=== PATIENT | male | born 1960 | race Caucasian/White ===

== ENCOUNTER → 2020-04-04 09:53 | Outpatient (BNVA) | payer BC, MEDICARE, SELFPAY | PROVIDERS: PCP Nurse Practitioner Family; Visit Provider Urology | DX: N40.3 Nodular prostate with lower urinary tract symptoms (principal); R35.1 Nocturia | CPT/HCPCS: 51798; 81002; 99212 ==

== ENCOUNTER 2020-04-05 06:55 | Outpatient (REF) | payer BC, MEDICARE, SELFPAY ==
[2020-04-05 11:39] LABS: Alanine Aminotransferase 31 U/L (0-40); Albumin Level 4.8 g/dL (3.5-5.0); Alkaline Phosphatase 70 U/L (39-117); Anion Gap 13 (12-20); Aspartate Amino Transferase 20 U/L (5-37); Bilirubin Total 0.5 mg/dL (0.0-1.0); Blood Urea Nitrogen 17 mg/dL (9-16); Calcium 9.4 mg/dL (8.4-10.2); Carbon Dioxide 25 mmol/L (22-29); Chloride 102 mmol/L (96-108); Cholesterol 252 mg/dL; Estimated Glomerular Filt Rate > 60; Glucose Fasting 100 mg/dL (60-99); HDL Cholesterol 37 mg/dL; LDL Cholesterol Calculated 184 mg/dl; Potassium 4.4 mmol/l (3.3-5.1); Sodium 136 mmol/L (135-145); Total Protein 7.1 g/dL (6.5-8.0); Triglycerides 155 mg/dL
[2020-04-05 12:00] LABS: Prostate Specific Antigen Scr 1.12 ng/mL (<0.05-4.0); TSH reflex Free T4 2.28 mIU/mL (0.32-4.0); Vitamin D 25-OH Total 48.5 ng/mL (>30)
== END 2020-04-05 06:56 | disposition home or self-care (01) ==
LOC: HO.HMGCLDS 06:55
PROVIDERS: PCP Nurse Practitioner Family; Visit Provider Nurse Practitioner Family
DX: Z12.5 Encounter for screening for malignant neoplasm of prostate (principal); Z00.00 Encounter for general adult medical examination without abnormal findings
CPT/HCPCS: 80053; 80061; 82306; 84153; 84443

== ENCOUNTER 2020-08-08 11:02 | Outpatient (REF) | payer BC, MEDICARE, SELFPAY ==
[2020-08-08 13:56] LABS: Basophils Percent Auto 0.4 % (0-2); Eosinophils Percent Auto 0.4 % (0-4); Hematocrit 46.9 % (42-52); Hemoglobin 15.8 g/dl (14.0-18.0); Imm Gran Abs Auto 0.05 X10*3/uL (0.00-0.03); Imm Gran Pct Auto 0.5 % (0.0-0.4); Lymphocytes Absolute Auto 2.1 X10*3/uL (1.2-4.9); Lymphocytes Percent Auto 21.6 % (20-40); Mean Corpuscular HGB Conc 33.7 g/dl (31.0-36.0); Mean Corpuscular Hemoglobin 29.6 pg (27.0-33.0); Mean Corpuscular Volume 87.8 fL (80-98); Mean Platelet Volume 10.5 fL (9.4-12.4); Monocytes Absolute Auto 0.8 X10*3/uL (0.1-1.2); Monocytes Percent Auto 8.2 % (2-11); Neutrophils Absolute Auto 6.5 X10*3/uL (2.0-8.3); Neutrophils Percent Auto 68.9 % (45-73); Platelet Count 328 X10*3/uL (160-400); Red Blood Count 5.34 X10*6/uL (4.60-5.80); Red Cell Distribution Width 12.9 % (11.0-16.0); White Blood Count 9.5 X10*3/uL (4.8-10.8)
[2020-08-08 13:58] LABS: MANUAL DIFF FLAG NO
[2020-08-08 15:00] LABS: Alanine Aminotransferase 21 U/L (0-40); Albumin Level 5.1 g/dL (3.5-5.0); Alkaline Phosphatase 72 U/L (39-117); Anion Gap 17 (12-20); Aspartate Amino Transferase 16 U/L (5-37); Bilirubin Total 0.6 mg/dL (0.0-1.0); Blood Urea Nitrogen 18 mg/dL (9-16); Calcium 9.9 mg/dL (8.4-10.2); Carbon Dioxide 25 mmol/L (22-29); Chloride 103 mmol/L (96-108); Cholesterol 224 mg/dL; Estimated Glomerular Filt Rate > 60; Glucose Fasting 93 mg/dL (60-99); HDL Cholesterol 39 mg/dL; LDL Cholesterol Calculated 159 mg/dl; Potassium 4.1 mmol/L (3.3-5.1); Sodium 141 mmol/L (135-145); Total Protein 7.6 g/dL (6.5-8.0); Triglycerides 130 mg/dL
== END 2020-08-08 11:03 | disposition home or self-care (01) ==
LOC: HO.HMGCLDS 11:02
PROVIDERS: PCP Nurse Practitioner Family; Visit Provider Nurse Practitioner Family
DX: E78.5 Hyperlipidemia, unspecified (principal)
CPT/HCPCS: 36415; 80053; 80061; 85025

== ENCOUNTER → 2020-09-20 09:07 | Outpatient (BNVA) | payer BC, MEDICARE, SELFPAY | PROVIDERS: PCP Nurse Practitioner Family; Referring Provider Nurse Practitioner Family; Visit Provider Internal Medicine Cardiovascular Disease | DX: I45.10 Unspecified right bundle-branch block (principal); I10 Essential (primary) hypertension; R06.00 Dyspnea, unspecified | CPT/HCPCS: 93005; 99212 ==

== ENCOUNTER → 2021-04-05 08:24 | Outpatient (BNVA) | payer BC, MEDICARE, SELFPAY | PROVIDERS: PCP Nurse Practitioner Family; Visit Provider Urology | DX: N40.1 Benign prostatic hyperplasia with lower urinary tract symptoms (principal); R35.1 Nocturia; N40.2 Nodular prostate without lower urinary tract symptoms | CPT/HCPCS: 51798 ==

== ENCOUNTER 2021-05-04 06:45 | Outpatient (REF) | payer MEDICARE, SELFPAY ==
[2021-05-04 11:43] LABS: Appearance Urine CLEAR; Color Urine YELLOW; Glucose Urine UA NEG (NEG); Leukocyte Esterase Urine NEG (NEG); Nitrite Urine NEG (NEG); Specific Gravity - Urine 1.025 (1.005-1.025); Urine Blood NEG (NEG); Urine Ketones NEG (NEG); Urine Protein NEG (NEG-TRACE)
[2021-05-04 11:59] LABS: Alanine Aminotransferase 15 U/L (0-40); Albumin Level 4.7 g/dL (3.5-5.0); Alkaline Phosphatase 73 U/L (39-117); Anion Gap 13 (12-20); Aspartate Amino Transferase 16 U/L (5-37); Blood Urea Nitrogen 20 mg/dL (9-16); Calcium 10.2 mg/dL (8.4-10.2); Carbon Dioxide 28 mmol/L (22-29); Chloride 103 mmol/L (96-108); Cholesterol 271 mg/dL; Estimated Glomerular Filt Rate > 60; Glucose Fasting 93 mg/dL (60-99); HDL Cholesterol 37 mg/dL; LDL Cholesterol Calculated 213 mg/dl; Potassium 4.1 mmol/L (3.3-5.1); Sodium 140 mmol/L (135-145); Total Protein 7.1 g/dL (6.5-8.0); Triglycerides 109 mg/dL
[2021-05-04 12:05] LABS: Prostate Specific Antigen Scr 1.16 ng/mL (<0.05-4.0); TSH reflex Free T4 1.66 uIU/mL (0.32-4.0)
== END 2021-05-04 06:46 | disposition home or self-care (01) ==
LOC: HO.HMGCLDS 06:45
PROVIDERS: PCP Nurse Practitioner Family; Visit Provider Nurse Practitioner Family
DX: Z12.5 Encounter for screening for malignant neoplasm of prostate (principal); E78.5 Hyperlipidemia, unspecified; I10 Essential (primary) hypertension
CPT/HCPCS: 36415; 80053; 80061; 81003; 84153; 84443

== ENCOUNTER 2021-07-09 06:48 | Outpatient (REF) | payer MEDICARE, SELFPAY ==
[2021-07-09 11:55] LABS: Alanine Aminotransferase 17 U/L (0-40); Albumin Level 4.6 g/dL (3.5-5.0); Alkaline Phosphatase 65 U/L (39-117); Anion Gap 12 (12-20); Aspartate Amino Transferase 17 U/L (5-37); Bilirubin Total 0.8 mg/dL (0.0-1.0); Blood Urea Nitrogen 18 mg/dL (9-16); Calcium 9.3 mg/dL (8.4-10.2); Carbon Dioxide 24 mmol/L (22-29); Chloride 109 mmol/L (96-108); Cholesterol 159 mg/dL; Estimated Glomerular Filt Rate > 60; Glucose Fasting 100 mg/dL (60-99); HDL Cholesterol 35 mg/dL; LDL Cholesterol Calculated 109 mg/dl; Potassium 3.9 mmol/L (3.3-5.1); Sodium 141 mmol/L (135-145); Total Protein 6.8 g/dL (6.5-8.0); Triglycerides 76 mg/dL
== END 2021-07-09 06:49 | disposition home or self-care (01) ==
LOC: HO.HMGCLDS 06:48
PROVIDERS: Visit Provider Nurse Practitioner Family
DX: E78.5 Hyperlipidemia, unspecified (principal)
CPT/HCPCS: 36415; 80053; 80061

== ENCOUNTER → 2021-09-27 12:47 | Outpatient (BNVA) | payer MEDICARE, MEDICAID, SELFPAY | PROVIDERS: PCP Nurse Practitioner Family; Referring Provider Nurse Practitioner Family; Visit Provider Internal Medicine Cardiovascular Disease | DX: I45.10 Unspecified right bundle-branch block (principal); I10 Essential (primary) hypertension; R06.00 Dyspnea, unspecified | CPT/HCPCS: 93005; 99212 ==

== ENCOUNTER 2021-10-17 06:10 | Outpatient (REF) | payer MEDICARE, MEDICAID, SELFPAY ==
[2021-10-17 11:11] LABS: MANUAL DIFF FLAG NO
[2021-10-17 11:36] LABS: Basophils Percent Auto 0.6 % (0-2); Eosinophils Absolute Auto 0.2 X10*3/uL (0.0-0.4); Eosinophils Percent Auto 2.6 % (0-4); Hemoglobin 14.5 g/dl (14.0-18.0); Imm Gran Abs Auto 0.02 X10*3/uL (0.00-0.03); Imm Gran Pct Auto 0.3 % (0.0-0.4); Lymphocytes Percent Auto 29.4 % (20-40); Mean Corpuscular Hemoglobin 29.8 pg (27.0-33.0); Mean Corpuscular Volume 90.3 fL (80.0-98.0); Mean Platelet Volume 11.4 fL (9.4-12.4); Monocytes Absolute Auto 0.7 X10*3/uL (0.1-1.2); Monocytes Percent Auto 10.1 % (2-11); Neutrophils Absolute Auto 3.9 x10*3/uL (2.0-8.3); Platelet Count 269 X10*3/uL (160-400); Red Blood Count 4.87 X10*6/uL (4.60-5.80); Red Cell Distribution Width 13.2 % (11.0-16.0); White Blood Count 6.9 X10*3/uL (4.8-10.8)
[2021-10-17 12:06] LABS: Rheumatoid Factor < 15.0 IU/mL (<15.0)
[2021-10-17 12:33] LABS: Erythrocyte Sedimentation Rate 6 MM/HR (0-15)
[2021-10-19 08:47] LABS: Lyme Abs Screen <0.90 index
[2021-10-25 00:02] LABS: Cyclic Citrullinated Peptide <16 UNITS
== END 2021-10-17 06:11 | disposition home or self-care (01) ==
LOC: HO.HMGCLDS 06:10
PROVIDERS: Visit Provider Nurse Practitioner Family
DX: M25.50 Pain in unspecified joint (principal); R06.02 Shortness of breath
CPT/HCPCS: 36415; 85025; 85652; 86140; 86200; 86431; 86617; 86618

== ENCOUNTER 2021-11-13 11:18 | Outpatient (REF) | payer MEDICARE, MEDICAID, SELFPAY ==
--- NOTE | ~2021-11-13 | XR_ITS ---
EXAMINATION: XR CHEST CLINICAL INFORMATION: Dyspnea COMPARISON: Previous chest x-ray most recent February 2012 TECHNIQUE: 2 views of the chest were obtained. FINDINGS: The cardiac and mediastinal contours are stable. The lungs are clear. There is slight elevation of the right hemidiaphragm that is stable. Lung volumes are low. There is no pleural effusion or pneumothorax. There are mild degenerative changes of the spine. XR/XR chest 2V IMPRESSION: No evidence for acute disease in the chest. Slight elevation of the right hemidiaphragm and low lung volumes similar to previous exam.
== END 2021-11-13 11:19 | disposition home or self-care (01) ==
LOC: HO.XRAY 11:18
PROVIDERS: PCP Nurse Practitioner Family; Visit Provider Internal Medicine
DX: R06.00 Dyspnea, unspecified (principal); J44.9 Chronic obstructive pulmonary disease, unspecified
CPT/HCPCS: 71046; 99202

== ENCOUNTER 2021-12-07 07:52 | Outpatient (REF) | payer MEDICARE, MEDICAID, SELFPAY ==
--- NOTE | 2021-12-07 12:06 | PFT_ITS ---
INDICATION: Shortness of breath. SPIROMETRY: FEV1 to FVC of 90% with an FEV1 of 2.82 L, which is 88% predicted, an FVC of 3.13 L, which is 73% predicted. No significant response to bronchodilators noted. Maximum voluntary ventilation 78% predicted. LUNG VOLUMES: Total lung capacity 66% predicted with an expiratory reserve volume of 28% predicted. DIFFUSION CAPACITY: DLCO 70% predicted with a DLCO corrected of 106% predicted. COMPARISONS: None. INTERPRETATION: No obstructive ventilatory defects. No significant response to bronchodilators noted, and just a slight mild decrease in maximum voluntary ventilation secondary to likely deconditioning. Lung volumes do demonstrate a restrictive ventilatory defect consistent with mild restrictive lung disease. Partly due to the elevated BMI although interstitial lung conditions and/or neuromuscular conditions cannot be ruled out. The patient does have a mild diffusion impairment secondary to the above, but it does correct to normal when correcting for the alveolar volume suggesting that there is less likely intrinsic pulmonary parenchymal component. Clinical correlation warranted. Simba Rose MD MR/MODL / [id number]
== END 2021-12-07 07:53 | disposition home or self-care (01) ==
LOC: HO.RESP 07:52
PROVIDERS: PCP Nurse Practitioner Family; Visit Provider Nurse Practitioner Family
DX: R06.02 Shortness of breath (principal)
CPT/HCPCS: 94060; 94727; 94729

== ENCOUNTER → 2021-12-20 10:12 | Outpatient (BNVA) | payer MEDICARE, MEDICAID, SELFPAY | PROVIDERS: PCP Nurse Practitioner Family; Visit Provider Internal Medicine | DX: R06.00 Dyspnea, unspecified (principal); E66.9 Obesity, unspecified; J98.4 Other disorders of lung | CPT/HCPCS: 99212 ==

== ENCOUNTER 2022-01-10 09:31 | Outpatient (REF) | payer MEDICARE, MEDICAID, SELFPAY ==
--- NOTE | ~2022-01-10 | XR_ITS ---
EXAMINATION: XR HAND, RIGHT XR HAND, LEFT CLINICAL INFORMATION: Bilateral pain hands. COMPARISON: Radiographs bilateral hands 02/13/2012. TECHNIQUE: There is total of 6 views. FINDINGS: Right: No fracture, dislocation, destructive process. Bony mineralization is within normal. No periarticular demineralization. The ulnar variance is neutral. There is borderline narrowing triscaphe joint. No subchondral sclerosis or erosive change. Remainder of the carpus unremarkable. The MCP and interphalangeal joints show no narrowing or erosive change. Left: No fracture, dislocation, destructive process. Bony mineralization is within normal. No periarticular demineralization. The ulnar variance is neutral. There is a small subchondral cyst radial side distal radius under 5 mm with circumscribed margins. No matrix mineralization. No subchondral sclerosis or erosive change. Remainder of the carpus unremarkable. The MCP and interphalangeal joints show no narrowing or erosive change. XR/XR hand LT min 3V IMPRESSION: Right: -Borderline narrowing triscaphe joint. No erosive changes. Left: -No focal joint narrowing. No erosive changes. -Small benign circumscribed cyst distal radius.
--- NOTE | ~2022-01-10 | XR_ITS ---
EXAMINATION: XR HAND, RIGHT XR HAND, LEFT CLINICAL INFORMATION: Bilateral pain hands. COMPARISON: Radiographs bilateral hands 02/13/2012. TECHNIQUE: There is total of 6 views. FINDINGS: Right: No fracture, dislocation, destructive process. Bony mineralization is within normal. No periarticular demineralization. The ulnar variance is neutral. There is borderline narrowing triscaphe joint. No subchondral sclerosis or erosive change. Remainder of the carpus unremarkable. The MCP and interphalangeal joints show no narrowing or erosive change. Left: No fracture, dislocation, destructive process. Bony mineralization is within normal. No periarticular demineralization. The ulnar variance is neutral. There is a small subchondral cyst radial side distal radius under 5 mm with circumscribed margins. No matrix mineralization. No subchondral sclerosis or erosive change. Remainder of the carpus unremarkable. The MCP and interphalangeal joints show no narrowing or erosive change. XR/XR hand RT min 3V IMPRESSION: Right: -Borderline narrowing triscaphe joint. No erosive changes. Left: -No focal joint narrowing. No erosive changes. -Small benign circumscribed cyst distal radius.
== END 2022-01-10 09:32 | disposition home or self-care (01) ==
LOC: HO.HMGCX 09:31
PROVIDERS: PCP Nurse Practitioner Family; Visit Provider Nurse Practitioner Family
DX: M25.50 Pain in unspecified joint (principal); E53.8 Deficiency of other specified B group vitamins; I10 Essential (primary) hypertension
CPT/HCPCS: 73130

== ENCOUNTER → 2022-03-29 08:23 | Outpatient (BNVA) | payer MEDICARE, MEDICAID, SELFPAY | PROVIDERS: PCP Nurse Practitioner Family; Visit Provider Urology | DX: R35.1 Nocturia (principal); M25.50 Pain in unspecified joint | CPT/HCPCS: 51798; 99212 ==

== ENCOUNTER 2022-04-10 06:04 | Outpatient (REF) | payer MEDICARE, MEDICAID, SELFPAY ==
[2022-04-10 11:16] LABS: MANUAL DIFF FLAG NO
[2022-04-10 11:34] LABS: Basophils Percent Auto 0.5 % (0-2); Eosinophils Absolute Auto 0.1 X10*3/uL (0.0-0.4); Eosinophils Percent Auto 1.1 % (0-4); Hematocrit 45.1 % (42.0-52.0); Hemoglobin 14.8 g/dl (14.0-18.0); Imm Gran Abs Auto 0.02 X10*3/uL (0.00-0.03); Imm Gran Pct Auto 0.3 % (0.0-0.4); Lymphocytes Absolute Auto 2.1 X10*3/uL (1.2-4.9); Mean Corpuscular HGB Conc 32.8 g/dl (31.0-36.0); Mean Corpuscular Hemoglobin 29.1 pg (27.0-33.0); Mean Corpuscular Volume 88.8 fL (80.0-98.0); Mean Platelet Volume 11.2 fL (9.4-12.4); Monocytes Absolute Auto 0.8 X10*3/uL (0.1-1.2); Monocytes Percent Auto 9.5 % (2-11); Neutrophils Absolute Auto 4.9 x10*3/uL (2.0-8.3); Neutrophils Percent Auto 62.6 % (45-73); Platelet Count 298 X10*3/uL (160-400); Red Blood Count 5.08 X10*6/uL (4.60-5.80); Red Cell Distribution Width 12.9 % (11.0-16.0); White Blood Count 7.9 X10*3/uL (4.8-10.8)
[2022-04-10 12:05] LABS: Alanine Aminotransferase 21 U/L (0-40); Albumin Level 4.6 g/dL (3.5-5.0); Alkaline Phosphatase 75 U/L (39-117); Anion Gap 13 (12-20); Aspartate Amino Transferase 15 U/L (5-37); Bilirubin Total 0.4 mg/dL (0.0-1.0); Blood Urea Nitrogen 25 mg/dL (9-16); Calcium 9.1 mg/dL (8.4-10.2); Carbon Dioxide 25 mmol/L (22-29); Chloride 109 mmol/L (96-108); Cholesterol 268 mg/dL; Estimated Glomerular Filt Rate > 60; Glucose Fasting 108 mg/dL (60-99); HDL Cholesterol 34 mg/dL; LDL Cholesterol Calculated 199 mg/dl; Potassium 4.1 mmol/L (3.3-5.1); Prostate Specific Antigen Scr 0.89 ng/mL (<0.05-4.0); Sodium 143 mmol/L (135-145); TSH reflex Free T4 1.56 uIU/mL (0.32-4.0); Total Protein 6.8 g/dL (6.5-8.0); Triglycerides 177 mg/dL
[2022-04-10 13:56] LABS: Folate 11.1 ng/mL (> or = 4.0); Vitamin B12 426 pg/mL (200-900)
== END 2022-04-10 06:05 | disposition home or self-care (01) ==
LOC: HO.HMGCLDS 06:04
PROVIDERS: PCP Nurse Practitioner Family; Visit Provider Nurse Practitioner Family
DX: Z12.5 Encounter for screening for malignant neoplasm of prostate (principal); I10 Essential (primary) hypertension; E53.8 Deficiency of other specified B group vitamins
CPT/HCPCS: 36415; 80053; 80061; 82607; 82746; 84153; 84443; 85025

== ENCOUNTER 2022-06-25 07:40 | Day surgery (SDC) | payer MEDICARE, MEDICAID, SELFPAY ==
[2022-06-25 07:57] VITALS: BMI 31.6
[2022-06-25 08:05] VITALS: BP 131/88; PULSE 97; RESP 16; TEMP 36.2; O2SAT 96
[2022-06-25] MEDS: Lactated Ringers 1,000 ML 50 ML IVCONT (08:25)
--- NOTE | 2022-06-25 08:39 | P.CONAN_ITS ---
HPI - Anesthesia Eval Consult details Narrative: 61 M for EGD and colonoscopy [facility] Active Problems Active Problems: All Active Problems (Updated 04/10/22 @ 12:16 by DONY Root) Dyslipidemia (Acute) Disorder of vitamin B12 (Acute) Screening for colon cancer (Acute) Restrictive lung disease (Acute) Obesity (BMI 30-39.9) (Acute) COPD (chronic obstructive pulmonary disease) (Acute) SOB (shortness of breath) (Acute) Arthralgia (Acute) Nocturia associated with benign prostatic hyperplasia (Acute) Encounter for annual wellness visit (AWV) in Medicare patient (Acute) Screening PSA (prostate specific antigen) (Acute) Cellulitis (Acute) RBBB (Acute) FLYNN (dyspnea on exertion) (Acute) Dyslipidemia (Acute) Hypertension (Acute) Finger laceration (Acute) Prostate nodule (Acute) Nocturia more than twice per night (Acute) Screening PSA (prostate specific antigen) (Acute) Physical exam (Acute) Past Medical History Medical History Anemia Carpal tunnel syndrome of left wrist Cervical spondylosis Diverticulitis GERD (gastroesophageal reflux disease) Hypertension Insomnia LVH (left ventricular hypertrophy) Neuropathy Obesity (BMI 30-39.9) JOHANNY (obstructive sleep apnea) RAD (reactive airway disease) RBBB Restrictive lung disease Sacroiliitis Tinea cruris Functional capacity: independent ambulation Family History Family History Father Myocardial infarction Diabetes mellitus CVD (cardiovascular disease) Mother No problems noted. Brother Diabetes mellitus Sister Diabetes mellitus Cancer Family history of problems with anesthesia: No Surgical History Surgical History History of carpal tunnel surgery History of tonsillectomy History of Problems with Anesthesia: Yes (Ponv ) Social History Social History Housing: House Alcohol intake: never Patient Tobacco Use Status: Never used Tobacco e-Cigarette/Vaping Use: Never Used Use of substances other than those prescribed or required for medical reasons: No Are you DNR?: No Advance Directives: No Advance Directives Information Provided: Yes service: No Current occupational status: disabled Cognitive needs: No Hearing needs: No Vision needs: Yes Meds Allergies Allergy/AdvReac Type Severity Reaction Status Date / Time orphenadrine [From Norflex] Allergy Mild UNKNOWN Verified 05/09/22 08:42 piroxicam [From Feldene] Allergy Mild UNKNOWN Verified 05/09/22 08:42 amoxicillin Allergy Unknown unknown Verified 05/09/22 08:42 lisinopril Allergy Unknown cough Verified 05/09/22 08:42 pravastatin AdvReac Mild body aches Verified 05/09/22 08:42 Active Medications: Current Medications Lactated Ringer's (Lr) 1,000 mls @ 50 mls/hr IVCONT .Q20H GEOVANNY Last Admin: 06/25/22 08:25 Dose: 50 mls/hr Home Medications Medication Instructions Recorded Confirmed Last Taken Type cholecalciferol (vitamin D3) 125 125 mcg PO DAILY 11/13/21 06/25/22 Unknown History mcg (5,000 unit) capsule magnesium 200 mg tablet 200 mg PO DAILY 11/13/21 06/25/22 Unknown History zinc 50 mg tablet 50 mg PO DAILY 11/13/21 06/25/22 Unknown History acetaminophen 650 mg 650 mg PO Q8H 02/14/22 06/25/22 Unknown History tablet,extended release (Tylenol Arthritis Pain) antiarthritic combination no.2 900 900 mg PO DAILY 02/14/22 06/25/22 Unknown History mg tablet (glucosamine-chondroitin) krill oil 500 mg capsule 500 mg PO DAILY 02/14/22 06/25/22 Unknown History omeprazole 40 mg capsule,delayed 1 cap PO QAM 06/25/22 06/25/22 06/25/22 07:55 History release Exam Exam Date and Time: June 25, 2022 0839 Height,Weight and Vital Signs: Height 5 ft 7 in Weight 91.626 kg Last Vital Signs Temp 97.1 F 06/25/22 08:05 Pulse 97 06/25/22 08:05 Resp 16 06/25/22 08:05 BP 131/88 06/25/22 08:05 Pulse Ox 96 06/25/22 08:05 O2 Del Method 06/25/22 08:05 Airway Mallampati Class: IV TM Dist: >3cm Neck ROM: Full Loose/Missing/Broken Teeth: Yes (Chipped upper front ) Heart: S1,S2 Lungs: b/l breath sounds Assessment and Plan Assessment Anesthesia Assessment: Anesthesia Plan Discussed and Chart Reviewed Final Anesthetic Review Family History of Problems with Anesthesia: No History of Problems with Anesthesia: Yes (Ponv ) NPO: Yes ASA Class: III Final Preanesthetic Review: Meds/Allgs Chart Reviewed, Consent Obtained/Reviewed and Anes Risks/Benef Reviewed Patient Risk: High Procedure Risk: Intermediate Anesthetic Plan Anesthetic Plan: MAC: Disposition: Standard PACU
--- NOTE | 2022-06-25 08:58 | MHC.SHP ---
Pre-Procedural Eval Section A Date of Service: 06/25/22 The patient is an INPATIENT: No Changes since office visit: No Cold of Flu in the past 2 weeks, No New Medical Problems, No Changes in Medication and No Patient answered all questions The History & Physical has been completed within 30 days and I have reviewed it.: Yes Section B Chief Complaint: reflux,screening Allergies: Allergies Allergy/AdvReac Type Severity Reaction Status Date / Time orphenadrine [From Norflex] Allergy Mild UNKNOWN Verified 05/09/22 08:42 piroxicam [From Feldene] Allergy Mild UNKNOWN Verified 05/09/22 08:42 amoxicillin Allergy Unknown unknown Verified 05/09/22 08:42 lisinopril Allergy Unknown cough Verified 05/09/22 08:42 pravastatin AdvReac Mild body aches Verified 05/09/22 08:42 Plan I have reviewed the history and physical and performed a pertinent physical examination on my patient. No changes have occurred unless specified. Time Spent With Patient Time: Total time managing care of this patient today ____ minutes.
--- NOTE | 2022-06-25 09:06 | PC.NURSE ---
MD NEWMANAS AWARE OF ARRHYTHMIA
--- NOTE | 2022-06-25 09:42 | P.BOP_ITS ---
Brief Operative Note Date of Service: 06/25/22 Pre-op diagnosis: gerd screening Post-op diagnosis: same Procedure: egd colonscopy Surgeon: Basilio Naylor Anesthesia: MAC Was an Front Desk Manager used for this Procedure?: No Estimated blood loss (mL): 5 Pathology: other Condition: stable Disposition: PACU
[2022-06-25 09:44] VITALS: BP 110/65; PULSE 94; RESP 20; TEMP 36.9; O2SAT 98
[2022-06-25 09:59] VITALS: BP 114/63; PULSE 87; RESP 17; O2SAT 95
--- NOTE | 2022-06-25 09:59 | OP_ITS ---
SURGEON: Basilio Naylor MD INDICATIONS: 1. Gastroesophageal reflux disease. 2. Colon cancer screening and prior history of adenomatous colon polyps. PREOPERATIVE DIAGNOSIS: POSTOPERATIVE DIAGNOSIS: PROCEDURE PERFORMED: Upper endoscopy with biopsy, colonoscopy to the terminal ileum. ESTIMATED BLOOD LOSS: COMPLICATIONS: ANESTHESIA: Medications; monitored anesthesia care. ASSISTANTS: SPECIMENS: PROCEDURE DESCRIPTION: A history and physical performed. The risks and benefits of the procedure were explained to the patient. The procedure was performed on 06/25. The patient was placed in the left lateral decubitus position. Informed consent was obtained prior to the procedure. A digital rectal exam was performed prior to the colonoscopy. The Olympus videogastroscope was introduced into the esophagus, stomach, and duodenum. Examination was performed. The scope was removed. He was repositioned for colonoscopy. A digital rectal exam was performed and was found to be normal. The Olympus pediatric videocolonoscope was introduced into the rectum and advanced to the cecum without difficulty. The cecum was identified by transillumination, palpation, and identification of ileocecal valve. Examination was performed. The scope was removed. He tolerated both procedures well and was taken to recovery room in stable condition. FINDINGS: Upper endoscopy of esophagus: The esophagus was normal. There was no esophagitis. The EG junction was irregular and biopsies were obtained from this area. Stomach: The stomach showed no evidence of masses, ulcers, or polyps. Antral biopsies were obtained to rule out H pylori. Duodenum: The bulb and 2nd portion were normal. Colonoscopy: The terminal ileum was examined and appeared normal. The visualized colonic mucosa was normal. The quality of the prep was good. No polyps were identified. There was mild sigmoid diverticulosis. Retroflexed examination showed moderate-sized internal hemorrhoids. IMPRESSION: 1. Gastroesophageal reflux disease. 2. Normal colonoscopy. RECOMMENDATIONS: 1. Follow up the biopsy results. 2. Repeat colonoscopy can be considered in 10 years for average risk individuals. MD DEBBIE Stallworth/RAF / [id number]
[2022-06-25 10:10] VITALS: BP 124/75; PULSE 87; RESP 18; TEMP 36.9; O2SAT 97
== END 2022-06-25 10:24 | disposition home or self-care (01) ==
PROVIDERS: PCP Nurse Practitioner Family; Visit Provider Internal Medicine Gastroenterology
PROC: (CPT 43239; principal; 2022-06-25 08:50)
DX: Z12.11 Encounter for screening for malignant neoplasm of colon (principal); Z86.010 Personal history of colon polyps; K57.30 Diverticulosis of large intestine without perforation or abscess without bleeding; K64.8 Other hemorrhoids; Z86.018 Personal history of other benign neoplasm; K21.9 Gastro-esophageal reflux disease without esophagitis; Z87.19 Personal history of other diseases of the digestive system; I10 Essential (primary) hypertension; E78.00 Pure hypercholesterolemia, unspecified; G47.33 Obstructive sleep apnea (adult) (pediatric); Z79.899 Other long term (current) drug therapy; Z88.1 Allergy status to other antibiotic agents; Z88.0 Allergy status to penicillin
CPT/HCPCS: 43239; G0105; 88305; 88342

== ENCOUNTER → 2022-07-24 09:21 | Outpatient (BNVA) | payer MEDICARE, MEDICAID, SELFPAY | PROVIDERS: PCP Nurse Practitioner Family; Visit Provider Internal Medicine Cardiovascular Disease | DX: Z13.89 Encounter for screening for other disorder (principal) ==

== ENCOUNTER → 2022-08-01 07:54 | Outpatient (REF) | payer MEDICARE, MEDICAID, SELFPAY ==
--- NOTE | 2022-08-01 07:57 | HM_ITS ---
Conclusion: 1. Patient was monitored for total period of 23 hours 2. Baseline was normal sinus rhythm with average heart rate of 81 beats per minute 3. Total of 15,241 PVCs accounting for 13.6% total beats account for frequent PVCs 4. No significant pauses noted but first-degree AV block was noted 5. No patient reported symptoms MTDD
--- NOTE | 2022-08-01 07:57 | CA_ITS ---
Transthoracic Echocardiogram Patient (Last, First, Middle): Jonnie Alexander H Gender: Male Date of : 1960 Age: 61 Procedure Date: 08/01/2022 Procedure Type: Transthoracic Echocardiogram Location: OP Height: 170.18 cm Weight: 95.26 kg BSA: 2.06 m2 Heart Rate: bpm BP: 139 / 79 mmHg Photographer News: TO Referring MD: Reji Mercedes MD Clerk Of Court: Reji Mercedes MD Symptoms: I49.3 - Ventricular premature depolarization Study Quality: Fair/Contrast Conclusions: - Normal left ventricular size and systolic function. There is mildly increased left ventricular wall thickness. The visually estimated ejection fraction is between 55-60%. - The anterior wall is hypokinetic. - Normal right ventricular cavity size and systolic function. Findings Procedure Information Contrast agent, definity, is being given per protocol without apparent complications. Left Ventricle Normal left ventricular size and systolic function. There is mildly increased left ventricular wall thickness. The visually estimated ejection fraction is between 55-60%. There is evidence of regional wall motion abnormalities. Diastolic function is normal for age. There is moderate septal asymmetric hypertrophy. Wall Motion Rest Echo Findings The anterior wall is hypokinetic. Right Ventricle Normal right ventricular cavity size and systolic function. Atria The left atrium is normal in size. Aortic Valve Normal aortic valve structure and function. There is no aortic valve stenosis. There is no aortic valve regurgitation. Mitral Valve The mitral valve appears normal. There is trace mitral valve regurgitation. There is no mitral valve stenosis. Pulmonic Valve Normal pulmonic valve structure and function. There is trace pulmonic valve regurgitation. Tricuspid Valve Normal tricuspid valve structure and function. There is trace tricuspid valve regurgitation. Normal right atrial pressure. There is no evidence of pulmonary hypertension. Great Vessels All visible segments of the aorta are normal in size. The visualized portions of the pulmonary artery and branches are normal. Venous The inferior vena cava is normal in size and collapses greater than 50% with inspiration. Pericardium/Pleural There is no evidence of pericardial effusion. Prior Study Comparison Changes noted compared to prior study dated: 04/14/2018. Anterior wall is hypokinetic. Measurements 2D Linear Measurements IVSd: 1.42 0.6-0.9/0.6-1.0 cm LVIDd: 4.88 3.9-5.3/4.2-5.9 cm LVIDd Index: 2.37 2.4-3.2/2.2-3.1 cm/m2 LVIDs: 3.11 2.0-3.6 cm LVPWd: 1.10 0.7-1.1 cm LA Diam: 4.10 2.7-3.8/3.0-4.0 cm LAIDs Index: 1.99 1.5-2.3 cm/m2 LV Mass: 300.57 67-162/88-224 g LV Mass Index: 145.91 43-95/49-115 g/m2 LVOT Diam: 2.30 3.0+(-)1.3 cm 2D Systolic Function EF 4C: 61.10 >55% EF 2C: 57.40 >55% EF BiP: 60.00 >55% Mitral Valve E'Lateral: 9.03 E'Medial: 6.20 Aortic Valve AoV Pk Benja: 1.52 AoV Mn Benja: 1.05 AoV VTI: 0.31 AoV Pk Grad: 9.00 Aov Mn Grad: 5.00 GE Cont.VTI: 2.88 LVOT LVOT Pk Benja: 1.01 LVOT Mn Benja: 0.70 LVOT VTI: 0.22 LVOT Pk Grad: 4.00 LVOT Mn Grad: 2.00 LVOT Diam: 2.30 LVOT Area: 4.15 Diastolic Function E'Medial: 6.20 E' Laterial: 9.03 Right Ventricle TAPSE (mm): 18.00 TVS' Benja: 10.20 Tricuspid Valve TR Pk Benja: 1.41 TR Pk Grad: 8.00 RA Press: 3.00 RVSP: 11.00 Great Vessels Aorta Sinus of Valsalva: 3.06 2.0-3.5 cm Ao Asc: 2.80 2.1-3.4 cm Updated in Other Vendor System with Status of Final Reji Mercedes MD electronically signed on 08/04/2022 6:06:06 PM with status of Final
== END ==
LOC: HO.CARD 07:54
PROVIDERS: PCP Nurse Practitioner Family; Visit Provider Internal Medicine Cardiovascular Disease
DX: I10 Essential (primary) hypertension (principal); I49.3 Ventricular premature depolarization; R94.31 Abnormal electrocardiogram [ECG] [EKG]
CPT/HCPCS: 93225; 93306; Q9957

== ENCOUNTER → 2022-08-13 08:18 | Outpatient (REF) | payer MEDICARE, MEDICAID, SELFPAY ==
--- NOTE | ~2022-08-13 | NM_ITS ---
Exercise Myocardial perfusion study Indication: Shortness of breath with exertion to evaluate for myocardial ischemia Technique: The patient was brought in for an exercise perfusion study on 08/13/2022. Patient performed exercise as per Xavi protocol and was injected 35 mCi of sestamibi was given intravenously one target HR was achieved. Images were obtained using the SPECT gamma camera interlaced with the gating device. Images were obtained in supine position. Resting perfusion study was performed on 08/14/2022. Patient was administered 35 mCi of sestamibi intravenously at rest. Images were then obtained in supine position. Images obtained with and without CT attenuation. Total DLP 104 mGy-cm. Images were processed with the software and compared side to side in short axis, horizontal long axis and vertical long axis views. Findings: The stress perfusion study showed non attenuated images show mildly reduced uptake in the septum, apex as well as minimal thinning of the inferior wall of the LV myocardium. Remainder of the LV myocardium is normally perfused. Attenuated corrected images show moderately reduced uptake in the apex of the LV myocardium.. The gated study shows normal LV systolic function with calculated LVEF of 48%. LV cavity is mildly dilated in size. The gated study shows no wall thickening and contraction of all segments. There is possible transient ischemic dilation. Resting study shows non attenuated images show improved uptake in the septum, apex and inferoapical wall of the myocardium suggestive of ischemia. Attenuation corrected images show normal uptake of radiotracer in all segments except moderate uptake in the apex.. Gating at rest reveals normal systolic wall motion with ejection fraction at 56%. The findings are consistent with non attenuated images show no reversible defect of the septum, inferoapical and apical portion suggestive of ischemia. Attenuation corrected images show no reversible moderately reduced uptake in the apex, probably over correction.. NM/NM cardiolite stress test Impression: 1. Possible septal, inferoapical and apical ischemia in RCA territory 2. Gated LVEF is 48% with stress and 56% with rest 3. Transient ischemic dilatation possibly present Stress EKG is positive for ischemia
[2022-08-13 08:36] LABS: MANUAL DIFF FLAG NO
--- NOTE | 2022-08-13 08:45 | CA_ITS ---
Acquisition Time: 2022-08-13 08:58:49 Total Exercise Time: 00:06:31 Test Indications: ABN ECHO, SOB Medications: SEE H Protocol: JENNIFER Max HR: 130 BPM 81% of Pred: 159 BPM Max BP: 142/080 mmHG Max Work Load: 7.8 METS Exercise stress test with exercise 6 min 31 sec of Jennifer protocol, achieving 81% MPHR with request to stop due to back and hip discomfort however reporting moderate sob and 4/10 mid chest pressure, with frequent isolated PVCs throughout test, with normotensive response to exercise, without EKG changes of ischemia with exercise then in recovery there are downsloping ST segments noted inferiorly and V3-V6 suggestive of ischemia. In recovery his chest discomfort gradually resolved and EKG changes gradually returned to baseline. Nuclear images pending. Test reviewed with Dr Barber Referred By: Reji Mercedes Overread By: NORMAN ESTRELLA
[2022-08-13 09:20] LABS: Basophils Absolute Auto 0.1 X10*3/uL (0.0-0.2); Basophils Percent Auto 0.7 % (0-2); Eosinophils Absolute Auto 0.1 X10*3/uL (0.0-0.4); Hematocrit 45.9 % (42.0-52.0); Hemoglobin 15.4 g/dl (14.0-18.0); Imm Gran Abs Auto 0.04 X10*3/uL (0.00-0.03); Imm Gran Pct Auto 0.4 % (0.0-0.4); Lymphocytes Absolute Auto 2.5 X10*3/uL (1.2-4.9); Lymphocytes Percent Auto 27.4 % (20-40); Mean Corpuscular HGB Conc 33.6 g/dl (31.0-36.0); Mean Corpuscular Hemoglobin 28.9 pg (27.0-33.0); Mean Corpuscular Volume 86.3 fL (80.0-98.0); Mean Platelet Volume 10.6 fL (9.4-12.4); Monocytes Absolute Auto 0.8 X10*3/uL (0.1-1.2); Monocytes Percent Auto 9.3 % (2-11); Neutrophils Absolute Auto 5.5 x10*3/uL (2.0-8.3); Neutrophils Percent Auto 61.2 % (45-73); Platelet Count 313 X10*3/uL (160-400); Red Blood Count 5.32 X10*6/uL (4.60-5.80); Red Cell Distribution Width 12.6 % (11.0-16.0)
[2022-08-13 10:10] LABS: Alanine Aminotransferase 24 U/L (0-40); Albumin Level 4.8 g/dL (3.5-5.0); Alkaline Phosphatase 75 U/L (39-117); Anion Gap 14 (12-20); Aspartate Amino Transferase 18 U/L (5-37); Bilirubin Total 0.6 mg/dL (0.0-1.0); Blood Urea Nitrogen 22 mg/dL (9-16); Calcium 9.9 mg/dL (8.4-10.2); Carbon Dioxide 28 mmol/L (22-29); Chloride 104 mmol/L (96-108); Cholesterol 204 mg/dL; Estimated Glomerular Filt Rate > 60; Glucose Fasting 100 mg/dL (60-99); HDL Cholesterol 32 mg/dL; LDL Cholesterol Calculated 147 mg/dl; Potassium 4.5 mmol/L (3.3-5.1); Sodium 141 mmol/L (135-145); Total Protein 6.8 g/dL (6.5-8.0); Triglycerides 126 mg/dL
[2022-08-13 10:44] LABS: TSH reflex Free T4 1.48 uIU/mL (0.32-4.0); Vitamin B12 501 pg/mL (200-900)
== END ==
LOC: HO.CARD 08:18
PROVIDERS: Absent Provider Nurse Practitioner Family; PCP Nurse Practitioner Family; Visit Provider Internal Medicine Cardiovascular Disease
DX: R06.02 Shortness of breath (principal)
CPT/HCPCS: 36415; 78452; 80053; 80061; 82607; 82746; 84443; 85025; 93017; A9500

== ENCOUNTER 2022-08-20 06:15 | Outpatient (REF) | payer MEDICARE, MEDICAID, SELFPAY ==
[2022-08-20 11:41] LABS: Appearance Urine Clear; Color Urine Yellow; Glucose Urine UA Negative (Negative); Leukocyte Esterase Urine Negative (Negative); Nitrite Urine Negative (Negative); Specific Gravity - Urine 1.025 (1.005-1.025); Urine Blood Negative (Negative); Urine Ketones Negative (Negative); Urine Protein Negative (Neg-Trace)
[2022-08-20 11:54] LABS: Prothrombin Time 11.2 SEC (10.0-13.1)
[2022-08-20 12:00] LABS: Hematocrit 46.3 % (42.0-52.0); Hemoglobin 15.3 g/dl (14.0-18.0); Mean Corpuscular Hemoglobin 29.4 pg (27.0-33.0); Mean Platelet Volume 11.7 fL (9.4-12.4); Platelet Count 277 X10*3/uL (160-400); Red Cell Distribution Width 12.9 % (11.0-16.0); White Blood Count 9.7 X10*3/uL (4.8-10.8)
[2022-08-20 12:32] LABS: Erythrocyte Sedimentation Rate 7 MM/HR (0-15)
[2022-08-20 12:42] LABS: Anion Gap 13 (12-20); Blood Urea Nitrogen 23 mg/dL (9-16); C Reactive Protein 0.29 mg/dL (< or = 0.50); Calcium 9.7 mg/dL (8.4-10.2); Carbon Dioxide 26 mmol/L (22-29); Chloride 106 mmol/L (96-108); Estimated Glomerular Filt Rate > 60; Glucose Random 102 mg/dL (60-115); Potassium 4.4 mmol/L (3.3-5.1); Rheumatoid Factor < 13.0 IU/mL (<15.0); Sodium 141 mmol/L (135-145)
[2022-08-23 03:15] LABS: A. Phagocytphilium DNA,RT-PCR NOT DETECTED (NOT DETECTED); Babesia Microti DNA, RT-PCR NOT DETECTED (NOT DETECTED); Borrelia Miyamotoi,DNA RT-PCR NOT DETECTED (NOT DETECTED); E.Chaffeensis DNA RT-PCR NOT DETECTED (NOT DETECTED); Lyme(Borrelia ssp)DNA RT-PCR NOT DETECTED (NOT DETECTED)
[2022-08-23 11:29] LABS: Cyclic Citrullinated Peptide <16 UNITS
[2022-08-23 15:14] LABS: Anti Nuclear Antibody Screen NEGATIVE (NEGATIVE)
== END 2022-08-20 06:16 | disposition home or self-care (01) ==
LOC: HO.HMGCLDS 06:15
PROVIDERS: Internal Medicine Cardiovascular Disease; PCP Nurse Practitioner Family; Visit Provider Nurse Practitioner Family
DX: M25.50 Pain in unspecified joint (principal); R94.39 Abnormal result of other cardiovascular function study; E53.8 Deficiency of other specified B group vitamins; K94.39 Other complications of esophagostomy; T14.8XXA Other injury of unspecified body region, initial encounter; W57.XXXA Bitten or stung by nonvenomous insect and other nonvenomous arthropods, initial encounter; Y93.9 Activity, unspecified; Y92.9 Unspecified place or not applicable; Y99.9 Unspecified external cause status
CPT/HCPCS: 36415; 80048; 81003; 85027; 85610; 85652; 86038; 86039; 86140; 86200; 86431; 87798; 87801

== ENCOUNTER 2022-09-09 11:13 | Outpatient (REF) | payer MEDICARE, MEDICAID, SELFPAY ==
[2022-09-09 11:31] LABS: Binax Internal Control QC Valid; Binax Now Covid-19 Ag Positive (Negative); Binax Performed by: PAULP
== END 2022-09-09 11:14 | disposition home or self-care (01) ==
LOC: HO.HMGCLDS 11:13
PROVIDERS: PCP Nurse Practitioner Family; Visit Provider Physician Assistant
DX: J40 Bronchitis, not specified as acute or chronic (principal); R19.7 Diarrhea, unspecified; R94.39 Abnormal result of other cardiovascular function study; E78.5 Hyperlipidemia, unspecified; R06.00 Dyspnea, unspecified; I10 Essential (primary) hypertension; Z20.822 Contact with and (suspected) exposure to COVID-19
CPT/HCPCS: 87811; C9803

== ENCOUNTER → 2022-10-18 09:43 | Outpatient (BNVA) | payer MEDICARE, MEDICAID, SELFPAY | PROVIDERS: PCP Nurse Practitioner Family; Referring Provider Nurse Practitioner Family; Visit Provider Internal Medicine Cardiovascular Disease | DX: I25.118 Atherosclerotic heart disease of native coronary artery with other forms of angina pectoris (principal); I10 Essential (primary) hypertension; I45.10 Unspecified right bundle-branch block | CPT/HCPCS: 93005; 99212 ==

== ENCOUNTER 2022-12-02 22:43 | Emergency (ER) | payer MEDICARE, MEDICAID, SELFPAY ==
--- NOTE | 2022-12-02 | ECG_ITS ---
Test Reason : dizziness Blood Pressure : / mmHG Vent. Rate : 089 BPM Atrial Rate : 089 BPM P-R Int : 188 ms QRS Dur : 116 ms QT Int : 408 ms P-R-T Axes : 060 063 052 degrees QTc Int : 496 ms Normal sinus rhythm Possible Left atrial enlargement Right bundle branch block Right ventricular hypertrophy with repolarization abnormality Cannot rule out inferior infarct. Abnormal ECG When compared with ECG of 20-NOV-2004 09:43, Right bundle branch block Present Referred By: Generic ED Physician Electronically Signed By:Reji Mercedes
[2022-12-02 22:46] VITALS: BP 105/73; PULSE 106; RESP 18; TEMP 36.6; O2SAT 94; BMI 30.5
--- NOTE | 2022-12-02 23:04 | ED.ALLEREA ---
HPI - Allergic Reaction General Chief complaint: Allergic Reaction Stated complaint: Allergic Reaction? Time Seen by Provider: 12/02/22 23:04 Source: patient and family Mode of arrival: ambulatory Limitations: no limitations History of Present Illness MD complaint: allergic reaction and hives Related Data Home Medications Medication Instructions Recorded Confirmed omeprazole 40 mg capsule,delayed 1 cap PO QAM 06/25/22 10/18/22 release aspirin 81 mg tablet,delayed 81 mg PO DAILY 10/18/22 10/18/22 release (Adult Low Dose Aspirin) isosorbide mononitrate 30 mg 30 mg PO DAILY 10/18/22 10/18/22 tablet,extended release 24 hr metoprolol succinate 50 mg 50 mg PO DAILY 10/18/22 10/18/22 tablet,extended release 24 hr nitroglycerin 0.4 mg sublingual 0.4 mg sublingual Q5M PRN 10/18/22 10/18/22 tablet Previous Rx's Medication Instructions Recorded ezetimibe 10 mg tablet 10 mg PO DAILY #90 tabs 08/13/22 loperamide 2 mg capsule 2 mg PO QID PRN loose stool #20 09/09/22 (Anti-Diarrheal (loperamide)) caps valsartan 320 mg tablet 320 mg PO DAILY 90 days #90 tabs 09/18/22 diphenhydramine HCl 25 mg capsule 25 mg PO TID PRN allergic reaction 12/03/22 (Benadryl) #20 caps prednisone 20 mg tablet 60 mg PO DAILY #12 tabs 12/03/22 Allergies Allergy/AdvReac Type Severity Reaction Status Date / Time orphenadrine [From Norflex] Allergy Mild UNKNOWN Verified 12/02/22 22:46 piroxicam [From Feldene] Allergy Mild UNKNOWN Verified 12/02/22 22:46 amoxicillin Allergy Unknown unknown Verified 12/02/22 22:46 lisinopril Allergy Unknown cough Verified 12/02/22 22:46 pravastatin AdvReac Mild body aches Verified 12/02/22 22:46 [facility] Past Medical History Medical History (Updated 12/03/22 @ 00:48 by Floyd Martin MD) Anemia Arthralgia Carpal tunnel syndrome of left wrist Cervical spondylosis Diverticulitis GERD (gastroesophageal reflux disease) Hypertension Insomnia LVH (left ventricular hypertrophy) Neuropathy Obesity (BMI 30-39.9) JOHANNY (obstructive sleep apnea) RAD (reactive airway disease) RBBB Restrictive lung disease Sacroiliitis Tinea cruris Surgical History History of cardiac cath History of carpal tunnel surgery History of tonsillectomy Family History Family History Father Myocardial infarction Diabetes mellitus CVD (cardiovascular disease) Mother No problems noted. Brother Diabetes mellitus Sister Diabetes mellitus Cancer Social History Social History Housing: House Alcohol intake: never Patient Tobacco Use Status: Never used Tobacco e-Cigarette/Vaping Use: Never Used Advance Directives: No Advance Directives Information Provided: Yes service: No Current occupational status: disabled Cognitive needs: No Hearing needs: No Vision needs: Yes Physical Exam ED Vital Signs: Vital Signs - 24 hr 12/02/22 22:46 12/02/22 23:40 12/02/22 23:48 Temperature 97.8 F 97.0 F Pulse Rate 106 H 87 88 Respiratory Rate 18 20 16 Blood Pressure 105/73 135/86 126/90 H Pulse Oximetry 94 98 98 Oxygen Delivery Method Room Air Room Air Room Air BMI result Body Mass Index 30.5 Const General: healthy appearing Nutritional Appearance: average body habitus Orientation/consciousness: oriented to person and patient oriented x3 Limitations: no limitations HENMT Other: no tongue or lip swelling Ears: external ears normal General nose exam: Normal external nose present Mouth: Normal oral and palatal mucosa present and oropharynx normal Throat: Yes posterior oropharynx normal Eyes General: appearance normal, both eyes and all related structures Neck Neck: Yes normal visual inspection Chest Chest palpation & inspection: normal inspection of the chest Resp Auscultation: clear to auscultation bilaterally Cardio Jugular venous distension: no JVD Rate: regular rate Rhythm: regular rhythm Heart sounds: S1 normal heart sound present and S2 normal heart sound present GI Inspection: Yes normal to inspection Palpation (GI): Soft to palpation, nontender and No hepatosplenomegaly present Auscultation: normal bowel sounds General: Yes no CVA tenderness Back/Spine/Pelvis Back: no CVA tenderness Skin Other: diffuse hives Neuro General: oriented to person and patient oriented x3 Cranial nerves: Yes CN's II-XII intact bilaterally Motor exam (neuro): 5/5 motor strength present throughout Extrem General: Yes normal to inspection Psych Appearance: grossly normal Course Reevaluation(s) Reevaluation #1: sleeping rash improve Time: 00:42 Medications Administered Discontinued Medications Generic Name Dose Route Start Last Admin Trade Name Freq PRN Reason Stop Dose Admin Diphenhydramine HCl 50 mg 12/02/22 23:05 12/02/22 23:24 Diphenhydramine Hcl 50 Mg/Ml Vial IVPUSH 12/02/22 23:06 50 mg ONCE ONE Administration Methylprednisolone Sodium Succinate 125 mg 12/02/22 23:05 12/02/22 23:25 Methylprednisolone Sod Succ 125 Mg/2 Ml Vial IVPUSH 12/02/22 23:06 125 mg ONCE ONE Administration Medical Decision Making Differential Diagnosis Differential Diagnoses: The differential diagnosis associated with the presentation includes (allergic reaction, hives, anaphalaxis) Admission/Observation Consideration of admission/observation: Escalation of care including admission/observation considered (62 yo male presents with throat tightness and hives was considered for admission) Independent Historian Clinical information obtained from an independent historian. History obtained from or confirmed by: Spouse Tests considered The following testing was considered but not selected: I considered getting basic blood work but the patient stabilized and did not need to be admitted Chronic Conditions Patient?s care impacted by: Diabetes, Hypertension and Other (heart disease) Discharge Plan Discharge Clinical Impression: Allergic reaction Patient Disposition: Home, Self-Care Instructions: General Allergic Reaction (ED) Additional Instructions: stop taking protonix Prescriptions: New diphenhydramine HCl [Benadryl] 25 mg capsule 25 mg PO TID PRN (Reason: allergic reaction) Qty: 20 0RF prednisone 20 mg tablet 60 mg PO DAILY Qty: 12 0RF No Action ezetimibe 10 mg tablet 10 mg PO DAILY Qty: 90 1RF valsartan 320 mg tablet 320 mg PO DAILY 90 Days Qty: 90 1RF omeprazole 40 mg capsule,delayed release(DR/EC) 1 cap PO QAM loperamide [Anti-Diarrheal (loperamide)] 2 mg capsule 2 mg PO QID PRN (Reason: loose stool) Qty: 20 0RF aspirin [Adult Low Dose Aspirin] 81 mg tablet,delayed release (DR/EC) 81 mg PO DAILY isosorbide mononitrate 30 mg tablet extended release 24 hr 30 mg PO DAILY nitroglycerin 0.4 mg tablet, sublingual 0.4 mg sublingual Q5M PRN Rx Instructions: do not exceed 3 doses per episode metoprolol succinate 50 mg tablet extended release 24 hr 50 mg PO DAILY Referrals: Physician,Unknown J [Primary Care Provider] - 5 days
[2022-12-02] MEDS: diphenhydrAMINE HCL 50 MG/ML VIAL IVPUSH (23:24)
[2022-12-02] MEDS: methylPREDNISolone Sod Succ 125 MG/2 ML VIAL IVPUSH (23:25)
--- NOTE | 2022-12-02 23:25 | PC.NURSE ---
pt changed into hospital attire, placed on scuba dive training instructor. medrol and diphenhydramine given with MARIO Anton
[2022-12-02 23:40] VITALS: BP 135/86; PULSE 87; RESP 20; O2SAT 98
[2022-12-02 23:48] VITALS: BP 126/90; PULSE 88; RESP 16; TEMP 36.1; O2SAT 98
[2022-12-03 00:58] VITALS: BP 132/83; PULSE 84; RESP 18; O2SAT 99
== END 2022-12-03 01:05 | disposition home or self-care (01) ==
PROVIDERS: Emergency Provider Emergency Medicine
DX: L50.9 Urticaria, unspecified (principal); T78.40XA Allergy, unspecified, initial encounter; X58.XXXA Exposure to other specified factors, initial encounter; I10 Essential (primary) hypertension; Z79.82 Long term (current) use of aspirin; Z79.899 Other long term (current) drug therapy
CPT/HCPCS: 93005; 96374; 96375; 99284; J1200; J2930

== ENCOUNTER → 2022-12-02 22:58 | Outpatient (BNV) | payer MEDICARE, MEDICAID, SELFPAY | PROVIDERS: Emergency Provider Emergency Medicine; Visit Provider Internal Medicine Cardiovascular Disease | DX: R94.31 Abnormal electrocardiogram [ECG] [EKG] (principal) | CPT/HCPCS: 93010 ==

== ENCOUNTER 2022-12-12 12:19 | Outpatient (AMB) | payer MEDICARE, MEDICAID, SELFPAY ==
--- NOTE | 2022-12-12 12:26 | MHC.OFFWIV ---
Intake Vital Signs 12/12/22 12:32 BP 110/78 Blood Pressure Location Lt brachial Position Sitting Pulse 75 Pulse Source Pulse Oximeter Temp 98 F Temp Source Temporal Artery Scan Pulse Oximetry (%) 98 Oxygen Delivery Method Room Air Intake Visit Reasons: EST/nose bleed Intake Note: Patient here for nose bleed that started today at about 10am, he had quadruple bipass on november 22 and back home on november 26 Patient Tobacco Use Status: Never used Tobacco Allergies orphenadrine [From Norflex] Allergy (Mild, Verified 12/12/22 12:32) UNKNOWN piroxicam [From Feldene] Allergy (Mild, Verified 12/12/22 12:32) UNKNOWN amoxicillin Allergy (Unknown, Verified 12/12/22 12:32) unknown lisinopril Allergy (Unknown, Verified 12/12/22 12:32) cough pantoprazole [From Protonix] Adverse Reaction (Severe, Verified 12/12/22 12:32) Anaphylaxis pravastatin Adverse Reaction (Mild, Verified 12/12/22 12:32) body aches Do you need a note to return to daycare/school/sports/work: No HPI HPI Comments History of Present Illness Details 62-year-old male presents for nosebleed. Patient states that recently had bypass surgery some aspirin and Plavix today scratch her nose bleed bleeding since 10:00 o'clock. Denies any other symptoms PENDING SALE TO [facility] Medical History (Updated 12/04/22 @ 00:02 by Background Daemon) Anemia Arthralgia Carpal tunnel syndrome of left wrist Cervical spondylosis Diverticulitis GERD (gastroesophageal reflux disease) Hypertension Insomnia LVH (left ventricular hypertrophy) Neuropathy Obesity (BMI 30-39.9) JOHANNY (obstructive sleep apnea) RAD (reactive airway disease) RBBB Restrictive lung disease Sacroiliitis Tinea cruris Surgical History History of cardiac cath History of carpal tunnel surgery History of tonsillectomy Family History Father Myocardial infarction Diabetes mellitus CVD (cardiovascular disease) Mother No problems noted. Brother Diabetes mellitus Sister Diabetes mellitus Cancer Social History Housing: House Alcohol intake: never Patient Tobacco Use Status: Never used Tobacco e-Cigarette/Vaping Use: Never Used service: No Current occupational status: disabled Cognitive needs: No Hearing needs: No Vision needs: Yes Review of Systems Const All systems reviewed & are unremarkable except as noted in HPI and below Reports as per HPI ENT Details: Nosebleed Physical Exam Vital Signs: Last Vital Signs Temp 98 F 12/12/22 12:32 Pulse 75 12/12/22 12:32 BP 110/78 12/12/22 12:32 Pulse Ox 98 12/12/22 12:32 Oxygen Delivery Method Room Air 12/12/22 12:32 Const General: cooperative, healthy appearing, comfortable, no acute distress, alert and awake HEENT Other: Bleeding clot the left nostril Assessment & Plan Assessment & Plan (1) Epistaxis: Code(s): R04.0 - Epistaxis Plan 62-year-old male presents for nosebleed. VSS. Exam patient was insulin oriented no acute distress exam is notable for arch clot in the left nostril. Exam is otherwise unremarkable note above. Given patient's use of Plavix in aspirin as well as bleeding since 10:00 without success with home maneuvers will attempt to remove clot localized source and cauterized Re-evaluation placement stable at 10 minutes of observation no bleeding was present recommended nasal precautions in the bleeding returns patient may present. Discharge instructions, follow up and treatment are discussed with patient in my usual fashion. Alternatives in treatment are also discussed. The patient will return for worsening symptoms or as needed. Advised that any labs/imaging ordered will be followed up on and contact made if further treatment needed. Counseled that patient's condition may require further evaluation and/or treatment. Symptoms of concern for worsening disorder discussed in detail in my customary manner. Patient does verbalize understanding of the plan, there are no apparent barriers to communication. The patient is given the opportunity to ask questions and have them answered to his/her satisfaction . Patient Instructions: You were seen and evaluated in the walk-in your nose bleed. Do seem examination. At this time examination is reassuring. Recommend practice good nasal cautions. Please avoid placing anything in your nose from blowing or significant for the next 24 hours. If he experience additional bleeding he may use direct pressure with your hand or by purchasing a clamp after local pharmacy for 10 minutes. May also utilize Afrin nasal spray or Vaseline or ice pack. If these do not work he may present to urgent care or emergency department if experiencing new worsening symptoms such as difficulty breathing fever uncontrolled bleeding please present to the clinic or Emergency Department. Coding Level of Care Code Est Pt Level 3 (01035) Diagnoses Epistaxis R04.0
[2022-12-12 12:32] VITALS: BP 110/78; PULSE 75; TEMP 36.6; O2SAT 98
== END 2022-12-12 13:24 | disposition home or self-care (01) ==
PROVIDERS: PCP Nurse Practitioner Family; Visit Provider Physician Assistant
DX: R04.0 Epistaxis (principal)
CPT/HCPCS: 99213

== ENCOUNTER 2022-12-23 09:50 | Outpatient (AMB) | payer MEDICARE, MEDICAID, SELFPAY ==
--- NOTE | 2022-12-23 10:16 | AM.OFFWIN_ITS ---
Intake Vital Signs 12/23/22 10:23 Height 5 ft 4 in BP 132/74 Blood Pressure Location Rt brachial Position Sitting Pulse 74 Pulse Source Pulse Oximeter Temp 98 F Temp Source Oral Pulse Oximetry (%) 97 Oxygen Delivery Method Room Air Intake Visit Reasons: EST/allergic reaction/[phone] Intake Note: Pt is here today for possible allergic reaction started this morning will swollen eyes. Pt has bumps on both arms. Patient Tobacco Use Status: Never used Tobacco Allergies orphenadrine [From Norflex] Allergy (Mild, Verified 12/23/22 10:47) UNKNOWN piroxicam [From Feldene] Allergy (Mild, Verified 12/23/22 10:47) UNKNOWN amoxicillin Allergy (Unknown, Verified 12/23/22 10:47) unknown lisinopril Allergy (Unknown, Verified 12/23/22 10:47) cough pantoprazole [From Protonix] Adverse Reaction (Severe, Verified 12/23/22 10:47) Anaphylaxis pravastatin Adverse Reaction (Mild, Verified 12/23/22 10:47) body aches Medication List - Last Reconciled 12/23/22 by Joni Lam MD amiodarone 200 mg PO BID aspirin (Adult Low Dose Aspirin) 81 mg PO DAILY atorvastatin 80 mg PO BEDTIME clopidogrel 75 mg PO DAILY ezetimibe 10 mg PO DAILY metoprolol succinate ER 37 mg PO DAILY omeprazole 1 cap PO QAM Do you need a note to return to daycare/school/sports/work: No HPI EST/allergic reaction/[phone] HPI Details 62-year-old male presents to the office for a sick visit. Patient presents to the office with swelling around the right eye and a few rashes on the right and left arm. He underwent successful bypass surgery 1 month ago. [facility] Medical History (Updated 12/23/22 @ 11:06 by Joni Lam MD) Anemia Arthralgia Carpal tunnel syndrome of left wrist Cervical spondylosis Diverticulitis GERD (gastroesophageal reflux disease) Hypertension Insomnia LVH (left ventricular hypertrophy) Neuropathy Obesity (BMI 30-39.9) JOHANNY (obstructive sleep apnea) RAD (reactive airway disease) RBBB Restrictive lung disease Sacroiliitis Tinea cruris Surgical History (Updated 12/15/22 @ 17:02 by Trino Neal [facility]) History of cardiac cath History of carpal tunnel surgery History of tonsillectomy S/P CABG x 4 Family History Father Myocardial infarction Diabetes mellitus CVD (cardiovascular disease) Mother No problems noted. Brother Diabetes mellitus Sister Diabetes mellitus Cancer Social History Housing: House Alcohol intake: never Patient Tobacco Use Status: Never used Tobacco e-Cigarette/Vaping Use: Never Used service: No Current occupational status: disabled Cognitive needs: No Hearing needs: No Vision needs: Yes Physical Exam Vital Signs: Last Vital Signs Temp 98 F 12/23/22 10:23 Pulse 74 12/23/22 10:23 BP 132/74 12/23/22 10:23 Pulse Ox 97 12/23/22 10:23 Oxygen Delivery Method Room Air 12/23/22 10:23 Const General: cooperative and healthy appearing Nutritional Appearance: well nourished Orientation/consciousness: patient oriented x3 Limitations: no limitations HEENT Head: Yes normal to inspection Eyes General: appearance normal, both eyes and all related structures Neck Neck: Yes normal visual inspection Chest Chest palpation & inspection: normal palpation of entire chest wall Resp Effort & Inspection: normal respiratory effort Skin Other: Right eye: Periorbital puffiness. Right and left arms: Erythematous macular rash no pustules. Neuro General: patient oriented x3 Assessment & Plan Assessment & Plan (1) Rash: Code(s): R21 - Rash and other nonspecific skin eruption Plan: Mostly allergic nature. Prednisone called in. If symptoms do not improve to follow-up here. Coding Level of Care Code Est Pt Level 3 (67621) Diagnoses Rash R21
[2022-12-23 10:23] VITALS: BP 132/74; PULSE 74; TEMP 36.6; O2SAT 97
== END 2022-12-23 11:04 | disposition home or self-care (01) ==
PROVIDERS: PCP Nurse Practitioner Family; Visit Provider Internal Medicine
DX: R21 Rash and other nonspecific skin eruption (principal)
CPT/HCPCS: 99213

== ENCOUNTER 2022-12-30 08:29 | Outpatient (AMB) | payer MEDICARE, MEDICAID, SELFPAY ==
[2022-12-30 08:53] VITALS: BP 136/88; PULSE 74; O2SAT 99; BMI 34.0
--- NOTE | 2022-12-30 08:53 | MHC.PC.OV ---
Vital Signs 12/30/22 08:53 Height 5 ft 4 in Weight 198 lb 2 oz BMI 34.0 BP 136/88 Blood Pressure Location Rt brachial Position Sitting Pulse 74 Pulse Source Pulse Oximeter Pulse Oximetry (%) 99 Oxygen Delivery Method Room Air Intake Visit Reasons: htn follow up Allergies orphenadrine [From Norflex] Allergy (Mild, Verified 12/30/22 08:55) UNKNOWN piroxicam [From Feldene] Allergy (Mild, Verified 12/30/22 08:55) UNKNOWN amoxicillin Allergy (Unknown, Verified 12/30/22 08:55) unknown lisinopril Allergy (Unknown, Verified 12/30/22 08:55) cough pantoprazole [From Protonix] Adverse Reaction (Severe, Verified 12/30/22 08:55) Anaphylaxis pravastatin Adverse Reaction (Mild, Verified 12/30/22 08:55) body aches protonix Allergy (Severe, Uncoded 12/30/22 09:26) Angioedema Tobacco use date assessed: 12/30/22 Dental Screening Dental Screen Date: 12/30/22 Did you have a dental visit in the last 12 months?: No Did you have a dental problem in the last 6 months where you did not have access to dental care?: No Was dental information given to patient?: No HPI htn follow up HPI Details HTN: Blood pressure is stable, managed with metoprolol 37.5mg bid. Pt reports that his blood pressure at home averages in the 120s-130s systolically. Pt underwent urgent quadruple CABG on 11/22/22 for coronary occlusive disease after presenting with crescendo angina. Pt is following up with cardiology. Denies chest pain, increased shortness of breath, headache, dizziness, and blurred vision. [facility] Medical History Anemia Arthralgia Carpal tunnel syndrome of left wrist Cervical spondylosis Diverticulitis GERD (gastroesophageal reflux disease) Hypertension Insomnia LVH (left ventricular hypertrophy) Neuropathy Obesity (BMI 30-39.9) JOHANNY (obstructive sleep apnea) RAD (reactive airway disease) RBBB Restrictive lung disease Sacroiliitis Tinea cruris Surgical History (Updated 12/30/22 @ 09:29 by DONY Root) History of cardiac cath History of carpal tunnel surgery History of tonsillectomy S/P CABG x 4 Family History Father Myocardial infarction Diabetes mellitus CVD (cardiovascular disease) Mother No problems noted. Brother Diabetes mellitus Sister Diabetes mellitus Cancer Social History Housing: House Alcohol intake: never Patient Tobacco Use Status: Never used Tobacco e-Cigarette/Vaping Use: Never Used service: No Current occupational status: disabled Cognitive needs: No Hearing needs: No Vision needs: Yes Review of Systems Const Reports as per HPI Physical exam (Primary Care) Vital Signs: Last Vital Signs Pulse 74 12/30/22 08:53 BP 136/88 12/30/22 08:53 Pulse Ox 99 12/30/22 08:53 Oxygen Delivery Method Room Air 12/30/22 08:53 BMI result Body Mass Index 34.0 Tobacco/Smoking Status: Tobacco use Status Tobacco use date assessed 12/30/22 12/30/22 09:00 Patient Tobacco Use Status Never used Tobacco 12/30/22 09:00 e-Cigarette/Vaping Use Never Used 12/30/22 09:00 Const General: cooperative Nutritional Appearance: obese Orientation/consciousness: patient oriented x3 Resp Effort & Inspection: normal respiratory effort Auscultation: clear to auscultation bilaterally Cardio Rate: regular rate Rhythm: regular rhythm Heart sounds: S1 normal heart sound present and S2 normal heart sound present Skin Other: healed sternal incision, scabbed lesion healing to LLE, medial superior calf. Neuro General: patient oriented x3 Extrem Right lower extremity: no edema Left lower extremity: no edema Psych Appearance: grossly normal Mental Status: mental status grossly normal Speech and movement: Normal speech and movement present Affect: normal affect Attitude: cooperative Thought process: Normal thought process present Thought content: Normal thought content present Insight: Good insight present (Psych) Judgement: Good judgement present (Psych) Assessment and Plan Assessment & Plan (1) CAD (coronary artery disease): Code(s): I25.10 - Atherosclerotic heart disease of [place] coronary artery without angina pectoris Plan: Labs ordered (2) Hypertension: Code(s): I10 - Essential (primary) hypertension Plan: Labs ordered (3) S/P CABG x 4: Comment: 2022 Code(s): Z95.1 - Presence of aortocoronary bypass graft Plan: Labs ordered Plan The patient agreed to the use of a biomedical electronics technician for this encounter. Scribed for DONY Grier by Katja Valverde biomedical electronics technician, on 12/30/2022 at 09:15 EST. Orders: Orders Comprehensive [place]. Panel Fast Today I10 - Essential (primary) hypertension, I25.10 - Atherosclerotic heart disease of [place] coronary artery without angina pectoris, Z95.1 - Presence of aortocoronary bypass graft Lipid Panel Today I10 - Essential (primary) hypertension, I25.10 - Atherosclerotic heart disease of [place] coronary artery without angina pectoris, Z95.1 - Presence of aortocoronary bypass graft TSH reflex Free T4 Today I10 - Essential (primary) hypertension, I25.10 - Atherosclerotic heart disease of [place] coronary artery without angina pectoris, Z95.1 - Presence of aortocoronary bypass graft Complete Blood Count Auto Diff Today I10 - Essential (primary) hypertension, I25.10 - Atherosclerotic heart disease of [place] coronary artery without angina pectoris, Z95.1 - Presence of aortocoronary bypass graft UA CC w/rflx Micro + Cult Today I10 - Essential (primary) hypertension, I25.10 - Atherosclerotic heart disease of [place] coronary artery without angina pectoris, Z95.1 - Presence of aortocoronary bypass graft Medications: New metoprolol tartrate 37.5 mg (1.5 x 25 mg) PO BID 270 tabs 1RF 90 days aspirin (Adult Low Dose Aspirin) 81 mg PO DAILY 90 tabs 3RF atorvastatin 80 mg PO BEDTIME 90 tabs 1RF Changed From clopidogrel 75 mg PO DAILY To clopidogrel 75 mg PO DAILY 90 tabs 0RF 90 days Refilled ezetimibe 10 mg PO DAILY 90 tabs 1RF Coding Level of Care Code Est Pt Level 3 (96605) Diagnoses CAD (coronary artery disease) I25.10 Hypertension I10 S/P CABG x 4 Z95.1
== END 2022-12-30 09:39 | disposition home or self-care (01) ==
PROVIDERS: Visit Provider Nurse Practitioner Family
DX: I25.10 Atherosclerotic heart disease of native coronary artery without angina pectoris (principal); I10 Essential (primary) hypertension; Z95.1 Presence of aortocoronary bypass graft
CPT/HCPCS: 99213

== ENCOUNTER 2023-01-01 14:57 | Outpatient (AMB) | payer MEDICARE, MEDICAID, SELFPAY ==
[2023-01-01 15:00] VITALS: BP 150/82; PULSE 80; BMI 34.4
--- NOTE | 2023-01-01 15:00 | MHC.OFFVIS ---
Intake Vital Signs 01/01/23 15:00 Height 5 ft 4 in Weight 200 lb 9.93 oz BMI 34.4 BP 150/82 H Blood Pressure Location Lt brachial Position Sitting Pulse 80 Pulse Source Pulse Oximeter Intake Visit Reasons: 3 month f/u post op Intake Note: 3 month f/up Learning Officer Required: No Allergies orphenadrine [From Norflex] Allergy (Mild, Verified 01/01/23 15:06) UNKNOWN piroxicam [From Feldene] Allergy (Mild, Verified 01/01/23 15:06) UNKNOWN amoxicillin Allergy (Unknown, Verified 01/01/23 15:06) unknown lisinopril Allergy (Unknown, Verified 01/01/23 15:06) cough pantoprazole [From Protonix] Adverse Reaction (Severe, Verified 01/01/23 15:06) Anaphylaxis pravastatin Adverse Reaction (Mild, Verified 01/01/23 15:06) body aches protonix Allergy (Severe, Uncoded 12/30/22 09:26) Angioedema Medication List - Last Reconciled 01/01/23 by Reji Mercedes MD aspirin (Adult Low Dose Aspirin) 81 mg PO DAILY atorvastatin 80 mg PO BEDTIME clopidogrel 75 mg PO DAILY 90 days ezetimibe 10 mg PO DAILY metoprolol tartrate 37.5 mg (1.5 x 25 mg) PO BID 90 days omeprazole 1 cap PO QAM HPI HPI Comments History of Present Illness Details Here for follow. He recently underwent stress testing which showed perfusion defects in apex and inferior wall. He was due to undergo angiography but developed COVID-19 infection. Subsequently he called us in the last 2 weeks with ongoing chest discomfort and was advised to go to [facility]. At [facility] he underwent diagnostic angiogram by Dr. Pearce which showed severe LAD stenosis and RCA disease. He was referred for coronary artery bypass surgery and is due to undergo surgery at this stage. He underwent chest CT to rule out significant aortic calcification and he has minimal vascular calcification of the thoracic aorta. He is here for follow-up after cardiac catheterization. He is waiting to undergo carotid US and LE Duplex. He said his heart rate by his monitor at home was in 50s and 40s and he has not been taking Toprol-XL. He has no dizziness or lightheadedness. He has not had any further chest discomfort since he left the hospital. 01/01/23: He returns for f/u. He has been doing well. His BP was high initially but after resting recheck was 120/60. He has no significant complaints. [facility] Medical History Anemia Arthralgia Carpal tunnel syndrome of left wrist Cervical spondylosis Diverticulitis GERD (gastroesophageal reflux disease) Hypertension Insomnia LVH (left ventricular hypertrophy) Neuropathy Obesity (BMI 30-39.9) JOHANNY (obstructive sleep apnea) RAD (reactive airway disease) RBBB Restrictive lung disease Sacroiliitis Tinea cruris Surgical History History of cardiac cath History of carpal tunnel surgery History of tonsillectomy S/P CABG x 4 Family History Father Myocardial infarction Diabetes mellitus CVD (cardiovascular disease) Mother No problems noted. Brother Diabetes mellitus Sister Diabetes mellitus Cancer Social History Housing: House Alcohol intake: never Patient Tobacco Use Status: Never used Tobacco e-Cigarette/Vaping Use: Never Used service: No Current occupational status: disabled Cognitive needs: No Hearing needs: No Vision needs: Yes Review of Systems ENT Reports dizziness Card Denies chest pain, Denies chest pain at rest, Denies chest pain with activity, Denies rapid heart rate, Denies pedal edema, Denies edema, Denies leg edema, Denies lightheadedness, Denies palpitations, Denies dyspnea, Denies dyspnea on exertion and Denies orthopnea Resp Denies cough, Denies dyspnea and Denies dyspnea on exertion GI Denies hematochezia and Denies change in stool character Musc Denies abnormal gait, Reports limited range of motion, Reports muscle cramps, Denies muscle weakness, Denies numbness, Denies radiating pain into limb, Denies stiffness and Denies tingling Neuro Denies abnormal gait, Reports dizziness, Denies numbness and Denies tingling Endo Denies palpitations Physical Exam Vital Signs: Last Vital Signs Pulse 80 01/01/23 15:00 BP 150/82 H 01/01/23 15:00 BMI result Body Mass Index 34.4 GENERAL APPEARANCE: in no acute distress, pleasant. NECK: no carotid bruit, no jugular venous distention. SKIN: no suspicious lesions, warm and dry. Healed sternotomy scar. HEART: no murmurs, regular rate and rhythm. LUNGS: clear to auscultation bilaterally. ABDOMEN: soft, nontender. EXTREMITIES: no edema. PERIPHERAL PULSES: equal. NEUROLOGIC: No gross deficits, AAO X 3 Assessment & Plan Assessment & Plan (1) S/P CABG x 4: Comment: 2022 Code(s): Z95.1 - Presence of aortocoronary bypass graft (2) Stable angina: Code(s): I20.8 - Other forms of angina pectoris (3) Hypertension: Code(s): I10 - Essential (primary) hypertension Plan 62-year-old male with CAD s/p CABG x 4. He has stable angina. BP readings at home are normal. Repeat BP in office is also normal. He will keep a log of his BP. ASA and Plavix x 1 year. Coding Level of Care Code Est Pt Level 4 (32282) Diagnoses S/P CABG x 4 Z95.1 Stable angina I20.8 Hypertension I10
== END 2023-01-01 15:31 | disposition home or self-care (01) ==
PROVIDERS: PCP Nurse Practitioner Family; Referring Provider Nurse Practitioner Family; Visit Provider Internal Medicine Cardiovascular Disease
DX: Z95.1 Presence of aortocoronary bypass graft (principal); I20.8 Other forms of angina pectoris; I10 Essential (primary) hypertension
CPT/HCPCS: 99214

== ENCOUNTER → 2023-01-01 14:57 | Outpatient (BNVA) | payer MEDICARE, MEDICAID, SELFPAY | PROVIDERS: PCP Nurse Practitioner Family; Referring Provider Nurse Practitioner Family; Visit Provider Internal Medicine Cardiovascular Disease | DX: I11.0 Hypertensive heart disease with heart failure (principal); I50.1 Left ventricular failure, unspecified; I20.8 Other forms of angina pectoris; Z95.1 Presence of aortocoronary bypass graft | CPT/HCPCS: 99212 ==

== ENCOUNTER 2023-01-09 11:18 | Outpatient (AMB) | payer MEDICARE, MEDICAID, SELFPAY ==
--- NOTE | 2023-01-09 11:23 | MHC.OFFVIS ---
Intake Vital Signs 01/09/23 11:25 Height 5 ft 4 in Weight 196 lb BMI 33.6 BP 122/68 Blood Pressure Location Lt brachial Position Sitting Pulse 76 Pulse Source Pulse Oximeter Pulse Oximetry (%) 96 Oxygen Delivery Method Room Air Intake Visit Reasons: Shortness of breath Intake Note: pt here for follow up and states he had a quad bypass and his states his breathing is better. Configuration Management Consultant Required: No Allergies orphenadrine [From Norflex] Allergy (Mild, Verified 01/09/23 11:52) UNKNOWN piroxicam [From Feldene] Allergy (Mild, Verified 01/09/23 11:52) UNKNOWN amoxicillin Allergy (Unknown, Verified 01/09/23 11:52) unknown lisinopril Allergy (Unknown, Verified 01/09/23 11:52) cough pantoprazole [From Protonix] Adverse Reaction (Severe, Verified 01/09/23 11:52) Anaphylaxis pravastatin Adverse Reaction (Mild, Verified 01/09/23 11:52) body aches protonix Allergy (Severe, Uncoded 01/09/23 11:52) Angioedema Medication List - Last Reconciled 01/09/23 by Briana Gomez MD aspirin (Adult Low Dose Aspirin) 81 mg PO DAILY atorvastatin 80 mg PO BEDTIME clopidogrel 75 mg PO DAILY 90 days ezetimibe 10 mg PO DAILY metoprolol tartrate 37.5 mg (1.5 x 25 mg) PO BID 90 days omeprazole 1 cap PO QAM Do you need a note to return to daycare/school/sports/work: No HPI Shortness of breath HPI Details This 62 years old gentleman is usually followed care once a year for his restrictive pulmonary disorder. This year in November , he has undergone coronary artery bypass, surgery at [facility], and recovered from the surgery on event fully. Since the surgery, he is progressively getting better, and even shortness of breath on exertion is less than before. He has no cough or expectoration and no wheezing. Gets short of breath only when he walks up hill or climbs stairs. His CT scan of the chest performed at [facility] on 11/07/2022 showed, multiple bilateral ground-glass opacities, most likely inflammatory. But he was recommended to have a repeat CT scan in 6 months, which will be in April of this year. [facility] Medical History (Updated 01/09/23 @ 12:11 by Briana Gomez MD) Anemia Arthralgia Carpal tunnel syndrome of left wrist Cervical spondylosis Diverticulitis GERD (gastroesophageal reflux disease) Ground glass opacity present on imaging of lung Hypertension Insomnia LVH (left ventricular hypertrophy) Neuropathy Obesity (BMI 30-39.9) JOHANNY (obstructive sleep apnea) RAD (reactive airway disease) RBBB Restrictive lung disease Sacroiliitis Tinea cruris Surgical History (Updated 01/09/23 @ 12:08 by Briana Gomez MD) History of cardiac cath History of carpal tunnel surgery History of tonsillectomy S/P CABG x 4 Family History Father Myocardial infarction Diabetes mellitus CVD (cardiovascular disease) Mother No problems noted. Brother Diabetes mellitus Sister Diabetes mellitus Cancer Social History Housing: House Alcohol intake: never Patient Tobacco Use Status: Never used Tobacco e-Cigarette/Vaping Use: Never Used service: No Current occupational status: disabled Cognitive needs: No Hearing needs: No Vision needs: Yes Review of Systems Const All systems reviewed & are unremarkable except as noted in HPI and below Denies snoring Eyes Reports no additional complaints ENT Reports nasal congestion (Mild intermittent) Card Denies irregular heart rhythm, Denies leg edema and Reports dyspnea on exertion Resp Reports cough (Mild intermittent), Reports dyspnea on exertion, Denies snoring, Denies stridor and Denies wheezing GI Reports heartburn (Treated with omeprazole) Reports no additional complaints Musc Reports back pain (Mild chronic) Skin/Breast Reports system reviewed and no additional complaints, except as documented Neuro Reports no additional complaints Psych Reports no additional complaints Nehemiah/Lymph Reports other (Has been treated for iron deficiency and B12 deficiency anemia) Aller/Immun Denies wheezing Physical Exam Vital Signs: Last Vital Signs Pulse 76 01/09/23 11:25 BP 122/68 01/09/23 11:25 Pulse Ox 96 01/09/23 11:25 Oxygen Delivery Method Room Air 01/09/23 11:25 BMI result Body Mass Index 33.6 Const General: healthy appearing (Except for being overweight), comfortable, no acute distress, alert and awake Orientation/consciousness: patient oriented x3 HEENT Head: Yes normal to inspection General nose exam: No nasal polyps present, No nasal discharge present and Other nasal findings present (Mild hypertrophy of the nasal turbinates) Face and sinus: Yes sinuses nontender Mouth: oropharynx normal Throat: Yes posterior oropharynx normal Eyes General: appearance normal, both eyes and all related structures Neck Neck: Yes normal visual inspection, Yes no lymphadenopathy, Yes trachea midline, Yes no JVD and Yes other (Neck circumference 16-1/2 inch) Thyroid: Thyroid normal Chest Chest palpation & inspection: normal inspection of the chest (Mid sternal scar from recent CABG surgery, well healed), normal palpation of entire chest wall and no tenderness Resp Other: Percussion note is resonant, breath sounds are slightly distant with prolonged expiratory phase. No wheezes rhonchi or crepitations are heard. Effort & Inspection: normal respiratory effort Auscultation: clear to auscultation bilaterally, no crackles and no wheezes Cardio Jugular venous distension: JVD Palpation: normal PMI Rate: regular rate Rhythm: regular rhythm Heart sounds: S1 normal heart sound present, S2 normal heart sound present, no gallops and no murmurs Peripheral pulses: Peripheral pulses 2+ throughout GI Palpation (GI): Soft to palpation, nontender, No hepatosplenomegaly present, no masses and Other GI palpation findings present (Abdomen slightly protuberant) Auscultation: normal bowel sounds Back/Spine/Pelvis Thoracic/Lumbar Spine: thoracic and lumbar spine normal to inspection and thoraco-lumbar ROM limited Skin General skin exam: no rashes or lesions noted Neuro General: patient oriented x3 and no focal motor deficits Cranial nerves: Yes CN's II-XII intact bilaterally Extrem General: Yes normal to inspection, Yes no clubbing, cyanosis or edema and Yes no calf tenderness Psych Appearance: grossly normal and well kempt Speech and movement: Normal speech and movement present Results Reviewed Results Reviewed: SPIROMETRY . In office today FVC= 76 % FEV1= 88 % FEF 25-75 = 158 % C/W VERY MILD RESTRICTIVE DISORDER, NO OBSTRUCTIVE DISORDER. Assessment & Plan Assessment & Plan (1) S/P CABG x 4: Comment: NOVEMBER 2022 , RECOVERED VERY WELL AND SUBJECTIVELY MUCH IMPROVED Code(s): Z95.1 - Presence of aortocoronary bypass graft (2) Restrictive lung disease: Comment: Pulmonary function test ON 12/07/21 showed moderate degree of restrictive disorder. SPIROMETRY TODAY , shows only mild restrictive pattern, no obstructive disorder. [place] : Advised to continue doing deep breathing exercises with the incentive spirometry device 3 to 4 times a day. Code(s): J98.4 - Other disorders of lung (3) Ground glass opacity present on imaging of lung: Comment: CT scan of the chest at [facility] on 11/08 showed bilateral small GG. Opacity, probably inflammatory in nature. Patient needs a repeat CT scan at 6 months intervals, which has been ordered. Code(s): R91.8 - Other nonspecific abnormal finding of lung field Orders: Orders CT chest wo IV con 3 Months R91.8 - Other nonspecific abnormal finding of lung field Coding Level of Care Code Est Pt Level 3 (74979) Diagnoses S/P CABG x 4 Z95.1 Restrictive lung disease J98.4 Ground glass opacity present on imaging of lung R91.8
[2023-01-09 11:25] VITALS: BP 122/68; PULSE 76; O2SAT 96; BMI 33.6
== END 2023-01-09 12:02 | disposition home or self-care (01) ==
PROVIDERS: PCP Nurse Practitioner Family; Visit Provider Internal Medicine
DX: Z95.1 Presence of aortocoronary bypass graft (principal); J98.4 Other disorders of lung; R91.8 Other nonspecific abnormal finding of lung field
CPT/HCPCS: 99213

== ENCOUNTER → 2023-01-09 11:18 | Outpatient (BNVA) | payer MEDICARE, MEDICAID, SELFPAY | PROVIDERS: PCP Nurse Practitioner Family; Visit Provider Internal Medicine | DX: J98.4 Other disorders of lung (principal); R91.8 Other nonspecific abnormal finding of lung field; Z95.1 Presence of aortocoronary bypass graft | CPT/HCPCS: 99212 ==

== ENCOUNTER 2023-01-22 20:58 | Emergency (ER) | payer MEDICARE, MEDICAID, SELFPAY ==
[2023-01-22 21:02] VITALS: BP 86/62; PULSE 79; RESP 30; TEMP 36.1; O2SAT 100; BMI 30.4
--- NOTE | 2023-01-22 21:10 | ECG_ITS ---
Test Reason : allergic reaction Blood Pressure : / mmHG Vent. Rate : 081 BPM Atrial Rate : 081 BPM P-R Int : 202 ms QRS Dur : 124 ms QT Int : 404 ms P-R-T Axes : 070 080 063 degrees QTc Int : 469 ms Sinus rhythm with 1st degree A-V block with Premature atrial complexes with Aberrant conduction Possible Left atrial enlargement Right bundle branch block Abnormal ECG When compared with ECG of 02-DEC-2022 22:58, SD interval has increased Premature atrial complexes are now Present Referred By: Denton Huff Electronically Signed By:CAROL BECKER
--- NOTE | 2023-01-22 21:16 | ED.ALLEREA ---
HPI - Allergic Reaction General Chief complaint: Allergic Reaction Stated complaint: allergic reaction hives swelling Time Seen by Provider: 01/22/23 21:10 Source: patient and family (Spouse) Mode of arrival: ambulatory Limitations: no limitations History of Present Illness HPI narrative: 62-year-old male with extensive cardiac history s/p quadruple bypass 2 months ago, patient was eating walnut (not known history of nut allergy), shortly after patient started become itchy and diffuse hives on the torso and extremity, patient is feeling numbness and tingling in his throat, became short of breath. On arrival to the hospital patient in mild respiratory distress with no stridor appear very anxious with diffuse hives. Patient just fell his metoprolol different generic form but same medication that he has been taking for blood pressure for many years, otherwise no new change in his daily routine. Patient had similar episode in the past for unknown allergen. Related Data Home Medications Medication Instructions Recorded Confirmed omeprazole 40 mg capsule,delayed 1 cap PO QAM 06/25/22 01/01/23 release Previous Rx's Medication Instructions Recorded aspirin 81 mg tablet,delayed 81 mg PO DAILY #90 tabs 12/30/22 release (Adult Low Dose Aspirin) atorvastatin 80 mg tablet 80 mg PO BEDTIME #90 tabs 12/30/22 clopidogrel 75 mg tablet 75 mg PO DAILY 90 days #90 tabs 12/30/22 ezetimibe 10 mg tablet 10 mg PO DAILY #90 tabs 12/30/22 metoprolol tartrate 25 mg tablet 37.5 mg PO BID 90 days #270 tabs 12/30/22 Allergies Allergy/AdvReac Type Severity Reaction Status Date / Time orphenadrine [From Norflex] Allergy Mild UNKNOWN Verified 01/09/23 11:52 piroxicam [From Feldene] Allergy Mild UNKNOWN Verified 01/09/23 11:52 amoxicillin Allergy Unknown unknown Verified 01/09/23 11:52 lisinopril Allergy Unknown cough Verified 01/09/23 11:52 pantoprazole [From Protonix] AdvReac Severe Anaphylaxis Verified 01/09/23 11:52 pravastatin AdvReac Mild body aches Verified 01/09/23 11:52 protonix Allergy Severe Angioedema Uncoded 01/09/23 11:52 Review of Systems Review of Systems: All other systems are reviewed and are negative Constitutional: Reports as per HPI and Reports no additional constitutional complaints Eyes: Reports as per HPI and Reports no additional eye complaints Reports system reviewed and no additional complaints, except as documented Cardiovascular: Reports as per HPI and Reports no additional cardiovascular complaints Respiratory: Reports as per HPI and Reports no additional respiratory complaints Gastrointestinal: Reports as per HPI and Reports no additional gastrointestinal complaints Genitourinary: Reports no additional female genitourinary complaints Musculoskeletal: Reports no additional musculoskeletal complaints Skin/Breast: Reports system reviewed and no additional complaints, except as docu Psychiatric: Reports no additional psychiatric complaints Endocrine: Reports no additional endocrine complaints Hematologic/Lymphatic: Reports no additional hematologic/lymphatic complaints Allergic/Immunologic: Reports no additional allergic/immunologic complaints Reports system reviewed and no additional complaints, except as documented and Reports Abnormal speech present [facility] Past Medical History Medical History Anemia Arthralgia Carpal tunnel syndrome of left wrist Cervical spondylosis Diverticulitis GERD (gastroesophageal reflux disease) Ground glass opacity present on imaging of lung Hypertension Insomnia LVH (left ventricular hypertrophy) Neuropathy Obesity (BMI 30-39.9) JOHANNY (obstructive sleep apnea) RAD (reactive airway disease) RBBB Restrictive lung disease Sacroiliitis Tinea cruris Surgical History History of cardiac cath History of carpal tunnel surgery History of tonsillectomy S/P CABG x 4 Family History Family History Father Myocardial infarction Diabetes mellitus CVD (cardiovascular disease) Mother No problems noted. Brother Diabetes mellitus Sister Diabetes mellitus Cancer Social History Social History Housing: House Alcohol intake: former Patient Tobacco Use Status: Never used Tobacco e-Cigarette/Vaping Use: Never Used Use of substances other than those prescribed or required for medical reasons: No Advance Directives: No Advance Directives Information Provided: No service: No Current occupational status: disabled Cognitive needs: No Hearing needs: No Vision needs: Yes Physical Exam ED Vital Signs: Vital Signs - 24 hr 01/22/23 21:02 01/22/23 21:29 01/22/23 21:30 Temperature 96.9 F 98.7 F Pulse Rate 79 80 78 Respiratory Rate 30 H 22 H 14 Blood Pressure 86/62 L 100/61 106/67 Pulse Oximetry 100 99 99 Oxygen Delivery Method Room Air Room Air Room Air 01/22/23 22:00 Temperature 97.7 F Pulse Rate 84 Respiratory Rate 25 H Blood Pressure 113/73 Pulse Oximetry 100 Oxygen Delivery Method Room Air BMI result Body Mass Index 30.4 Vital signs have been reviewed as appeared to be correct. Blood pressure normal. Heart rate normal. Respiration rate normal. Temperature normal. Oxygen saturation normal. Appearance: Alert. Oriented X3. No acute distress. Head: Normal external exam. Normocephalic. Atraumatic. No Recio signs noted. No raccoon eyes noted Eyes: PERRLA. EOMI. Conjunctiva and sclera normal. Eyelids normal. ENT: TM's Normal. Pharynx normal. Uvula midline. Moist mucous membranes. No trismus noted. No drooling noted. No muffled voice noted. No stridor, no tongue swelling, patient feels subjective lip swelling which is not significant on exam. Neck: Normal inspection. Neck supple. FROM. No adenopathy. Thyroid Normal. No meningeal signs. No neck mass noted. CVS: Normal heart rate and rhythm. Heart sound normal. No murmurs noted. Pulses normal throughout. Respiratory: No respiratory distress. Painless inspiration. Breath sounds normal. No wheezes/rales/rhonchi noted. Chest nontender. No accessory muscle usage noted or decreased air movement noted. Abdomen: Soft and nontender. Bowel sounds normal in all 4 quadrants. No distention noted. No organomegaly noted. No visible injury noted. Back: No CVA tenderness. Full range of motion noted. Skin: Diffuse hives on the torso, itching. Extremities: No lower extremity edema. Extremities exhibit normal range of motion. Extremities nontender. Neuro: Oriented X 3. Cranial nerve exam: II-XII are grossly intact No motor deficit. No sensory deficit. Reflexes normal. Course Course Course Narrative: 62-year-old male presented with severe allergic reaction and transient hypotension after eating walnut (patient with no known history of nut allergy) patient also declined any change in his daily routine, patient initially had some lip swelling with shortness of breath that improved after patient was given fluid, Solu-Medrol, Pepcid, and Benadryl. Patient had history of similar presentation that require few days course of prednisone. Reevaluation(s) Reevaluation #1: LFTs found to be elevated above his baseline patient was instructed to follow-up with his PCP avoid taking Tylenol or drinking alcohol. Leukocytosis secondary to stress and anxiety reaction. Time: 23:50 Medications Administered Discontinued Medications Generic Name Dose Route Start Last Admin Trade Name Timoteo PRN Reason Stop Dose Admin Diphenhydramine HCl 50 mg 01/22/23 21:10 01/22/23 21:23 Diphenhydramine Hcl 50 Mg/Ml Vial IVPUSH 01/22/23 21:11 50 mg ONCE ONE Administration Famotidine 20 mg 01/22/23 21:10 01/22/23 21:23 Famotidine/Pf 20 Mg/2 Ml Vial IVPUSH 01/22/23 21:11 20 mg ONCE ONE Administration Sodium Chloride 1,000 mls @ 999 mls/hr 01/22/23 21:10 01/22/23 21:23 Ns IV 01/22/23 22:10 999 mls/hr .Q1H1M ONE Administration Methylprednisolone Sodium Succinate 125 mg 01/22/23 21:10 01/22/23 21:23 Methylprednisolone Sod Succ 125 Mg/2 Ml Vial IVPUSH 01/22/23 21:11 125 mg ONCE ONE Administration Medical Decision Making Differential Diagnosis Differential Diagnoses: The differential diagnosis associated with the presentation includes (Allergic reaction, anaphylactic reaction, hypotension electrolyte abnormality, severe anemia.) Lab Data MDM Lab Attestation statement: I reviewed the patient's lab results. 01/22/23 21:17 01/22/23 21:17 Labs: Lab Results 01/22/23 01/22/23 01/22/23 Range/Units 21:17 21:17 21:17 WBC 16.4 H (4.8-10.8) X10*3/uL RBC 6.11 H (4.60-5.80) X10*6/uL Hgb 17.1 (14.0-18.0) g/dl Hct 51.5 (42.0-52.0) % MCV 84.3 (80.0-98.0) fL MCH 28.0 (27.0-33.0) pg MCHC 33.2 (31.0-36.0) g/dl RDW 13.4 (11.0-16.0) % Plt Count 402 H D (160-400) X10*3/uL MPV 9.9 (9.4-12.4) fL Immature Gran % (Auto) 0.4 (0.0-0.4) % Neut % (Auto) 72.0 (45-73) % Lymph % (Auto) 18.5 L (20-40) % [place] % (Auto) 7.6 (2-11) % Eos % (Auto) 1.2 (0-4) % Baso % (Auto) 0.3 (0-2) % Lymph # (Auto) 3.0 (1.2-4.9) X10*3/uL [place] # (Auto) 1.3 H (0.1-1.2) X10*3/uL Eos # (Auto) 0.2 (0.0-0.4) X10*3/uL Baso # (Auto) 0.1 (0.0-0.2) X10*3/uL Abs Immat Gran (auto) 0.07 H (0.00-0.03) X10*3/uL Absolute Neuts (auto) 11.8 H (2.0-8.3) x10*3/uL Absolute Nucleated RBC 0.000 (0.0-0.012) X10*3/uL Nucleated RBC % (auto) 0.0 (0.0-0.2) /100WBC Sodium 138 (135-145) mmol/L Potassium 4.3 (3.3-5.1) mmol/L Chloride 104 (96-108) mmol/L Carbon Dioxide 23 (22-29) mmol/L Anion Gap 15 (12-20) BUN 28 H (9-16) mg/dL Creatinine 1.07 (0.5-1.4) mg/dL Estim Creat Clear Calc 75.7 Estimated GFR > 60 Random Glucose 146 H (60-115) mg/dL Calcium 9.4 (8.4-10.2) mg/dL Total Bilirubin 0.4 (0.0-1.0) mg/dL Direct Bilirubin 0.2 (0.0-0.5) mg/dL AST 203 H (5-37) U/L ALT 127 H (0-40) U/L Alkaline Phosphatase 104 (39-117) U/L Troponin I High Sens 5.0 (<3.5-35.0) ng/L B-Natriuretic Peptide (<100) pg/mL Total Protein 6.5 (6.5-8.0) g/dL Albumin 4.1 (3.5-5.0) g/dL Lipase 37 (8-78) U/L 01/22/23 Range/Units 21:17 WBC (4.8-10.8) X10*3/uL RBC (4.60-5.80) X10*6/uL Hgb (14.0-18.0) g/dl Hct (42.0-52.0) % MCV (80.0-98.0) fL MCH (27.0-33.0) pg MCHC (31.0-36.0) g/dl RDW (11.0-16.0) % Plt Count (160-400) X10*3/uL MPV (9.4-12.4) fL Immature Gran % (Auto) (0.0-0.4) % Neut % (Auto) (45-73) % Lymph % (Auto) (20-40) % [place] % (Auto) (2-11) % Eos % (Auto) (0-4) % Baso % (Auto) (0-2) % Lymph # (Auto) (1.2-4.9) X10*3/uL [place] # (Auto) (0.1-1.2) X10*3/uL Eos # (Auto) (0.0-0.4) X10*3/uL Baso # (Auto) (0.0-0.2) X10*3/uL Abs Immat Gran (auto) (0.00-0.03) X10*3/uL Absolute Neuts (auto) (2.0-8.3) x10*3/uL Absolute Nucleated RBC (0.0-0.012) X10*3/uL Nucleated RBC % (auto) (0.0-0.2) /100WBC Sodium (135-145) mmol/L Potassium (3.3-5.1) mmol/L Chloride (96-108) mmol/L Carbon Dioxide (22-29) mmol/L Anion Gap (12-20) BUN (9-16) mg/dL Creatinine (0.5-1.4) mg/dL Estim Creat Clear Calc Estimated GFR Random Glucose (60-115) mg/dL Calcium (8.4-10.2) mg/dL Total Bilirubin (0.0-1.0) mg/dL Direct Bilirubin (0.0-0.5) mg/dL AST (5-37) U/L ALT (0-40) U/L Alkaline Phosphatase (39-117) U/L Troponin I High Sens (<3.5-35.0) ng/L B-Natriuretic Peptide 33 (<100) pg/mL Total Protein (6.5-8.0) g/dL Albumin (3.5-5.0) g/dL Lipase (8-78) U/L Independent Interpretation I performed an independent interpretation of an: EKG (Normal sinus rhythm at 81 beats per minute with PACs, RBBB, no obvious ischemic ST-T changes.) Critical Care Time Critical Care Time Critical Care Time: Yes Total Critical Care Time: 60 Attestation: I spent 60 minutes providing critical care service to the patient, this including time spent at the bedside to evaluate the patient, reassess the patient, monitoring vital signs, review labs, and radiographic studies, counseling the patient/family, discussing the case with consultants, disposition the patient. Discharge Plan Discharge Clinical Impression: Severe allergic reaction, Elevated LFTs Patient Disposition: Home, Self-Care Instructions: General Allergic Reaction (ED) Prescriptions: No Action omeprazole 40 mg capsule,delayed release(DR/EC) 1 cap PO QAM ezetimibe 10 mg tablet 10 mg PO DAILY Qty: 90 1RF metoprolol tartrate 25 mg tablet 37.5 mg PO BID 90 Days Qty: 270 1RF aspirin [Adult Low Dose Aspirin] 81 mg tablet,delayed release (DR/EC) 81 mg PO DAILY Qty: 90 3RF atorvastatin 80 mg tablet 80 mg PO BEDTIME Qty: 90 1RF clopidogrel 75 mg tablet 75 mg PO DAILY 90 Days Qty: 90 0RF Referrals: Trino Neal, [facility] [Primary Care Provider] -
[2023-01-22 21:21] LABS: MANUAL DIFF FLAG NO
[2023-01-22 21:23] LABS: Basophils Absolute Auto 0.1 X10*3/uL (0.0-0.2); Basophils Percent Auto 0.3 % (0-2); Eosinophils Absolute Auto 0.2 X10*3/uL (0.0-0.4); Eosinophils Percent Auto 1.2 % (0-4); Hematocrit 51.5 % (42.0-52.0); Hemoglobin 17.1 g/dl (14.0-18.0); Imm Gran Abs Auto 0.07 X10*3/uL (0.00-0.03); Imm Gran Pct Auto 0.4 % (0.0-0.4); Lymphocytes Percent Auto 18.5 % (20-40); Mean Corpuscular HGB Conc 33.2 g/dl (31.0-36.0); Mean Corpuscular Volume 84.3 fL (80.0-98.0); Mean Platelet Volume 9.9 fL (9.4-12.4); Monocytes Absolute Auto 1.3 X10*3/uL (0.1-1.2); Monocytes Percent Auto 7.6 % (2-11); Neutrophils Absolute Auto 11.8 x10*3/uL (2.0-8.3); Platelet Count 402 X10*3/uL (160-400); Red Blood Count 6.11 X10*6/uL (4.60-5.80); Red Cell Distribution Width 13.4 % (11.0-16.0); White Blood Count 16.4 X10*3/uL (4.8-10.8)
[2023-01-22] MEDS: methylPREDNISolone Sod Succ 125 MG/2 ML VIAL IVPUSH (21:23)
[2023-01-22] MEDS: 0.9 % Sodium Chloride 1,000 ML 999 ML IV (21:23)
[2023-01-22] MEDS: diphenhydrAMINE HCL 50 MG/ML VIAL IVPUSH (21:23)
[2023-01-22] MEDS: Famotidine/PF 20 MG/2 ML VIAL IVPUSH (21:23)
[2023-01-22 21:29] VITALS: BP 100/61; PULSE 80; RESP 22; O2SAT 99
[2023-01-22 21:30] VITALS: BP 106/67; PULSE 78; RESP 14; TEMP 37.1; O2SAT 99
[2023-01-22 21:43] LABS: Alanine Aminotransferase 127 U/L (0-40); Albumin Level 4.1 g/dL (3.5-5.0); Alkaline Phosphatase 104 U/L (39-117); Anion Gap 15 (12-20); Aspartate Amino Transferase 203 U/L (5-37); Bilirubin Direct 0.2 mg/dL (0.0-0.5); Bilirubin Total 0.4 mg/dL (0.0-1.0); Blood Urea Nitrogen 28 mg/dL (9-16); Calcium 9.4 mg/dL (8.4-10.2); Carbon Dioxide 23 mmol/L (22-29); Chloride 104 mmol/L (96-108); Creatinine Clr Calc Pharmacy 75.7; Estimated Glomerular Filt Rate > 60; Glucose Random 146 mg/dL (60-115); Lipase 37 U/L (8-78); Potassium 4.3 mmol/L (3.3-5.1); Sodium 138 mmol/L (135-145); Total Protein 6.5 g/dL (6.5-8.0)
[2023-01-22 21:45] LABS: B Type Natriuretic Peptide 33 pg/mL (<100)
[2023-01-22 22:00] VITALS: BP 113/73; PULSE 84; RESP 25; TEMP 36.5; O2SAT 100
[2023-01-22 23:58] VITALS: BP 128/80; PULSE 80; RESP 16; O2SAT 98
[2023-01-23] MEDS: diphenhydrAMINE HCL 50 MG/ML VIAL 25 MG IVPUSH (00:07)
--- NOTE | 2023-01-23 00:08 | PC.NURSE ---
Pt reports feeling lip numbness/tingling, provider notified, new order given as documented.
== END 2023-01-23 00:15 | disposition home or self-care (01) ==
PROVIDERS: Emergency Provider Emergency Medicine; PCP Nurse Practitioner Family
DX: I95.89 Other hypotension (principal); T78.1XXA Other adverse food reactions, not elsewhere classified, initial encounter; X58.XXXA Exposure to other specified factors, initial encounter; R79.89 Other specified abnormal findings of blood chemistry
CPT/HCPCS: 36415; 80048; 80076; 83690; 83880; 84484; 85025; 93005; 96361; 96374; 96375; 96376; 99284; 99285; J1200; J2930

== ENCOUNTER 2023-01-28 06:03 | Outpatient (REF) | payer MEDICARE, MEDICAID, SELFPAY ==
[2023-01-28 11:22] LABS: MANUAL DIFF FLAG NO
[2023-01-28 11:41] LABS: Appearance Urine Clear; Color Urine Yellow; Glucose Urine UA Negative (Negative); Leukocyte Esterase Urine Negative (Negative); Nitrite Urine Negative (Negative); Urine Blood Negative (Negative); Urine Ketones Negative (Negative); Urine Protein Negative (Neg-Trace)
[2023-01-28 11:44] LABS: Basophils Percent Auto 0.2 % (0-2); Eosinophils Percent Auto 0.1 % (0-4); Hematocrit 43.5 % (42.0-52.0); Hemoglobin 13.9 g/dl (14.0-18.0); Imm Gran Abs Auto 0.09 X10*3/uL (0.00-0.03); Lymphocytes Absolute Auto 1.4 X10*3/uL (1.2-4.9); Lymphocytes Percent Auto 15.2 % (20-40); Mean Corpuscular Hemoglobin 28.2 pg (27.0-33.0); Mean Corpuscular Volume 88.2 fL (80.0-98.0); Mean Platelet Volume 10.6 fL (9.4-12.4); Monocytes Absolute Auto 0.6 X10*3/uL (0.1-1.2); Monocytes Percent Auto 6.9 % (2-11); Neutrophils Absolute Auto 6.9 x10*3/uL (2.0-8.3); Neutrophils Percent Auto 76.6 % (45-73); Platelet Count 296 X10*3/uL (160-400); Red Blood Count 4.93 X10*6/uL (4.60-5.80)
[2023-01-28 12:09] LABS: Alanine Aminotransferase 227 U/L (0-40); Albumin Level 4.3 g/dL (3.5-5.0); Alkaline Phosphatase 96 U/L (39-117); Anion Gap 11 (12-20); Aspartate Amino Transferase 30 U/L (5-37); Bilirubin Total 0.4 mg/dL (0.0-1.0); Blood Urea Nitrogen 22 mg/dL (9-16); Calcium 9.7 mg/dL (8.4-10.2); Carbon Dioxide 26 mmol/L (22-29); Chloride 106 mmol/L (96-108); Cholesterol 127 mg/dL (<200); Estimated Glomerular Filt Rate > 60; Glucose Fasting 137 mg/dL (60-99); HDL Cholesterol 41 mg/dL (>40); LDL Cholesterol Calculated 73 mg/dL (<100); Potassium 4.2 mmol/L (3.3-5.1); Sodium 139 mmol/L (135-145); Total Protein 6.5 g/dL (6.5-8.0); Triglycerides 67 mg/dL (<150)
[2023-01-28 12:11] LABS: TSH reflex Free T4 0.85 uIU/mL (0.32-4.0)
== END 2023-01-28 06:04 | disposition home or self-care (01) ==
LOC: HO.HMGCLDS 06:03
PROVIDERS: PCP Nurse Practitioner Family; Visit Provider Nurse Practitioner Family
DX: I10 Essential (primary) hypertension (principal); I25.10 Atherosclerotic heart disease of native coronary artery without angina pectoris; Z95.1 Presence of aortocoronary bypass graft
CPT/HCPCS: 36415; 80053; 80061; 81003; 84443; 85025

== ENCOUNTER 2023-01-29 06:44 | Outpatient (REF) | payer MEDICARE, MEDICAID, SELFPAY ==
[2023-01-29 11:55] LABS: MANUAL DIFF FLAG NO
[2023-01-29 12:14] LABS: Basophils Percent Auto 0.5 % (0-2); Eosinophils Absolute Auto 0.1 X10*3/uL (0.0-0.4); Eosinophils Percent Auto 1.8 % (0-4); Hematocrit 43.9 % (42.0-52.0); Imm Gran Abs Auto 0.11 X10*3/uL (0.00-0.03); Imm Gran Pct Auto 1.4 % (0.0-0.4); Lymphocytes Percent Auto 38.2 % (20-40); Mean Corpuscular HGB Conc 31.9 g/dl (31.0-36.0); Mean Corpuscular Hemoglobin 28.1 pg (27.0-33.0); Mean Corpuscular Volume 88.2 fL (80.0-98.0); Mean Platelet Volume 10.8 fL (9.4-12.4); Monocytes Percent Auto 12.7 % (2-11); Neutrophils Absolute Auto 3.6 x10*3/uL (2.0-8.3); Neutrophils Percent Auto 45.4 % (45-73); Platelet Count 289 X10*3/uL (160-400); Red Blood Count 4.98 X10*6/uL (4.60-5.80); Red Cell Distribution Width 14.2 % (11.0-16.0); White Blood Count 7.9 X10*3/uL (4.8-10.8)
[2023-01-29 12:36] LABS: Alanine Aminotransferase 692 U/L (0-40); Alkaline Phosphatase 106 U/L (39-117); Anion Gap 10 (12-20); Aspartate Amino Transferase 360 U/L (5-37); Bilirubin Total 0.7 mg/dL (0.0-1.0); Blood Urea Nitrogen 23 mg/dL (9-16); Carbon Dioxide 25 mmol/L (22-29); Chloride 108 mmol/L (96-108); Estimated Glomerular Filt Rate > 60; Gamma Glutamyl Transpeptidase 507 U/L (11-51); Glucose Random 90 mg/dL (60-115); Iron 89 mcg/dL (45-160); Percent Iron Saturation 33 % (15-50); Sodium 139 mmol/L (135-145); Total Iron Binding Capacity 267 mcg/dL (228-428); Unsaturated Iron Binding 178 ug/dL
[2023-01-29 12:52] LABS: Ferritin 306 ng/mL (20-250)
[2023-01-29 13:00] LABS: Folate 13.8 ng/mL (> or = 4.0); Vitamin B12 838 pg/mL (200-900)
[2023-01-30 05:37] LABS: HBS Num1 0.37 mIU/mL (0-7.99); HBc Num1 0.08 S/CO (0.00-0.79); HBsAGNum1 0.33 S/CO (0.00-0.99); Hepatitis A Antibody IgM 0.15 Index (0-0.79); Hepatitis B Core Antibody Nonreactive (Nonreactive); Hepatitis B Surface Antigen Negative (Negative); ~HepC Num1 0.05 S/CO (0.00-0.79); ~Hepatitis A Antibody IgM Nonreactive (Nonreactive); ~Hepatitis B Surface Antibody NONREACTIVE (Nonreactive); ~Hepatitis C Antibody Nonreactive (Nonreactive)
[2023-02-03 00:34] LABS: Smooth Muscle Antibody <20 U (<20)
== END 2023-01-29 06:45 | disposition home or self-care (01) ==
LOC: HO.HMGCLDS 06:44
PROVIDERS: PCP Nurse Practitioner Family; Visit Provider Nurse Practitioner Family
DX: Z13.89 Encounter for screening for other disorder (principal)
CPT/HCPCS: 36415; 80053; 82607; 82728; 82746; 82977; 83540; 85025; 86015; 86704; 86706; 86709; 86803; 87340

== ENCOUNTER 2023-01-29 19:56 | Emergency (ER) | payer MEDICARE, MEDICAID, SELFPAY ==
--- NOTE | ~2023-01-29 | US_ITS ---
EXAMINATION: US ABDOMEN LIMITED CLINICAL INFORMATION: Transaminitis.. COMPARISON: Previous CT of the abdomen and pelvis from 2016 and abdominal ultrasound from 2013 TECHNIQUE: Real-time imaging of the right upper quadrant abdominal viscera. FINDINGS: PANCREAS: Not seen due to bowel gas. LIVER: Small cyst in the right lobe of the liver measuring 6 x 7 mm. The liver is normal in size. The liver contour is normal. Parenchymal echogenicity is normal. No other focal hepatic lesion. There is no intrahepatic biliary duct dilatation seen. GALLBLADDER: Gallstones. The gallbladder is normal in size. The gallbladder wall is normal. COMMON BILE DUCT: Normal in caliber measuring 0.4 cm in diameter. RIGHT KIDNEY: Small cyst in the lower pole measuring 1.5 cm. No imaging follow-up recommended. Question calyceal dilatation in the lower pole the right kidney versus small peripelvic cyst. . No renal calculi or other focal parenchymal lesions. The kidney measures 12 cm in maximum dimension. FREE FLUID: None. US/US abdomen limited IMPRESSION: Small liver cyst. Gallstones. Pancreas not seen.
[2023-01-29 20:22] VITALS: BP 156/89; PULSE 76; RESP 16; TEMP 36.8; O2SAT 97; BMI 31.6
--- NOTE | 2023-01-29 20:27 | ED.GENADULT ---
HPI - General Adult General Chief complaint: Recheck/Abnormal Lab/Rx Stated complaint: Liver enzymes are high, abnormal labs Time Seen by Provider: 01/29/23 20:57 Source: patient, family and old records reviewed Mode of arrival: ambulatory Limitations: no limitations History of Present Illness HPI narrative: 62 yo male with PMH of anemia, CABG recently at [facility] November 2022 still on aspirin and plavix, CAD, PVCs, COPD, cellulitis had routine labs by PCP told to come to ED for elevated liver enzymes. Denies tylenol/ETOH use. No tick bites. He is on statin but has been on it for a while. Still has his GB but no GI symptoms. He denies any new medications other 2.5mg amlodipine. He states he currently feels fine. He has never had hepatitis or prior infection and no recent transfusions MD complaint: elevated liver enzymes Onset (ago): day(s) (1) Severity: mild Relieving factors: none Exacerbating factors: none Associated symptoms: denies other symptoms Treatments prior to arrival: none Related Data Home Medications Medication Instructions Recorded Confirmed omeprazole 40 mg capsule,delayed 1 cap PO QAM 06/25/22 01/01/23 release Previous Rx's Medication Instructions Recorded aspirin 81 mg tablet,delayed 81 mg PO DAILY #90 tabs 12/30/22 release (Adult Low Dose Aspirin) atorvastatin 80 mg tablet 80 mg PO BEDTIME #90 tabs 12/30/22 clopidogrel 75 mg tablet 75 mg PO DAILY 90 days #90 tabs 12/30/22 ezetimibe 10 mg tablet 10 mg PO DAILY #90 tabs 12/30/22 metoprolol tartrate 25 mg tablet 37.5 mg (1.5 x 25 mg) PO BID 90 12/30/22 days #270 tabs prednisone 20 mg tablet 20 mg PO BID #10 tabs 01/23/23 amlodipine 2.5 mg tablet 2.5 mg PO DAILY #60 tabs 01/27/23 Allergies Allergy/AdvReac Type Severity Reaction Status Date / Time orphenadrine [From Norflex] Allergy Mild UNKNOWN Verified 01/29/23 20:24 piroxicam [From Feldene] Allergy Mild UNKNOWN Verified 01/29/23 20:24 amoxicillin Allergy Unknown unknown Verified 01/29/23 20:24 lisinopril Allergy Unknown cough Verified 01/29/23 20:24 pantoprazole [From Protonix] AdvReac Severe Anaphylaxis Verified 01/29/23 20:24 pravastatin AdvReac Mild body aches Verified 01/29/23 20:24 protonix Allergy Severe Angioedema Uncoded 01/29/23 20:24 Review of Systems Review of Systems: Constitutional : No Weight loss, No Fever, No Chills ENT/Mouth : No sore throat, No Rhinorrhea Eyes: No Swelling, No Redness Cardiovascular : No Chest Pain, No SOB, NoEdema Respiratory : No Cough, No Sputum, No Wheezing Gastrointestinal : no Nausea, no Vomiting, no Diarrhea, no abdominal Pain, No Hematochezia, No Melena Genitourinary : No Dysuria, No Urinary Frequency, No Hematuria, No Urgency Musculoskeletal : No joint pain, No Myalgias, No Joint Swelling Skin : No Skin Lesions, No rash Neuro : No Weakness, No Numbness, No Dizziness, No Headache Psych : No Anxiety/Panic, No Depression Heme/Lymph: pos Bruising, No Lymphadenopathy Endocrine : No Polyuria, No Polydipsia All other systems reviewed and are negative. [facility] Past Medical History Attestation statement: The following information was validated with the patient. Source: old records reviewed Medical History Ground glass opacity present on imaging of lung Restrictive lung disease Obesity (BMI 30-39.9) Arthralgia Tinea cruris RBBB RAD (reactive airway disease) LVH (left ventricular hypertrophy) Sacroiliitis Diverticulitis Cervical spondylosis JOHANNY (obstructive sleep apnea) Anemia Carpal tunnel syndrome of left wrist Insomnia GERD (gastroesophageal reflux disease) Hypertension Neuropathy Surgical History S/P CABG x 4 History of cardiac cath History of carpal tunnel surgery History of tonsillectomy Family History Family History Father Myocardial infarction Diabetes mellitus CVD (cardiovascular disease) Mother No problems noted. Brother Diabetes mellitus Sister Diabetes mellitus Cancer Social History Social History Housing: House Alcohol intake: former Patient Tobacco Use Status: Never used Tobacco e-Cigarette/Vaping Use: Never Used Advance Directives: No Advance Directives Information Provided: Yes service: No Current occupational status: disabled Cognitive needs: No Hearing needs: No Vision needs: Yes Physical Exam ED Vital Signs: Vital Signs - 24 hr 01/29/23 20:22 Temperature 98.2 F Pulse Rate 76 Respiratory Rate 16 Blood Pressure 156/89 H Pulse Oximetry 97 Oxygen Delivery Method Room Air BMI result Body Mass Index 31.6 Appearance: Alert. Oriented X3. No acute distress. Eyes: Pupils equal, round and reactive to light. ENT: Pharynx normal. Neck: Normal inspection. Neck supple. CVS: Normal heart rate and rhythm. Pulses normal. Respiratory: No respiratory distress. Breath sounds normal. Abdomen: Soft and nontender. Skin: Skin warm and dry. Normal skin color. Normal skin turgor. Extremities: No lower extremity edema. No calf ttp Neuro: Oriented X 3. No motor deficit. No sensory deficit. Course Course Course Narrative: RME- patient had routine lab test that was found to have mild transaminitis. Labs repeated today was significantly increasing transaminitis. Plan for repeat labs, hepatitis profile, seated with level, right upper quadrant ultrasound. Patient is well-appearing and has no pain Reevaluation(s) Reevaluation #1: liver enzymes are decreasing at this time, plts and INR normal US shows no cholecystitis and he has no abdominal pain bili is normal at this time I do not think he needs admission would wait on hep panel and send home with repeat LFTs tomorrow Medical Decision Making Medical Decision Making MDM Narrative: 62 yo male with PMH of anemia, CABG recently at [facility] November 2022 still on aspirin and plavix, CAD, PVCs, COPD, cellulitis here from PCP for elevated liver enzymes without known cause - no abdominal pain, change in medications, recent GI illness, tick bite, febrile illness, tranfusion hx, hepatitis history. At this time he has no abdominal pain but gallstones on US. I am ordering basic labs, hep panel, tox screen, tick panel and possible admission for lab trend Differential Diagnosis Differential Diagnoses: The differential diagnosis associated with the presentation includes viral syndrome, hepatitis, gallstones, med related Admission/Observation Consideration of admission/observation: Escalation of care including admission/observation considered given downtrend in labs he can be managed at home without overt signs of liver dysfuntion or cholecystitis will repeat LFTs with PCP tomrorow Consult Healthcare Provider Management of the patient was discussed with: Hospitalist Lab Data [facility] Lab Attestation statement: I reviewed the patient's lab results. 01/29/23 21:51 01/29/23 21:51 Labs: Lab Results 01/29/23 Range/Units 21:51 WBC 9.9 (4.8-10.8) X10*3/uL RBC 4.73 (4.60-5.80) X10*6/uL Hgb 13.4 L (14.0-18.0) g/dl Hct 40.6 L (42.0-52.0) % MCV 85.8 (80.0-98.0) fL MCH 28.3 (27.0-33.0) pg MCHC 33.0 (31.0-36.0) g/dl RDW 14.0 (11.0-16.0) % Plt Count 260 (160-400) X10*3/uL MPV 10.0 (9.4-12.4) fL Immature Gran % (Auto) 0.7 H (0.0-0.4) % Neut % (Auto) 55.0 (45-73) % Lymph % (Auto) 29.4 (20-40) % [place] % (Auto) 12.3 H (2-11) % Eos % (Auto) 2.4 (0-4) % Baso % (Auto) 0.2 (0-2) % Lymph # (Auto) 2.9 (1.2-4.9) X10*3/uL [place] # (Auto) 1.2 (0.1-1.2) X10*3/uL Eos # (Auto) 0.2 (0.0-0.4) X10*3/uL Baso # (Auto) 0.0 (0.0-0.2) X10*3/uL Abs Immat Gran (auto) 0.07 H (0.00-0.03) X10*3/uL Absolute Neuts (auto) 5.4 (2.0-8.3) x10*3/uL Absolute Nucleated RBC 0.000 (0.0-0.012) X10*3/uL Nucleated RBC % (auto) 0.0 (0.0-0.2) /100WBC PT 12.4 (11.1-13.3) SEC INR 1.0 (0.9-1.1) APTT 25.3 L (26.0-36.4) SEC Sodium 139 (135-145) mmol/L Potassium 4.3 (3.3-5.1) mmol/L Chloride 106 (96-108) mmol/L Carbon Dioxide 26 (22-29) mmol/L Anion Gap 11 L (12-20) BUN 24 H (9-16) mg/dL Creatinine 0.88 (0.5-1.4) mg/dL Estim Creat Clear Calc 93.8 Estimated GFR > 60 Random Glucose 110 (60-115) mg/dL Calcium 9.5 (8.4-10.2) mg/dL Total Bilirubin 0.4 (0.0-1.0) mg/dL AST 195 H (5-37) U/L ALT 552 H (0-40) U/L Alkaline Phosphatase 122 H (39-117) U/L Total Protein 6.1 L (6.5-8.0) g/dL Albumin 4.0 (3.5-5.0) g/dL Lipase 74 (8-78) U/L Acetaminophen < 17 (<30) mcg/mL Ethyl Alcohol < 10 mg/dL Independent Interpretation I performed an independent interpretation of an: Ultrasound (gallstones) Radiology Impression Discussion of test interpretation with radiology: I have reviewed the radiologist's reading. Independent Historian Clinical information obtained from an independent historian. History obtained from or confirmed by: Spouse External Record Review External record reviewed: Inpatient record and Prior outpatient labs Discharge Plan Discharge Clinical Impression: Elevated liver enzymes Patient Disposition: Home, Self-Care Instructions: Gallstones (ED) Additional Instructions: no alcohol or tylenol containing products. your liver enzymes are going down. you need to repeat your liver tests tomorrow with your doctor return for fevers, pain, confusion, yellow eyes, severe fatigue or any other concerns. Prescriptions: No Action amlodipine 2.5 mg tablet 2.5 mg PO DAILY Qty: 60 3RF omeprazole 40 mg capsule,delayed release(DR/EC) 1 cap PO QAM prednisone 20 mg tablet 20 mg PO BID Qty: 10 0RF ezetimibe 10 mg tablet 10 mg PO DAILY Qty: 90 1RF metoprolol tartrate 25 mg tablet 37.5 mg PO BID 90 Days Qty: 270 1RF aspirin [Adult Low Dose Aspirin] 81 mg tablet,delayed release (DR/EC) 81 mg PO DAILY Qty: 90 3RF atorvastatin 80 mg tablet 80 mg PO BEDTIME Qty: 90 1RF clopidogrel 75 mg tablet 75 mg PO DAILY 90 Days Qty: 90 0RF
[2023-01-29 21:56] LABS: MANUAL DIFF FLAG NO
[2023-01-29 22:02] LABS: Basophils Percent Auto 0.2 % (0-2); Eosinophils Absolute Auto 0.2 X10*3/uL (0.0-0.4); Eosinophils Percent Auto 2.4 % (0-4); Hematocrit 40.6 % (42.0-52.0); Hemoglobin 13.4 g/dl (14.0-18.0); Imm Gran Abs Auto 0.07 X10*3/uL (0.00-0.03); Imm Gran Pct Auto 0.7 % (0.0-0.4); Lymphocytes Absolute Auto 2.9 X10*3/uL (1.2-4.9); Lymphocytes Percent Auto 29.4 % (20-40); Mean Corpuscular Hemoglobin 28.3 pg (27.0-33.0); Mean Corpuscular Volume 85.8 fL (80.0-98.0); Monocytes Absolute Auto 1.2 X10*3/uL (0.1-1.2); Monocytes Percent Auto 12.3 % (2-11); Neutrophils Absolute Auto 5.4 x10*3/uL (2.0-8.3); Platelet Count 260 X10*3/uL (160-400); Red Blood Count 4.73 X10*6/uL (4.60-5.80); White Blood Count 9.9 X10*3/uL (4.8-10.8)
[2023-01-29 22:13] LABS: Alanine Aminotransferase 552 U/L (0-40); Alkaline Phosphatase 122 U/L (39-117); Anion Gap 11 (12-20); Aspartate Amino Transferase 195 U/L (5-37); Bilirubin Total 0.4 mg/dL (0.0-1.0); Blood Urea Nitrogen 24 mg/dL (9-16); Calcium 9.5 mg/dL (8.4-10.2); Carbon Dioxide 26 mmol/L (22-29); Chloride 106 mmol/L (96-108); Creatinine Clr Calc Pharmacy 93.8; Estimated Glomerular Filt Rate > 60; Glucose Random 110 mg/dL (60-115); Lipase 74 U/L (8-78); Potassium 4.3 mmol/L (3.3-5.1); Sodium 139 mmol/L (135-145); Total Protein 6.1 g/dL (6.5-8.0)
[2023-01-29 22:14] LABS: Acetaminophen LAB < 17 mcg/mL (<30); Ethanol < 10 mg/dL
[2023-01-29 22:18] LABS: Prothrombin Time 12.4 SEC (11.1-13.3)
[2023-01-29 22:21] LABS: Partial Thromboplastin Time 25.3 SEC (26.0-36.4)
[2023-01-30 05:14] LABS: HBS Num1 0.24 mIU/mL (0-7.99); HBc Num1 0.21 S/CO (0.00-0.79); HBsAGNum1 0.27 S/CO (0.00-0.99); Hepatitis A Antibody IgM 0.15 Index (0-0.79); Hepatitis B Core Antibody Nonreactive (Nonreactive); Hepatitis B Surface Antigen Negative (Negative); ~HepC Num1 0.08 S/CO (0.00-0.79); ~Hepatitis A Antibody IgM Nonreactive (Nonreactive); ~Hepatitis B Surface Antibody NONREACTIVE (Nonreactive); ~Hepatitis C Antibody Nonreactive (Nonreactive)
[2023-02-01 15:34] LABS: A. Phagocytphilium DNA,RT-PCR NOT DETECTED (NOT DETECTED); Babesia Microti DNA, RT-PCR NOT DETECTED (NOT DETECTED); Borrelia Miyamotoi,DNA RT-PCR NOT DETECTED (NOT DETECTED); E.Chaffeensis DNA RT-PCR NOT DETECTED (NOT DETECTED); Lyme(Borrelia ssp)DNA RT-PCR NOT DETECTED (NOT DETECTED)
== END 2023-01-29 23:05 | disposition home or self-care (01) ==
PROVIDERS: Physician Assistant; Emergency Provider Emergency Medicine; PCP Nurse Practitioner Family
DX: R79.89 Other specified abnormal findings of blood chemistry (principal); I25.10 Atherosclerotic heart disease of native coronary artery without angina pectoris; K76.89 Other specified diseases of liver; R10.9 Unspecified abdominal pain; Z20.822 Contact with and (suspected) exposure to COVID-19; Z20.828 Contact with and (suspected) exposure to other viral communicable diseases; Z79.899 Other long term (current) drug therapy
CPT/HCPCS: 36415; 76705; 80053; 80143; 80307; 82607; 82728; 82746; 82977; 83540; 83690; 85025; 85610; 85730; 86015; 86704; 86706; 86709; 86803; 87340; 87468; 87469; 87478; 87484; 87798; 99283; 99284

== ENCOUNTER 2023-02-01 20:31 | Emergency (ER) | payer MEDICARE, MEDICAID, SELFPAY ==
--- NOTE | 2023-02-01 20:43 | ED.ALLEREA ---
HPI - Allergic Reaction General Stated complaint: allergic reaction,hives Related Data Home Medications Medication Instructions Recorded Confirmed omeprazole 40 mg capsule,delayed 1 cap PO QAM 06/25/22 01/01/23 release Previous Rx's Medication Instructions Recorded aspirin 81 mg tablet,delayed 81 mg PO DAILY #90 tabs 12/30/22 release (Adult Low Dose Aspirin) atorvastatin 80 mg tablet 80 mg PO BEDTIME #90 tabs 12/30/22 clopidogrel 75 mg tablet 75 mg PO DAILY 90 days #90 tabs 12/30/22 ezetimibe 10 mg tablet 10 mg PO DAILY #90 tabs 12/30/22 metoprolol tartrate 25 mg tablet 37.5 mg (1.5 x 25 mg) PO BID 90 12/30/22 days #270 tabs prednisone 20 mg tablet 20 mg PO BID #10 tabs 01/23/23 amlodipine 2.5 mg tablet 2.5 mg PO DAILY #60 tabs 01/27/23 Allergies Allergy/AdvReac Type Severity Reaction Status Date / Time orphenadrine [From Norflex] Allergy Mild UNKNOWN Verified 01/29/23 20:24 piroxicam [From Feldene] Allergy Mild UNKNOWN Verified 01/29/23 20:24 amoxicillin Allergy Unknown unknown Verified 01/29/23 20:24 lisinopril Allergy Unknown cough Verified 01/29/23 20:24 pantoprazole [From Protonix] AdvReac Severe Anaphylaxis Verified 01/29/23 20:24 pravastatin AdvReac Mild body aches Verified 01/29/23 20:24 protonix Allergy Severe Angioedema Uncoded 01/29/23 20:24 [facility] Past Medical History Medical History Ground glass opacity present on imaging of lung Restrictive lung disease Obesity (BMI 30-39.9) Arthralgia Tinea cruris RBBB RAD (reactive airway disease) LVH (left ventricular hypertrophy) Sacroiliitis Diverticulitis Cervical spondylosis JOHANNY (obstructive sleep apnea) Anemia Carpal tunnel syndrome of left wrist Insomnia GERD (gastroesophageal reflux disease) Hypertension Neuropathy Surgical History S/P CABG x 4 History of cardiac cath History of carpal tunnel surgery History of tonsillectomy Family History Family History Father Myocardial infarction Diabetes mellitus CVD (cardiovascular disease) Mother No problems noted. Brother Diabetes mellitus Sister Diabetes mellitus Cancer Social History Social History Housing: House Alcohol intake: former Patient Tobacco Use Status: Never used Tobacco e-Cigarette/Vaping Use: Never Used service: No Current occupational status: disabled Cognitive needs: No Hearing needs: No Vision needs: Yes Course Course Course Narrative: This is an RME: Additional HPI, ROS, PE not included below will be deferred to primary provider. This is a 56-xidz-egz-male, with a hx of PMH of anemia, CABG recently at [facility] November 2022 still on aspirin and plavix, CAD, PVCs, COPD, presenting to the ER with complaints of allergic reaction which started 2 days ago. Hx of similar symptoms, was placed on course of prednisone. No chest pain or shortness of breath. Lungs clear to ausculation bilaterally. Diffuse wheals noted throughout body. VSS. Plan: IV solu-medrol, prednisone, benadryl. Further ER evaluation needed. Discharge Plan Discharge Prescriptions: No Action amlodipine 2.5 mg tablet 2.5 mg PO DAILY Qty: 60 3RF omeprazole 40 mg capsule,delayed release(DR/EC) 1 cap PO QAM prednisone 20 mg tablet 20 mg PO BID Qty: 10 0RF ezetimibe 10 mg tablet 10 mg PO DAILY Qty: 90 1RF metoprolol tartrate 25 mg tablet 37.5 mg PO BID 90 Days Qty: 270 1RF aspirin [Adult Low Dose Aspirin] 81 mg tablet,delayed release (DR/EC) 81 mg PO DAILY Qty: 90 3RF atorvastatin 80 mg tablet 80 mg PO BEDTIME Qty: 90 1RF clopidogrel 75 mg tablet 75 mg PO DAILY 90 Days Qty: 90 0RF
[2023-02-01 20:45] VITALS: BP 112/77; PULSE 93; RESP 18; TEMP 36.4; O2SAT 94; BMI 29.8
[2023-02-01] MEDS: methylPREDNISolone Sod Succ 125 MG/2 ML VIAL IVPUSH (21:03)
[2023-02-01] MEDS: diphenhydrAMINE HCL 50 MG/ML VIAL IVPUSH (21:03)
[2023-02-01] MEDS: Famotidine/PF 20 MG/2 ML VIAL IVPUSH (21:03)
[2023-02-01 21:12] VITALS: BP 128/90; PULSE 77; RESP 16; O2SAT 98
--- NOTE | 2023-02-01 21:48 | PC.NURSE ---
hives improving, to increase in tongue swelling, pt talking in full sentences, at bedside
--- NOTE | 2023-02-01 21:51 | PC.NURSE ---
SIGNIFICANT IMPROVEMENT WITH RXS. AIRWAY REMAINS PATENT. HIVES RESOLVED, TONGUE NO LONGER ENLARGED, FEET SWELLING HAS IMPROVED.
--- NOTE | 2023-02-01 22:00 | ED_ITS ---
HPI - Allergic Reaction General Chief complaint: Allergic Reaction Stated complaint: allergic reaction,hives Time Seen by Provider: 02/01/23 21:10 History of Present Illness HPI narrative: Patient is a 62-year-old male with a history of allergic reactions in the past. To an unknown substance. Patient today had sudden onset of redness diffuse over the body. There is no shortness of breath. There is no diaphoresis. Came to the emergency department right away. There has been no change in patient's environment. no new medication. Patient is from home. No new pets. No new lotions. Related Data Home Medications Medication Instructions Recorded Confirmed omeprazole 40 mg capsule,delayed 1 cap PO QAM 06/25/22 01/01/23 release Previous Rx's Medication Instructions Recorded aspirin 81 mg tablet,delayed 81 mg PO DAILY #90 tabs 12/30/22 release (Adult Low Dose Aspirin) atorvastatin 80 mg tablet 80 mg PO BEDTIME #90 tabs 12/30/22 clopidogrel 75 mg tablet 75 mg PO DAILY 90 days #90 tabs 12/30/22 ezetimibe 10 mg tablet 10 mg PO DAILY #90 tabs 12/30/22 metoprolol tartrate 25 mg tablet 37.5 mg (1.5 x 25 mg) PO BID 90 12/30/22 days #270 tabs prednisone 20 mg tablet 20 mg PO BID #10 tabs 01/23/23 amlodipine 2.5 mg tablet 2.5 mg PO DAILY #60 tabs 01/27/23 diphenhydramine HCl 25 mg capsule 25 mg PO Q8H 5 days #15 caps 02/01/23 (Benadryl) famotidine 20 mg tablet (Pepcid) 20 mg PO BID 5 days #10 tabs 02/01/23 prednisone 20 mg tablet 40 mg (2 x 20 mg) PO DAILY #10 tabs 02/01/23 Allergies Allergy/AdvReac Type Severity Reaction Status Date / Time orphenadrine [From Norflex] Allergy Mild UNKNOWN Verified 01/29/23 20:24 piroxicam [From Feldene] Allergy Mild UNKNOWN Verified 01/29/23 20:24 amoxicillin Allergy Unknown unknown Verified 01/29/23 20:24 lisinopril Allergy Unknown cough Verified 01/29/23 20:24 pantoprazole [From Protonix] AdvReac Severe Anaphylaxis Verified 01/29/23 20:24 pravastatin AdvReac Mild body aches Verified 01/29/23 20:24 protonix Allergy Severe Angioedema Uncoded 01/29/23 20:24 Review of Systems Review of Systems: Positive diffuse rash Yes all other systems are reviewed and are negative [facility] Past Medical History Medical History Ground glass opacity present on imaging of lung Restrictive lung disease Obesity (BMI 30-39.9) Arthralgia Tinea cruris RBBB RAD (reactive airway disease) LVH (left ventricular hypertrophy) Sacroiliitis Diverticulitis Cervical spondylosis JOHANNY (obstructive sleep apnea) Anemia Carpal tunnel syndrome of left wrist Insomnia GERD (gastroesophageal reflux disease) Hypertension Neuropathy Surgical History S/P CABG x 4 History of cardiac cath History of carpal tunnel surgery History of tonsillectomy Family History Family History Father Myocardial infarction Diabetes mellitus CVD (cardiovascular disease) Mother No problems noted. Brother Diabetes mellitus Sister Diabetes mellitus Cancer Social History Social History Housing: House Alcohol intake: former Patient Tobacco Use Status: Never used Tobacco e-Cigarette/Vaping Use: Never Used Advance Directives: No Advance Directives Information Provided: No service: No Current occupational status: disabled Cognitive needs: No Hearing needs: No Vision needs: Yes Physical Exam ED Vital Signs: Vital Signs - 24 hr 02/01/23 20:45 02/01/23 21:12 Temperature 97.5 F Pulse Rate 93 77 Respiratory Rate 18 16 Blood Pressure 112/77 128/90 H Pulse Oximetry 94 98 Oxygen Delivery Method Room Air Room Air BMI result Body Mass Index 29.8 Appearance: Alert. Oriented X3. No acute distress. Eyes: Pupils equal, round and reactive to light. ENT: Pharynx normal. Neck: Normal inspection. Neck supple. No lymph nodes noted. No crepitus CVS: Normal heart rate and rhythm. Pulses normal. Normal S1 and S2 Respiratory: No respiratory distress. Breath sounds normal. No Wheezing. No rales Abdomen: Soft and nontender. No rigidity. No distention. good BS x4 Skin: Skin warm and dry. Normal skin color. Normal skin turgor. Extremities: No lower extremity edema. Neurovascular intact to all extremities. No Lacerations. No Rash Neuro: Oriented X 3. No motor deficit. No sensory deficit. Moving all extermities. No slurred speech Medications Administered Discontinued Medications Generic Name Dose Route Start Last Admin Trade Name Timoteo PRN Reason Stop Dose Admin Diphenhydramine HCl 50 mg 02/01/23 20:43 02/01/23 21:03 Diphenhydramine Hcl 50 Mg/Ml Vial IVPUSH 02/01/23 20:44 50 mg ONCE ONE Administration Famotidine 20 mg 02/01/23 20:43 02/01/23 21:03 Famotidine/Pf 20 Mg/2 Ml Vial IVPUSH 02/01/23 20:44 20 mg ONCE ONE Administration Methylprednisolone Sodium Succinate 125 mg 02/01/23 20:43 02/01/23 21:03 Methylprednisolone Sod Succ 125 Mg/2 Ml Vial IVPUSH 02/01/23 20:44 125 mg ONCE ONE Administration Medical Decision Making Medical Decision Making [facility] Narrative: patient was seen in the Advanced 3 arge given steroid Benadryl Pepcid with good relief of symptoms. It has been now an hour and a half since the medication was given. Patient's lungs are clear the rash is completely gone we will continue patient on steroids. Unknown substance that is causing patient to have an allergic reaction. However patient is in stable condition. There was no mucosal membrane involvement. Will discharge home. Differential Diagnosis Differential Diagnoses: The differential diagnosis associated with the presentation includes Allergic reaction Admission/Observation Consideration of admission/observation: Escalation of care including admission/observation considered the symptom resolved does not need admission Independent Historian Clinical information obtained from an independent historian. History obtained from or confirmed by: Spouse External Record Review External record reviewed: Office record previous cardiology records reviewed. History of CAD Chronic Conditions Patient?s care impacted by: Hypertension coronary artery disease status post bypass Discharge Plan Discharge Clinical Impression: Allergic reaction Patient Disposition: Home, Self-Care Instructions: General Allergic Reaction (ED) Prescriptions: New diphenhydramine HCl [Benadryl] 25 mg capsule 25 mg PO Q8H 5 Days Qty: 15 0RF prednisone 20 mg tablet 40 mg PO DAILY Qty: 10 0RF famotidine [Pepcid] 20 mg tablet 20 mg PO BID 5 Days Qty: 10 0RF No Action amlodipine 2.5 mg tablet 2.5 mg PO DAILY Qty: 60 3RF omeprazole 40 mg capsule,delayed release(DR/EC) 1 cap PO QAM prednisone 20 mg tablet 20 mg PO BID Qty: 10 0RF ezetimibe 10 mg tablet 10 mg PO DAILY Qty: 90 1RF metoprolol tartrate 25 mg tablet 37.5 mg PO BID 90 Days Qty: 270 1RF aspirin [Adult Low Dose Aspirin] 81 mg tablet,delayed release (DR/EC) 81 mg PO DAILY Qty: 90 3RF atorvastatin 80 mg tablet 80 mg PO BEDTIME Qty: 90 1RF clopidogrel 75 mg tablet 75 mg PO DAILY 90 Days Qty: 90 0RF Referrals: Physician,Unknown J [Primary Care Provider] - 02/04/23
== END 2023-02-01 22:22 | disposition home or self-care (01) ==
PROVIDERS: Emergency Provider Emergency Medicine Emergency Medical Services
DX: L23.9 Allergic contact dermatitis, unspecified cause (principal)
CPT/HCPCS: 96374; 96375; 99283; 99284; J1200; J2930

== ENCOUNTER 2023-02-03 08:49 | Outpatient (REF) | payer MEDICARE, MEDICAID, SELFPAY ==
[2023-02-03 11:22] LABS: MANUAL DIFF FLAG NO
[2023-02-03 11:32] LABS: Basophils Percent Auto 0.2 % (0-2); Eosinophils Percent Auto 0.2 % (0-4); Hematocrit 42.5 % (42.0-52.0); Hemoglobin 13.4 g/dl (14.0-18.0); Imm Gran Abs Auto 0.08 X10*3/uL (0.00-0.03); Imm Gran Pct Auto 0.5 % (0.0-0.4); Lymphocytes Absolute Auto 1.8 X10*3/uL (1.2-4.9); Lymphocytes Percent Auto 10.4 % (20-40); Mean Corpuscular HGB Conc 31.5 g/dl (31.0-36.0); Mean Corpuscular Volume 88.9 fL (80.0-98.0); Mean Platelet Volume 11.1 fL (9.4-12.4); Monocytes Absolute Auto 1.2 X10*3/uL (0.1-1.2); Monocytes Percent Auto 7.1 % (2-11); Neutrophils Absolute Auto 13.9 x10*3/uL (2.0-8.3); Neutrophils Percent Auto 81.6 % (45-73); Platelet Count 292 X10*3/uL (160-400); Red Blood Count 4.78 X10*6/uL (4.60-5.80); Red Cell Distribution Width 14.3 % (11.0-16.0)
[2023-02-03 11:52] LABS: Alanine Aminotransferase 181 U/L (0-40); Albumin Level 4.3 g/dL (3.5-5.0); Alkaline Phosphatase 94 U/L (39-117); Aspartate Amino Transferase 34 U/L (5-37); Bilirubin Direct 0.2 mg/dL (0.0-0.5); Bilirubin Total 0.4 mg/dL (0.0-1.0); Total Protein 6.4 g/dL (6.5-8.0)
== END 2023-02-03 08:50 | disposition home or self-care (01) ==
LOC: HO.HMGCLDS 08:49
PROVIDERS: PCP Nurse Practitioner Family; Visit Provider Nurse Practitioner Family
DX: R74.8 Abnormal levels of other serum enzymes (principal)
CPT/HCPCS: 36415; 80076; 85025

== ENCOUNTER 2023-02-06 10:07 | Outpatient (AMB) | payer MEDICARE, MEDICAID, SELFPAY ==
[2023-02-06 10:25] VITALS: BP 140/88; PULSE 69; O2SAT 100; BMI 30.6
--- NOTE | 2023-02-06 10:25 | MHC.PC.OV ---
Vital Signs 02/06/23 10:25 Height 5 ft 7 in Weight 195 lb 8 oz BMI 30.6 BP 140/88 H Blood Pressure Location Lt brachial Position Sitting Pulse 69 Pulse Source Pulse Oximeter Pulse Oximetry (%) 100 Oxygen Delivery Method Room Air Intake Visit Reasons: Elevated Liver enzymes Allergies orphenadrine [From Norflex] Allergy (Mild, Verified 02/06/23 10:28) UNKNOWN piroxicam [From Feldene] Allergy (Mild, Verified 02/06/23 10:28) UNKNOWN amoxicillin Allergy (Unknown, Verified 02/06/23 10:28) unknown lisinopril Allergy (Unknown, Verified 02/06/23 10:28) cough pantoprazole [From Protonix] Adverse Reaction (Severe, Verified 02/06/23 10:28) Anaphylaxis pravastatin Adverse Reaction (Mild, Verified 02/06/23 10:28) body aches protonix Allergy (Severe, Uncoded 02/06/23 10:28) Angioedema Medication List - Last Reconciled 02/06/23 by TOAN RootP- amlodipine 2.5 mg PO DAILY aspirin (Adult Low Dose Aspirin) 81 mg PO DAILY atorvastatin 80 mg PO BEDTIME clopidogrel 75 mg PO DAILY 90 days diphenhydramine HCl (Benadryl) 25 mg PO Q8H 5 days ezetimibe 10 mg PO DAILY famotidine (Pepcid) 20 mg PO BID 5 days metoprolol tartrate 37.5 mg (1.5 x 25 mg) PO BID 90 days omeprazole 1 cap PO QAM prednisone 20 mg PO BID prednisone 40 mg (2 x 20 mg) PO DAILY Tobacco use date assessed: 02/06/23 Dental Screening Dental Screen Date: 02/06/23 Did you have a dental visit in the last 12 months?: No Did you have a dental problem in the last 6 months where you did not have access to dental care?: No Was dental information given to patient?: Patient has dentist HPI Elevated Liver enzymes HPI Details Pt was seen in the ER on 01/29 after being sent by me due to significantly elevated liver enzymes (AST 360, ALT 692, GGT 506). Labs showed that liver enzymes were decreasing. US showed small liver cyst and gallstones, bilirubin was normal. Hepatitis screen was negative. He denies any symptoms. Pt was recently noted to have leukocytosis. Will order labs, UA, and chest XR. Denies any signs of infection including fever, chills, dizziness, and shortness of breath. Pt had a severe allergic reaction recently. 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 Will start RAST testing. [facility] Medical History Ground glass opacity present on imaging of lung Restrictive lung disease Obesity (BMI 30-39.9) Arthralgia Tinea cruris RBBB RAD (reactive airway disease) LVH (left ventricular hypertrophy) Sacroiliitis Diverticulitis Cervical spondylosis JOHANNY (obstructive sleep apnea) Anemia Carpal tunnel syndrome of left wrist Insomnia GERD (gastroesophageal reflux disease) Hypertension Neuropathy Surgical History S/P CABG x 4 History of cardiac cath History of carpal tunnel surgery History of tonsillectomy Family History Father Myocardial infarction Diabetes mellitus CVD (cardiovascular disease) Mother No problems noted. Brother Diabetes mellitus Sister Diabetes mellitus Cancer Social History Housing: House Alcohol intake: former Patient Tobacco Use Status: Never used Tobacco e-Cigarette/Vaping Use: Never Used service: No Current occupational status: disabled Cognitive needs: No Hearing needs: No Vision needs: Yes Review of Systems Const Reports as per HPI Physical exam (Primary Care) Vital Signs: Last Vital Signs Pulse 69 02/06/23 10:25 BP 140/88 H 02/06/23 10:25 Pulse Ox 100 02/06/23 10:25 Oxygen Delivery Method Room Air 02/06/23 10:25 BMI result Body Mass Index 30.6 Tobacco/Smoking Status: Tobacco use Status Tobacco use date assessed 02/06/23 02/06/23 10:31 Patient Tobacco Use Status Never used Tobacco 02/06/23 10:31 e-Cigarette/Vaping Use Never Used 02/06/23 10:31 Const General: cooperative Orientation/consciousness: patient oriented x3 Resp Effort & Inspection: normal respiratory effort Auscultation: clear to auscultation bilaterally Cardio Rate: regular rate Rhythm: regular rhythm Heart sounds: S1 normal heart sound present and S2 normal heart sound present GI Palpation (GI): nontender Neuro General: patient oriented x3 Psych Appearance: grossly normal Mental Status: mental status grossly normal Speech and movement: Normal speech and movement present Affect: normal affect Attitude: cooperative Thought process: Normal thought process present Thought content: Normal thought content present Insight: Good insight present (Psych) Judgement: Good judgement present (Psych) Assessment and Plan Assessment & Plan (1) Elevated liver enzymes: Code(s): R74.8 - Abnormal levels of other serum enzymes Plan: Labs ordered (2) Leukocytosis: Code(s): D72.829 - Elevated white blood cell count, unspecified Plan: Labs, UA, and chest XR ordered (3) Allergies: Code(s): T78.40XA - Allergy, unspecified, initial encounter Plan: referred, RAST testing started Plan The patient agreed to the use of a medical transcriber for this encounter. Scribed for TABITHA Grier-BC by Katja Valverde medical transcriber, on 02/06/2023 at 10:40 EST. Orders: Orders Complete Blood Count Auto Diff Today D72.829 - Elevated white blood cell count, unspecified, R74.8 - Abnormal levels of other serum enzymes Comprehensive Met. Panel Today D72.829 - Elevated white blood cell count, unspecified, R74.8 - Abnormal levels of other serum enzymes XR chest 2V Today D72.829 - Elevated white blood cell count, unspecified UA CC w/rflx Micro + Cult Today D72.829 - Elevated white blood cell count, unspecified, R74.8 - Abnormal levels of other serum enzymes Coding Level of Care Code Est Pt Level 3 (95917) Diagnoses Elevated liver enzymes R74.8 Leukocytosis D72.829 Allergies T78.40XA
== END 2023-02-06 12:52 | disposition home or self-care (01) ==
PROVIDERS: PCP Nurse Practitioner Family; Visit Provider Nurse Practitioner Family
DX: R74.8 Abnormal levels of other serum enzymes (principal); D72.829 Elevated white blood cell count, unspecified; T78.40XA Allergy, unspecified, initial encounter
CPT/HCPCS: 99213

== ENCOUNTER 2023-02-06 11:10 | Outpatient (REF) | payer MEDICARE, MEDICAID, SELFPAY ==
--- NOTE | ~2023-02-06 | XR_ITS ---
EXAMINATION: XR CHEST CLINICAL INFORMATION: Elevated white count COMPARISON: 11/13/2021 TECHNIQUE: 2 views of the chest were obtained. FINDINGS: Patient status post median sternotomy with clips denoting a CABG, new since prior. No other significant abnormality is noted involving the heart, lungs, mediastinum, bony thorax or soft tissues. XR/XR chest 2V IMPRESSION: No acute intrathoracic disease.
[2023-02-06 13:09] LABS: MANUAL DIFF FLAG NO
[2023-02-06 13:22] LABS: Basophils Percent Auto 0.2 % (0-2); Eosinophils Percent Auto 0.1 % (0-4); Hematocrit 46.1 % (42.0-52.0); Imm Gran Abs Auto 0.06 X10*3/uL (0.00-0.03); Imm Gran Pct Auto 0.5 % (0.0-0.4); Lymphocytes Absolute Auto 1.2 X10*3/uL (1.2-4.9); Mean Corpuscular HGB Conc 32.5 g/dl (31.0-36.0); Mean Corpuscular Hemoglobin 28.1 pg (27.0-33.0); Mean Corpuscular Volume 86.5 fL (80.0-98.0); Monocytes Absolute Auto 0.3 X10*3/uL (0.1-1.2); Monocytes Percent Auto 2.6 % (2-11); Neutrophils Absolute Auto 11.7 x10*3/uL (2.0-8.3); Neutrophils Percent Auto 87.6 % (45-73); Platelet Count 291 X10*3/uL (160-400); Red Blood Count 5.33 X10*6/uL (4.60-5.80); Red Cell Distribution Width 14.3 % (11.0-16.0); White Blood Count 13.3 X10*3/uL (4.8-10.8)
[2023-02-06 13:36] LABS: Alanine Aminotransferase 79 U/L (0-40); Albumin Level 4.3 g/dL (3.5-5.0); Alkaline Phosphatase 83 U/L (39-117); Anion Gap 13 (12-20); Aspartate Amino Transferase 17 U/L (5-37); Bilirubin Total 0.4 mg/dL (0.0-1.0); Blood Urea Nitrogen 29 mg/dL (9-16); Calcium 9.7 mg/dL (8.4-10.2); Carbon Dioxide 23 mmol/L (22-29); Chloride 107 mmol/L (96-108); Estimated Glomerular Filt Rate > 60; Glucose Random 138 mg/dL (60-115); Sodium 139 mmol/L (135-145); Total Protein 6.7 g/dL (6.5-8.0)
[2023-02-06 13:53] LABS: Appearance Urine Clear; Color Urine Yellow; Glucose Urine UA Negative (Negative); Leukocyte Esterase Urine Negative (Negative); Nitrite Urine Negative (Negative); PH 5.5 (5.0-9.0); Urine Blood Negative (Negative); Urine Ketones Negative (Negative); Urine Protein Negative (Neg-Trace)
== END 2023-02-06 11:11 | disposition home or self-care (01) ==
LOC: HO.HMGCX 11:10
PROVIDERS: PCP Nurse Practitioner Family; Visit Provider Nurse Practitioner Family
DX: D72.829 Elevated white blood cell count, unspecified (principal); R74.8 Abnormal levels of other serum enzymes; T78.40XA Allergy, unspecified, initial encounter
CPT/HCPCS: 36415; 71046; 80053; 81003; 85025; 86003

== ENCOUNTER 2023-02-11 07:01 | Outpatient (REF) | payer MEDICARE, MEDICAID, SELFPAY ==
[2023-02-11 11:25] LABS: MANUAL DIFF FLAG NO
[2023-02-11 11:42] LABS: Basophils Percent Auto 0.4 % (0-2); Eosinophils Absolute Auto 0.2 X10*3/uL (0.0-0.4); Eosinophils Percent Auto 2.3 % (0-4); Hematocrit 49.3 % (42.0-52.0); Hemoglobin 15.6 g/dl (14.0-18.0); Imm Gran Abs Auto 0.04 X10*3/uL (0.00-0.03); Imm Gran Pct Auto 0.4 % (0.0-0.4); Lymphocytes Absolute Auto 2.1 X10*3/uL (1.2-4.9); Lymphocytes Percent Auto 22.1 % (20-40); Mean Corpuscular HGB Conc 31.6 g/dl (31.0-36.0); Mean Corpuscular Hemoglobin 28.1 pg (27.0-33.0); Mean Corpuscular Volume 88.8 fL (80.0-98.0); Mean Platelet Volume 11.1 fL (9.4-12.4); Monocytes Absolute Auto 0.9 X10*3/uL (0.1-1.2); Monocytes Percent Auto 9.8 % (2-11); Neutrophils Absolute Auto 6.1 x10*3/uL (2.0-8.3); Platelet Count 256 X10*3/uL (160-400); Red Blood Count 5.55 X10*6/uL (4.60-5.80); Red Cell Distribution Width 14.3 % (11.0-16.0); White Blood Count 9.4 X10*3/uL (4.8-10.8)
[2023-02-11 11:57] LABS: Alanine Aminotransferase 34 U/L (0-40); Albumin Level 4.4 g/dL (3.5-5.0); Alkaline Phosphatase 72 U/L (39-117); Anion Gap 16 (12-20); Aspartate Amino Transferase 18 U/L (5-37); Bilirubin Total 0.4 mg/dL (0.0-1.0); Blood Urea Nitrogen 29 mg/dL (9-16); Carbon Dioxide 23 mmol/L (22-29); Chloride 105 mmol/L (96-108); Estimated Glomerular Filt Rate > 60; Glucose Random 104 mg/dL (60-115); Sodium 140 mmol/L (135-145); Total Protein 6.9 g/dL (6.5-8.0)
== END 2023-02-11 07:02 | disposition home or self-care (01) ==
LOC: HO.HMGCLDS 07:01
PROVIDERS: PCP Nurse Practitioner Family; Visit Provider Nurse Practitioner Family
DX: D72.829 Elevated white blood cell count, unspecified (principal); R74.8 Abnormal levels of other serum enzymes
CPT/HCPCS: 36415; 80053; 85025

== ENCOUNTER 2023-03-28 08:26 | Outpatient (AMB) | payer MEDICARE, MEDICAID, SELFPAY ==
--- NOTE | 2023-03-28 08:29 | MHC.OFFVIS ---
Intake Intake Visit Reasons: Nocturia- 1yr follow up Intake Note: Patient is Present for Follow Up Urology Medication: None Antibiotic Allergies: Amoxicillin, Blood Thinners: Clopidogrel,aspirin Pharmacy: [facility] PVR: 30 Allergies orphenadrine [From Norflex] Allergy (Mild, Verified 03/28/23 08:31) UNKNOWN piroxicam [From Feldene] Allergy (Mild, Verified 03/28/23 08:31) UNKNOWN amoxicillin Allergy (Unknown, Verified 03/28/23 08:31) unknown lisinopril Allergy (Unknown, Verified 03/28/23 08:31) cough pantoprazole [From Protonix] Adverse Reaction (Severe, Verified 03/28/23 08:31) Anaphylaxis pravastatin Adverse Reaction (Mild, Verified 03/28/23 08:31) body aches protonix Allergy (Severe, Uncoded 03/28/23 08:31) Angioedema HPI HPI Comments History of Present Illness Details Ruthann is a pleasant male. Seen for the following urologic conditions - lower urinary tract symptoms Quadruple bypass Waking 3-4 times at 9 Will alter fluid intake Check in 6 months May need prostate medication Elevated PSA/Abnormal ANETTE: He presents for further evaluation of prostate nodule. Current management is observation. Laboratory investigations include a total PSA evaluation 10/02 0.8 10/05 0.9, 04/07 1.1 04/04 - bladder US 20gm. Individualized Prostate Cancer Risk Calculator < 5% high risk, Would like to continue with observation and understands and accepts the risks of a possible delay in diagnosis. Overall symptoms are mild - minimal response to Flomax. Associated conditions diabetes No dyslipidemia No dysuria No erectile dysfunction No hematuria No hypertension Yes Therapeutic plan will be continued surveillance. [facility] Medical History Ground glass opacity present on imaging of lung Restrictive lung disease Obesity (BMI 30-39.9) Arthralgia Tinea cruris RBBB RAD (reactive airway disease) LVH (left ventricular hypertrophy) Sacroiliitis Diverticulitis Cervical spondylosis JOHANNY (obstructive sleep apnea) Anemia Carpal tunnel syndrome of left wrist Insomnia GERD (gastroesophageal reflux disease) Hypertension Neuropathy Surgical History S/P CABG x 4 History of cardiac cath History of carpal tunnel surgery History of tonsillectomy Family History Father Myocardial infarction Diabetes mellitus CVD (cardiovascular disease) Mother No problems noted. Brother Diabetes mellitus Sister Diabetes mellitus Cancer Social History Housing: House Alcohol intake: former Patient Tobacco Use Status: Never used Tobacco e-Cigarette/Vaping Use: Never Used service: No Current occupational status: disabled Cognitive needs: No Hearing needs: No Vision needs: Yes Review of Systems Const Denies chills and Denies fever(s) Card Reports no additional complaints and Denies syncope Resp Denies cough GI Denies abdominal pain and Denies heartburn Reports as per HPI and Denies change in libido Neuro Denies syncope Psych Denies change in libido Endo Denies change in libido Physical Exam Const General: cooperative, healthy appearing, comfortable and no acute distress Orientation/consciousness: patient oriented x3 HEENT Face and sinus: Yes normal facial exam Mouth: moist mucous membranes Neck Neck: Yes normal visual inspection, Yes full ROM and Yes trachea midline Chest Chest palpation & inspection: normal inspection of the chest Resp Effort & Inspection: normal respiratory effort, able to speak in complete sentences and no respiratory distress GI Inspection: Yes normal to inspection Back/Spine/Pelvis Cervical Spine: normal cervical lordosis Thoracic/Lumbar Spine: thoracic and lumbar spine normal to inspection Skin General skin exam: no rashes or lesions noted Neuro General: patient oriented x3, gait normal, tone normal and moves all extremities Extrem General: Yes normal to inspection and Yes capillary refill normal Office Procedures Post Void Residual Post Residual Void Post Void Residual (PVR): 30 [id number] Void Residual by ultrasound Results AMB Urinalysis, Automated UA Leukoctes 0 Sahil/uL Last Edit by SERGIO Giordano on 03/28/23 08:41 UA Nitrite Negative Last Edit by SERGIO Giordano on 03/28/23 08:41 UA Urobilinogen 0.2 mg/dL Last Edit by SERGIO Giordano on 03/28/23 08:41 UA Protein 0 mg/dL Last Edit by SERGIO Giordano on 03/28/23 08:41 UA pH 6.0 Last Edit by MANJU GiordanoA on 03/28/23 08:41 UA Blood 0 Phil/uL Last Edit by Eli Madera, RMA on 03/28/23 08:41 UA Specific Benkelman 1.030 Last Edit by Elijanette Madera, RMA on 03/28/23 08:41 UA Ketone Negative Last Edit by Elijanette Madera, RMA on 03/28/23 08:41 UA Bilirubin 0 mg/dL Last Edit by Eli Madera, RMA on 03/28/23 08:41 UA Glucose 0 mg/dL Last Edit by Eli Madera, RMA on 03/28/23 08:41 Results Reviewed Results Reviewed: Laboratory Last Values Urine pH (Auto) 6.0 03/28/23 08:32 Specific Benkelman (Auto) 1.030 03/28/23 08:32 Urine Protein (Auto) 0 mg/dL 03/28/23 08:32 Glucose (UA)(Auto) 0 mg/dL 03/28/23 08:32 Urine Ketones (Auto) Negative 03/28/23 08:32 Urine Blood (Auto) 0 Phil/uL 03/28/23 08:32 Urine Nitrite (Auto) Negative 03/28/23 08:32 Urine Bilirubin (Auto) 0 mg/dL 03/28/23 08:32 Urine Urobilinogen (Auto) 0.2 mg/dL 03/28/23 08:32 Leukocyte Esterase (Auto) 0 Sahil/uL 03/28/23 08:32 Assessment & Plan Assessment & Plan (1) Prostate nodule: Code(s): N40.2 - Nodular prostate without lower urinary tract symptoms Plan 6 month follow-up tele Orders: Orders AMB Urinalysis Automated Today Z13.9 - Encounter for screening, unspecified AMB Post Void Residual by ultrasound Today N40.1 - Benign prostatic hyperplasia with lower urinary tract symptoms, R35.1 - Nocturia Patient Instructions: Imaging studies, laboratory and physical exam results were discussed and reviewed in detail. No major barriers to patient understanding were identified. An opportunity to ask questions regarding the treatment plan was provided. All questions were answered. The patient expressed understanding and agreement with the above treatment plan. The patient is aware they should contact our office by phone for worsening of their current condition or the appearance of new urologic symptoms. Compliance is encouraged with any medications and followup testing that is ordered. It is a privilege to participate in the urologic care of your patient. If you have any questions or concerns regarding treatment for the above conditions, or other urologic issues, please do not hesitate to contact me. The office telephone contact is [phone]. This note is constructed using voice recognition software. While every effort has been made to ensure accuracy textiles and clothing teacher errors may have been included. Yours sincerely, Dr Matthew Cesar MD, [facility] - Urology Providers of Expert, Compassionate Care for the Genitourinary System Coding Level of Care Code Est Pt Level 4 (21044) Diagnoses Prostate nodule N40.2 CPT Codes Post Residual Void - PVR CPT Code: 73133-Uyss Void Residual by ultrasound ([id number])
== END 2023-03-28 09:01 | disposition home or self-care (01) ==
PROVIDERS: Visit Provider Urology
DX: N40.2 Nodular prostate without lower urinary tract symptoms (principal); Z13.9 Encounter for screening, unspecified
CPT/HCPCS: 99213

== ENCOUNTER → 2023-03-28 08:26 | Outpatient (BNVA) | payer MEDICARE, MEDICAID, SELFPAY | PROVIDERS: Visit Provider Urology | DX: N40.2 Nodular prostate without lower urinary tract symptoms (principal) | CPT/HCPCS: 51798; 81003; 99212 ==

== ENCOUNTER 2023-03-31 08:06 | Outpatient (AMB) | payer MEDICARE, MEDICAID, SELFPAY ==
[2023-03-31 08:12] VITALS: BP 124/82; PULSE 72; BMI 31.6
--- NOTE | 2023-03-31 08:12 | MHC.OFFVIS ---
Intake Vital Signs 03/31/23 08:12 Height 5 ft 7 in Weight 201 lb 15.095 oz BMI 31.6 BP 124/82 Blood Pressure Location Lt brachial Pulse 72 Pulse Source Pulse Oximeter Intake Visit Reasons: 3 mth f/up per km Garbage Collector Supervisor Required: No Line Assigner: Line Assigner Present Accompanied by: Significant Other Allergies orphenadrine [From Norflex] Allergy (Mild, Verified 03/31/23 08:15) UNKNOWN piroxicam [From Feldene] Allergy (Mild, Verified 03/31/23 08:15) UNKNOWN amoxicillin Allergy (Unknown, Verified 03/31/23 08:15) unknown lisinopril Allergy (Unknown, Verified 03/31/23 08:15) cough pantoprazole [From Protonix] Adverse Reaction (Severe, Verified 03/31/23 08:15) Anaphylaxis pravastatin Adverse Reaction (Mild, Verified 03/31/23 08:15) body aches protonix Allergy (Severe, Uncoded 03/28/23 08:31) Angioedema Medication List - Last Reconciled 03/31/23 by DAVON CharlesC amlodipine 2.5 mg PO DAILY aspirin (Adult Low Dose Aspirin) 81 mg PO DAILY atorvastatin 80 mg PO BEDTIME clopidogrel 75 mg PO DAILY 90 days ezetimibe 10 mg PO DAILY metoprolol tartrate 37.5 mg (1.5 x 25 mg) PO BID 90 days omeprazole 1 cap PO QAM HPI 3 mth f/up per km HPI Details [id number] male past medical history of hypertension, hyperlipidemia, obesity who was reporting chest discomfort, had abnormal echocardiogram and stress test. He then underwent cardiac catheterization showing multivessel CAD. He underwent 4 vessel Coronary artery bypass grafting on 11/22/2022 and now presents for follow-up. Today he reports he has been doing well overall. He has no chest discomfort at rest or with activity. No chest wall discomfort. Some shortness of breath with exertion which is not new. No shortness of breath at rest, palpitations, presyncope, syncope, PND, orthopnea or edema. He describes some shooting pains from his left hip. Bilateral leg discomfort with stair climbing. Some numbness along the medial aspect of his left ankle, site of vein graft access. Good activity tolerance. Declined cardiac rehab. Taking meds as directed. is present. [facility] Medical History Ground glass opacity present on imaging of lung Restrictive lung disease Obesity (BMI 30-39.9) Arthralgia Tinea cruris RBBB RAD (reactive airway disease) LVH (left ventricular hypertrophy) Sacroiliitis Diverticulitis Cervical spondylosis JOHANNY (obstructive sleep apnea) Anemia Carpal tunnel syndrome of left wrist Insomnia GERD (gastroesophageal reflux disease) Hypertension Neuropathy Surgical History S/P CABG x 4 History of cardiac cath History of carpal tunnel surgery History of tonsillectomy Family History Father Myocardial infarction Diabetes mellitus CVD (cardiovascular disease) Mother No problems noted. Brother Diabetes mellitus Sister Diabetes mellitus Cancer Social History Housing: House Alcohol intake: former Patient Tobacco Use Status: Never used Tobacco e-Cigarette/Vaping Use: Never Used service: No Current occupational status: disabled Cognitive needs: No Hearing needs: No Vision needs: Yes Review of Systems Const All systems reviewed & are unremarkable except as noted in HPI and below ENT Denies dizziness Card Denies chest pain, Denies chest pain at rest, Denies chest pain with activity, Denies rapid heart rate, Denies pedal edema, Denies edema, Denies leg edema, Denies lightheadedness, Denies palpitations, Denies dyspnea, Denies dyspnea on exertion and Denies orthopnea Resp Denies cough, Denies dyspnea and Denies dyspnea on exertion GI Denies hematochezia and Denies change in stool character Musc Details: left medial ankle numbness. Left hip pain. Bilateral leg discomfort Denies abnormal gait, Denies limited range of motion, Denies muscle cramps, Denies muscle weakness, Reports numbness, Denies radiating pain into limb, Denies stiffness and Denies tingling Neuro Denies abnormal gait, Denies dizziness, Reports numbness and Denies tingling Endo Denies palpitations Physical Exam Vital Signs: Last Vital Signs Pulse 72 03/31/23 08:12 BP 124/82 03/31/23 08:12 BMI result Body Mass Index 31.6 Assessment & Plan Assessment & Plan (1) CAD (coronary artery disease): Code(s): I25.10 - Atherosclerotic heart disease of [place] coronary artery without angina pectoris Plan: Recent reports of chest discomfort. Cardiac testing suggested of coronary artery disease. He underwent cardiac catheterization showing multivessel CAD. He then had 4 vessel coronary artery bypass grafting on 11/22/2022. He has done well in his recovery. . He declined cardiac rehab. No anginal sounding symptoms. He has not had an echo postprocedure as of yet. Will order limited echo to assess EF and wall motion. Continue med management including aspirin, Plavix, high-dose atorvastatin with ideal LDL goal less than 70. Labs done 01/28/2023 showed LDL 73. He did have elevated LFTs in January however they have since normalized. Continue amlodipine, metoprolol. Blood pressure well controlled. Continue activity as tolerated. Cardiology follow-up in 3 months, sooner if needed (2) S/P CABG x 4: Comment: 11/22/2022, [place] to LAD, left radial graft to diagonal, SVG to PDA and OM Code(s): Z95.1 - Presence of aortocoronary bypass graft (3) Hypertension: Code(s): I10 - Essential (primary) hypertension Qualifiers: Hypertension type: primary hypertension Qualified Code(s): I10 - Essential (primary) hypertension Plan: Well controlled at this time. Continue current med management. (4) Dyslipidemia: Code(s): E78.5 - Hyperlipidemia, unspecified Plan: [place] LDL goal less than 70. Continue high-dose atorvastatin Orders: Orders CA echo limited Today Z95.1 - Presence of aortocoronary bypass graft Coding Level of Care Code Est Pt Level 4 (14362) Diagnoses CAD (coronary artery disease) I25.10 S/P CABG x 4 Z95.1 Primary hypertension I10 Hypertension type: primary hypertension Dyslipidemia E78.5 Time Spent (min) 28
== END 2023-03-31 08:43 | disposition home or self-care (01) ==
PROVIDERS: PCP Nurse Practitioner Family; Visit Provider Nurse Practitioner Family
DX: I25.10 Atherosclerotic heart disease of native coronary artery without angina pectoris (principal); Z95.1 Presence of aortocoronary bypass graft; I10 Essential (primary) hypertension; E78.5 Hyperlipidemia, unspecified
CPT/HCPCS: 99214

== ENCOUNTER → 2023-03-31 08:06 | Outpatient (BNVA) | payer MEDICARE, MEDICAID, SELFPAY | PROVIDERS: PCP Nurse Practitioner Family; Visit Provider Nurse Practitioner Family | DX: I25.10 Atherosclerotic heart disease of native coronary artery without angina pectoris (principal); I10 Essential (primary) hypertension; E78.5 Hyperlipidemia, unspecified; Z95.1 Presence of aortocoronary bypass graft | CPT/HCPCS: 99212 ==

== ENCOUNTER 2023-04-02 07:48 | Outpatient (REF) | payer MEDICARE, MEDICAID, SELFPAY ==
--- NOTE | ~2023-04-02 | CT_ITS ---
EXAMINATION: CT CHEST WITHOUT CONTRAST CLINICAL INFORMATION: Other nonspecific abnormal finding of lung field. Groundglass opacity. COMPARISON: Previous chest x-ray January 2023 TECHNIQUE: Multidetector volumetric CT imaging of the chest was done. Axial MIP volume rendering provided. Sagittal and coronal reformatted images were obtained. This CT examination was performed using dose optimization techniques as appropriate, variously including the following: *Automated exposure control *Adjustment of mA and/or kV according to patient size (this includes techniques or standardized protocols for targeted exams where dose is matched to indication/reason for exam; i.e. extremities or head) *Use of iterative reconstruction technique DLP: 211 mGy-cm FINDINGS: LUNGS: 3 mm peripheral or subpleural right upper lobe nodule axial image 220 series 5. Subsegmental atelectasis in the lingula. No groundglass attenuation nodule. MEDIASTINUM: Post-CABG changes. The mediastinum is otherwise normal. CORONARY ARTERY CALCIFICATION: Severe PLEURA: There is no pleural effusion. No pleural mass or thickening. AXILLA: Small bilateral axillary lymph nodes. No enlarged lymph nodes. No chest wall mass. UPPER ABDOMEN: Unremarkable. OSSEOUS STRUCTURES: Degenerative changes of the spine. Ununited median sternotomy. CT/CT chest wo IV con IMPRESSION: 3 mm peripheral or subpleural right upper lobe nodule. According to the UPDATED 2017 Fleischner Society recommendations, the advised follow-up imaging for less than 6 mm solid nodule: Low risk, no chest CT follow-up and high risk, optional chest CT follow-up in one year. No groundglass attenuation nodule seen. Post-CABG changes. Fleischner guidelines were followed.
== END 2023-04-02 07:49 | disposition home or self-care (01) ==
LOC: HO.CT 07:48
PROVIDERS: PCP Nurse Practitioner Family; Visit Provider Internal Medicine
DX: R91.8 Other nonspecific abnormal finding of lung field (principal)
CPT/HCPCS: 71250

== ENCOUNTER 2023-04-03 10:11 | Outpatient (AMB) | payer MEDICARE, MEDICAID, SELFPAY ==
[2023-04-03 10:18] VITALS: BP 112/64; PULSE 77; O2SAT 98; BMI 31.2
--- NOTE | 2023-04-03 10:18 | A.OFFVIS_ITS ---
Intake Vital Signs 04/03/23 10:18 Height 5 ft 7 in Weight 199 lb 8.293 oz BMI 31.2 BP 112/64 Blood Pressure Location Lt brachial Position Sitting Pulse 77 Pulse Source Pulse Oximeter Pulse Oximetry (%) 98 Oxygen Delivery Method Room Air Intake Visit Reasons: f/u ct scan Intake Note: pt is here for follow up of ct scan, some cough dry cough, cold air seem to bother it. Optometrist Owner Required: No Allergies orphenadrine [From Norflex] Allergy (Mild, Verified 04/03/23 10:25) UNKNOWN piroxicam [From Feldene] Allergy (Mild, Verified 04/03/23 10:25) UNKNOWN amoxicillin Allergy (Unknown, Verified 04/03/23 10:25) unknown lisinopril Allergy (Unknown, Verified 04/03/23 10:25) cough pantoprazole [From Protonix] Adverse Reaction (Severe, Verified 04/03/23 10:25) Anaphylaxis pravastatin Adverse Reaction (Mild, Verified 04/03/23 10:25) body aches protonix Allergy (Severe, Uncoded 04/03/23 10:25) Angioedema Medication List - Last Reconciled 04/03/23 by Briana Gomez MD amlodipine 2.5 mg PO DAILY aspirin (Adult Low Dose Aspirin) 81 mg PO DAILY atorvastatin 80 mg PO BEDTIME cholecalciferol (vitamin D3) 125 mcg PO DAILY clopidogrel 75 mg PO DAILY 90 days ezetimibe 10 mg PO DAILY magnesium 400 mg PO DAILY mecobalamin (vitamin B12) 1,000 mcg PO DAILY metoprolol tartrate 37.5 mg (1.5 x 25 mg) PO BID 90 days omeprazole 1 cap PO QAM zinc acetate 50 mg PO DAILY Do you need a note to return to daycare/school/sports/work: No HPI f/u ct scan HPI Details THIS 62 YEARS OLD GENTLEMAN IS HERE FOR FOLLOW-UP. IS ONLY PULMONARY COMPLAINT IS FREQUENT BOUTS OF COUGH WHICH IS DUE TO SENSITIVITY TO COLD AIR AND ALSO TO SOME UNKNOWN ENVIRONMENTAL AGENTS. HIS GERD SYMPTOMS ARE PREVENTED BY TAKING OMEPRAZOLE 40 MG DAILY. HE HAS HAD A FEW EPISODES OF URTICARIAL RASH, USUALLY RESOLVES AFTER TAKING BENADRYL. HE HAS THE NO DYSPNEA OR WHEEZING. HE IS A NONSMOKER RIGHT FROM THE BEGINNING. AFTER HIS BYPASS SURGERY HIS CT SCAN HAD SHOWN IS SCATTERED GROUND-GLASS TYPE OF OPACITIES IN THE LUNGS AND HE NEEDED TO HAVE A REPEAT CT SCAN. [facility] Medical History (Updated 04/03/23 @ 10:52 by Briana Gomez MD) Pulmonary nodule Cough Ground glass opacity present on imaging of lung Restrictive lung disease Obesity (BMI 30-39.9) Arthralgia Tinea cruris RBBB RAD (reactive airway disease) LVH (left ventricular hypertrophy) Sacroiliitis Diverticulitis Cervical spondylosis JOHANNY (obstructive sleep apnea) Anemia Carpal tunnel syndrome of left wrist Insomnia GERD (gastroesophageal reflux disease) Hypertension Neuropathy Surgical History S/P CABG x 4 History of cardiac cath History of carpal tunnel surgery History of tonsillectomy Family History Father Myocardial infarction Diabetes mellitus CVD (cardiovascular disease) Mother No problems noted. Brother Diabetes mellitus Sister Diabetes mellitus Cancer Social History Housing: House Alcohol intake: former Patient Tobacco Use Status: Never used Tobacco e-Cigarette/Vaping Use: Never Used service: No Current occupational status: disabled Cognitive needs: No Hearing needs: No Vision needs: Yes Review of Systems Const All systems reviewed & are unremarkable except as noted in HPI and below Denies snoring Eyes Reports no additional complaints ENT Reports nasal congestion (Mild intermittent) Card Denies irregular heart rhythm, Denies leg edema and Reports dyspnea on exertion Resp Reports cough (Mild intermittent), Reports dyspnea on exertion, Denies snoring, Denies stridor and Denies wheezing GI Reports heartburn (Treated with omeprazole) Reports no additional complaints Musc Reports back pain (Mild chronic) Skin/Breast Reports system reviewed and no additional complaints, except as documented Neuro Reports no additional complaints Psych Reports no additional complaints Nehemiah/Lymph Reports other (Has been treated for iron deficiency and B12 deficiency anemia) Aller/Immun Denies wheezing Physical Exam Vital Signs: Last Vital Signs Pulse 77 04/03/23 10:18 BP 112/64 04/03/23 10:18 Pulse Ox 98 04/03/23 10:18 Oxygen Delivery Method Room Air 04/03/23 10:18 BMI result Body Mass Index 31.2 Const General: healthy appearing (Except for being overweight), comfortable, no acute distress, alert and awake Orientation/consciousness: patient oriented x3 HEENT Head: Yes normal to inspection General nose exam: No nasal polyps present, No nasal discharge present and Other nasal findings present (Mild hypertrophy of the nasal turbinates) Face and sinus: Yes sinuses nontender Mouth: oropharynx normal Throat: Yes posterior oropharynx normal Eyes General: appearance normal, both eyes and all related structures Neck Neck: Yes normal visual inspection, Yes no lymphadenopathy, Yes trachea midline, Yes no JVD and Yes other (Neck circumference 16-1/2 inch) Thyroid: Thyroid normal Chest Chest palpation & inspection: normal inspection of the chest (Mid sternal scar from recent CABG surgery, well healed), normal palpation of entire chest wall and no tenderness Resp Other: Percussion note is resonant, breath sounds are slightly distant but clear . No wheezes rhonchi or crepitations are heard. Effort & Inspection: normal respiratory effort Auscultation: clear to auscultation bilaterally, no crackles and no wheezes Cardio Jugular venous distension: JVD Palpation: normal PMI Rate: regular rate Rhythm: regular rhythm Heart sounds: S1 normal heart sound present, S2 normal heart sound present, no gallops and no murmurs Peripheral pulses: Peripheral pulses 2+ throughout GI Palpation (GI): Soft to palpation, nontender, No hepatosplenomegaly present, no masses and Other GI palpation findings present (Abdomen slightly protuberant) Auscultation: normal bowel sounds Back/Spine/Pelvis Thoracic/Lumbar Spine: thoracic and lumbar spine normal to inspection and thoraco-lumbar ROM limited Skin General skin exam: no rashes or lesions noted Neuro General: patient oriented x3 and no focal motor deficits Cranial nerves: Yes CN's II-XII intact bilaterally Extrem General: Yes normal to inspection, Yes no clubbing, cyanosis or edema and Yes no calf tenderness Psych Appearance: grossly normal and well kempt Speech and movement: Normal speech and movement present Results Reviewed Results Reviewed: CT scan of the chest: No ground-glass opacities or densities are noted. There was one pulmonary nodule, 3 mm in size in the lateral part of right upper lobe, sub pleural. No other nodules noted. Assessment & Plan Assessment & Plan (1) Restrictive lung disease: Comment: Pulmonary function test ON 12/07/21 showed moderate degree of restrictive disorder. SPIROMETRY TODAY ,on last visit showed only mild restrictive pattern, no obstructive disorder. [place] : Advised to continue doing deep breathing exercises with the incentive spirometry device 3 to 4 times a day. Code(s): J98.4 - Other disorders of lung (2) Cough: Comment: Chronic intermittent cough which is mostly, secondary to allergy to environmental agents especially the cold air. Advised to avoid exposure to any offensive environmental agents. Make sure to control the GERD symptoms, I suggested that he could take famotidine 20 mg daily instead of taking omeprazole for too long. He also has appointment to see an wildland fire fighter specialist in early part of 2023. Code(s): R05.9 - Cough, unspecified (3) Pulmonary nodule: Comment: On the CT scan there are no residual ground-glass opacities. He has only one 3 mm not dual in the lateral aspect of right upper lobe, sub pleural. No other nodules Patient is AVERAGE RISK , NONSMOKER. And would not need yearly CT scans. Code(s): R91.1 - Solitary pulmonary nodule Coding Level of Care Code Est Pt Level 3 (81789) Diagnoses Restrictive lung disease J98.4 Cough R05.9 Pulmonary nodule R91.1
== END 2023-04-03 10:56 | disposition home or self-care (01) ==
PROVIDERS: PCP Nurse Practitioner Family; Visit Provider Internal Medicine
DX: J98.4 Other disorders of lung (principal); R05.9 Cough, unspecified; R91.1 Solitary pulmonary nodule
CPT/HCPCS: 99213

== ENCOUNTER → 2023-04-03 10:11 | Outpatient (BNVA) | payer MEDICARE, MEDICAID, SELFPAY | PROVIDERS: PCP Nurse Practitioner Family; Visit Provider Internal Medicine | DX: J98.4 Other disorders of lung (principal); R05.9 Cough, unspecified; R91.1 Solitary pulmonary nodule | CPT/HCPCS: 99212 ==

== ENCOUNTER 2023-04-14 15:23 | Outpatient (AMB) | payer MEDICARE, MEDICAID, SELFPAY ==
--- NOTE | 2023-04-14 15:41 | MHC.PC.OV ---
Vital Signs 04/14/23 15:42 Height 5 ft 7 in Weight 202 lb BMI 31.6 BP 130/90 H Blood Pressure Location Lt brachial Position Sitting Pulse 81 Pulse Source Pulse Oximeter Pulse Oximetry (%) 99 Oxygen Delivery Method Room Air Intake Visit Reasons: 3 m Allergies orphenadrine [From Norflex] Allergy (Mild, Verified 04/14/23 15:43) UNKNOWN piroxicam [From Feldene] Allergy (Mild, Verified 04/14/23 15:43) UNKNOWN amoxicillin Allergy (Unknown, Verified 04/14/23 15:43) unknown lisinopril Allergy (Unknown, Verified 04/14/23 15:43) cough pantoprazole [From Protonix] Adverse Reaction (Severe, Verified 04/14/23 15:43) Anaphylaxis pravastatin Adverse Reaction (Mild, Verified 04/14/23 15:43) body aches protonix Allergy (Severe, Uncoded 04/14/23 15:43) Angioedema Medication List - Last Reconciled 04/14/23 by DONY Root amlodipine 2.5 mg PO DAILY aspirin (Adult Low Dose Aspirin) 81 mg PO DAILY atorvastatin 80 mg PO BEDTIME cholecalciferol (vitamin D3) 125 mcg PO DAILY clopidogrel 75 mg PO DAILY 90 days coenzyme Q10 100 mg PO DAILY ezetimibe 10 mg PO DAILY magnesium 400 mg PO DAILY mecobalamin (vitamin B12) 1,000 mcg PO DAILY metoprolol tartrate 37.5 mg (1.5 x 25 mg) PO BID 90 days omeprazole 1 cap PO QAM zinc acetate 50 mg PO DAILY Tobacco use date assessed: 02/06/23 HPI 3 m HPI Details HTN: Blood pressure is managed with amlodipine 2.5mg and metoprolol 37.5mg bid. Pt reports that his blood pressure at home is well-controlled, 118/79 this afternoon at home (please see scanned copies). Denies chest pain, shortness of breath, headache, dizziness, and blurred vision. Dyslipidemia: On atorvastatin 80mg. Will order labs. Pt reports joint pains as a result of his statin, with slight myopathys. Will send co-q10. Pt is following up with cardiology and urology. [facility] Medical History (Updated 04/14/23 @ 17:53 by DONY Root) Pulmonary nodule Cough Ground glass opacity present on imaging of lung Restrictive lung disease Obesity (BMI 30-39.9) Arthralgia Tinea cruris RBBB RAD (reactive airway disease) LVH (left ventricular hypertrophy) Sacroiliitis Diverticulitis Cervical spondylosis JOHANNY (obstructive sleep apnea) Anemia Carpal tunnel syndrome of left wrist Insomnia GERD (gastroesophageal reflux disease) Hypertension Neuropathy Surgical History S/P CABG x 4 History of cardiac cath History of carpal tunnel surgery History of tonsillectomy Family History Father Myocardial infarction Diabetes mellitus CVD (cardiovascular disease) Mother No problems noted. Brother Diabetes mellitus Sister Diabetes mellitus Cancer Housing: House Alcohol intake: former Patient Tobacco Use Status: Never used Tobacco e-Cigarette/Vaping Use: Never Used service: No Current occupational status: disabled Cognitive needs: No Hearing needs: No Vision needs: Yes Review of Systems Const Reports as per HPI Physical exam (Primary Care) Vital Signs: Last Vital Signs Pulse 81 04/14/23 15:42 BP 130/90 H 04/14/23 15:42 Pulse Ox 99 04/14/23 15:42 Oxygen Delivery Method Room Air 04/14/23 15:42 BMI result Body Mass Index 31.6 Tobacco/Smoking Status: Tobacco use Status Tobacco use date assessed 02/06/23 04/14/23 15:42 Patient Tobacco Use Status Never used Tobacco 04/14/23 15:42 e-Cigarette/Vaping Use Never Used 04/14/23 15:42 Const General: cooperative Orientation/consciousness: patient oriented x3 Resp Effort & Inspection: normal respiratory effort Auscultation: clear to auscultation bilaterally Cardio Rate: regular rate Rhythm: regular rhythm Heart sounds: S1 normal heart sound present and S2 normal heart sound present Neuro General: patient oriented x3 Psych Appearance: grossly normal Mental Status: mental status grossly normal Speech and movement: Normal speech and movement present Affect: normal affect Attitude: cooperative Thought process: Normal thought process present Thought content: Normal thought content present Insight: Good insight present (Psych) Judgement: Good judgement present (Psych) Assessment and Plan Assessment & Plan (1) CAD (coronary artery disease): Code(s): I25.10 - Atherosclerotic heart disease of [place] coronary artery without angina pectoris Plan: Labs ordered (2) Dyslipidemia: Code(s): E78.5 - Hyperlipidemia, unspecified Plan: Labs ordered (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 Scribed for TABITHA Grier- by Katja Valverde medical lab director, on 04/14/2023 at 16:00 EST. Orders: Orders Complete Blood Count Auto Diff Today E78.5 - Hyperlipidemia, unspecified, I25.10 - Atherosclerotic heart disease of [place] coronary artery without angina pectoris TSH reflex Free T4 Today E78.5 - Hyperlipidemia, unspecified, I25.10 - Atherosclerotic heart disease of [place] coronary artery without angina pectoris UA CC w/rflx Micro + Cult Today E78.5 - Hyperlipidemia, unspecified, I25.10 - Atherosclerotic heart disease of [place] coronary artery without angina pectoris Comprehensive [place]. Panel Fast Today E78.5 - Hyperlipidemia, unspecified, I25.10 - Atherosclerotic heart disease of [place] coronary artery without angina pectoris Lipid Panel Today E78.5 - Hyperlipidemia, unspecified, I25.10 - Atherosclerotic heart disease of [place] coronary artery without angina pectoris Creatine Kinase Total Today G72.0 - Drug-induced myopathy, T46.6X5A - Adverse effect of antihyperlipidemic and antiarteriosclerotic drugs, initial encounter Medications: New coenzyme Q10 100 mg PO DAILY 90 caps 0RF Refilled clopidogrel 75 mg PO DAILY 90 tabs 0RF 90 days Coding Level of Care Code Est Pt Level 3 (81651) Diagnoses CAD (coronary artery disease) I25.10 Dyslipidemia E78.5 Statin myopathy G72.0; T46.6X5A
[2023-04-14 15:42] VITALS: BP 130/90; PULSE 81; O2SAT 99; BMI 31.6
== END 2023-04-14 16:23 | disposition home or self-care (01) ==
PROVIDERS: PCP Nurse Practitioner Family; Visit Provider Nurse Practitioner Family
DX: I25.10 Atherosclerotic heart disease of native coronary artery without angina pectoris (principal); E78.5 Hyperlipidemia, unspecified; G72.0 Drug-induced myopathy; T46.6X5A Adverse effect of antihyperlipidemic and antiarteriosclerotic drugs, initial encounter
CPT/HCPCS: 99213

== ENCOUNTER → 2023-04-25 07:47 | Outpatient (REF) | payer MEDICARE, MEDICAID, SELFPAY ==
--- NOTE | 2023-04-25 07:49 | CA_ITS ---
Transthoracic Echocardiogram Patient (Last, First, Middle): Jonnie Alexander H Gender: Male Date of : 1960 Age: 62 Procedure Date: 04/25/2023 Procedure Type: Transthoracic Echocardiogram Location: OP Height: 170.18 cm Weight: 88.45 kg BSA: 2.00 m2 Heart Rate: 72 bpm BP: 119 / 82 mmHg Licensed Physical Therapy Assistant: TO Referring MD: Judy Chavez TERMITE CONTROL REPRESENTATIVEValdez Symptoms: Z95.1 - Presence of aortocoronary bypass graft Study Quality: Adequate ECG Rhythm: Sinus Conclusions: - The left ventricular systolic function is low normal. The visually estimated ejection fraction is between 50-55%. Findings Procedure Information Contrast agent, definity, is being given per protocol without apparent complications. Left Ventricle Normal left ventricular cavity size. The left ventricular systolic function is low normal. The visually estimated ejection fraction is between 50-55%. There is paradoxical septal motion consistent with post-operative status. There is moderate septal asymmetric hypertrophy. Venous The inferior vena cava is normal in size and collapses greater than 50% with inspiration. Prior Study Comparison No significant change compared to prior study dated: 08/01/2022. Measurements 2D Linear Measurements IVSd: 1.46 0.6-0.9/0.6-1.0 cm LVIDd: 4.98 3.9-5.3/4.2-5.9 cm LVIDd Index: 2.49 2.4-3.2/2.2-3.1 cm/m2 LVIDs: 3.56 2.0-3.6 cm LVPWd: 0.98 0.7-1.1 cm LV Mass: 296.58 67-162/88-224 g LV Mass Index: 148.29 43-95/49-115 g/m2 LVOT Diam: 2.10 3.0+(-)1.3 cm 2D Systolic Function EF 4C: 49.50 >55% EF 2C: 48.90 >55% EF BiP: 49.20 >55% LVOT LVOT Pk Benja: 0.81 LVOT Mn Benja: 0.53 LVOT VTI: 0.17 LVOT Pk Grad: 3.00 LVOT Mn Grad: 1.00 LVOT Diam: 2.10 LVOT Area: 3.46 Tricuspid Valve RA Press: 3.00 Updated in Other Vendor System with Status of Final Jd Barber MD electronically signed on 04/26/2023 3:30:43 PM with status of Final
== END ==
LOC: HO.CARD 07:47
PROVIDERS: PCP Nurse Practitioner Family; Visit Provider Nurse Practitioner Family
DX: Z95.1 Presence of aortocoronary bypass graft (principal)
CPT/HCPCS: 93308; Q9957

== ENCOUNTER → 2023-04-25 07:49 | Outpatient (BNV) | payer MEDICARE, MEDICAID, SELFPAY | PROVIDERS: PCP Nurse Practitioner Family; Visit Provider Internal Medicine | DX: R94.31 Abnormal electrocardiogram [ECG] [EKG] (principal); I44.0 Atrioventricular block, first degree | CPT/HCPCS: 93308 ==

== ENCOUNTER 2023-06-30 15:22 | Outpatient (AMB) | payer MEDICARE, MEDICAID, SELFPAY ==
[2023-06-30 15:23] VITALS: BP 132/62; PULSE 86; BMI 32.0
--- NOTE | 2023-06-30 15:23 | A.OFFVIS_ITS ---
Intake Vital Signs 06/30/23 15:23 Height 5 ft 7 in Weight 204 lb 2.369 oz BMI 32.0 BP 132/62 Blood Pressure Location Rt brachial Position Sitting Pulse 86 Pulse Source Pulse Oximeter Intake Visit Reasons: 3 mth fu Scout Leaser Required: No Preschool Director: Preschool Director Present Allergies orphenadrine [From Norflex] Allergy (Mild, Verified 06/30/23 15:26) UNKNOWN piroxicam [From Feldene] Allergy (Mild, Verified 06/30/23 15:26) UNKNOWN amoxicillin Allergy (Unknown, Verified 06/30/23 15:26) unknown lisinopril Allergy (Unknown, Verified 06/30/23 15:26) cough pantoprazole [From Protonix] Adverse Reaction (Severe, Verified 06/30/23 15:26) Anaphylaxis pravastatin Adverse Reaction (Mild, Verified 06/30/23 15:26) body aches protonix Allergy (Severe, Uncoded 04/14/23 15:43) Angioedema Medication List - Last Reconciled 06/30/23 by Judy Chavez NP-C amlodipine 2.5 mg PO DAILY aspirin (Adult Low Dose Aspirin) 81 mg PO DAILY cholecalciferol (vitamin D3) 125 mcg PO DAILY clopidogrel 75 mg PO DAILY 90 days coenzyme Q10 100 mg PO DAILY ezetimibe 10 mg PO DAILY famotidine 20 mg PO DAILY fluvastatin ER 80 mg PO BEDTIME magnesium 400 mg PO DAILY mecobalamin (vitamin B12) 1,000 mcg PO DAILY metoprolol tartrate 37.5 mg (1.5 x 25 mg) PO BID 90 days omeprazole 1 cap PO QAM zinc acetate 50 mg PO DAILY HPI 3 mth fu HPI Details Jonnie is a 62-year-old male past medical history of hypertension, hyperlipidemia, obesity who was reporting chest discomfort, had abnormal e chocardiogram and stress test. He then underwent cardiac catheterization showing multivessel CAD. He underwent 4 vessel Coronary artery bypass grafting on 11/22/2022. Today he reports he has been having significant issues with his hips and knees. After he has been sitting for awhile he goes to get up and has to walk very slowly at 1st due to pain in his joints. This problem is not new but he feels it may be worsened by the statin medications. Once he is up and walking for a while the pain does relieve some. He has an area in the left chest that is hypersensitive to touch and if the water hit sit in the shower. Has no other chest discomfort. No concerning shortness of breath, palpitations, lightheadedness, presyncope, syncope, PND, orthopnea or edema. Taking all meds as directed. No bleeding issues reported. He says his atorvastatin was to and he changed to fluvastatin recently. [facility] Medical History Pulmonary nodule Cough Ground glass opacity present on imaging of lung Restrictive lung disease Obesity (BMI 30-39.9) Arthralgia Tinea cruris RBBB RAD (reactive airway disease) LVH (left ventricular hypertrophy) Sacroiliitis Diverticulitis Cervical spondylosis JOHANNY (obstructive sleep apnea) Anemia Carpal tunnel syndrome of left wrist Insomnia GERD (gastroesophageal reflux disease) Hypertension Neuropathy Surgical History S/P CABG x 4 History of cardiac cath History of carpal tunnel surgery History of tonsillectomy Family History Father Myocardial infarction Diabetes mellitus CVD (cardiovascular disease) Mother No problems noted. Brother Diabetes mellitus Sister Diabetes mellitus Cancer Social History Housing: House Alcohol intake: former Patient Tobacco Use Status: Never used Tobacco e-Cigarette/Vaping Use: Never Used service: No Current occupational status: disabled Cognitive needs: No Hearing needs: No Vision needs: Yes Review of Systems Const All systems reviewed & are unremarkable except as noted in HPI and below ENT Denies dizziness Card Reports chest pain (superficial, left chest), Denies chest pain at rest, Denies chest pain with activity, Denies rapid heart rate, Denies pedal edema, Denies edema, Denies leg edema, Denies lightheadedness, Denies palpitations, Denies dyspnea, Denies dyspnea on exertion and Denies orthopnea Resp Denies cough, Denies dyspnea and Denies dyspnea on exertion GI Denies hematochezia and Denies change in stool character Musc Details: bilateral knee and hip pains Reports abnormal gait, Denies limited range of motion, Denies muscle cramps, Denies muscle weakness, Denies numbness, Denies radiating pain into limb, Denies stiffness and Denies tingling Neuro Reports abnormal gait, Denies dizziness, Denies numbness and Denies tingling Endo Denies palpitations Physical Exam Vital Signs: Last Vital Signs BP 132/62 06/30/23 15:23 BMI result Body Mass Index 32.0 Const General: cooperative, healthy appearing, comfortable and no acute distress Orientation/consciousness: patient oriented x3 Neck Neck: Yes normal visual inspection and Yes no JVD Resp Effort & Inspection: normal respiratory effort Auscultation: clear to auscultation bilaterally, no crackles, no rales, no rhonchi and no wheezes Cardio Jugular venous distension: no JVD Rate: regular rate Rhythm: regular rhythm Heart sounds: S1 normal heart sound present, S2 normal heart sound present, no murmurs and no rubs Peripheral pulses: Peripheral pulses 2+ throughout Neuro General: patient oriented x3 Extrem General: Yes normal to inspection, No no pedal edema and No calf tenderness Psych Appearance: grossly normal Mental Status: mental status grossly normal Speech and movement: Normal speech and movement present Assessment & Plan Assessment & Plan (1) CAD (coronary artery disease): Code(s): I25.10 - Atherosclerotic heart disease of [place] coronary artery without angina pectoris Plan: Prior repots of chest discomfort. Cardiac testing led to eventual cardiac dileep terization showing multivessel CAD. He then had 4 vessel coronary artery bypass grafting on 11/22/2022. He has had no anginal sounding symptoms since that time. He does have some left sided localized chest wall discomfort and hypersensitivity which sounds like nerve pain. Echocardiogram done 04/25/2024 showing EF 50-55%, moderate septal asymmetric hypertrophy, overall no change since 08/01/2022. He had previously declined cardiac rehab. His activity is limited by hip and knee pain. Encouraged activity as tolerated. Continue spirin indefinitely, Plavix for at least 1 year, fluvastatin with ideal LDL goal less than 70. Labs done 01/28/2023 showed LDL 73. Continue amlodipine, metoprolol. Blood pressure well controlled. Cardiology follow-up in 5 months, sooner if needed (2) S/P CABG x 4: Comment: 11/22/2022, [place] to LAD, left radial graft to diagonal, SVG to PDA and OM Code(s): Z95.1 - Presence of aortocoronary bypass graft Plan: As above (3) Hypertension: Code(s): I10 - Essential (primary) hypertension Qualifiers: Hypertension type: primary hypertension Qualified Code(s): I10 - Essential (primary) hypertension Plan: Well controlled at this time. Continue current med management. (4) Dyslipidemia: Code(s): E78.5 - Hyperlipidemia, unspecified Plan: [place] LDL goal less than 70. He was on high-dose atorvastatin then his insurance would no longer pay for it. The COVID pay was approximately 700 dollars. He was changed to fluvastatin. He is reporting significant hip and knee discomfort. He said he had this symptom prior to fluvastatin use however he now feels it is increased. Will have him hold fluvastatin for 3-4 days then restart at half dose with coenzyme Q10. He is having blood work in a few weeks for his PCP follow-up. He remains on Zetia 10 mg daily. If he continues to have hip and knee discomfort then PCSK9 inhibitor can be considered. Informed that his symptoms may not be entirely related to statin use. He does describe having hip and knee arthritis. Will forward this to his PCP. Plan Time spent on chart review, documentation, interview and assessment Coding Level of Care Code Est Pt Level 4 (63840) Diagnoses CAD (coronary artery disease) I25.10 S/P CABG x 4 Z95.1 Primary hypertension I10 Hypertension type: primary hypertension Dyslipidemia E78.5 Time Spent (min) 30
== END 2023-06-30 16:10 | disposition home or self-care (01) ==
PROVIDERS: PCP Nurse Practitioner Family; Visit Provider Nurse Practitioner Family
DX: I25.10 Atherosclerotic heart disease of native coronary artery without angina pectoris (principal); Z95.1 Presence of aortocoronary bypass graft; I10 Essential (primary) hypertension; E78.5 Hyperlipidemia, unspecified
CPT/HCPCS: 99214

== ENCOUNTER → 2023-06-30 15:22 | Outpatient (BNVA) | payer MEDICARE, MEDICAID, SELFPAY | PROVIDERS: PCP Nurse Practitioner Family; Visit Provider Nurse Practitioner Family | DX: I25.10 Atherosclerotic heart disease of native coronary artery without angina pectoris (principal); I10 Essential (primary) hypertension; Z95.1 Presence of aortocoronary bypass graft; E78.5 Hyperlipidemia, unspecified | CPT/HCPCS: 99212 ==

== ENCOUNTER 2023-07-15 06:10 | Outpatient (REF) | payer MEDICARE, MEDICAID, SELFPAY ==
[2023-07-15 10:22] LABS: Appearance Urine Clear; Color Urine Yellow; Glucose Urine UA Negative (Negative); Leukocyte Esterase Urine Negative (Negative); Nitrite Urine Negative (Negative); Specific Gravity - Urine 1.025 (1.005-1.025); Urine Blood Negative (Negative); Urine Ketones Negative (Negative); Urine Protein Negative (Neg-Trace)
[2023-07-15 10:23] LABS: MANUAL DIFF FLAG NO
[2023-07-15 10:36] LABS: Basophils Percent Auto 0.5 % (0-2); Eosinophils Absolute Auto 0.1 X10*3/uL (0.0-0.4); Eosinophils Percent Auto 1.2 % (0-4); Hematocrit 46.8 % (42.0-52.0); Hemoglobin 15.5 g/dl (14.0-18.0); Imm Gran Abs Auto 0.03 X10*3/uL (0.00-0.03); Imm Gran Pct Auto 0.4 % (0.0-0.4); Lymphocytes Absolute Auto 2.2 X10*3/uL (1.2-4.9); Lymphocytes Percent Auto 28.3 % (20-40); Mean Corpuscular HGB Conc 33.1 g/dl (31.0-36.0); Mean Corpuscular Hemoglobin 28.7 pg (27.0-33.0); Mean Corpuscular Volume 86.7 fL (80.0-98.0); Mean Platelet Volume 10.8 fL (9.4-12.4); Monocytes Absolute Auto 0.8 X10*3/uL (0.1-1.2); Monocytes Percent Auto 9.8 % (2-11); Neutrophils Absolute Auto 4.6 x10*3/uL (2.0-8.3); Neutrophils Percent Auto 59.8 % (45-73); Platelet Count 251 X10*3/uL (160-400); Red Cell Distribution Width 13.4 % (11.0-16.0); White Blood Count 7.6 X10*3/uL (4.8-10.8)
[2023-07-15 10:41] LABS: INTERNATIONAL NORM RATIO 0.9 (0.9-1.1); Prothrombin Time 11.2 SEC (11.1-13.3)
[2023-07-15 11:23] LABS: Alanine Aminotransferase 20 U/L (0-40); Albumin Level 4.6 g/dL (3.5-5.0); Alkaline Phosphatase 69 U/L (39-117); Anion Gap 11 (12-20); Aspartate Amino Transferase 19 U/L (5-37); Bilirubin Total 0.3 mg/dL (0.0-1.0); Blood Urea Nitrogen 26 mg/dL (9-16); Calcium 9.5 mg/dL (8.4-10.2); Carbon Dioxide 27 mmol/L (22-29); Chloride 108 mmol/L (96-108); Cholesterol 157 mg/dL (<200); Estimated Glomerular Filt Rate > 60; Glucose Fasting 105 mg/dL (60-99); Glucose Random 105 mg/dL (60-115); HDL Cholesterol 39 mg/dL (>40); LDL Cholesterol Calculated 94 mg/dL (<100); Sodium 142 mmol/L (135-145); Triglycerides 121 mg/dL (<150)
== END 2023-07-15 06:11 | disposition home or self-care (01) ==
LOC: HO.HMGCLDS 06:10
PROVIDERS: Internal Medicine Cardiovascular Disease; PCP Nurse Practitioner Family; Visit Provider Nurse Practitioner Family
DX: R94.39 Abnormal result of other cardiovascular function study (principal); E78.5 Hyperlipidemia, unspecified; R06.00 Dyspnea, unspecified; I10 Essential (primary) hypertension; I25.10 Atherosclerotic heart disease of native coronary artery without angina pectoris; G72.0 Drug-induced myopathy; T46.6X5A Adverse effect of antihyperlipidemic and antiarteriosclerotic drugs, initial encounter
CPT/HCPCS: 36415; 80048; 80053; 80061; 81003; 82550; 84443; 85025; 85610

== ENCOUNTER 2023-07-23 08:26 | Outpatient (AMB) | payer MEDICARE, MEDICAID, SELFPAY ==
[2023-07-23 08:30] VITALS: BP 136/80; PULSE 71; O2SAT 98; BMI 32.4
--- NOTE | 2023-07-23 08:30 | A.OFFPC_ITS ---
Vital Signs 07/23/23 08:30 Height 5 ft 7 in Weight 207 lb BMI 32.4 BP 136/80 Blood Pressure Location Lt brachial Position Sitting Pulse 71 Pulse Source Pulse Oximeter Pulse Oximetry (%) 98 Oxygen Delivery Method Room Air Intake Visit Reasons: EP 4 Month F/U Intake Note: pt is here for 4 mon f.u Conference Reservationist Required: No Accompanied by: Self / Same As Patient Allergies orphenadrine [From Norflex] Allergy (Mild, Verified 07/23/23 09:12) UNKNOWN piroxicam [From Feldene] Allergy (Mild, Verified 07/23/23 09:12) UNKNOWN amoxicillin Allergy (Unknown, Verified 07/23/23 09:12) unknown lisinopril Allergy (Unknown, Verified 07/23/23 09:12) cough pantoprazole [From Protonix] Adverse Reaction (Severe, Verified 07/23/23 09:12) Anaphylaxis pravastatin Adverse Reaction (Mild, Verified 07/23/23 09:12) body aches protonix Allergy (Severe, Uncoded 07/23/23 09:12) Angioedema Medication List - Last Reconciled 07/23/23 by Trino Neal [employer]IND ENERGY ENGINEER- amlodipine 2.5 mg PO DAILY aspirin (Adult Low Dose Aspirin) 81 mg PO DAILY cetirizine (All Day Allergy (cetirizine)) 10 mg PO DAILY PRN cholecalciferol (vitamin D3) 125 mcg PO DAILY clopidogrel 75 mg PO DAILY 90 days coenzyme Q10 100 mg PO DAILY ezetimibe 10 mg PO DAILY famotidine 20 mg PO DAILY fluvastatin ER 40 mg PO BEDTIME magnesium 400 mg PO DAILY mecobalamin (vitamin B12) 1,000 mcg PO DAILY metoprolol tartrate 37.5 mg (1.5 x 25 mg) PO BID 90 days omeprazole 1 cap PO QAM zinc acetate 50 mg PO DAILY Tobacco use date assessed: 07/23/23 Dental Screening Dental Screen Date: 07/23/23 Did you have a dental visit in the last 12 months?: Yes Did you have a dental problem in the last 6 months where you did not have access to dental care?: No Was dental information given to patient?: Patient has dentist HPI EP 4 Month F/U HPI Details bilat hip pain L>R. Patient denies any popping or clicking. He reports that the pain is usually worse when sitting. I do question and osteoarthritis component. I will get x-rays today. Hypertension: Patient denies any chest pain, shortness for breath, dizziness, blurred vision. He brought in many blood pressures from home which look stable. We will continue the same medication route and encouraged patient to lose weight. [facility] Medical History Pulmonary nodule Cough Ground glass opacity present on imaging of lung Restrictive lung disease Obesity (BMI 30-39.9) Arthralgia Tinea cruris RBBB RAD (reactive airway disease) LVH (left ventricular hypertrophy) Sacroiliitis Diverticulitis Cervical spondylosis JOHANNY (obstructive sleep apnea) Anemia Carpal tunnel syndrome of left wrist Insomnia GERD (gastroesophageal reflux disease) Hypertension Neuropathy Surgical History S/P CABG x 4 History of cardiac cath History of carpal tunnel surgery History of tonsillectomy Family History Father Myocardial infarction Diabetes mellitus CVD (cardiovascular disease) Mother No problems noted. Brother Diabetes mellitus Sister Diabetes mellitus Cancer Social History Housing: House Alcohol intake: former Patient Tobacco Use Status: Never used Tobacco e-Cigarette/Vaping Use: Never Used service: No Current occupational status: disabled Cognitive needs: No Hearing needs: No Vision needs: Yes Physical exam (Primary Care) Vital Signs: Last Vital Signs Pulse 71 07/23/23 08:30 BP 136/80 07/23/23 08:30 Pulse Ox 98 07/23/23 08:30 Oxygen Delivery Method Room Air 07/23/23 08:30 BMI result Body Mass Index 32.4 Tobacco/Smoking Status: Tobacco use Status Tobacco use date assessed 07/23/23 07/23/23 08:38 Patient Tobacco Use Status Never used Tobacco 07/23/23 08:32 e-Cigarette/Vaping Use Never Used 07/23/23 08:32 Const General: cooperative and comfortable Resp Auscultation: clear to auscultation bilaterally Cardio Rate: regular rate Rhythm: regular rhythm Heart sounds: S1 normal heart sound present, S2 normal heart sound present and no murmurs Extrem Other: trace to BLE (edema). With patient in supine position bilat knee to chest raises exacerbates pain to hips. No popping or clicking noted during range of motion exercises. Positive Sampson's on the left. Psych Appearance: grossly normal Mental Status: mental status grossly normal Speech and movement: Normal speech and movement present Affect: normal affect Attitude: cooperative Thought process: Normal thought process present Thought content: Normal thought content present Insight: Good insight present (Psych) Assessment and Plan Assessment & Plan (1) Bilateral hip pain: Code(s): M25.551 - Pain in right hip; M25.552 - Pain in left hip Plan: Xrs ordered (2) Hypertension: Code(s): I10 - Essential (primary) hypertension Qualifiers: Hypertension type: primary hypertension Qualified Code(s): I10 - Essential (primary) hypertension Plan: on medication, stable Orders: Orders Lipid Panel Today M25.551 - Pain in right hip, M25.552 - Pain in left hip XR hips DEB min 3V Today M25.551 - Pain in right hip, M25.552 - Pain in left hip Complete Blood Count Auto Diff Today M25.551 - Pain in right hip, M25.552 - Pain in left hip Comprehensive [place]. Panel Fast Today M25.551 - Pain in right hip, M25.552 - Pain in left hip TSH reflex Free T4 Today M25.551 - Pain in right hip, M25.552 - Pain in left hip UA CC w/rflx Micro + Cult Today M25.551 - Pain in right hip, M25.552 - Pain in left hip Medications: Changed From fluvastatin ER 80 mg PO BEDTIME 90 tabs 0RF To fluvastatin ER 40 mg PO BEDTIME Refilled metoprolol tartrate 37.5 mg (1.5 x 25 mg) PO BID 90 days 270 tabs 1RF Coding Level of Care Code Est Pt Level 3 (45073) Diagnoses Bilateral hip pain M25.551; M25.552 Primary hypertension I10 Hypertension type: primary hypertension
== END 2023-07-23 09:12 | disposition home or self-care (01) ==
PROVIDERS: PCP Nurse Practitioner Family; Visit Provider Nurse Practitioner Family
DX: M25.551 Pain in right hip (principal); M25.552 Pain in left hip; I10 Essential (primary) hypertension
CPT/HCPCS: 99213

== ENCOUNTER 2023-07-23 09:13 | Outpatient (REF) | payer MEDICARE, MEDICAID, SELFPAY ==
--- NOTE | ~2023-07-23 | XR_ITS ---
EXAMINATION: XR BILATERAL HIPS WITH AP PELVIS CLINICAL INFORMATION: Right hip pain COMPARISON: CT abdomen pelvis September 06, 2015 and bilateral hip x-rays June 26, 2013 TECHNIQUE: AP view of the pelvis and 2 views of each hip were obtained. FINDINGS: The pelvic ring is intact. There is neither fracture nor dislocation of either hip. There is mild narrowing of both left and right femoral or acetabular joint spaces. Sacroiliac joints are symmetric. Small calcifications within the pelvis are suspected to be vascular in nature. XR/XR hips DEB min 3V IMPRESSION: Mild degenerative changes of both hips without fracture or dislocation.
== END 2023-07-23 09:14 | disposition home or self-care (01) ==
LOC: HO.HMGCX 09:13
PROVIDERS: PCP Nurse Practitioner Family; Visit Provider Nurse Practitioner Family
DX: M25.551 Pain in right hip (principal); M25.552 Pain in left hip
CPT/HCPCS: 73522

== ENCOUNTER 2023-09-30 09:01 | Outpatient (AMB) | payer MEDICARE, MEDICAID, SELFPAY ==
--- NOTE | 2023-09-30 09:03 | MHC.OFFVIS ---
Intake Visit Reasons: 6m follow up Intake Note: Patient is Present for Telephone Follow Up For Urology Med:None Antibiotic Allergy: Amoxicillin, Blood Thinner: Clopidogrel,Aspirin Allergies orphenadrine [From Norflex] Allergy (Mild, Verified 07/23/23 09:12) UNKNOWN piroxicam [From Feldene] Allergy (Mild, Verified 07/23/23 09:12) UNKNOWN amoxicillin Allergy (Unknown, Verified 07/23/23 09:12) unknown lisinopril Allergy (Unknown, Verified 07/23/23 09:12) cough pantoprazole [From Protonix] Adverse Reaction (Severe, Verified 07/23/23 09:12) Anaphylaxis [id number] Reductase Inhibitor Adverse Reaction (Intermediate, Verified 09/03/23 17:09) myalgias, joint and hip pain pravastatin Adverse Reaction (Mild, Verified 07/23/23 09:12) body aches protonix Allergy (Severe, Uncoded 07/23/23 09:12) Angioedema HPI Comments Details: Ruthann is a pleasant male. Seen for the following urologic conditions - lower urinary tract symptoms Telemedicine Evaluation 15 min Consultation [employer] [facility] Video Six-month follow-up Prior Quadruple bypass - with nocturia x2 Nocturia x2 Follow-up 12 months with nurse practitioner Elevated PSA/Abnormal ANETTE: He presents for further evaluation of prostate nodule. Current management is observation. Laboratory investigations include a total PSA evaluation 10/02 0.8 10/05 0.9, 04/07 1.1 04/04 - bladder US 20gm. Individualized Prostate Cancer Risk Calculator < 5% high risk, Would like to continue with observation and understands and accepts the risks of a possible delay in diagnosis. Overall symptoms are mild - minimal response to Flomax. Associated conditions hypertension Yes Therapeutic plan will be continued surveillance. [facility] Medical History (Updated 08/02/23 @ 10:26 by Trino Neal, [facility]) Hypertensive retinopathy Pulmonary nodule Cough Ground glass opacity present on imaging of lung Restrictive lung disease Obesity (BMI 30-39.9) Arthralgia Tinea cruris RBBB RAD (reactive airway disease) LVH (left ventricular hypertrophy) Sacroiliitis Diverticulitis Cervical spondylosis JOHANNY (obstructive sleep apnea) Anemia Carpal tunnel syndrome of left wrist Insomnia GERD (gastroesophageal reflux disease) Hypertension Neuropathy Surgical History S/P CABG x 4 History of cardiac cath History of carpal tunnel surgery History of tonsillectomy Family History Father Myocardial infarction Diabetes mellitus CVD (cardiovascular disease) Mother No problems noted. Brother Diabetes mellitus Sister Diabetes mellitus Cancer Social History Housing: House Alcohol intake: former Patient Tobacco Use Status: Never used Tobacco e-Cigarette/Vaping Use: Never Used service: No Current occupational status: disabled Cognitive needs: No Hearing needs: No Vision needs: Yes Review of Systems Const All systems reviewed & are unremarkable except as noted in HPI and below Reports no additional complaints Resp Reports no additional complaints GI Reports no additional complaints Reports as per HPI Musc Reports no additional complaints Physical Exam Telemedicine evaluation Appropriate responses Regular breathing rate and rhythm HEENT Head: Yes normal to inspection Ears: hearing grossly normal bilaterally Eyes General: appearance normal, both eyes and all related structures Neck Neck: Yes normal visual inspection Chest Chest palpation & inspection: normal inspection of the chest Resp Effort & Inspection: normal respiratory effort and able to speak in complete sentences Telehealth Telehealth Telehealth Platform: [employer] Location of provider rendering services: practice address Location of patient: address on file Patient Identification confirmed using: Name, : Yes Telehealth method: video Patient verbally consented to treatment: Yes Patient verbally consented to billing insurance company: Yes Patient informed of any privacy concerns related to visit: Yes Assessment & Plan Assessment & Plan (1) Nocturia more than twice per night: Code(s): R35.1 - Nocturia Category: Medical Plan Twelve month follow-up nurse-practitioner Orders: Orders Prostate Specific Antigen 364 Days N40.1 - Benign prostatic hyperplasia with lower urinary tract symptoms, R35.1 - Nocturia Patient Instructions: Imaging studies, laboratory and physical exam results were discussed and reviewed in detail. No major barriers to patient understanding were identified. An opportunity to ask questions regarding the treatment plan was provided. All questions were answered. The patient expressed understanding and agreement with the above treatment plan. The patient is aware they should contact our office by phone for worsening of their current condition or the appearance of new urologic symptoms. Compliance is encouraged with any medications and followup testing that is ordered. It is a privilege to participate in the urologic care of your patient. If you have any questions or concerns regarding treatment for the above conditions, or other urologic issues, please do not hesitate to contact me. The office telephone contact is [phone]. This note is constructed using voice recognition software. While every effort has been made to ensure accuracy lifestyle coordinator errors may have been included. Yours sincerely, Dr Matthew Cesar MD, [facility] - Urology Providers of Expert, Compassionate Care for the Genitourinary System Coding Level of Care Code Tele Est Pt Level 4 (52194) Diagnoses Nocturia more than twice per night R35.1
== END 2023-09-30 09:42 | disposition home or self-care (01) ==
LOC: HO.HUSH 09:01
PROVIDERS: PCP Nurse Practitioner Family; Visit Provider Urology
DX: R35.1 Nocturia (principal)
CPT/HCPCS: 99213

== ENCOUNTER → 2023-09-30 09:01 | Outpatient (BNVA) | payer MEDICARE, MEDICAID, SELFPAY | PROVIDERS: PCP Nurse Practitioner Family; Visit Provider Urology ==

== ENCOUNTER 2023-12-10 09:24 | Outpatient (AMB) | payer MEDICARE, MEDICAID, SELFPAY ==
[2023-12-10 09:30] VITALS: BP 130/74; PULSE 76; BMI 32.7
--- NOTE | 2023-12-10 09:30 | MHC.OFFVIS ---
Vital Signs 12/10/23 09:30 Height 5 ft 7 in Weight 208 lb 8.917 oz BMI 32.7 BP 130/74 Blood Pressure Location Lt brachial Position Sitting Pulse 76 Pulse Source Monitor Intake Visit Reasons: f/up DC Sales Representative Uniforms Required: No Accompanied by: Self / Same As Patient Allergies orphenadrine [From Norflex] Allergy (Mild, Verified 07/23/23 09:12) UNKNOWN piroxicam [From Feldene] Allergy (Mild, Verified 07/23/23 09:12) UNKNOWN amoxicillin Allergy (Unknown, Verified 07/23/23 09:12) unknown lisinopril Allergy (Unknown, Verified 07/23/23 09:12) cough pantoprazole [From Protonix] Adverse Reaction (Severe, Verified 07/23/23 09:12) Anaphylaxis Mniczma-GXF-FvC Reductase Inhibitor Adverse Reaction (Intermediate, Verified 09/03/23 17:09) myalgias, joint and hip pain pravastatin Adverse Reaction (Mild, Verified 07/23/23 09:12) body aches protonix Allergy (Severe, Uncoded 07/23/23 09:12) Angioedema Medication List - Last Reconciled 12/10/23 by Reji Mercedes MD amlodipine 2.5 mg PO DAILY aspirin (Adult Low Dose Aspirin) 81 mg PO DAILY cetirizine (All Day Allergy (cetirizine)) 10 mg PO DAILY PRN cholecalciferol (vitamin D3) 125 mcg PO DAILY clopidogrel 75 mg PO DAILY 90 days coenzyme Q10 100 mg PO DAILY ezetimibe 10 mg PO DAILY famotidine 20 mg PO DAILY fluvastatin 40 mg PO DAILY magnesium 400 mg PO DAILY mecobalamin (vitamin B12) 1,000 mcg PO DAILY metoprolol tartrate 37.5 mg (1.5 x 25 mg) PO BID 90 days omeprazole 1 cap PO QAM zinc acetate 50 mg PO DAILY HPI Comments Details: 63-year-old gentleman with known history of coronary artery disease. He underwent stress testing which showed perfusion defects in apex and inferior wall. He was due to undergo angiography but developed COVID-19 infection. Subsequently he called us in the last 2 weeks with ongoing chest discomfort and was advised to go to [facility]. At [facility] he underwent diagnostic angiogram by Dr. Pearce which showed severe LAD stenosis and RCA disease. He underwent CABG x4 and has been doing well since then. 12/10/2023: He is here for follow-up. He is taking ezetimibe 10 mg and fluvastatin 40 mg. He was experiencing some joint pains while taking atorvastatin 80 mg and was changed to fluvastatin and ezetimibe. He continues to get joint pains and I have explained to him that there unlikely to be related to statins. He does have arthritis as well as back issues. Last LDL cholesterol was 94 in 07/08/2023. He is due to get repeat testing soon. [facility] Medical History (Updated 08/02/23 @ 10:26 by Trino Neal, [facility]) Hypertensive retinopathy Pulmonary nodule Cough Ground glass opacity present on imaging of lung Restrictive lung disease Obesity (BMI 30-39.9) Arthralgia Tinea cruris RBBB RAD (reactive airway disease) LVH (left ventricular hypertrophy) Sacroiliitis Diverticulitis Cervical spondylosis JOHANNY (obstructive sleep apnea) Anemia Carpal tunnel syndrome of left wrist Insomnia GERD (gastroesophageal reflux disease) Hypertension Neuropathy Surgical History S/P CABG x 4 History of cardiac cath History of carpal tunnel surgery History of tonsillectomy Family History Father Myocardial infarction Diabetes mellitus CVD (cardiovascular disease) Mother No problems noted. Brother Diabetes mellitus Sister Diabetes mellitus Cancer Social History Housing: House Alcohol intake: former Patient Tobacco Use Status: Never used Tobacco e-Cigarette/Vaping Use: Never Used service: No Current occupational status: disabled Cognitive needs: No Hearing needs: No Vision needs: Yes Review of Systems Const Denies chills, Denies fatigue, Denies fever(s), Denies frequent falls, Denies weakness, Denies weight gain and Denies weight loss ENT Denies dizziness Card Denies chest pain, Denies leg edema, Denies lightheadedness, Denies palpitations, Denies dyspnea and Denies dyspnea on exertion Resp Denies cough, Denies dyspnea and Denies dyspnea on exertion GI Denies hematochezia Musc Denies abnormal gait, Denies muscle weakness, Denies numbness, Denies radiating pain into limb and Denies tingling Neuro Denies abnormal gait, Denies dizziness, Denies frequent falls, Denies numbness, Denies tingling and Denies weakness Endo Denies fatigue and Denies palpitations Physical Exam Vital Signs: Last Vital Signs Pulse 76 12/10/23 09:30 BP 130/74 12/10/23 09:30 BMI result Body Mass Index 32.7 GENERAL APPEARANCE: in no acute distress, pleasant. NECK: no carotid bruit, no jugular venous distention. SKIN: no suspicious lesions, warm and dry. Healed sternotomy scar. HEART: no murmurs, regular rate and rhythm. LUNGS: clear to auscultation bilaterally. ABDOMEN: soft, nontender. EXTREMITIES: no edema. PERIPHERAL PULSES: equal. NEUROLOGIC: No gross deficits, AAO X 3 Office Procedures EKG Details: Sinus rhythm 76 beats per minute, first-degree AV block with MD interval 240 milliseconds, normal axis, right bundle-branch block, QRS duration 423 milliseconds. [id number], Complete Assessment & Plan Assessment & Plan (1) S/P CABG x 4: Comment: 11/22/2022, [place] to LAD, left radial graft to diagonal, SVG to PDA and OM Code(s): Z95.1 - Presence of aortocoronary bypass graft Category: Surgical (2) Stable angina: Code(s): I20.8 - Other forms of angina pectoris Category: Medical (3) Hypertension: Code(s): I10 - Essential (primary) hypertension Category: Medical Qualifiers: Hypertension type: primary hypertension Qualified Code(s): I10 - Essential (primary) hypertension (4) Dyslipidemia: Code(s): E78.5 - Hyperlipidemia, unspecified Category: Medical Plan 63-year-old gentleman who is here for follow-up. He has known history of coronary disease status post bypass surgery. He has been taking aspirin and Plavix. He is asking whether he can stop 1 of them. I have advised him to stop the aspirin and continue Plavix monotherapy. Previously had some issues with statins and could not tolerate high-intensity statins although his symptoms are quite vague and mostly joint based with background of arthritis. He is currently taking ezetimibe and fluvastatin 40 mg daily. He is also taking coenzyme Q10. I have advised him to check fasting lipid panel. We will arrange this for him. Blood pressure is well controlled currently. He will see us back in 4 months. Thank you for allowing me to participate in the care of your patient. Please feel free to contact me if you have any questions. Orders: Orders Lipid Panel Today Z95.1 - Presence of aortocoronary bypass graft Medications: Discontinued aspirin (Adult Low Dose Aspirin) Discontinued Reason: Doctor's Order 81 mg PO DAILY 90 tabs 3RF Coding Level of Care Code Est Pt Level 4 (27371) Diagnoses S/P CABG x 4 Z95.1 Stable angina I20.8 Primary hypertension I10 Hypertension type: primary hypertension Dyslipidemia E78.5 CPT Codes EKG - CPT: 96909-[id number], Complete ([id number])
== END 2023-12-10 10:15 | disposition home or self-care (01) ==
PROVIDERS: PCP Nurse Practitioner Family; Visit Provider Internal Medicine Cardiovascular Disease
DX: Z95.1 Presence of aortocoronary bypass graft (principal); I20.89 Other forms of angina pectoris; I10 Essential (primary) hypertension; E78.5 Hyperlipidemia, unspecified
CPT/HCPCS: 93010; 99214

== ENCOUNTER → 2023-12-10 09:24 | Outpatient (BNVA) | payer MEDICARE, MEDICAID, SELFPAY | PROVIDERS: PCP Nurse Practitioner Family; Visit Provider Internal Medicine Cardiovascular Disease | DX: I20.89 Other forms of angina pectoris (principal); I10 Essential (primary) hypertension; E78.5 Hyperlipidemia, unspecified; Z95.1 Presence of aortocoronary bypass graft | CPT/HCPCS: 93005; 99212 ==

== ENCOUNTER 2023-12-15 06:09 | Outpatient (REF) | payer MEDICARE, MEDICAID, SELFPAY ==
[2023-12-15 10:49] LABS: Cholesterol 151 mg/dL (<200); HDL Cholesterol 41 mg/dL (>40); LDL Cholesterol Calculated 89 mg/dL (<100); Triglycerides 105 mg/dL (<150)
== END 2023-12-15 06:10 | disposition home or self-care (01) ==
LOC: HO.HMGCLDS 06:09
PROVIDERS: PCP Nurse Practitioner Family; Visit Provider Internal Medicine Cardiovascular Disease
DX: Z95.1 Presence of aortocoronary bypass graft (principal)
CPT/HCPCS: 36415; 80061

== ENCOUNTER 2024-01-17 09:01 | Outpatient (REF) | payer MEDICARE, MEDICAID, SELFPAY ==
[2024-01-17 11:10] LABS: MANUAL DIFF FLAG NO
[2024-01-17 11:18] LABS: Basophils Percent Auto 0.4 % (0-2); Eosinophils Absolute Auto 0.1 X10*3/uL (0.0-0.4); Hematocrit 46.2 % (42.0-52.0); Hemoglobin 15.5 g/dl (14.0-18.0); Imm Gran Abs Auto 0.02 X10*3/uL (0.00-0.03); Imm Gran Pct Auto 0.3 % (0.0-0.4); Lymphocytes Absolute Auto 1.5 X10*3/uL (1.2-4.9); Lymphocytes Percent Auto 22.2 % (20-40); Mean Corpuscular HGB Conc 33.5 g/dl (31.0-36.0); Mean Corpuscular Hemoglobin 29.7 pg (27.0-33.0); Mean Corpuscular Volume 88.5 fL (80.0-98.0); Mean Platelet Volume 11.1 fL (9.4-12.4); Monocytes Absolute Auto 0.7 X10*3/uL (0.1-1.2); Monocytes Percent Auto 9.8 % (2-11); Neutrophils Absolute Auto 4.6 x10*3/uL (2.0-8.3); Neutrophils Percent Auto 66.3 % (45-73); Platelet Count 246 X10*3/uL (160-400); Red Blood Count 5.22 X10*6/uL (4.60-5.80); Red Cell Distribution Width 13.1 % (11.0-16.0); White Blood Count 6.9 X10*3/uL (4.8-10.8)
[2024-01-17 11:36] LABS: Alanine Aminotransferase 22 U/L (0-40); Albumin Level 4.5 g/dL (3.5-5.0); Alkaline Phosphatase 67 U/L (39-117); Anion Gap 13 (12-20); Aspartate Amino Transferase 21 U/L (5-37); Bilirubin Total 0.4 mg/dL (0.0-1.0); Blood Urea Nitrogen 22 mg/dL (9-16); Calcium 9.9 mg/dL (8.4-10.2); Carbon Dioxide 26 mmol/L (22-29); Chloride 106 mmol/L (96-108); Cholesterol 141 mg/dL (<200); Estimated Glomerular Filt Rate > 60; Glucose Fasting 109 mg/dL (60-99); HDL Cholesterol 41 mg/dL (>40); LDL Cholesterol Calculated 88 mg/dL (<100); Potassium 4.4 mmol/L (3.3-5.1); Sodium 141 mmol/L (135-145); Total Protein 6.9 g/dL (6.5-8.0); Triglycerides 63 mg/dL (<150)
[2024-01-17 11:55] LABS: TSH reflex Free T4 1.37 uIU/mL (0.32-4.0)
== END 2024-01-17 09:02 | disposition home or self-care (01) ==
LOC: HO.HMGCLDS 09:01
PROVIDERS: PCP Nurse Practitioner Family; Visit Provider Nurse Practitioner Family
DX: M25.551 Pain in right hip (principal); M25.552 Pain in left hip
CPT/HCPCS: 36415; 80053; 80061; 84443; 85025

== ENCOUNTER 2024-01-20 08:28 | Outpatient (AMB) | payer MEDICARE, MEDICAID, SELFPAY ==
[2024-01-20 08:31] VITALS: BP 122/86; PULSE 76; O2SAT 97; BMI 32.4
--- NOTE | 2024-01-20 08:31 | MHC.PC.OV ---
Vital Signs 01/20/24 08:31 Height 5 ft 7 in Weight 207 lb BMI 32.4 BP 122/86 Blood Pressure Location Lt brachial Position Sitting Pulse 76 Pulse Source Pulse Oximeter Pulse Oximetry (%) 97 Intake Visit Reasons: 4M F/U Intake Note: pt is here for 4 month follow up Senior Billing Consultant Required: No Accompanied by: Self / Same As Patient Allergies orphenadrine [From Norflex] Allergy (Mild, Verified 01/20/24 08:32) UNKNOWN piroxicam [From Feldene] Allergy (Mild, Verified 01/20/24 08:32) UNKNOWN amoxicillin Allergy (Unknown, Verified 01/20/24 08:32) unknown lisinopril Allergy (Unknown, Verified 01/20/24 08:32) cough pantoprazole [From Protonix] Adverse Reaction (Severe, Verified 01/20/24 08:32) Anaphylaxis Gecxdax-MVW-XpM Reductase Inhibitor Adverse Reaction (Intermediate, Verified 01/20/24 08:32) myalgias, joint and hip pain pravastatin Adverse Reaction (Mild, Verified 01/20/24 08:32) body aches protonix Allergy (Severe, Uncoded 07/23/23 09:12) Angioedema Medication List - Last Reconciled 01/20/24 by TABITHA Root- amlodipine 2.5 mg PO DAILY cetirizine (All Day Allergy (cetirizine)) 10 mg PO DAILY PRN cholecalciferol (vitamin D3) 125 mcg PO DAILY clopidogrel 75 mg PO DAILY 90 days coenzyme Q10 100 mg PO DAILY ezetimibe 10 mg PO DAILY famotidine 20 mg PO DAILY fluvastatin ER mg PO magnesium 400 mg PO DAILY metoprolol tartrate 37.5 mg (1.5 x 25 mg) PO BID 90 days omeprazole 1 cap PO QAM zinc acetate 50 mg PO DAILY Tobacco use date assessed: 07/23/23 Dental Screening Dental Screen Date: 07/23/23 HPI 4M F/U HPI Details HTN: Blood pressure is stable, managed with amlodipine 2.5mg and metoprolol 37.5mg. Dyslipidemia: On fluvastatin 80mg. Denies chest pain, shortness of breath, headache, dizziness, and blurred vision. WIll cont to monitor lipids. Pt reports ongoing bilat hip pain. Refuses PT. [facility] Medical History (Updated 08/02/23 @ 10:26 by Trino Neal, [facility]) Hypertensive retinopathy Pulmonary nodule Cough Ground glass opacity present on imaging of lung Restrictive lung disease Obesity (BMI 30-39.9) Arthralgia Tinea cruris RBBB RAD (reactive airway disease) LVH (left ventricular hypertrophy) Sacroiliitis Diverticulitis Cervical spondylosis JOHANNY (obstructive sleep apnea) Anemia Carpal tunnel syndrome of left wrist Insomnia GERD (gastroesophageal reflux disease) Hypertension Neuropathy Surgical History (Reviewed 01/20/24 @ 08:32 by Rogelio Astorga [facility]) S/P CABG x 4 History of cardiac cath History of carpal tunnel surgery History of tonsillectomy Family History (Reviewed 01/20/24 @ 08:32 by Rogelio Astorga [facility]) Father Myocardial infarction Diabetes mellitus CVD (cardiovascular disease) Mother No problems noted. Brother Diabetes mellitus Sister Diabetes mellitus Cancer Social History (Reviewed 01/20/24 @ 08:32 by Rogelio Astorga [facility]) Housing: House Alcohol intake: former Patient Tobacco Use Status: Never used Tobacco e-Cigarette/Vaping Use: Never Used service: No Current occupational status: disabled Cognitive needs: No Hearing needs: No Vision needs: Yes Questionnaire PHQ-9 Over the last 2 weeks, how often have you been bothered by any of the following problems? 86878 - PHQ-9 Billing: Patient declined-do not bill Source: Developed by Drs. Sunil Mccloud, Martina Neal, Robert Dey and colleagues, with an educational guille from [employer]. Thrive Questionnaire Date Thrive assessed: 01/20/24 I am a: Patient What is your living situation today?: I choose not to answer this question Within the past 12 months, did the food you bought not last and you didn't have the money to get more?: I choose not to answer this question Within the past 12 months, did you worry whether your food would run out before you got money to buy more?: I choose not to answer this question Do you have trouble paying for medicines?: I choose not to answer this question Do you have trouble getting transportation to medical appointments?: I choose not to answer this question Do you have trouble paying your heating and electricity bill?: I choose not to answer this question Do you have trouble taking care of your child, family member or friend?: I choose not to answer this question Do you have trouble with day-to-day activities such as bathing, preparing meals, shopping, managing finances, etc.?: I choose not to answer this question Are you currently unemployed and looking for a job?: I choose not to answer this question Are you interested in more education?: I choose not to answer this question Please select the resources that you would like help with: None Currently or been in a relationship where the following occur: I choose not to answer THRIVE Score: 0 AUDIT C Alcohol Use Questionnaire (AUDIT-C) 1. How often do you have a drink containing alcohol?: Never 3. How often do you have six or more drinks on one occasion?: Never Total Score: 0 Score Reviewed/Action Taken: Yes JAYANT-7 AMB Questionnaire JAYANT-7 Date JAYANT - 7 assessed: 01/20/24 Feeling nervous, anxious, or on edge: 0 = Not at all Not being able to stop or control worryin = Not at all Worrying too much about different things: 0 = Not at all Trouble relaxin = Several days Being so restless that it is hard to sit still: 0 = Not at all Becoming easily annoyed or irritable: 0 = Not at all Feeling afraid as if something awful might happen: 0 = Not at all Total JAYANT-7 score (0-4 normal; 5-9 mild; 10-14 moderate; 15-21 severe): 1 Source: Developed by Drs. Sunil Mccloud, Martina Neal, Robert Dey and colleagues, with an educational guille from [employer]. JAYANT-7 Assessment Billing JAYANT-7 Assessment Tool: JAYANT-7 Assessment 50548 Review of Systems Const Reports as per HPI Physical exam (Primary Care) Vital Signs: Last Vital Signs Pulse 76 01/20/24 08:31 BP 122/86 01/20/24 08:31 Pulse Ox 97 01/20/24 08:31 BMI result Body Mass Index 32.4 Tobacco/Smoking Status: Tobacco use Status Tobacco use date assessed 07/23/23 01/20/24 08:33 Patient Tobacco Use Status Never used Tobacco 01/20/24 08:33 e-Cigarette/Vaping Use Never Used 01/20/24 08:33 Thrive Assessment: Date of Thrive Assessment Date Thrive assessed 01/20/24 01/20/24 08:33 Currently or been in a relationship where the following occur: I choose not to answer Const General: cooperative Nutritional Appearance: obese Orientation/consciousness: patient oriented x3 Resp Effort & Inspection: normal respiratory effort Auscultation: clear to auscultation bilaterally Cardio Rate: regular rate Rhythm: regular rhythm Heart sounds: S1 normal heart sound present and S2 normal heart sound present Neuro General: patient oriented x3 Extrem Right lower extremity: no edema Left lower extremity: no edema Psych Appearance: grossly normal Mental Status: mental status grossly normal Speech and movement: Normal speech and movement present Affect: normal affect Attitude: cooperative Thought process: Normal thought process present Thought content: Normal thought content present Insight: Good insight present (Psych) Judgement: Good judgement present (Psych) Assessment and Plan Assessment & Plan (1) Hypertension: Code(s): I10 - Essential (primary) hypertension Qualifiers: Hypertension type: primary hypertension Qualified Code(s): I10 - Essential (primary) hypertension Plan: Stable (2) Dyslipidemia: Code(s): E78.5 - Hyperlipidemia, unspecified Plan: Continue fluvastatin 80, will recheck lipids Plan The patient agreed to the use of a certified medical aide for this encounter. Scribed for LYNETTE Grier by Katja Valverde certified medical aide, on 01/20/2024 at 08:45 EST. Orders: Orders Complete Blood Count Auto Diff Today E78.5 - Hyperlipidemia, unspecified, I10 - Essential (primary) hypertension Comprehensive [place]. Panel Fast Today E78.5 - Hyperlipidemia, unspecified, I10 - Essential (primary) hypertension Lipid Panel Today E78.5 - Hyperlipidemia, unspecified, I10 - Essential (primary) hypertension TSH reflex Free T4 Today E78.5 - Hyperlipidemia, unspecified, I10 - Essential (primary) hypertension UA CC w/rflx Micro + Cult Today E78.5 - Hyperlipidemia, unspecified, I10 - Essential (primary) hypertension Coding Level of Care Code Est Pt Level 3 (42726) Diagnoses Primary hypertension I10 Hypertension type: primary hypertension Dyslipidemia E78.5 Additional Codes JAYANT-7 Assessment Billing - JAYANT-7 Assessment Tool: JAYANT-7 Assessment 76935 ([id number])
== END 2024-01-20 09:01 | disposition home or self-care (01) ==
PROVIDERS: PCP Nurse Practitioner Family; Visit Provider Nurse Practitioner Family
DX: I10 Essential (primary) hypertension (principal); E78.5 Hyperlipidemia, unspecified
CPT/HCPCS: 99213

== ENCOUNTER 2024-05-03 06:04 | Outpatient (REF) | payer MEDICARE, MEDICAID, SELFPAY ==
--- OUTSIDE RECORDS SUMMARY | 2024-05-03 06:06 | XMS_ITS ---
Author Organization [facility] Address [address] [place] [address] Care Team Providers Care Cleaner [employer]pet [employer]pholstery Name Role Phone CYNDI JUNIOR Primary Care Provider Basilio Lindsey Jr Unavailable ALLERGIES Allergen (clinical drug ingredient) Drug/Non Drug Allergy documented on EMR Reaction Allergy Type Onset Date Status Norflex Unknown Drug Allergy Active piroxicam Feldene Unknown Drug Allergy Active REASON FOR VISIT Patient presents today for an ffice visit f/u for hx of gerd,diverticulitis MEDICATIONS Medication SIG (Take, Route, Frequency, Duration) Notes Start Date End Date Status amLODIPine Besylate 2.5 MG TAKE 1 TABLET BY MOUTH ONCE DAILY Oral for 90 I10,Unavailable Active Metoprolol Tartrate 25 MG TAKE 1 & 1/2 (ONE & ONE-HALF) TABLETS BY MOUTH TWICE DAILY Oral for 90 Active Fluvastatin Sodium ER 80 MG Oral for 90 Active Sildenafil Citrate 25 MG 1 tablet as needed Orally Once a day for 30 day(s) Active Metoprolol Succinate 25 MG 1 capsule Orally Once a day Active Rosuvastatin Calcium 5 MG 1 tablet Orally Once a day for 30 day(s) Active Ezetimibe 10 MG 1 tablet Orally Once a day for 30 day(s) Active Omeprazole 40 MG TAKE 1 CAPSULE BY MOUTH ONCE DAILY 30 MINUTES BEFORE MORNING MEAL for 90 Active CoQ-10 100 MG as directed Orally Active Potassium 99 MG 1 tablet Orally Once a day for 30 day(s) Active Zinc 50 MG 1 tablet Orally Once a day for 30 day(s) Active Cetirizine HCl 10 MG 1 tablet Orally Onc e a day for 30 day(s) Active Acetaminophen 8 Hour 650 MG 2 tablets as needed Orally every 8 hrs Active Valsartan 320 MG 1 tablet Orally Once a day for 30 day(s) Active Vitamin B 12 500 MCG 1 tablet Orally Onc e a day for 30 day(s) Active Krill Oil 350 MG as directed Orally Active Magnesium 200 MG 2 tablets with a meal Orally Once a day for 30 day(s) Active Vitamin D-3 125 MCG (5000 UT) as directed Orally Active MiraLax (colon prep) 17 GM/SCOOP mixed with Gatorade or Crystal Light Orally begin at 5:00 p.m. the day before the procedure for 1 day 05/29/2022 Active Fluvastatin Sodium 40 MG 1 capsule Orally Twice a day for 30 day(s) Active Aspirin 81 81 MG 1 tablet Orally Once a day for 30 day(s) Active Clopidogrel Bisulfate 75 MG 1 tablet Orally Once a day for 30 day(s) Active IMMUNIZATIONS Vaccine Route Administration Date Status Comme nts Influenza Unknown 09/17/2023 Refused VITAL SIGNS BMI 33.94 kg/m2 09/17/2023 Blood pressure systolic 000 mm Hg 09/17/19 24 Blood pressure diastolic 00 mm Hg 024 Height 65 in 09/17/2023 Temperature 97.7 degrees Fahrenheit 09/17/19 24 Weight 204 lbs 09/17/2023 Encounters Encounter Location Date Provider Diagnosis [facility] [address] [place] [address] 09/17/2023 Basilio Naylor Jr Gastroesophageal reflux disease without esophagitis K21.9 and Colon cancer screening Z12.11 ASSESSMENTS Encounter Date Diagnosis Assessment Notes Treatment Notes Treatment Clinical Notes 09/17/2023 Gastroesophageal reflux disease without esophagitis (ICD-10 - K21.9) Gastroesophageal reflux disease material was printed 09/17/2023 Colon cancer screening (ICD-10 - Z12.11) PLAN OF TREATMENT Treatment Notes Assessment Notes Gastroesophageal reflux dise ase without esophagitis Gastroesophageal reflux disease material was printed Next Appt Details Follow Up: 1 Year, Reason: Provider Name:Basilio vang Jr, 09/20/2024 09:00:00 AM, [address], [address], [place], [address],
--- OUTSIDE RECORDS SUMMARY | 2024-05-03 06:07 | XMS_ITS | Patient Health Record ---
Author Organization [facility] Address [address] [place] [address] Care Team Providers Care Field Technical Support Consultant Name Role Phone CYNDI JUNIOR Primary Care Provider Basilio Lindsey Jr Unavailable [phone] ALLERGIES Allergen (clinical drug ingredient) Drug/Non Drug Allergy documented on EMR Reaction Allergy Type Onset Date Status Norflex Unknown Drug Allergy Active piroxicam Feldene Unknown Drug Allergy Active REASON FOR REFERRAL No Information MEDICATIONS Medication SIG (Take, Route, Frequency, Duration) Notes Start Date End Date Status MiraLax (colon prep) 17 GM/SCOOP mixed with Gatorade or Crystal Light Orally begin at 5:00 p.m. the day before the procedure for 1 day 05/29/2022 Active Sildenafil Citrate 25 MG 1 tablet as needed Orally Once a day for 30 day(s) Active Fluvastatin Sodium 40 MG 1 capsule Orally Twice a day for 30 day(s) Active CoQ-10 100 MG as directed Orally Active Valsartan 320 MG 1 tablet Orally Once a day for 30 day(s) Active Vitamin B 12 500 MCG 1 tablet Orally Onc e a day for 30 day(s) Active Rosuvastatin Calcium 5 MG 1 tablet Orally Once a day for 30 day(s) Active Krill Oil 350 MG as directed Orally Active Ezetimibe 10 MG 1 tablet Orally Once a day for 30 day(s) Active Magnesium 200 MG 2 tablets with a meal Orally Once a day for 30 day(s) Active amLODIPine Besylate 2.5 MG TAKE 1 TABLET BY MOUTH ONCE DAILY Oral for 90 I10,Unavailable Active Vitamin D-3 125 MCG (5000 UT) as directed Orally Active Omeprazole 40 MG TAKE 1 CAPSULE BY MOUTH ONCE DAILY 30 MINUTES BEFORE MORNING MEAL for 90 Active Potassium 99 MG 1 tablet Orally Once a day for 30 day(s) Active Metoprolol Tartrate 25 MG TAKE 1 & 1/2 (ONE & ONE-HALF) TABLETS BY MOUTH TWICE DAILY Oral for 90 Active Zinc 50 MG 1 tablet Orally Once a day for 30 day(s) Active Fluvastatin Sodium ER 80 MG Oral for 90 Active Aspirin 81 81 MG 1 tablet Orally Once a day for 30 day(s) Active Cetirizine HCl 10 MG 1 tablet Orally Onc e a day for 30 day(s) Active Clopidogrel Bisulfate 75 MG 1 tablet Orally Once a day for 30 day(s) Active Acetaminophen 8 Hour 650 MG 2 tablets as needed Orally every 8 hrs Active Metoprolol Succinate 25 MG 1 capsule Orally Once a day Active IMMUNIZATIONS Vaccine Route Administration Date Status Comme nts Influenza Unknown 04/30/2022 Administered Influenza Unknown 09/17/2023 Refused SOCIAL HISTORY Sex Assigned At : Social History Observation Description Sex Assigned At Unknown PROBLEMS Problem Type ICD Code Onset Dates Problem Status W/U Status Risk SNOMED Code Notes Problem Gastroesophageal reflux disease without esophagitis (K21.9) Active confirmed 969161138 Problem Diverticulitis of large intestine without perforation or abscess without bleeding (K57.32) Active confirmed 5606685 Problem Colon cancer screening (Z12.11) Active confirmed 540091530 Problem Gastroesophageal reflux disease (K21.9) Active confirmed Gastroesophagea l reflux disease (378038594) VITAL SIGNS Temperature 97.7 degrees Fahrenheit 09/17/2023 Blood pressure diastolic 00 mm Hg 09/17/2023 Height 65 in 09/17/2023 Blood pressure systolic 000 mm Hg 09/17/2023 Weight 204 lbs 09/17/2023 BMI 33.94 kg/m2 09/17/2023 Encounters Encounter Location Date Provider Diagnosis [facility] [address] [place] [address] 09/17/2023 Basilio Naylor Jr Gastroesophageal reflux disease without esophagitis K21.9 and Colon cancer screening Z12.11 ASSESSMENTS Encounter Date Diagnosis Assessment Notes Treatment Notes Treatment Clinical Notes 09/17/2023 Colon cancer screening (ICD-10 - Z12.11) 09/17/2023 Gastroesophageal reflux disease without esophagitis (ICD-10 - K21.9) Gastroesophageal reflux disease material was printed PLAN OF TREATMENT Future Test Test Name Order Date UPPER GI ENDOSCOPY 10/04/2015 COLONOSCOPY 10/04/2015 UPPER GI ENDOSCOPY 05/29/2022 COLONOSCOPY 05/29/2022 Next Appt Details Provider Name:Basilio Ilda vang Jr, 09/20/2024 09:00:00 AM, [address], [address], [place], [address], Insurance Providers Payer Name Payer Address Payer Phone Subscriber Number Group Number Insured Name Patient Relationship to Insured Coverage Start Date Coverage End Date MEDICARE OF [place] [address] [place] [id number] AYANA STOUT Self - patient is the insured MEDICAID OF [employer] [address] [place] [address] [phone] [id number] AYANA STOUT Self - patient is the insured MEDICAL (GENERAL) HISTORY Medical History History ICD Code Gastroesophageal reflux dise ase, EGD 07/11, and no H. pylori or Andersen's esophagus Colonoscopy, 07/11, no polyps, ten-year f ollowup hypertension elevated cholesterol disc disease hip pain joint pain Ganglioneuroma on colonoscopy 07/24, no r ecurrence Diverticulitis JOHANNY, mild, not using CPAP Coronary artery disease, CABG x4 Surgical History Surgery Date(Month/Year) carpal tunnel surgery bilaterally CABG x4 12/12/22 Hospitalization History Reason Date(Month/Year) CABG x4 12/12/22
[2024-05-03 10:12] LABS: Appearance Urine Clear; Color Urine Yellow; Glucose Urine UA Negative (Negative); Leukocyte Esterase Urine Negative (Negative); Nitrite Urine Negative (Negative); PH 5.5 (5.0-9.0); Urine Blood Negative (Negative); Urine Ketones Negative (Negative); Urine Protein Negative (Neg-Trace)
[2024-05-03 10:16] LABS: MANUAL DIFF FLAG NO
[2024-05-03 10:19] LABS: Basophils Percent Auto 0.6 % (0-2); Eosinophils Absolute Auto 0.1 X10*3/uL (0.0-0.4); Eosinophils Percent Auto 1.4 % (0-4); Hematocrit 48.5 % (42.0-52.0); Hemoglobin 16.2 g/dl (14.0-18.0); Imm Gran Abs Auto 0.02 X10*3/uL (0.00-0.03); Imm Gran Pct Auto 0.3 % (0.0-0.4); Lymphocytes Absolute Auto 2.1 X10*3/uL (1.2-4.9); Lymphocytes Percent Auto 30.4 % (20-40); Mean Corpuscular HGB Conc 33.4 g/dl (31.0-36.0); Mean Corpuscular Hemoglobin 29.7 pg (27.0-33.0); Mean Platelet Volume 10.8 fL (9.4-12.4); Monocytes Absolute Auto 0.7 X10*3/uL (0.1-1.2); Monocytes Percent Auto 10.1 % (2-11); Neutrophils Percent Auto 57.2 % (45-73); Platelet Count 255 X10*3/uL (160-400); Red Blood Count 5.45 X10*6/uL (4.60-5.80); Red Cell Distribution Width 13.2 % (11.0-16.0); White Blood Count 6.9 X10*3/uL (4.8-10.8)
[2024-05-03 10:53] LABS: Alanine Aminotransferase 23 U/L (0-40); Albumin Level 4.5 g/dL (3.5-5.0); Alkaline Phosphatase 60 U/L (39-117); Anion Gap 12 (12-20); Aspartate Amino Transferase 27 U/L (5-37); Bilirubin Total 0.4 mg/dL (0.0-1.0); Blood Urea Nitrogen 19 mg/dL (9-16); Calcium 9.2 mg/dL (8.4-10.2); Carbon Dioxide 26 mmol/L (22-29); Chloride 107 mmol/L (96-108); Cholesterol 144 mg/dL (<200); Estimated Glomerular Filt Rate > 60; Glucose Fasting 99 mg/dL (60-99); HDL Cholesterol 38 mg/dL (>40); LDL Cholesterol Calculated 85 mg/dL (<100); Potassium 3.9 mmol/L (3.3-5.1); Sodium 141 mmol/L (135-145); Triglycerides 109 mg/dL (<150)
[2024-05-03 11:07] LABS: TSH reflex Free T4 2.22 uIU/mL (0.32-4.0)
== END 2024-05-03 06:05 | disposition home or self-care (01) ==
LOC: HO.HMGCLDS 06:04
PROVIDERS: PCP Nurse Practitioner Family; Referring Provider Internal Medicine Cardiovascular Disease; Visit Provider Nurse Practitioner Family
DX: E78.5 Hyperlipidemia, unspecified (principal); I10 Essential (primary) hypertension
CPT/HCPCS: 36415; 80053; 80061; 81003; 84443; 85025

== ENCOUNTER 2024-05-10 13:11 | Outpatient (AMB) | payer MEDICARE, MEDICAID, SELFPAY ==
[2024-05-10 13:13] VITALS: BP 124/70; PULSE 76; BMI 33.3
--- NOTE | 2024-05-10 13:13 | MHC.OFFVIS ---
Vital Signs 05/10/24 13:13 Height 5 ft 7 in Weight 212 lb 8.41 oz BMI 33.3 BP 124/70 Blood Pressure Location Lt brachial Position Sitting Pulse 76 Pulse Source Pulse Oximeter Intake Visit Reasons: 4 mth f/up / lipids Unattended Ground Sensor Specialist Required: No Allergies orphenadrine [From Norflex] Allergy (Mild, Verified 05/10/24 13:17) UNKNOWN piroxicam [From Feldene] Allergy (Mild, Verified 05/10/24 13:17) UNKNOWN amoxicillin Allergy (Unknown, Verified 05/10/24 13:17) unknown lisinopril Allergy (Unknown, Verified 05/10/24 13:17) cough pantoprazole [From Protonix] Adverse Reaction (Severe, Verified 05/10/24 13:17) Anaphylaxis Kjzpwyo-YPJ-XgF Reductase Inhibitor Adverse Reaction (Intermediate, Verified 05/10/24 13:17) myalgias, joint and hip pain pravastatin Adverse Reaction (Mild, Verified 05/10/24 13:17) body aches protonix Allergy (Severe, Uncoded 05/10/24 13:17) Angioedema Medication List - Last Reconciled 05/10/24 by Judy Chavez NP-C amlodipine 2.5 mg PO DAILY cetirizine (All Day Allergy (cetirizine)) 10 mg PO DAILY PRN cholecalciferol (vitamin D3) 125 mcg PO DAILY clopidogrel 75 mg PO DAILY 90 days coenzyme Q10 100 mg PO DAILY ezetimibe 10 mg PO DAILY famotidine 20 mg PO DAILY fluorouracil 4% 1 appl topical BEDTIME fluorouracil 5% 1 appl topical BID fluvastatin ER 80 mg PO QPM 90 days magnesium 400 mg PO DAILY metoprolol tartrate 37.5 mg (1.5 x 25 mg) PO BID 90 days omeprazole 1 cap PO QAM zinc acetate 50 mg PO DAILY HPI HPI 4 mth f/up / lipids: Details: Jonnie is a 63-year-old male past medical history of hypertension, hyperlipidemia, obesity, who was reporting chest discomfort, had abnormal echocardiogram and stress test. He then underwent cardiac catheterization showing multivessel CAD. He underwent 4 vessel Coronary artery bypass grafting on 11/22/2022. Today he reports he has been doing generally well since his last visit in November. He continues to have issues with his hips and knees. He feels this affects his mobility and admits to being mostly sedentary. He is not able to take a higher dose of fluvastatin as he says it significantly affects his joints. He is currently only taking half a tablet, along with coenzyme Q10. He does have some minor soreness in his anterior chest to palpation. On occasion he will get a quick stabbing pain. No chest discomfort brought on by physical activity. No concerning shortness of breath, PND, orthopnea or edema. No palpitations, lightheadedness, presyncope, syncope. Taking all meds as directed. No bleeding issues reported. is present. [facility] Medical History Hypertensive retinopathy Pulmonary nodule Cough Ground glass opacity present on imaging of lung Restrictive lung disease Obesity (BMI 30-39.9) Arthralgia Tinea cruris RBBB RAD (reactive airway disease) LVH (left ventricular hypertrophy) Sacroiliitis Diverticulitis Cervical spondylosis JOHANNY (obstructive sleep apnea) Anemia Carpal tunnel syndrome of left wrist Insomnia GERD (gastroesophageal reflux disease) Hypertension Neuropathy Surgical History S/P CABG x 4 History of cardiac cath History of carpal tunnel surgery History of tonsillectomy Family History Father Myocardial infarction Diabetes mellitus CVD (cardiovascular disease) Mother No problems noted. Brother Diabetes mellitus Sister Diabetes mellitus Cancer Social History Housing: House Alcohol intake: former Patient Tobacco Use Status: Never used Tobacco e-Cigarette/Vaping Use: Never Used service: No Current occupational status: disabled Cognitive needs: No Hearing needs: No Vision needs: Yes Review of Systems Const All systems reviewed & are unremarkable except as noted in HPI and below ENT Details: chronic sinus issues - breaths through mouth Denies dizziness Card Details: anterior chest wall soreness Denies chest pain, Denies chest pain at rest, Denies chest pain with activity, Denies rapid heart rate, Denies pedal edema, Denies edema, Denies leg edema, Denies lightheadedness, Denies palpitations, Denies dyspnea, Denies dyspnea on exertion and Denies orthopnea Resp Denies cough, Denies dyspnea and Denies dyspnea on exertion GI Denies hematochezia and Denies change in stool character Musc Details: back and hip discomfort Denies abnormal gait, Denies limited range of motion, Denies muscle cramps, Denies muscle weakness, Denies numbness, Denies radiating pain into limb, Denies stiffness and Denies tingling Neuro Denies abnormal gait, Denies dizziness, Denies numbness and Denies tingling Endo Denies palpitations Physical Exam Vital Signs: Last Vital Signs Pulse 76 05/10/24 13:13 BP 124/70 05/10/24 13:13 BMI result Body Mass Index 33.3 Const General: cooperative, healthy appearing, comfortable and no acute distress Orientation/consciousness: patient oriented x3 Neck Neck: Yes normal visual inspection and Yes no JVD Resp Effort & Inspection: normal respiratory effort Auscultation: clear to auscultation bilaterally, no crackles, no rales, no rhonchi and no wheezes Cardio Jugular venous distension: no JVD Rate: regular rate Rhythm: regular rhythm Heart sounds: S1 normal heart sound present, S2 normal heart sound present, no murmurs and no rubs Peripheral pulses: Peripheral pulses 2+ throughout Neuro General: patient oriented x3 Extrem General: Yes normal to inspection, No no pedal edema and No calf tenderness Psych Appearance: grossly normal Mental Status: mental status grossly normal Speech and movement: Normal speech and movement present Assessment & Plan Assessment & Plan (1) CAD (coronary artery disease): Code(s): I25.10 - Atherosclerotic heart disease of [place] coronary artery without angina pectoris Category: Medical Plan: Prior repots of chest discomfort. Cardiac testing led to eventual cardiac catheterization showing multivessel CAD. He then had 4 vessel coronary artery bypass grafting on 11/22/2022. He has had no anginal sounding symptoms since that time. Echocardiogram done 04/25/2024 showing EF 50-55%, moderate septal asymmetric hypertrophy, overall no change since 08/01/2022. His activity is limited by hip and knee pain. Doing well with no reports of anginal symptoms. He was taken off aspirin last visit and continued on Plavix. He has intolerance to high-dose statin and is currently on fluvastatin 40 mg daily and Zetia 10 mg daily. Labs done 05/03/2024 showed LDL 85. He declines PCSK9 inhibitor. He is on amlodipine and metoprolol with good heart rate and blood pressure control. List of vital signs brought in from home show pulse and blood pressure within normal range. Recommend increase physical activity as tolerated. Cardiology follow-up 6 months, sooner if needed. Will update echo prior to that visit. (2) S/P CABG x 4: Comment: 11/22/2022, [place] to LAD, left radial graft to diagonal, SVG to PDA and OM Code(s): Z95.1 - Presence of aortocoronary bypass graft Category: Surgical Plan: As above (3) Hypertension: Code(s): I10 - Essential (primary) hypertension Category: Medical Qualifiers: Hypertension type: primary hypertension Qualified Code(s): I10 - Essential (primary) hypertension Plan: Well controlled at this time. Continue current med management. (4) Dyslipidemia: Code(s): E78.5 - Hyperlipidemia, unspecified Category: Medical Plan: [place] LDL goal less than 70. He has issues with statin intolerance. Was ordered to take fluvastatin 80 mg daily but was intolerant. He is currently taking 40 mg daily along with Zetia. He is also on coenzyme Q10. He does report issues with joint and muscle aches. Discussed option for PCSK9 inhibitor and he declines. He wants to continue his meds as they are. Informed him that his cholesterol is not optimally controlled. He states understanding of this. Plan Time spent on chart review, documentation, interview and assessment Orders: Orders CA echo transthoracic complete 5 Months I25.10 - Atherosclerotic heart disease of [place] coronary artery without angina pectoris, Z95.1 - Presence of aortocoronary bypass graft Coding Level of Care Code Est Pt Level 4 (54152) Complex EM visit Add On G2211 Diagnoses CAD (coronary artery disease) I25.10 S/P CABG x 4 Z95.1 Primary hypertension I10 Hypertension type: primary hypertension Dyslipidemia E78.5 Time Spent (min) 30
--- OUTSIDE RECORDS SUMMARY | 2024-05-10 13:13 | XMS_ITS | Patient Health Record ---
Author Organization [facility] Address [address] [place] [address] Care Team Providers Care Plasma Processor Name Role Phone CYNDI JUNIOR Primary Care Provider Basilio Lindsey Jr Unavailable [phone] ALLERGIES Allergen (clinical drug ingredient) Drug/Non Drug [...] reflux disease without esophagitis (K21.9) Active confirmed [id number] Problem Diverticulitis of large intestine without perforation or abscess without bleeding (K57.32) Active confirmed 3551173 Problem Colon cancer screening (Z12.11) Active confirmed 717157853 Problem Gastroesophageal reflux disease (K21.9) Active confirmed Gastroesophagea l reflux disease (653077621) VITAL SIGNS Temperature 97.7 degrees Fahrenheit 09/17/2023 Blood pressure diastolic 00 mm Hg 09/17/2023 Height 65 in 09/17/2023 Blood pressure systolic 000 mm Hg 09/17/2023 Weight 204 lbs 09/17/2023 BMI 33.94 kg/m2 09/17/2023 Encounters Encounter Location Date Provider Diagnosis [facility] [address] [place] [address] 09/17/2023 Basilio Naylor Jr Gastroesophageal reflux disease [...] Ilda vang Jr, 09/20/2024 09:00:00 AM, [address] [facility], [address], [place], [address], Insurance Providers Payer Name Payer Address Payer Phone Subscriber Number Group Number Insured Name Patient Relationship to Insured Coverage Start Date Coverage End Date [place] OF [place] [address] [place] [phone] [id number] AYANA STOUT Self - patient is the insured MEDICAID OF [place] [address] [place] [phone] [id number] AYANA STOUT Self - patient is the [...]
--- OUTSIDE RECORDS SUMMARY | 2024-05-10 13:13 | XMS_ITS ---
Author Organization [facility] Address [address] [place] [address] Care Team Providers Care [employer] French Teacher Name Role Phone CYNDI JUNIOR Primary Care Provider Basilio Lindsey Jr Unavailable [phone] ALLERGIES Allergen (clinical drug ingredient) Drug/Non Drug [...] 09/17/2023 Encounters Encounter Location Date Provider Diagnosis [facility] [address] [place] [address] 09/17/2023 Basilio Naylor Jr Gastroesophageal reflux disease [...] Name:Basilio vang Jr, 09/20/2024 09:00:00 AM, [address], [address], [place], [address],
== END 2024-05-10 13:46 | disposition home or self-care (01) ==
PROVIDERS: PCP Nurse Practitioner Family; Visit Provider Nurse Practitioner Family
DX: I25.10 Atherosclerotic heart disease of native coronary artery without angina pectoris (principal); Z95.1 Presence of aortocoronary bypass graft; I10 Essential (primary) hypertension; E78.5 Hyperlipidemia, unspecified
CPT/HCPCS: 99214; G2211

== ENCOUNTER → 2024-05-10 13:11 | Outpatient (BNVA) | payer MEDICARE, MEDICAID, SELFPAY | PROVIDERS: PCP Nurse Practitioner Family; Visit Provider Nurse Practitioner Family | DX: I25.10 Atherosclerotic heart disease of native coronary artery without angina pectoris (principal); I10 Essential (primary) hypertension; E78.5 Hyperlipidemia, unspecified; Z95.1 Presence of aortocoronary bypass graft | CPT/HCPCS: 99212 ==

== ENCOUNTER 2024-05-31 08:17 | Outpatient (AMB) | payer OTHER, MEDICAID, SELFPAY ==
--- NOTE | 2024-05-31 08:18 | A.OFFPC_ITS ---
Vital Signs 05/31/24 08:19 Height 5 ft 7 in Weight 211 lb BMI 33.0 BP 120/78 Blood Pressure Location Rt brachial Position Sitting Pulse 76 Pulse Source Pulse Oximeter Pulse Oximetry (%) 98 Intake Visit Reasons: 4 month follow up Intake Note: pt is here for 4 month f.up Guest Services Agent Required: No Accompanied by: Self / Same As Patient Allergies orphenadrine [From Norflex] Allergy (Mild, Verified 05/31/24 08:33) UNKNOWN piroxicam [From Feldene] Allergy (Mild, Verified 05/31/24 08:33) UNKNOWN amoxicillin Allergy (Unknown, Verified 05/31/24 08:33) unknown lisinopril Allergy (Unknown, Verified 05/31/24 08:33) cough pantoprazole [From Protonix] Adverse Reaction (Severe, Verified 05/31/24 08:33) Anaphylaxis Dnoyxbs-XSN-MjG Reductase Inhibitor Adverse Reaction (Intermediate, Verified 05/31/24 08:33) myalgias, joint and hip pain pravastatin Adverse Reaction (Mild, Verified 05/31/24 08:33) body aches protonix Allergy (Severe, Uncoded 05/31/24 08:33) Angioedema Tobacco use date assessed: 05/31/24 Dental Screening Dental Screen Date: 05/31/24 Did you have a dental visit in the last 12 months?: Yes Did you have a dental problem in the last 6 months where you did not have access to dental care?: No Was dental information given to patient?: Patient has dentist HPI 4 month follow up HPI Details Chief Complaint Increased left hip pain. History of Present Illness The patient is a 63-year-old male presenting with increased left hip pain. He reports that this pain has been progressively worsening and was noted during this 4-month follow-up. The patient has a history of hip osteoarthritis, previously confirmed by an X-ray a year ago, which indicated mild degenerative changes. The past X-ray findings correlate with the chronic nature of his hip condition. The current aggravation in pain may suggest a progression in the degenerative changes. He has not noted any specific inciting events. Additionally, the patient presents with postoperative edema in the left foot, which has persisted since his heart surgery. He denies any associated chest pain or shortness of breath. Regarding his cholesterol levels, it was noted that his LDL cholesterol was recently in the 80s; however, the target is below 70. He expresses reluctance to alter his current medication regimen. His home-monitored blood pressures are reported to be stable and benign. Social History Health Maintenance - Encouragement to obtain a PSA test for prostate health screening. Review of Systems - Cardiovascular: Denies chest pain or s hortness of breath. - Musculoskeletal: Reports increased dara n in the left hip. Physical Exam General: Cooperative, healthy appearing, comfortable, no acute distress and well developed, obese Orientation: Patient oriented x3 Limitations: No limitations Head: Normal to inspection Ears: Hearing grossly normal bilaterally Nose: Normal external nose present Face and sinus: Normal facial exam Eyes: Appearance normal, both eyes and all related structures Neck: Normal visual inspection and Yes full ROM Respiratory: Normal respiratory effort and able to speak in complete sentences. Clear to auscultation bilaterally Cardiovascular: Regular rate and rhythm. Normal S1 and S2 GI: Normal to inspection. Soft to palpation and nontender Skin: No rashes or lesions noted Neuro: Patient oriented x3 Extremities: Weak dorsalis pedis pulse to the left foot, with some edema present since heart surgery. Results - Recent X-ray (last year) showed mild d egenerative changes in the left hip. - LDL cholesterol: 80 mg/dL (recently no edgardo). Plan - Continue current antihypertensive darnell men, as home blood pressure readings are stable. - Obtain an X-ray of the left hip to ass ess for any progression in the degenerative changes. - Encourage the patient to follow throug h with a PSA test for screening purposes given his age. - Discuss cholesterol management further during cardiology visits and consider adjusting regimen to lower LDL if possible. Patient was informed and verbally consented to the use of an ambient scribe for clinic note documentation during this visit. Discussion Notes During the visit, I discussed the patient's ongoing left hip pain, likely associated with osteoarthritis, and the need for a repeat X-ray to evaluate any worsening in the joint degeneration. The current regimen for managing his postoperative edema and cardiovascular risks post-heart surgery was reviewed, confirming blood pressure stability. Despite some reluctance from the patient to alter his medication for cholesterol management, I emphasized the importance of achieving LDL levels below 70 to minimize cardiovascular risks. We also touched upon the necessity of undergoing a PSA test, highlighting its importance for prostate health monitoring. Follow-up will be coordinated with cardiology regarding his hyperlipidemia management. Patient Instructions - Continue the current medication regime n for blood pressure management. - Proceed with the X-ray of the left hip as scheduled. - Ensure completion of the PSA test as r ecommended. - Monitor any changes or worsening in sy mptoms and report them promptly. - Discuss cholesterol management options with your home staging specialist during the next visit. [facility] Medical History Hypertensive retinopathy Pulmonary nodule Cough Ground glass opacity present on imaging of lung Restrictive lung disease Obesity (BMI 30-39.9) Arthralgia Tinea cruris RBBB RAD (reactive airway disease) LVH (left ventricular hypertrophy) Sacroiliitis Diverticulitis Cervical spondylosis JOHANNY (obstructive sleep apnea) Anemia Carpal tunnel syndrome of left wrist Insomnia GERD (gastroesophageal reflux disease) Hypertension Neuropathy Surgical History S/P CABG x 4 History of cardiac cath History of carpal tunnel surgery History of tonsillectomy Family History Father Myocardial infarction Diabetes mellitus CVD (cardiovascular disease) Mother No problems noted. Brother Diabetes mellitus Sister Diabetes mellitus Cancer Social History Housing: House Alcohol intake: former Patient Tobacco Use Status: Never used Tobacco e-Cigarette/Vaping Use: Never Used service: No Current occupational status: disabled Cognitive needs: No Hearing needs: No Vision needs: Yes Questionnaire Thrive Questionnaire Date Thrive assessed: 05/31/24 I am a: Patient What is your living situation today?: I choose not to answer this question Within the past 12 months, did the food you bought not last and you didn't have the money to get more?: I choose not to answer this question Within the past 12 months, did you worry whether your food would run out before you got money to buy more?: I choose not to answer this question Do you have trouble paying for medicines?: I choose not to answer this question Do you have trouble getting transportation to medical appointments?: I choose not to answer this question Do you have trouble paying your heating and electricity bill?: I choose not to answer this question Do you have trouble taking care of your child, family member or friend?: I choose not to answer this question Do you have trouble with day-to-day activities such as bathing, preparing meals, shopping, managing finances, etc.?: I choose not to answer this question Are you currently unemployed and looking for a job?: I choose not to answer this question Are you interested in more education?: I choose not to answer this question Please select the resources that you would like help with: None Currently or been in a relationship where the following occur: No concerns reported THRIVE Score: 0 AUDIT C Alcohol Use Questionnaire (AUDIT-C) 1. How often do you have a drink containing alcohol?: Never 3. How often do you have six or more drinks on one occasion?: Never Total Score: 0 Score Reviewed/Action Taken: Yes JAYANT-7 AMB Questionnaire JAYANT-7 Date JAYANT - 7 assessed: 05/31/24 Feeling nervous, anxious, or on edge: 0 = Not at all Not being able to stop or control worryin = Not at all Worrying too much about different things: 0 = Not at all Trouble relaxin = Not at all Being so restless that it is hard to sit still: 0 = Not at all Becoming easily annoyed or irritable: 0 = Not at all Feeling afraid as if something awful might happen: 0 = Not at all Total JAYANT-7 score (0-4 normal; 5-9 mild; 10-14 moderate; 15-21 severe): 0 Source: Developed by Drs. Sunil Mccloud, Martina Neal, Robert Dey and colleagues, with an educational guille from [employer]. JAYANT-7 Assessment Billing JAYANT-7 Assessment Tool: JAYANT-7 Assessment 81953 Physical exam (Primary Care) Vital Signs: Last Vital Signs Pulse 76 05/31/24 08:19 BP 120/78 05/31/24 08:19 Pulse Ox 98 05/31/24 08:19 BMI result Body Mass Index 33.0 Tobacco/Smoking Status: Tobacco use Status Tobacco use date assessed 05/31/24 05/31/24 08:20 Patient Tobacco Use Status Never used Tobacco 05/31/24 08:20 e-Cigarette/Vaping Use Never Used 05/31/24 08:20 Thrive Assessment: Date of Thrive Assessment Date Thrive assessed 05/31/24 05/31/24 08:20 Currently or been in a relationship where the following occur: No concerns reported Coding Level of Care Code Est Pt Level 3 (87489) Diagnoses Left hip pain M25.552 CAD (coronary artery disease) I25.10 Primary hypertension I10 Hypertension type: primary hypertension Dyslipidemia E78.5 Additional Codes JAYANT-7 Assessment Billing - JAYANT-7 Assessment Tool: JAYANT-7 Assessment 65291 ([id number]) Assessment & Plan Assessment & Plan (1) Left hip pain: Code(s): M25.552 - Pain in left hip Category: Medical (2) CAD (coronary artery disease): Code(s): I25.10 - Atherosclerotic heart disease of [place] coronary artery without angina pectoris Category: Medical (3) Hypertension: Code(s): I10 - Essential (primary) hypertension Category: Medical Qualifiers: Hypertension type: primary hypertension Qualified Code(s): I10 - Essential (primary) hypertension Plan: . (4) Dyslipidemia: Code(s): E78.5 - Hyperlipidemia, unspecified Category: Medical Plan . Orders: Orders XR hip LT min 2V w/wo pel Today M25.552 - Pain in left hip
[2024-05-31 08:19] VITALS: BP 120/78; PULSE 76; O2SAT 98; BMI 33.0
--- OUTSIDE RECORDS SUMMARY | 2024-05-31 08:26 | XMS_ITS ---
Author Organization [facility] Address [address] [place] [address] Care Team Providers Care Settlement Agent Name Role Phone CYNDI JUNIOR Primary Care [...] 09/17/2023 Encounters Encounter Location Date Provider Diagnosis [facility] [address] [place] [address] 09/17/2023 Basilio Naylor Jr Gastroesophageal reflux disease [...] Name:Basilio vang Jr, 09/20/2024 09:00:00 AM, [address], [address], [place], [address],
--- OUTSIDE RECORDS SUMMARY | 2024-05-31 08:27 | XMS_ITS | Patient Health Record ---
Author Organization [facility] Address [address] [place] [address] Care Team Providers Care Neuropsychology Medical Consultant Name Role Phone CYNDI JUNIOR Primary Care Provider Basilio Lindsey Jr Unavailable [phone] ALLERGIES Allergen (clinical drug ingredient) Drug/Non Drug [...] reflux disease without esophagitis (K21.9) Active confirmed 518174089 Problem Diverticulitis of large intestine without perforation or abscess without bleeding (K57.32) Active confirmed 5625734 Problem Colon cancer screening (Z12.11) Active confirmed 794650145 Problem Gastroesophageal reflux disease (K21.9) Active confirmed Gastroesophagea l reflux disease (516895490) VITAL SIGNS Temperature 97.7 degrees Fahrenheit 09/17/2023 Blood pressure diastolic 00 mm Hg 09/17/2023 Height 65 in 09/17/2023 Blood pressure systolic 000 mm Hg 09/17/2023 Weight 204 lbs 09/17/2023 BMI 33.94 kg/m2 09/17/2023 Encounters Encounter Location Date Provider Diagnosis [facility] [address] [place] [address] 09/17/2023 Basilio Naylor Jr Gastroesophageal reflux disease [...] Ilda vang Jr, 09/20/2024 09:00:00 AM, [address] [facility], [address], [place], [address], Insurance Providers Payer Name Payer Address Payer Phone Subscriber Number Group Number Insured Name Patient Relationship to Insured Coverage Start Date Coverage End Date MEDICARE OF [place] [address] [place] [id number] AYANA STOUT Self - patient is the insured MEDICAID OF [place] [address] [place] [address] [id number] AYANA STOUT Self - patient is the [...]
== END 2024-05-31 08:53 | disposition home or self-care (01) ==
PROVIDERS: PCP Nurse Practitioner Family; Visit Provider Nurse Practitioner Family
DX: M25.552 Pain in left hip (principal); I25.10 Atherosclerotic heart disease of native coronary artery without angina pectoris; I10 Essential (primary) hypertension; E78.5 Hyperlipidemia, unspecified

== ENCOUNTER 2024-05-31 08:17 | Outpatient (REF) | payer OTHER, SELFPAY ==
--- NOTE | ~2024-05-31 | XR_ITS ---
CLINICAL HISTORY: M25.552 - Pain in left hip 2 view, pelvis and left hip Comparison: None Findings: The bones are intact. No significant arthritic change. The soft tissues are unremarkable. IMPRESSION: No acute findings. This document has been electronically signed by: Rosalino Freeman MD on 05/31/2024 10:11:43
== END 2024-05-31 08:18 | disposition home or self-care (01) ==
LOC: HO.HMGCX 08:17
PROVIDERS: PCP Nurse Practitioner Family; Visit Provider Nurse Practitioner Family
DX: M25.552 Pain in left hip (principal); I25.10 Atherosclerotic heart disease of native coronary artery without angina pectoris; I10 Essential (primary) hypertension; E78.5 Hyperlipidemia, unspecified
CPT/HCPCS: 73501; 96127; 99212

== ENCOUNTER → 2024-05-31 09:00 | Outpatient (BNV) | payer OTHER, SELFPAY | PROVIDERS: PCP Nurse Practitioner Family; Visit Provider Radiology Diagnostic Radiology | DX: M25.552 Pain in left hip (principal) | CPT/HCPCS: 73501 ==

== ENCOUNTER 2024-09-14 06:07 | Outpatient (REF) | payer MEDICARE, MEDICAID, SELFPAY ==
[2024-09-14 11:05] LABS: Prostate Specific Antigen 1.01 ng/mL (<0.05-4.0)
== END 2024-09-14 06:08 | disposition home or self-care (01) ==
LOC: HO.HMGCLDS 06:07
PROVIDERS: PCP Nurse Practitioner Family; Visit Provider Urology
DX: N40.1 Benign prostatic hyperplasia with lower urinary tract symptoms (principal); R35.1 Nocturia; Z12.5 Encounter for screening for malignant neoplasm of prostate
CPT/HCPCS: 36415; 84153

== ENCOUNTER 2024-09-27 08:56 | Outpatient (REF) | payer MEDICARE, MEDICAID, SELFPAY ==
--- NOTE | ~2024-09-27 | XR_ITS ---
EXAMINATION: XR LUMBOSACRAL SPINE CLINICAL INFORMATION: M54.50 - Low back pain, unspecified COMPARISON: None available. TECHNIQUE: Three views of the lumbosacral spine. FINDINGS: Normal bone mineralization. No scoliosis. Mild straightening of the normal lordosis. Normal sagittal alignment without subluxation. No fracture, compression deformity, or suspicious bone lesion. Disc spaces largely preserved at all levels. Facets normally aligned. No significant facet arthrosis. Sacrum intact. SI joints appear normal. Normal soft tissues. XR/XR lumbar spine 2-3V IMPRESSION: Essentially normal lumbar spine radiographs. Electronically signed by: Jong Guerrero MD 09/27/2024 11:27 AM EDT
--- OUTSIDE RECORDS SUMMARY | 2024-09-27 09:44 | XMS_ITS ---
Author Organization [facility] Address [address] [place] [address] Care Team Providers Care Materials Specialist Name Role Phone CYNDI JUNIOR Primary Care Provider Basilio Lindsey Jr Unavailable Allergies Allergen (clinical drug ingredient) Drug/Non Drug Allergy documented on EMR Reaction Allergy Type Onset Date Status Norflex Unknown Drug Allergy Active piroxicam Feldene Unknown Drug Allergy Active REASON FOR VISIT Patient presents today for an ffice visit f/u for hx of gerd,diverticulitis Medications Medication SIG (Take, Route, Frequency, Duration) Notes [...] Once a day for 30 day(s) Active Immunizations Vaccine Route Administration Date Status Comme nts Influenza Unknown 09/17/2023 Refused Vital Signs Temperature 97.7 degrees Fahrenheit 09/17/19 24 Blood pressure systolic 000 mm Hg 09/17/19 24 Blood pressure diastolic 00 mm Hg 024 Height 65 in 09/17/2023 Weight 204 lbs 09/17/2023 BMI 33.94 kg/m2 09/17/2023 Encounters Encounter Location Date Provider Diagnosis [facility] [address] [place] [address] 09/17/2023 Basilio Naylor Jr Gastroesophageal reflux disease without esophagitis K21.9 and Colon cancer screening Z12.11 Assessments Encounter Date Diagnosis (ICD Code) Assessment Notes Treatment Notes Treatment Clinical Notes Section Notes 09/17/2023 Gastroesophageal reflux disease without esophagitis (ICD-10 - K21.9) Gastroesophageal reflux disease material was printed At this time, he is doing well. Reflux symptoms are under good control. We discussed the long-term safety profile of omeprazole which is generally favorable. He will continue medication, and we discussed diet, lifestyle modifications , and weight management regarding treatment of reflux Is up-to-date on colorectal cancer screening, and ten-year followup is recommended according to present guidelines. 09/17/2023 Colon cancer screening (ICD-10 - Z12.11) At this time, he is doing well. Reflux symptoms are under good control. We discussed the long-term safety profile of omeprazole which is generally favorable. He will continue medication, and we discussed diet, lifestyle modifications , and weight management regarding treatment of reflux Is up-to-date on colorectal cancer screening, and ten-year followup is recommended according to present guidelines. Plan Of Treatment Treatment Notes Assessment Notes Gastroesophageal reflux dise ase without esophagitis Gastroesophageal reflux disease material was printed Next Appt Details Follow Up: 1 Year, Reason: Provider Name:Basilio vang , 09/21/2025 09:00:00 AM, [address], [address], [place], [address], Progress Notes * JONNIE STOUTDOB:1960 (63 yo M)Acc No.[id number]:09/17/2023 Progress Notes Patient:?JONNIE STOUT Provider:?Basilio Naylor MD :1960???Age:63 Y???Sex:Male Jeffery e:09/17/2023 Address:[address] [place], [place] [id number] Pcp:CYNDI JUNIOR Subjective: * Chief Complaints: * ???1. Patient presents today for an ffice visit f/u for hx of gerd,diverticulitis. * HPI: ???New symptom(s):? Jonnie is a pleasant 63-year-old man seen today in followup of gastroesophageal reflux disease and colon cancer screening. He underwent upper endoscopy and colonoscopy in June of last year. There was no evidence of H. pylori or Andersen's esophagus. We reviewed this today. Reflux symptoms are well-controlled on omeprazole 20 mg daily. He has no dysphagia, hematemesis, or melena. ?Colonoscopy the same time was normal. He has no rectal bleeding or change in his bowel habits. ?He underwent coronary artery bypass grafting in November of this year and has done well. * Medical History:?Gastroesoph ageal reflux disease, EGD 07/11, and no H. 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 * Surgical History:?carpal joy melani surgery bilaterally , CABG x4 12/12/22. * Hospitalization/Major Diagno stic Procedure:?CABG x4 12/12/22. * Family History:?Father: dece ased 84 yrs.?Mother: 62 yrs, diagnosed with Diabetes.? His father has a history of a hiatal hernia. Otherwise he has a negative family history for colon cancer or polyps. No family history of liver cancer. * Social History:?Tobacco Use:?Tobacco Use/Smoking?Are you a: nonsmoker.?Drugs/Alcohol:?Alcohol Screen?Points: 0, Interpretation: Negative.?Miscellaneous:?Marital status: . Occupation: disabled. * Medications:?Taking Clopidog rel Bisulfate 75 MG Tablet 1 tablet Orally Once a day, Taking Aspirin 81 81 MG Tablet Delayed Release 1 tablet Orally Once a day, Taking Fluvastatin Sodium 40 MG Capsule 1 capsule Orally Twice a day, Taking MiraLax (colon prep) 17 GM/SCOOP Powder mixed with Gatorade or Crystal Light Orally begin at 5:00 p.m. the day before the procedure, Taking Valsartan 320 MG Tablet 1 tablet Orally Once a day, Taking Krill Oil 350 MG Capsule as directed Orally , Taking Vitamin B 12 500 MCG Tablet 1 tablet Orally Once a day, Taking Vitamin D-3 125 MCG (5000 UT) Tablet as directed Orally , Taking Magnesium 200 MG Tablet 2 tablets with a meal Orally Once a day, Taking Zinc 50 MG Tablet 1 tablet Orally Once a day, Taking Potassium 99 MG Tablet 1 tablet Orally Once a day, Taking Acetaminophen 8 Hour 650 MG Tablet Extended Release 2 tablets as needed Orally every 8 hrs, Taking Cetirizine HCl 10 MG Tablet 1 tablet Orally Once a day, Taking CoQ-10 100 MG Capsule as directed Orally , Taking Sildenafil Citrate 25 MG Tablet 1 tablet as needed Orally Once a day, Taking Metoprolol Succinate 25 MG Capsule ER 24 Hour Sprinkle 1 capsule Orally Once a day, Taking Ezetimibe 10 MG Tablet 1 tablet Orally Once a day, Taking Rosuvastatin Calcium 5 MG Tablet 1 tablet Orally Once a day, Taking Omeprazole 40 MG Capsule Delayed Release TAKE 1 CAPSULE BY MOUTH ONCE DAILY 30 MINUTES BEFORE MORNING MEAL , Taking amLODIPine Besylate 2.5 MG Tablet TAKE 1 TABLET BY MOUTH ONCE DAILY Oral , Notes: I10,Unavailable, Taking Fluvastatin Sodium ER 80 MG Tablet Extended Release 24 Hour Oral , Taking Metoprolol Tartrate 25 MG Tablet TAKE 1 & 1/2 (ONE & ONE- HALF) TABLETS BY MOUTH TWICE DAILY Oral , Discontinued Pravastatin Sodium 80mg , Discontinued Omeprazole 20 MG Capsule Delayed Release 1 capsule Orally Once a day, Medication List reviewed and reconciled with the patient * Allergies:?Norflex, Feldene. Objective: * Vitals:?Wt: 204 lbs, Ht: 65 in, BMI:33.94 Index, BP: 000/00 mm Hg, Temp: 97.7. * Examination: ???General Examination: ???On examination today, he appears well. Skin is anicteric. Lungs are clear. Heart shows regular rate and rhythm. Abdomen is soft without focal mass or tenderness. Extremities are without edema. Assessment: * Assessment: 1.?Gastroesophageal reflux d isease without esophagitis - K21.9 (Primary)?2.?Colon cancer screening - Z12.11? At this time, he is doing we ll. Reflux symptoms are under good control. We discussed the long-term safety profile of omeprazole which is generally favorable. He will continue medication, and we discussed diet, lifestyle modifications, and weight management regarding treatment of reflux Is up-to-date on colorectal cancer screening, and ten-year followup is recommended according to present guidelines. Plan: * Treatment: * Immunizations:? Influenza (Not administered - Refused: Patient decision) * Procedure Codes:?3017F COLOR ECTAL CA SCREEN DOC REV, G9903 Pt scrn tbco id as non user, G9744 PATIENT NOT ELIG D/T ACTIVE DX HTN * Preventive Medicine:? ??Counseling:?Care goal follow-up plan:?Above Normal BMI Follow-up?Giving encouragement to exercise,?BMI management provided?Yes.? * Follow Up:?1 Year * * Sign off status: Completed true * Provider:?Basilio Naylor MD Date:?0 09/17/2023 Generated for [place] y[place]/eTransmitting on:?09/27/2024 09:44 AM EDT History and Physical Notes * HPI (History of Present Illness) Category Sub-Category Detail Notes Category Not es New symptom(s) Jonnie is a pleasant 63-year-old man seen today in followup of gastroesophageal reflux disease and colon cancer screening. He underwent upper endoscopy and colonoscopy in June of last year. There was no evidence of H. pylori or Andersen's esophagus. We reviewed this today. Reflux symptoms are well-controlled on omeprazole 20 mg daily. He has no dysphagia, hematemesis, or melena. Colonoscopy the same time was normal. He has no rectal bleeding or change in his bowel habits. He underwent coronary artery bypass grafting in November of this year and has done well. Examination Category Sub-Category Detail Notes Category Not es General Examination On exami nation today, he appears well. Skin is anicteric. Lungs are clear. Heart shows regular rate and rhythm. Abdomen is soft without focal mass or tenderness. Extremities are without edema.
--- OUTSIDE RECORDS SUMMARY | 2024-09-27 09:45 | XMS_ITS | Patient Health Record ---
Author Organization [facility] Address [address] [place] [address] Care Team Providers Care Special Effects Designer Name Role Phone CYNDI JUNIOR Primary Care Provider Basilio Lindsey Jr Unavailable [phone] Allergies Allergen (clinical drug ingredient) Drug/Non Drug Allergy documented on EMR Reaction Allergy Type Onset Date Status Norflex Unknown Drug Allergy Active piroxicam Feldene Unknown Drug Allergy Active Reason For Referral No Information Medications Medication SIG (Take, Route, Frequency, Duration) Notes Start Date End Date Status Valsartan 320 MG 1 tablet Orally Once a day for 30 day(s) Active Metoprolol Succinate 25 MG 1 capsule Orally Once a day Active Ezetimibe 10 MG 1 tablet Orally Once a day for 30 day(s) Active Clopidogrel Bisulfate 75 MG 1 tablet Orally Once a day for 30 day(s) Active Fluvastatin Sodium 40 MG 1 capsule Orally Twice a day for 30 day(s) Active Sildenafil Citrate 25 MG 1 tablet as needed Orally Once a day for 30 day(s) Active amLODIPine Besylate 2.5 MG Oral for 90 Days Active Metoprolol Tartrate 25 MG Oral for 90 Days Active Omeprazole 40 MG TAKE 1 CAPSULE BY MOUTH ONCE DAILY 30 MINUTES BEFORE MORNING MEAL for 90 Active Clopidogrel Bisulfate 75 MG Oral for 90 Days Active Magnesium 200 MG 2 tablets with a meal Orally Once a day for 30 day(s) Active Fluvastatin Sodium ER 80 MG Oral for 90 Active Zinc 50 MG 1 tablet Orally Once a day for 30 day(s) Active Metoprolol Tartrate 25 MG TAKE 1 & 1/2 (ONE & ONE-HALF) TABLETS BY MOUTH TWICE DAILY Oral for 90 Active Vitamin B 12 500 MCG 1 tablet Orally Onc e a day for 30 day(s) Active Rosuvastatin Calcium 5 MG 1 tablet Orally Once a day for 30 day(s) Active Vitamin D-3 125 MCG (5000 UT) as directed Orally Active amLODIPine Besylate 2.5 MG TAKE 1 TABLET BY MOUTH ONCE DAILY Oral for 90 I10,Unavailable Active Immunizations Vaccine Route Administration Date Status Comme nts Influenza Unknown 04/30/2022 Administered Influenza Unknown 09/17/2023 Refused Influenza Unknown 09/20/2024 Refused Problems Problem Type SNOMED Code ICD Code Onset Dates Problem Status W/U Status Risk Notes Problem 567022667 Colon cancer screening (Z12.11) Active confirmed Problem Hemorrhoids (K64.9) Active confirmed Problem 2074025 Diverticulitis o f large intestine without perforation or abscess without bleeding (K57.32) Active confirmed Problem Gastroesophageal reflux disease (113793976) Gastroesophageal reflux disease (K21.9) Active confirmed Problem 423433890 Gastroesophageal reflux disease without esophagitis (K21.9) Active confirmed Vital Signs Temperature 97.5 degrees Fahrenheit 09/20/2024 Blood pressure diastolic 01 mm Hg 09/20/2024 Height 65 in 09/20/2024 Blood pressure systolic 001 mm Hg 09/20/2024 Weight 215 lbs 09/20/2024 BMI 35.77 kg/m2 09/20/2024 Encounters Encounter Location Date Provider Diagnosis [facility] [address] [place] [address] 09/20/2024 Basilio Naylor Jr Gastroesophageal reflux disease without esophagitis K21.9 ; Diverticulitis of large intestine without perforation or abscess without bleeding K57.32 and Hemorrhoids K64.9 Assessments Encounter Date Diagnosis (ICD Code) Assessment Notes Treatment Notes Treatment Clinical Notes Section Notes 09/20/2024 Diverticulitis of large intestine without perforation or abscess without bleeding (ICD-10 - K57.32) At this time, he is doing well. We discussed gastroesophageal reflux disease today. We discussed continued use of omeprazole. He had some questions about the size of the capsules and we discussed that sometimes pharmaceutical companies change sizes based on availability and manufacturing but this should not affect the potency or the efficacy of the medication. Diverticular disease is stable continue high-fiber diet. For treatment of hemorrhoids we recommended 1% hydrocortisone cream as needed. We also recommended a high-fiber diet. We discussed surgery which we are not recommending at this time. Follow-up in 1 year. 09/20/2024 Gastroesophageal reflux disease without esophagitis (ICD-10 - K21.9) At this time, he is doing well. We discussed gastroesophageal reflux disease today. We discussed continued use of omeprazole. He had some questions about the size of the capsules and we discussed that sometimes pharmaceutical companies change sizes based on availability and manufacturing but this should not affect the potency or the efficacy of the medication. Diverticular disease is stable continue high-fiber diet. For treatment of hemorrhoids we recommended 1% hydrocortisone cream as needed. We also recommended a high-fiber diet. We discussed surgery which we are not recommending at this time. Follow-up in 1 year. 09/20/2024 Hemorrhoids (ICD-10 - K64.9) At this time, he is doing well. We discussed gastroesophageal reflux disease today. We discussed continued use of omeprazole. He had some questions about the size of the capsules and we discussed that sometimes pharmaceutical companies change sizes based on availability and manufacturing but this should not affect the potency or the efficacy of the medication. Diverticular disease is stable continue high-fiber diet. For treatment of hemorrhoids we recommended 1% hydrocortisone cream as needed. We also recommended a high-fiber diet. We discussed surgery which we are not recommending at this time. Follow-up in 1 year. Plan Of Treatment Future Test Test Name Order Date UPPER GI ENDOSCOPY 10/04/2015 COLONOSCOPY 10/04/2015 UPPER GI ENDOSCOPY 05/29/2022 COLONOSCOPY 05/29/2022 Next Appt Details Provider Name:Basilio vang , 09/21/2025 09:00:00 AM, [address] [place] [address], [address], [place], [address], Insurance Providers Payer Name Payer Address Payer Phone Subscriber Number Group Number Insured Name Patient Relationship to Insured Coverage Start Date Coverage End Date MEDICARE OF [place] [address] [place] [id number] AYANA STOUT Self - patient is the insured MEDICAID OF [facility] [address] [place] [address] [phone] [id number] AYANA STOUT Self - patient is the insured Medical (General) History Medical History History ICD Code Gastroesophageal reflux dise ase, EGD 07/11, and no H. pylori or Andersen's esophagus Colonoscopy, 07/11, no polyps, ten-year f ollowup hypertension elevated cholesterol disc disease hip pain joint pain Ganglioneuroma on colonoscopy 07/24, no r ecurrence Diverticulitis JOHANNY, mild, not using CPAP Coronary artery disease, CABG x4 Surgical History Surgery Date(Month/Year) CABG x4 12/12/22 carpal tunnel surgery bilaterally Hospitalization History Reason Date(Month/Year) CABG x4 12/12/22
--- OUTSIDE RECORDS SUMMARY | 2024-09-27 09:45 | XMS_ITS ---
Author Organization [facility] Address [address] [place] [address] Care Team Providers Care Plant Sprayer Name Role Phone CYNDI JUNIOR Primary Care Provider Basilio Lindsey Jr Unavailable Allergies Allergen (clinical drug ingredient) Drug/Non Drug Allergy documented on EMR Reaction Allergy Type Onset Date Status Norflex Unknown Drug Allergy Active piroxicam Feldene Unknown Drug Allergy Active REASON FOR VISIT Patient presents today for gerd Medications Medication SIG (Take, Route, Frequency, Duration) Notes Start Date End Date Status amLODIPine Besylate 2.5 MG Oral for 90 Days Active Metoprolol Tartrate 25 MG Oral for 90 Days Active Clopidogrel Bisulfate 75 MG Oral for 90 Days Active Omeprazole 40 MG TAKE 1 CAPSULE BY MOUTH ONCE DAILY 30 MINUTES BEFORE MORNING MEAL for 90 Active Fluvastatin Sodium ER 80 MG Oral for 90 Active Metoprolol Tartrate 25 MG TAKE 1 & 1/2 (ONE & ONE-HALF) TABLETS BY MOUTH TWICE DAILY Oral for 90 Active Rosuvastatin Calcium 5 MG 1 tablet Orally Once a day for 30 day(s) Active amLODIPine Besylate 2.5 MG TAKE 1 TABLET BY MOUTH ONCE DAILY Oral for 90 I10,Unavailable Active Metoprolol Succinate 25 MG 1 capsule Orally Once a day Active Ezetimibe 10 MG 1 tablet Orally Once a day for 30 day(s) Active Sildenafil Citrate 25 MG 1 tablet as needed Orally Once a day for 30 day(s) Active Magnesium 200 MG 2 tablets with a meal Orally Once a day for 30 day(s) Active Zinc 50 MG 1 tablet Orally Once a day for 30 day(s) Active Vitamin D-3 125 MCG (5000 UT) as directed Orally Active Valsartan 320 MG 1 tablet Orally Once a day for 30 day(s) Active Clopidogrel Bisulfate 75 MG 1 tablet Orally Once a day for 30 day(s) Active Fluvastatin Sodium 40 MG 1 capsule Orally Twice a day for 30 day(s) Active Vitamin B 12 500 MCG 1 tablet Orally Onc e a day for 30 day(s) Active Immunizations Vaccine Route Administration Date Status Comme nts Influenza Unknown 09/20/2024 Refused Problems Problem Type SNOMED Code ICD Code Onset Dates Problem Status W/U Status Risk Notes Problem Hemorrhoids (K64.9) Active confirmed Vital Signs Temperature 97.5 degrees Fahrenheit 09/21/19 25 Blood pressure systolic 001 mm Hg 09/21/19 25 Blood pressure diastolic 01 mm Hg 025 Height 65 in 09/20/2024 Weight 215 lbs 09/20/2024 BMI 35.77 kg/m2 09/20/2024 Encounters Encounter Location Date Provider Diagnosis [facility] [address] [place] [address] 09/20/2024 Basilio Naylor Jr Gastroesophageal reflux disease without esophagitis K21.9 ; Diverticulitis of large intestine without perforation or abscess without bleeding K57.32 and Hemorrhoids K64.9 Assessments Encounter Date Diagnosis (ICD Code) Assessment Notes Treatment Notes Treatment Clinical Notes Section Notes 09/20/2024 Gastroesophageal reflux disease without esophagitis (ICD-10 [...] this time. Follow-up in 1 year. 09/20/2024 Diverticulitis of large intestine without perforation [...] Follow-up in 1 year. Plan Of Treatment Next Appt Details Follow Up: 1 Year, Reason: Provider Name:Bsailio vang , 09/21/2025 09:00:00 AM, [address] [place] [address], [address], [place], [address], Progress Notes * AYANA ALEXANDERDOB:1960 (64 yo M)Acc No.[id number]:09/20/2024 Progress Notes Patient:?AYANA ALEXANDER Provider:?Basilio Naylor MD :1960???Age:64 Y???Sex:Male Jeffery e:09/20/2024 Address:[address] [place] [address] Pcp:CYNDI JUNIOR Subjective: * Chief Complaints: * ???1. Patient presents today for gerd. * HPI: ???New symptom(s):? Mr. Alexander is a pleasant 64-year-old man seen today in follow-up of gastroesophageal reflux disease and diverticular disease. Since we saw him last, he has been doing well. He continues on omeprazole 40 mg daily. He has no dysphagia, hematemesis, or melena. Weight and appetite have been stable. He has been prescribed some NSAIDs for his hip pain and notes this upsets his stomach. We advised him to use this as infrequently as possible and take it with food. Lower GI symptoms are stable he has not had any evidence of diverticulitis problems since we saw him last. He does have a history of hemorrhoids and these bother him occasionally we discussed using 1% hydrocortisone cream for treatment of these and making sure his diet is high in fiber and he is not straining at stool. * Medical History:?Gastroesoph ageal reflux disease, EGD [...] MG Tablet 1 tablet Orally Once a day , Taking Fluvastatin Sodium 40 MG Capsule 1 capsule Orally Twice a day , Taking Valsartan 320 MG Tablet 1 tablet Orally Once a day , Taking Vitamin B 12 500 MCG Tablet 1 tablet Orally Once a day , Taking Vitamin D-3 125 MCG (5000 UT) Tablet as directed Orally , Taking Magnesium 200 MG Tablet 2 tablets with a meal Orally Once a day , Taking Zinc 50 MG Tablet 1 tablet Orally Once a day , Taking Sildenafil Citrate 25 MG Tablet 1 tablet as needed Orally Once a day , Taking Metoprolol Succinate 25 MG Capsule ER 24 Hour Sprinkle 1 capsule Orally Once a day , Taking Ezetimibe 10 MG Tablet 1 tablet Orally Once a day , Taking Rosuvastatin Calcium 5 MG Tablet 1 tablet Orally Once a day , Taking amLODIPine Besylate 2.5 MG Tablet TAKE 1 TABLET BY MOUTH ONCE DAILY Oral , Notes to Pharmacist: I10,Unavailable, Taking Fluvastatin Sodium ER 80 MG Tablet Extended Release 24 Hour Oral , Taking Metoprolol Tartrate 25 MG Tablet TAKE 1 & 1/2 (ONE & ONE-HALF) TABLETS BY MOUTH TWICE DAILY Oral , Taking Omeprazole 40 MG Capsule Delayed Release TAKE 1 CAPSULE BY MOUTH ONCE DAILY 30 MINUTES BEFORE MORNING MEAL , Taking Clopidogrel Bisulfate 75 MG Tablet Oral , Taking amLODIPine Besylate 2.5 MG Tablet Oral , Taking Metoprolol Tartrate 25 MG Tablet Oral , Discontinued Krill Oil 350 MG Capsule as directed Orally , Discontinued Potassium 99 MG Tablet 1 tablet Orally Once a day , Discontinued Acetaminophen 8 Hour 650 MG Tablet Extended Release 2 tablets as needed Orally every 8 hrs , Discontinued Cetirizine HCl 10 MG Tablet 1 tablet Orally Once a day , Discontinued CoQ-10 100 MG Capsule as directed Orally , Discontinued Aspirin 81 81 MG Tablet Delayed Release 1 tablet Orally Once a day , Discontinued MiraLax (colon prep) 17 GM/SCOOP Powder mixed with Gatorade or Crystal Light Orally begin at 5:00 p.m. the day before the procedure , Medication List reviewed and reconciled with the patient * Allergies:?Norflex, Feldene. Objective: * Vitals:?Wt:215lbs, Ht: 65 in , BMI:35.77Index, BP:001/01mm Hg, Temp:97.5, Wt-k.52. * Examination: ???General Examination: ???On examination today, he appears well. Skin is anicteric. Lungs are clear. Heart shows a regular rate and rhythm. Abdomen is soft without focal masses or tenderness. Extremities are without edema. Assessment: * Assessment: 1.?Gastroesophageal reflux d isease without esophagitis - K21.9 (Primary)???2.?Diverticulitis of large intestine without perforation or abscess without bleeding - K57.32???3.?Hemorrhoids - K64.9??? At this time, he is doing we ll. We discussed gastroesophageal reflux disease today. We [...] at this time. Follow-up in 1 year. Plan: * Treatment: * Immunizations:? Influenza (Not administered - Refused: Patient decision) * Procedure Codes:?3017F COLOR ECTAL CA SCREEN DOC REV, G9903 Pt scrn tbco id as non user, G9744 PATIENT NOT ELIG D/T ACTIVE DX HTN * Preventive Medicine:? ??Counseling:?Care goal follow-up plan:?Above Normal BMI Follow-up?Dietary management education, guidance, and counseling,?BMI management provided?Yes.? * Follow Up:?1 Year * * Sign off status: Completed true * Provider:?Basilio Naylor MD Date:?0 09/20/2024 Generated for Kalen turner/Wellington/Georginasmitting on:?09/27/2024 09:45 AM EDT History and Physical Notes * HPI (History of Present Illness) Category Sub-Category Detail Notes Category Not es New symptom(s) Mr. Alexander is a pleasant 64-year-old man seen today in follow-up of gastroesophageal reflux disease and diverticular disease. Since we saw him last, he has been doing well. He continues on omeprazole 40 mg daily. He has no dysphagia, hematemesis, or melena. Weight and appetite have been stable. He has been prescribed some NSAIDs for his hip pain and notes this upsets his stomach. We advised him to use this as infrequently as possible and take it with food. Lower GI symptoms are stable he has not had any evidence of diverticulitis problems since we saw him last. He does have a history of hemorrhoids and these bother him occasionally we discussed using 1% hydrocortisone cream for treatment of these and making sure his diet is high in fiber and he is not straining at stool. Examination Category Sub-Category Detail Notes Category Not es General Examination On exami nation today, he appears well. Skin is anicteric. Lungs are clear. Heart shows a regular rate and rhythm. Abdomen is soft without focal masses or tenderness. Extremities are without edema.
== END 2024-09-27 08:57 | disposition home or self-care (01) ==
LOC: HO.HMGCX 08:56
PROVIDERS: PCP Nurse Practitioner Family; Visit Provider Nurse Practitioner Family
DX: M25.552 Pain in left hip (principal); M54.50 Low back pain, unspecified; E53.8 Deficiency of other specified B group vitamins; E55.9 Vitamin D deficiency, unspecified; E78.5 Hyperlipidemia, unspecified
CPT/HCPCS: 72100; 99212

== ENCOUNTER 2024-09-27 08:56 | Outpatient (AMB) | payer MEDICARE, MEDICAID, SELFPAY ==
[2024-09-27 08:59] VITALS: BP 120/76; PULSE 77; O2SAT 97; BMI 33.5
--- NOTE | 2024-09-27 08:59 | A.OFFPC_ITS ---
Vital Signs 09/27/24 08:59 Height 5 ft 7 in Weight 214 lb BMI 33.5 BP 120/76 Blood Pressure Location Rt brachial Position Sitting Pulse 77 Pulse Source Pulse Oximeter Pulse Oximetry (%) 97 Oxygen Delivery Method Room Air Intake Visit Reasons: 4 month follow up Solar Designer Required: No Accompanied by: Self / Same As Patient Allergies orphenadrine [From Norflex] Allergy (Mild, Verified 09/27/24 09:14) UNKNOWN piroxicam [From Feldene] Allergy (Mild, Verified 09/27/24 09:14) UNKNOWN amoxicillin Allergy (Unknown, Verified 09/27/24 09:14) unknown lisinopril Allergy (Unknown, Verified 09/27/24 09:14) cough pantoprazole [From Protonix] Adverse Reaction (Severe, Verified 09/27/24 09:14) Anaphylaxis Evuefsu-ITZ-ArV Reductase Inhibitor Adverse Reaction (Intermediate, Verified 09/27/24 09:14) myalgias, joint and hip pain pravastatin Adverse Reaction (Mild, Verified 09/27/24 09:14) body aches protonix Allergy (Severe, Uncoded 09/27/24 09:14) Angioedema Medication List - Last Reconciled 09/27/24 by TABITHA Root- amlodipine 2.5 mg PO DAILY cetirizine (All Day Allergy (cetirizine)) 10 mg PO DAILY PRN cholecalciferol (vitamin D3) 125 mcg PO DAILY clopidogrel 75 mg PO DAILY 90 days coenzyme Q10 100 mg PO DAILY ezetimibe 10 mg PO DAILY famotidine 20 mg PO DAILY fluorouracil 5% 1 appl topical BID fluvastatin ER 80 mg PO QPM 90 days magnesium 400 mg PO DAILY metoprolol tartrate 37.5 mg (1.5 x 25 mg) PO BID 90 days omeprazole 1 cap PO QAM zinc acetate 50 mg PO DAILY Tobacco use date assessed: 05/31/24 Fall risk assessment: No Falls in past year Last assessed Fall Risk: 09/27/24 Dental Screening Dental Screen Date: 05/31/24 HPI 4 month follow up HPI Details Chief Complaint The patient presents with concerns regarding ongoing lower back and left hip pain. History of Present Illness The patient is a 64-year-old male presenting with persistent dyslipidemia and musculoskeletal concerns. He is on fluvastatin ER and ezetimibe for dyslipidemia management, with regular cardiology follow-ups. His musculoskeletal complaints include chronic lower back pain and left hip pain, the latter not improved by a recent hip injection. Orthopedic evaluation suggested further assessment of his lower back given the ineffective hip treatment. The patient denies radicular pain symptoms but reports bilateral dorsalis pedis pulses and patellar reflexes as positive, with negative straight leg raises test. No signs of cauda equina syndrome were observed. He is also noted for obesity, which may contribute to his musculoskeletal issues. Social History - The patient is obese, impacting his [facility] health and potentially contributing to his musculoskeletal issues. - There is no mention of exercise, diet, or other lifestyle factors affecting his health. - The patient is obese, impacting his [facility] health and potentially contributing to his musculoskeletal issues. - There is no mention of exercise, diet, or other lifestyle factors affecting his health. Health Maintenance Review of Systems - Musculoskeletal: Reports persistent lo wer back and left hip pain. - Neurological: Denies radiculopathy or any signs of cauda equina syndrome. -denies any cp, sob, dizziness, or blurr ed vision Physical Exam General: Cooperative, healthy appearing, comfortable, no acute distress, well developed, and obese Orientation: Patient oriented x3 Limitations: No limitations Head: Normal to inspection Ears: Hearing grossly normal bilaterally Nose: Normal external nose present Face and sinus: Normal facial exam Eyes: Appearance normal, both eyes and all related structures Neck: Normal visual inspection and Yes full ROM Respiratory: Fairly clear lungs and able to speak in complete sentences. Clear to auscultation bilaterally Cardiovascular: Regular rate and rhythm. Normal S1 and S2 GI: Normal to inspection. Soft to palpation and nontender Skin: No rashes or lesions noted Neuro: Patient oriented x3. Positive patellar reflexes. Negative straight leg raises Extremities: Normal to inspection. Positive dorsalis pedis pulses bilaterally Results Plan The patient will maintain his current dyslipidemia regimen with fluvastatin ER and ezetimibe, continuing cardiology follow-up. We will order an X-ray of the lower back and left hip to evaluate ongoing pain. Further orthopedic evaluation may follow the diagnostic imaging results. Emphasis will be placed on weight management to potentially relieve joint pressure and improve pain symptoms. The patient will maintain his current dyslipidemia regimen with fluvastatin ER and ezetimibe, continuing cardiology follow-up. We will order an X-ray of the lower back and left hip to evaluate ongoing pain. Further orthopedic evaluation may follow the diagnostic imaging results. Emphasis will be placed on weight management to potentially relieve joint pressure and improve pain symptoms. Discussion Notes Patient Instructions - Continue taking all prescribed medicat ions as directed. - Follow up with cardiology regularly fo r dyslipidemia management. - Undergo the recommended X-ray for back and hip evaluation. - Focus on weight management to help red uce musculoskeletal pain. - Monitor for any new or worsening sympt oms, especially related to your lower back and hip. [facility] Medical History Hypertensive retinopathy Pulmonary nodule Cough Ground glass opacity present on imaging of lung Restrictive lung disease Obesity (BMI 30-39.9) Arthralgia Tinea cruris RBBB RAD (reactive airway disease) LVH (left ventricular hypertrophy) Sacroiliitis Diverticulitis Cervical spondylosis JOHANNY (obstructive sleep apnea) Anemia Carpal tunnel syndrome of left wrist Insomnia GERD (gastroesophageal reflux disease) Hypertension Neuropathy Surgical History S/P CABG x 4 History of cardiac cath History of carpal tunnel surgery History of tonsillectomy Family History Father Myocardial infarction Diabetes mellitus CVD (cardiovascular disease) Mother No problems noted. Brother Diabetes mellitus Sister Diabetes mellitus Cancer Social History Housing: House Alcohol intake: former Patient Tobacco Use Status: Never used Tobacco e-Cigarette/Vaping Use: Never Used service: No Current occupational status: disabled Cognitive needs: No Hearing needs: No Vision needs: Yes Questionnaire Thrive Questionnaire Date Thrive assessed: 09/27/24 I am a: Patient What is your living situation today?: I choose not to answer this question Within the past 12 months, did the food you bought not last and you didn't have the money to get more?: I choose not to answer this question Within the past 12 months, did you worry whether your food would run out before you got money to buy more?: I choose not to answer this question Do you have trouble paying for medicines?: I choose not to answer this question Do you have trouble getting transportation to medical appointments?: I choose not to answer this question Do you have trouble paying your heating and electricity bill?: I choose not to answer this question Do you have trouble taking care of your child, family member or friend?: I choose not to answer this question Do you have trouble with day-to-day activities such as bathing, preparing meals, shopping, managing finances, etc.?: I choose not to answer this question Are you currently unemployed and looking for a job?: I choose not to answer this question Are you interested in more education?: I choose not to answer this question Please select the resources that you would like help with: None Currently or been in a relationship where the following occur: No concerns reported THRIVE Score: 0 AUDIT C Alcohol Use Questionnaire (AUDIT-C) 1. How often do you have a drink containing alcohol?: Never 3. How often do you have six or more drinks on one occasion?: Never Total Score: 0 Score Reviewed/Action Taken: Yes JAYANT-7 AMB Questionnaire JAYANT-7 Date JAYANT - 7 assessed: 05/31/24 Source: Developed by Drs. Sunil Mccloud, Martina Neal, Robert Dey and colleagues, with an educational guille from [employer]. Physical exam (Primary Care) Vital Signs: Last Vital Signs Pulse 77 09/27/24 08:59 BP 120/76 09/27/24 08:59 Pulse Ox 97 09/27/24 08:59 Oxygen Delivery Method Room Air 09/27/24 08:59 BMI result Body Mass Index 33.5 Tobacco/Smoking Status: Tobacco use Status Tobacco use date assessed 05/31/24 09/27/24 09:01 Patient Tobacco Use Status Never used Tobacco 09/27/24 09:01 e-Cigarette/Vaping Use Never Used 09/27/24 09:01 Thrive Assessment: Date of Thrive Assessment Date Thrive assessed 09/27/24 09/27/24 09:01 Currently or been in a relationship where the following occur: No concerns reported Coding Level of Care Code Est Pt Level 4 (81168) Diagnoses Dyslipidemia E78.5 Disorder of vitamin B12 E53.8 Lower back pain M54.50 Vitamin D deficiency E55.9 Assessment & Plan Assessment & Plan (1) Dyslipidemia: Code(s): E78.5 - Hyperlipidemia, unspecified Category: Medical (2) Disorder of vitamin B12: Code(s): E53.8 - Deficiency of other specified B group vitamins Category: Medical (3) Lower back pain: Code(s): M54.50 - Low back pain, unspecified Category: Medical (4) Vitamin D deficiency: Code(s): E55.9 - Vitamin D deficiency, unspecified Category: Medical Plan . Orders: Orders Comprehensive [place]. Panel Fast Today E53.8 - Deficiency of other specified B group vitamins, E78.5 - Hyperlipidemia, unspecified TSH reflex Free T4 Today E53.8 - Deficiency of other specified B group vitamins, E78.5 - Hyperlipidemia, unspecified Lipid Panel Today E53.8 - Deficiency of other specified B group vitamins, E78.5 - Hyperlipidemia, unspecified Vitamin B12 and Folate Today E53.8 - Deficiency of other specified B group vitamins Vitamin D 25-OH Total Today E55.9 - Vitamin D deficiency, unspecified Complete Blood Count Auto Diff Today E53.8 - Deficiency of other specified B group vitamins, E78.5 - Hyperlipidemia, unspecified UA CC w/rflx Micro + Cult Today E53.8 - Deficiency of other specified B group vitamins, E78.5 - Hyperlipidemia, unspecified XR lumbar spine 2-3V Today M54.50 - Low back pain, unspecified
== END 2024-09-27 10:28 | disposition home or self-care (01) ==
LOC: HO.HMCC 08:57
PROVIDERS: PCP Nurse Practitioner Family; Visit Provider Nurse Practitioner Family
DX: E78.5 Hyperlipidemia, unspecified (principal); E53.8 Deficiency of other specified B group vitamins; M54.50 Low back pain, unspecified; E55.9 Vitamin D deficiency, unspecified

== ENCOUNTER → 2024-09-27 09:36 | Outpatient (BNV) | payer MEDICARE, MEDICAID, SELFPAY | PROVIDERS: PCP Nurse Practitioner Family; Visit Provider Radiology Diagnostic Radiology | DX: M54.50 Low back pain, unspecified (principal) | CPT/HCPCS: 72100 ==

== ENCOUNTER 2024-09-28 08:24 | Outpatient (AMB) | payer MEDICARE, MEDICAID, SELFPAY ==
--- NOTE | 2024-09-28 08:50 | A.OFFVIS_ITS ---
Intake Visit Reasons: 1y/PSA(set) Intake Note: Patient presents today for follow up on: nocturia Urology Med:None Antibiotic Allergy: Amoxicillin Blood Thinner: Clopidogrel PVR: 12ml's Embedded Systems Developer Required: No Accompanied by: Self / Same As Patient Allergies orphenadrine [From Norflex] Allergy (Mild, Verified 09/28/24 09:25) UNKNOWN piroxicam [From Feldene] Allergy (Mild, Verified 09/28/24 09:25) UNKNOWN amoxicillin Allergy (Unknown, Verified 09/28/24 09:25) unknown lisinopril Allergy (Unknown, Verified 09/28/24 09:25) cough pantoprazole [From Protonix] Adverse Reaction (Severe, Verified 09/28/24 09:25) Anaphylaxis Jnrgske-LZF-OaV Reductase Inhibitor Adverse Reaction (Intermediate, Verified 09/28/24 09:25) myalgias, joint and hip pain pravastatin Adverse Reaction (Mild, Verified 09/28/24 09:25) body aches protonix Allergy (Severe, Uncoded 09/28/24 09:25) Angioedema Medication List - Last Reconciled 09/28/24 by TABITHA Beth- amlodipine 2.5 mg PO DAILY cholecalciferol (vitamin D3) 125 mcg PO DAILY clopidogrel 75 mg PO DAILY 90 days ezetimibe 10 mg PO DAILY fluvastatin ER 80 mg PO QPM 90 days magnesium 400 mg PO DAILY mecobalamin (vitamin B12) 1,000 mcg PO DAILY metoprolol tartrate 37.5 mg (1.5 x 25 mg) PO BID 90 days omeprazole 1 cap PO QAM zinc acetate 50 mg PO DAILY HPI Comments Details: Jonnie is a very pleasant 64-year-old male patient of Dr. Neal. He has a past medical history of hypertensive retinopathy, pulmonary nodule, restrictive lung disease, obesity, arthralgia, reactive airway disease, left ventricular hypertrophy, diverticulitis, cervical spondylosis, obstructive sleep apnea, anemia, carpal tunnel, insomnia, GERD, hypertension, and neuropathy. He presents to the office today for follow-up of his lower urinary tract symptoms. In discussion with the patient today reports to be doing and feeling well. He denies having had any bothersome urinary issues since his last visit over a year ago. He does report following up with [facility] for his ongoing back pain. He does report noting intermittent episodes of right-sided flank pain. No CVA tenderness noted on exam today. He also discusses his anxiety regarding potential renal cancer. He reports previously having had quadruple bypass and being told he was giving a medication that could potentially cause kidney cancer in his enquiring follow-up regarding this issue. He denies urinary urgency, urinary frequency, incontinence, hematuria, dysuria, foul smelling urine, changes to urinary stream, fever, and or chills. He does report episodes of nocturia up to 2 times per night however does not find this to be an issue and feels he is self managing. He is happy with his current voiding parameters. In office urinalysis results reviewed with the patient today. PVR 12 mL. Recent PSA results reviewed with the patient today as noted and trended below: PSA: 09/10 1.0 PREVIOUS OFFICE NOTE: Elevated PSA/Abnormal ANETTE: He presents for further evaluation of prostate nodule. Current management is observation. Laboratory investigations include a total PSA evaluation 10/02 0.8 10/05 0.9, 04/07 1.1 04/04 - bladder US 20gm. Individualized Prostate Cancer Risk Calculator < 5% high risk, Would like to continue with observation and understands and accepts the risks of a possible delay in diagnosis. Overall symptoms are mild - minimal response to Flomax. Associated conditions hypertension Yes Therapeutic plan will be continued surveillance. [facility] Medical History Hypertensive retinopathy Pulmonary nodule Cough Ground glass opacity present on imaging of lung Restrictive lung disease Obesity (BMI 30-39.9) Arthralgia Tinea cruris RBBB RAD (reactive airway disease) LVH (left ventricular hypertrophy) Sacroiliitis Diverticulitis Cervical spondylosis JOHANNY (obstructive sleep apnea) Anemia Carpal tunnel syndrome of left wrist Insomnia GERD (gastroesophageal reflux disease) Hypertension Neuropathy Surgical History S/P CABG x 4 History of cardiac cath History of carpal tunnel surgery History of tonsillectomy Family History Father Myocardial infarction Diabetes mellitus CVD (cardiovascular disease) Mother No problems noted. Brother Diabetes mellitus Sister Diabetes mellitus Cancer Social History Housing: House Alcohol intake: former Patient Tobacco Use Status: Never used Tobacco e-Cigarette/Vaping Use: Never Used service: No Current occupational status: disabled Cognitive needs: No Hearing needs: No Vision needs: Yes Review of Systems Eyes Reports no additional complaints ENT Reports no additional complaints Card Reports as per HPI Resp Reports as per HPI GI Reports as per HPI Reports as per HPI Musc Reports as per HPI Neuro Reports no additional complaints Psych Reports no additional complaints Endo Reports no additional complaints Nehemiah/Lymph Reports no additional complaints Aller/Immun Reports no additional complaints Physical Exam Const General: cooperative, comfortable, no acute distress, well developed, alert and awake Nutritional Appearance: overweight Orientation/consciousness: patient oriented x3 Limitations: no limitations HEENT Head: Yes normal to inspection, Yes normocephalic and Yes atraumatic Ears: hearing grossly normal bilaterally Eyes General: appearance normal, both eyes and all related structures Neck Neck: Yes normal visual inspection and Yes trachea midline Chest Chest palpation & inspection: normal inspection of the chest Resp Effort & Inspection: normal respiratory effort and able to speak in complete sentences Cardio Rate: regular rate GI Inspection: Yes normal to inspection General: Yes no CVA tenderness Back/Spine/Pelvis Back: no CVA tenderness Skin General skin exam: no rashes or lesions noted Neuro General: patient oriented x3 Extrem General: Yes normal to inspection Psych Appearance: grossly normal and well kempt Mental Status: mental status grossly normal Speech and movement: Normal speech and movement present and Clear speech present Affect: normal affect Attitude: cooperative Thought process: Normal thought process present Thought content: Normal thought content present Insight: Fair insight present (Psych) Judgement: Fair judgement present (Psych) Office Procedures Post Void Residual Post Residual Void Post Void Residual (PVR): 12 [id number]-[id number] Void Residual by ultrasound Results AMB Urinalysis, Automated UA Leukoctes 0 Sahil/uL Last Edit by Jocelyne Grayson on 09/28/24 09:36 UA Nitrite Last Edit by Jocelyne Grayson on 09/28/24 09:36 UA Urobilinogen 0.2 mg/dL Last Edit by Jocelyne Grayson on 09/28/24 09:36 UA Protein 0 mg/dL Last Edit by Jocelyne Grayson on 09/28/24 09:36 UA pH 6.5 Last Edit by Jocelyne Grayson on 09/28/24 09:36 UA Blood 10 Phil/uL Last Edit by Jocelyne Grayson on 09/28/24 09:36 UA Specific [place] 1.005 Last Edit by Jocelyne Grayson on 09/28/24 09:36 UA Ketone Last Edit by Jocelyne Grayson on 09/28/24 09:36 UA Bilirubin 0 mg/dL Last Edit by Jocelyne Grayson on 09/28/24 09:36 UA Glucose 0 mg/dL Last Edit by Jocelyne Grayson on 09/28/24 09:36 Assessment & Plan Assessment & Plan (1) Flank pain: Code(s): R10.9 - Unspecified abdominal pain Category: Medical (2) Nocturia associated with benign prostatic hyperplasia: Code(s): N40.1 - Benign prostatic hyperplasia with lower urinary tract symptoms; R35.1 - Nocturia Category: Medical (3) Prostate nodule: Code(s): N40.2 - Nodular prostate without lower urinary tract symptoms Category: Medical (4) Nocturia more than twice per night: Code(s): R35.1 - Nocturia Category: Medical Plan In office urinalysis results reviewed with the patient today; as noted above. PVR 12 mL Will obtain renal ultrasound for further assessment evaluation. Patient currently denies any bothersome urinary issues or concerns. He reports be happy with current voiding parameters. Recent PSA results reviewed with the patient today; as noted above. We discussed lifestyle modifications to assist with nocturia such as limiting fluids 2-3 hours prior to bed to decrease episodes of nocturia. Will continue with surveillance monitoring. Follow-up in 3 months with imaging to be completed prior; or sooner with any issues, concerns, and or questions. Orders: Orders AMB Urinalysis Automated Today Z13.9 - Encounter for screening, unspecified AMB Post Void Residual by ultrasound Today R35.1 - Nocturia US renal BI Today R10.9 - Unspecified abdominal pain Patient Instructions: The patient had an opportunity to ask questions regarding the treatment plan. All questions were answered. Physical exam, labs, and imaging were discussed and reviewed in detail. As well as risks, benefits, and discussion of treatment choices. No major barriers to understanding were identified. The patient expressed understanding and agreement with the above treatment plan. The patient was made aware they should contact our office by phone for worsening of their current condition, the appearance of new symptoms, or with any questions or concerns. Compliance is encouraged with any medications and follow up testing that is ordered. It is a privilege to be allowed the opportunity to participate in? your urological care.? Again, if you have any questions or concerns If you have any questions or concerns please do not hesitate to contact me. The office is [phone]. This note is constructed using voice recognition software. While every effort has been made to ensure accuracy community health program representative errors may have been included. Yours sincerely, DONY Beth Coding Level of Care Code Est Pt Level 3 (24772) Complex EM visit Add On G2211 Diagnoses Flank pain R10.9 Nocturia associated with benign prostatic hyperplasia N40.1; R35.1 Prostate nodule N40.2 Nocturia more than twice per night R35.1 CPT Codes Post Residual Void - PVR CPT Code: 36088-Memz Void Residual by ultrasound ([id number])
== END 2024-09-28 09:27 | disposition home or self-care (01) ==
LOC: HO.HUSH 08:24
PROVIDERS: PCP Nurse Practitioner Family; Visit Provider Nurse Practitioner Family
DX: R10.9 Unspecified abdominal pain (principal); N40.1 Benign prostatic hyperplasia with lower urinary tract symptoms; R35.1 Nocturia; N40.2 Nodular prostate without lower urinary tract symptoms; Z13.9 Encounter for screening, unspecified
CPT/HCPCS: 99213; G2211

== ENCOUNTER → 2024-09-28 08:24 | Outpatient (BNVA) | payer MEDICARE, MEDICAID, SELFPAY | PROVIDERS: PCP Nurse Practitioner Family; Visit Provider Nurse Practitioner Family | DX: N40.1 Benign prostatic hyperplasia with lower urinary tract symptoms (principal); R35.1 Nocturia; N40.2 Nodular prostate without lower urinary tract symptoms; R10.9 Unspecified abdominal pain | CPT/HCPCS: 51798; 81003; 99212 ==

== ENCOUNTER 2024-09-30 06:07 | Outpatient (REF) | payer MEDICARE, MEDICAID, SELFPAY ==
[2024-09-30 10:33] LABS: MANUAL DIFF FLAG NO
[2024-09-30 10:49] LABS: Basophils Percent Auto 0.5 % (0-2); Eosinophils Absolute Auto 0.1 X10*3/uL (0.0-0.4); Eosinophils Percent Auto 1.2 % (0-4); Hematocrit 46.7 % (42.0-52.0); Hemoglobin 15.7 g/dl (14.0-18.0); Imm Gran Abs Auto 0.06 X10*3/uL (0.00-0.03); Imm Gran Pct Auto 0.7 % (0.0-0.4); Lymphocytes Absolute Auto 2.5 X10*3/uL (1.2-4.9); Lymphocytes Percent Auto 30.3 % (20-40); Mean Corpuscular HGB Conc 33.6 g/dl (31.0-36.0); Mean Corpuscular Hemoglobin 30.3 pg (27.0-33.0); Mean Platelet Volume 10.9 fL (9.4-12.4); Monocytes Absolute Auto 0.7 X10*3/uL (0.1-1.2); Monocytes Percent Auto 8.9 % (2-11); Neutrophils Absolute Auto 4.9 x10*3/uL (2.0-8.3); Neutrophils Percent Auto 58.4 % (45-73); Platelet Count 249 X10*3/uL (160-400); Red Blood Count 5.19 X10*6/uL (4.60-5.80); Red Cell Distribution Width 13.2 % (11.0-16.0); White Blood Count 8.3 X10*3/uL (4.8-10.8)
[2024-09-30 11:10] LABS: Alanine Aminotransferase 22 U/L (0-40); Albumin Level 4.6 g/dL (3.5-5.0); Alkaline Phosphatase 60 U/L (39-117); Anion Gap 13 (12-20); Aspartate Amino Transferase 25 U/L (5-37); Bilirubin Total 0.5 mg/dL (0.0-1.0); Blood Urea Nitrogen 22 mg/dL (9-16); Carbon Dioxide 27 mmol/L (22-29); Chloride 105 mmol/L (96-108); Cholesterol 173 mg/dL (<200); Estimated Glomerular Filt Rate > 60; Glucose Fasting 106 mg/dL (60-99); HDL Cholesterol 36 mg/dL (>40); LDL Cholesterol Calculated 110 mg/dL (<100); Sodium 141 mmol/L (135-145); Triglycerides 135 mg/dL (<150)
[2024-09-30 11:15] LABS: Appearance Urine Clear; Color Urine Yellow; Glucose Urine UA Negative (Negative); Leukocyte Esterase Urine Negative (Negative); Nitrite Urine Negative (Negative); UMIC TRIGGER UACC YES; Urine Blood Trace (Negative); Urine Ketones Negative (Negative); Urine Protein Negative (Neg-Trace)
[2024-09-30 11:19] LABS: Bacteria Urine None Seen (None Seen); Hyaline Casts Urine 0-2 /LPF (0-2); RBC Urine 0-2 /HPF (0-2); Squamous Epithelial Cell Urine 0-2 /HPF (0-2); WBC Urine 0-5 /HPF (0-5)
[2024-09-30 11:28] LABS: Folate 12.6 ng/mL (> or = 4.0); Vitamin B12 788 pg/mL (200-900)
[2024-09-30 11:29] LABS: TSH reflex Free T4 3.25 uIU/mL (0.32-4.0); Vitamin D 25-OH Total 74.2 ng/mL (>30)
== END 2024-09-30 06:08 | disposition home or self-care (01) ==
LOC: HO.HMGCLDS 06:07
PROVIDERS: PCP Nurse Practitioner Family; Visit Provider Nurse Practitioner Family
DX: E78.5 Hyperlipidemia, unspecified (principal); E53.8 Deficiency of other specified B group vitamins; E55.9 Vitamin D deficiency, unspecified
CPT/HCPCS: 36415; 80053; 80061; 81001; 82306; 82607; 82746; 84443; 85025

== ENCOUNTER 2024-10-03 09:14 | Outpatient (REF) | payer MEDICARE, MEDICAID, SELFPAY ==
--- NOTE | ~2024-10-03 | MR_ITS ---
CLINICAL HISTORY: M25.552 - Pain in left hip MR left hip without gadolinium Comparison: None Findings: No fractures. No pathologic bone lesions. Acetabulum and femoral neck unremarkable. No acetabular retroversion. No effusion. Acetabular labrum intact. There is gluteus medius tendinitis and peritendinitis with a partial tear at the tendon insertion along the lateral and supero posterior facets. The rest of the visualized muscles and tendons are unremarkable. There is a left inguinal hernia containing fat only. The visualized pelvic contents are only remarkable for colonic diverticulosis. IMPRESSION: There is gluteus medius tendinitis and peritendinitis with a partial tear at the tendon insertion along the lateral and supero posterior facets. This document has been electronically signed by: Rosalino Freeman MD on 10/04/2024 10:49:05
== END 2024-10-03 09:15 | disposition home or self-care (01) ==
LOC: HO.MRI 09:14
PROVIDERS: PCP Nurse Practitioner Family; Visit Provider Nurse Practitioner Family
DX: M25.552 Pain in left hip (principal); G89.29 Other chronic pain
CPT/HCPCS: 73721

== ENCOUNTER → 2024-10-03 09:20 | Outpatient (BNV) | payer MEDICARE, MEDICAID, SELFPAY | PROVIDERS: PCP Nurse Practitioner Family; Visit Provider Radiology Diagnostic Radiology | DX: M76.02 Gluteal tendinitis, left hip (principal) | CPT/HCPCS: 73721 ==

== ENCOUNTER → 2024-10-08 07:58 | Outpatient (REF) | payer MEDICARE, MEDICAID, SELFPAY ==
--- NOTE | 2024-10-08 08:01 | CA_ITS ---
Transthoracic Echocardiogram Patient (Last, First, Middle): Jonnie Alexander H Gender: Male Date of : 1960 Age: 64 Procedure Date: 10/08/2024 Procedure Type: Transthoracic Echocardiogram Location: OP Height: 170.18 cm Weight: 97.07 kg BSA: 2.08 m2 Heart Rate: 67 bpm BP: 120 / 76 mmHg Field Support Technician: SB Referring MD: Judy Chavez PIANO TECHNICIANValdez Symptoms: I25.10 - Atherosclerotic heart disease of inaja coronary artery without... Study Quality: Fair ECG Rhythm: Sinus Conclusions: - Normal left ventricular size, thickness, and systolic function. The visually estimated ejection fraction is between 55-60%. - E/E prime ratio is between 8 and 15 consistent with indeterminate filling pressures. - The basal inferior segment is akinetic. - There is mildly decreased right ventricular systolic function. Findings Procedure Information Contrast agent, definity, is being given per protocol without apparent complications. Left Ventricle Normal left ventricular size, thickness, and systolic function. The visually estimated ejection fraction is between 55-60%. There is evidence of regional wall motion abnormalities. Abnormal diastolic function is noted. Spectral Doppler is indicative of a pseudonormal filling pattern. E/E prime ratio is between 8 and 15 consistent with indeterminate filling pressures. Wall Motion Rest Echo Findings The basal inferior segment is akinetic. Right Ventricle Normal right ventricular cavity size. There is mildly decreased right ventricular systolic function. Atria The left atrium is normal in size. The right atrium is likely dilated. Aortic Valve Normal aortic valve structure and function. There is no aortic valve stenosis. There is no aortic valve regurgitation. Mitral Valve The mitral valve appears normal. There is no mitral valve regurgitation. There is no mitral valve stenosis. Pulmonic Valve The pulmonic valve is likely normal. Tricuspid Valve Normal tricuspid valve structure. There is no tricuspid valve regurgitation. Normal right atrial pressure. There is no evidence of pulmonary hypertension. Great Vessels All visible segments of the aorta are normal in size. Venous The inferior vena cava is normal in size and collapses greater than 50% with inspiration. Pericardium/Pleural There is no evidence of pericardial effusion. Prior Study Comparison Changes noted compared to prior study dated: 04/25/2023. EF 55 to 60, basal inf akinesis. Measurements 2D Linear Measurements IVSd: 0.96 0.6-0.9/0.6-1.0 cm LVIDd: 4.63 3.9-5.3/4.2-5.9 cm LVIDd Index: 2.23 2.4-3.2/2.2-3.1 cm/m2 LVIDs: 3.56 2.0-3.6 cm LVPWd: 1.01 0.7-1.1 cm LA Diam: 4.90 2.7-3.8/3.0-4.0 cm LAIDs Index: 2.36 1.5-2.3 cm/m2 LV Mass: 195.91 67-162/88-224 g LV Mass Index: 94.19 43-95/49-115 g/m2 LVOT Diam: 2.30 3.0+(-)1.3 cm 2D Systolic Function EF 4C: 67.80 >55% EF 2C: 47.20 >55% EF BiP: 58.50 >55% Mitral Valve MV Pk E: 0.88 MV PK A: 0.67 MV Decel Time: 185.00 E/A: 1.30 E'Lateral: 8.27 E'Medial: 5.98 E/E' Med: 14.70 E/E' Lat: 10.60 PHT: 54.00 MVA PHT: 4.07 Decel [place]: 4.75 Aortic Valve AoV Pk Benja: 1.24 AoV Pk Grad: 6.00 GE: 2.37 LVOT LVOT Pk Benja: 0.73 LVOT Mn Benja: 0.52 LVOT VTI: 0.16 LVOT Pk Grad: 2.00 LVOT Mn Grad: 1.00 LVOT Diam: 2.30 LVOT Area: 4.15 Diastolic Function MV Pk E: 0.88 MV Pk A: 0.67 E/A: 1.30 E'Medial: 5.98 E/E' Med: 14.70 E' Laterial: 8.27 E/E' Lat: 10.60 Right Ventricle TAPSE (mm): 9.60 TVS' Benja: 5.40 Tricuspid Valve TR Pk Benja: 2.68 TR Pk Grad: 29.00 RA Press: 3.00 RVSP: 35.00 Great Vessels Aorta Sinus of Valsalva: 2.90 2.0-3.5 cm Ao Asc: 2.90 2.1-3.4 cm Pulmonary Valve PV Pk Benja: 1.49 Peak PV Grad: 9.00 Updated in Other Vendor System with Status of Final Reji Mercedes MD electronically signed on 10/12/2024 11:09:38 AM with status of Final
== END ==
LOC: HO.CARD 07:58
PROVIDERS: PCP Nurse Practitioner Family; Visit Provider Nurse Practitioner Family
DX: I25.10 Atherosclerotic heart disease of native coronary artery without angina pectoris (principal); Z95.1 Presence of aortocoronary bypass graft
CPT/HCPCS: 93306; Q9957

== ENCOUNTER → 2024-10-08 08:01 | Outpatient (BNV) | payer MEDICARE, MEDICAID, SELFPAY | PROVIDERS: PCP Nurse Practitioner Family; Visit Provider Internal Medicine Cardiovascular Disease | DX: I25.10 Atherosclerotic heart disease of native coronary artery without angina pectoris (principal); R93.1 Abnormal findings on diagnostic imaging of heart and coronary circulation | CPT/HCPCS: 93306 ==

== ENCOUNTER 2024-11-10 09:21 | Outpatient (AMB) | payer MEDICARE, MEDICAID, SELFPAY ==
--- NOTE | 2024-11-10 09:42 | A.OFFVIS_ITS ---
Vital Signs 11/10/24 09:44 Height 5 ft 7 in Weight 211 lb 10.3 oz BMI 33.1 BP 130/82 Blood Pressure Location Lt brachial Position Sitting Pulse 75 Pulse Source Monitor Intake Visit Reasons: 6 month fu after echo Intake Note: 6 mth f/up-echo Dealer Accounts Investigator Required: No Accompanied by: Self / Same As Patient Allergies orphenadrine (From Norflex) Allergy (Mild, Verified 09/28/24 09:25) UNKNOWN piroxicam (From Feldene) Allergy (Mild, Verified 09/28/24 09:25) UNKNOWN amoxicillin Allergy (Unknown, Verified 09/28/24 09:25) unknown lisinopril Allergy (Unknown, Verified 09/28/24 09:25) cough pantoprazole (From Protonix) Adverse Reaction (Severe, Verified 09/28/24 09:25) Anaphylaxis Mdxostg-MMG-VdW Reductase Inhibitor Adverse Reaction (Intermediate, Verified 09/28/24 09:25) myalgias, joint and hip pain pravastatin Adverse Reaction (Mild, Verified 09/28/24 09:25) body aches protonix Allergy (Severe, Uncoded 09/28/24 09:25) Angioedema Medication List - Last Reconciled 11/10/24 by Reji Mercedes MD amlodipine 2.5 mg PO DAILY cholecalciferol (vitamin D3) 125 mcg PO DAILY clopidogrel 75 mg PO DAILY 90 days ezetimibe 10 mg PO DAILY fluvastatin ER 80 mg PO QPM 90 days magnesium 400 mg PO DAILY mecobalamin (vitamin B12) 1,000 mcg PO DAILY metoprolol tartrate 37.5 mg (1.5 x 25 mg) PO BID 90 days omeprazole 1 cap PO QAM zinc acetate 50 mg PO DAILY HPI Comments Details: 64-year-old gentleman with known history of coronary artery disease. He underwent stress testing which showed perfusion defects in apex and inferior wall. He was due to undergo angiography but developed COVID-19 infection. Subsequently he called us in the last 2 weeks with ongoing chest discomfort and was advised to go to [facility]. At [facility] he underwent diagnostic angiogram by Dr. Pearce which showed severe LAD stenosis and RCA disease. He underwent CABG x4 and has been doing well since then. 12/10/2023: He is here for follow-up. He is taking ezetimibe 10 mg and fluvastatin 40 mg. He was experiencing some joint pains while taking atorvastatin 80 mg and was changed to fluvastatin and ezetimibe. He continues to get joint pains and I have explained to him that there unlikely to be related to statins. He does have arthritis as well as back issues. Last LDL cholesterol was 94 in 07/08/2023. He is due to get repeat testing soon. 11/10/2024: He is here for follow-up. He has no chest pain or shortness of breath. He is doing his day-to-day activities without any significant issues. His LDL cholesterol is 115. His target is less than 55. He is currently taking fluvastatin which is a little weak statin due to previous intolerance of stronger statin medications. He is on ezetimibe 10 mg daily. [facility] Medical History Hypertensive retinopathy Pulmonary nodule Cough Ground glass opacity present on imaging of lung Restrictive lung disease Obesity (BMI 30-39.9) Arthralgia Tinea cruris RBBB RAD (reactive airway disease) LVH (left ventricular hypertrophy) Sacroiliitis Diverticulitis Cervical spondylosis JOHANNY (obstructive sleep apnea) Anemia Carpal tunnel syndrome of left wrist Insomnia GERD (gastroesophageal reflux disease) Hypertension Neuropathy Surgical History S/P CABG x 4 History of cardiac cath History of carpal tunnel surgery History of tonsillectomy Family History Father Myocardial infarction Diabetes mellitus CVD (cardiovascular disease) Mother No problems noted. Brother Diabetes mellitus Sister Diabetes mellitus Cancer Social History Housing: House Alcohol intake: former Patient Tobacco Use Status: Never used Tobacco e-Cigarette/Vaping Use: Never Used service: No Current occupational status: disabled Cognitive needs: No Hearing needs: No Vision needs: Yes Review of Systems Const Denies chills, Denies fatigue, Denies fever(s), Denies frequent falls, Denies weakness, Denies weight gain and Denies weight loss ENT Denies dizziness Card Denies chest pain, Denies leg edema, Denies lightheadedness, Denies palpitations, Denies dyspnea and Denies dyspnea on exertion Resp Denies cough, Denies dyspnea and Denies dyspnea on exertion GI Denies hematochezia Musc Denies abnormal gait, Denies muscle weakness, Denies numbness, Denies radiating pain into limb and Denies tingling Neuro Denies abnormal gait, Denies dizziness, Denies frequent falls, Denies numbness, Denies tingling and Denies weakness Endo Denies fatigue and Denies palpitations Physical Exam Vital Signs: Last Vital Signs Pulse 75 11/10/24 09:44 BP 130/82 11/10/24 09:44 BMI result Body Mass Index 33.1 GENERAL APPEARANCE: in no acute distress, pleasant. NECK: no carotid bruit, no jugular venous distention. SKIN: no suspicious lesions, warm and dry. Healed sternotomy scar. HEART: no murmurs, regular rate and rhythm. LUNGS: clear to auscultation bilaterally. ABDOMEN: soft, nontender. EXTREMITIES: no edema. PERIPHERAL PULSES: equal. NEUROLOGIC: No gross deficits, AAO X 3 Office Procedures EKG Details: Sinus rhythm 75 beats per minute, first-degree AV block with MA interval 232 milliseconds, right bundle-branch block, left anterior fascicular block, inferior infarct, QTC 422 milliseconds. [id number], Complete Assessment & Plan Assessment & Plan (1) Hypertension: Code(s): I10 - Essential (primary) hypertension Category: Medical Qualifiers: Hypertension type: primary hypertension Qualified Code(s): I10 - Essential (primary) hypertension (2) S/P CABG x 4: Comment: 11/22/2022, [place] to LAD, left radial graft to diagonal, SVG to PDA and OM Code(s): Z95.1 - Presence of aortocoronary bypass graft Category: Medical (3) Dyslipidemia: Code(s): E78.5 - Hyperlipidemia, unspecified Category: Medical Plan [age] year gentleman who is here for follow-up. He is status post CABG at this stage. He is denying any anginal symptoms. Overall quite stable from coronary disease point of view. He is intolerant of high-intensity statins. He is currently taking fluvastatin half tablet which is 40 mg along with ezetimibe. LDL cholesterol is not a target of less than 55. We discussed about starting him on Praluent and I am sending a script to his pharmacy for that. He will definitely benefit from PCSK9 inhibitors and we will be able to drive his LDL c holesterol less than 55 with this strategy. Thank you for allowing me to participate in the care of your patient. Please feel free to contact me if you have any questions. Medications: New alirocumab (Praluent Pen) 75 mg subcut Q14D 2 mL 0RF E78.5 - Hyperlipidemia, unspecified Coding Level of Care Code Est Pt Level 4 (07976) Complex EM visit Add On G2211 Diagnoses Primary hypertension I10 Hypertension type: primary hypertension S/P CABG x 4 Z95.1 Dyslipidemia E78.5 CPT Codes EKG - CPT: 82171-[id number], Complete ([id number])
[2024-11-10 09:44] VITALS: BP 130/82; PULSE 75; BMI 33.1
--- OUTSIDE RECORDS SUMMARY | 2024-11-10 10:17 | XMS_ITS | Data Portability ---
Author Organization [place] - [facility] Address [address] [place] [address] Care Team Providers Care Senior Web Architect Name Role Phone CYNDI JUNIOR Primary Care Provider Assessment No assessment recorded. Plan of Treatment Reminders Order Date Submit Date Provider Last Modified By Organization Details Last Modified Time Details Appointments NEW PATIENT 15 2024 02:45P M Roseann Talha, [employer] Not available Not available Not available Lab None recorded. Referral None recorded. Procedures None recorded. Surgeries None recorded. Imaging XR, hip + pelvis, unilatera l, 2 or 3 view - rm 113 2v left hip 2024 025 [email or web address] [facility], [address] [facility], [facility] [address], [place], [address], 07/13/2024 10:31:43 Medication Orders Tylenol Arthritis Pain 650 mg tablet,ex tended release 2024 025 [facility], [address] [place] [address], [place], [address], 07/13/2024 09:53:12 Patient TargetsNo targets recorded. Patient InstructionsNo instructions recorded. Reason for Referral None Reported. Results Created Date Observation Date Name Description Value Unit Range Abnormal Flag Note LastModifiedBy Organization Detail LastModifiedTime 07/13/1907/13/2024 XR, hip + pelvi s, unila teral , 2 or 3 view http:/ [email or web address] ?Encry pted=s hAaTro YD8dLq bEUv6g %2BXZw aYqtaq 0bqfl% 2Fg9IQ a4ajBk vP9nXo QUaueC m3YtLR FvZlgJ JJ8mAn HZtai3 9s4382 AC0Kqb X6AVKS kKiQtr MwF INTERFACE [facility] [address] [facility] [address], [place], [address], 07/13/2024 09:36:45 07/13/19 25 07/13/2024 XR, hip + pelvi s, unila teral , 2 or 3 view http:/ [email or web address] ?Encry pted=s hAaTro YD8dLq bEUv6g %2BXZw aYqtaq 0bqfl% 2Fg9IQ a4ajBk vP9nXo QUaueC m3YtLR FvZlgJ JJ8mAn HZtai3 7b4500 AC0Kqb X6AVKS kKiQtr MwF INTERFACE [facility] [address] [facility] [address], [place], [address], 07/13/2024 09:36:47 10/06/19 25 10/03/2024 MRI, hip, w/ contr ast No observ ation record ed. [email or web address] [address], [place], [address], 10/19/2024 13:53:33 Result Notes Documentation Provider Name and Address Organization Details Recorded Time Xr, Hip + Pelvis, Unilateral, 2 Or 3 View : [email or web address] Encrypted=iqIdUozAT7lTnzG Uv6g%8GWWoeVrsva3vfww%2Fg 4EDy3cdDmfH0bQhDVxydPg9Km OSAbQnbTQK4mCjNVvll12f767 9XD5KitH5SVCJpZcUlqLjS Not Available [facility] 07/13/2024 09:36: 46 Xr, Hip + Pelvis, Unilateral, 2 Or 3 View : [email or web address] Encrypted=cpVoDewST2dIjzG Uv6g%6ZVOheFrvnm9zydk%2Fg 8VVk8iaHisV6oIuRMsgmCw4Xr DAVcUjbPKD7aOzEDyxq58g898 8XC1OitI8TAMRfHiEumDoX Not Available [facility] 07/13/2024 09:36: 48 Procedures Surgical History Date Name Laterality Status Provider Name and Address Organization Details Recorded Time 10/25/2024 JZHip Inj completed Michael Hurley PA-C [address] [facility], [place], [address], [facility] 10/25/2024 10:10:06 07/13/2024 JZHip Inj completed Michael Hurley PA-C [address], [place], [address], [facility] 07/13/2024 12:28:55 Imaging Results None recorded. Procedure Notes None recorded. Medical Equipment None Reported. Allergies Allergen ID Allergen Name Allergen Category Reaction Reaction Severity Criticality Documentation Date Start Date Code Code System Note Provider Name and Address Organization Details Recorded Time 313778 house dust mite environme nt Not available Not available Not available 07/13/2024 [address] [facility] Anthony Deshpande [facility] 09:21:07 441926 tree and shrub pollen environme nt,medica tion Not available Not available Not available 10/25/2024 [address] [facility] Minerva Scruggs [facility] 5 09:38:28 Medications Name Sig Start Date Stop Date Status Note LastModified by Organization Details LastModified Time fluorouracil 5 % topical cream APPLY CREAM TOPICALLY TWICE DAILY TO SCALP, FACE AND SPIRITISM AREAS FOR 2 WEEKS. EXPECT REDNESS AND IRRITATION active Not Available Not Available N ot Available Tylenol Arthritis Pain 650 mg tablet,exten ded release Take 2 tablets every 8 hours by oral route as directed for 30 days. 2024 active Not Available Not Available Not Avai lable amlodipine 2.5 mg tablet TAKE 1 TABLET BY MOUTH ONCE DAILY active Not Available Not Available No t Available clopidogrel 75 mg tablet TAKE 1 TABLET BY MOUTH ONCE DAILY active Not Available Not Available No t Available omeprazole 40 mg capsule,juan antonio yed release TAKE 1 CAPSULE BY MOUTH ONCE DAILY 30 MINUTES BEFORE MORNING MEAL active Not Available Not Available No t Available fluvastatin ER 80 mg tablet,exten ded release 24 hr TAKE 1 TABLET BY MOUTH IN THE EVENING active Not Available Not Available Not Available ezetimibe 10 mg tablet TAKE 1 TABLET BY MOUTH ONCE DAILY active Not Available Not Available No t Available metoprolol tartrate 25 mg tablet TAKE 1 & 1/2 (ONE & ONE-HALF) TABLETS BY MOUTH TWICE DAILY active Not Available Not Available No t Available cetirizine 1 mg/mL oral solution TAKE 10 ML BY MOUTH ONCE TO TWICE DAILY NEEDED FOR HIVES OR ITCHING active Not Available Not Available N ot Available Vitals Date Recorded Body weight Body mass index (BMI) Body height Provider Name and Address Organization Details Last Updated DateTime 07/13/2024 33893.58 g 33.2 kg/m2 170.18 cm Anthony Deshpande [facility] 07/13/2024 09:20:35 Date Recorded Body height Body mass index (BMI) Body weight Provider Name and Address Organization Details Last Updated DateTime 10/25/2024 170.18 cm 33.2 kg/m2 96895.58 g Minerva Scruggs [facility] 10/25/2024 09:37:27 Social History None recorded. Functional Status None recorded. Mental Status None recorded. Family History Nothing Reported. Medical History Condition Response Coronary Artery Disease N Anxiety/Depression N Emphysema N COPD N Pacemaker N Vascular Disease N Heart Trouble N Gastrointestinal Disease N Autoimmune disease N Inflammatory Joint disease N Orthotics N Arthritis Y Blood Clot Y Acid Reflux (GERD) N Cancer N Stroke N Circulation Problems N Rheumatoid Arthritis N Arrhythmia N Headaches N Fibromyalgia N Allergies/Hayfever N Breathing or lung disorders N Nerve Disorders N Thyroid Problems N Kidney/Bladder Problems N Anemia N Heart Attack (SC) N Cholesterol Y Diabetes N Bleeding Disorder N Seizures/Epilepsy N AIDS/HIV N Congestive Heart Failure (CHF) N Asthma N Peripheral Vascular Disease N Sleep Apnea N Hepatitis N Heart Disease N Pulmonary Embolism N Hypertension Y Osteoporosis N Past Encounters Encounter ID Performer Location Encounter Start Date Encounter Closed Date Diagnosis/Indication Diagnosis SNOMED-CT Code Diagnosis ICD10 Code Diagnosis Note [id number] [facility] [address] [place] [address] 07/13/2024 08:51:26 07/31/2024 11:49:59 Pain of hip region 20579317 M25.552 Trochanter ic bursitis of left hip 1917521591 90445 M70.62 [id number] [facility] [address] [place] [address] 10/25/2024 09:23:41 11/08/2024 07:04:34 Tendinitis of left gluteal tendon [id number] 25103 M76.02 Health Concerns Section Related Observation LastModified by Organization Detai ls LastModified Time None Recorded Concern Status LastModified by Organization Details LastModified Time None Recorded Advance Directives Directive None Recorded Payers Insurance Date Sequence Insurance Name Policy Number Policy Arriaza Covered Member ID Arriaza Member ID Guarantor Name 10/22/2024 2 [place] [facility] Jonnie Alexander [id number] Jonnie Alexander 10/22/2024 1 [place] [employer] Jonnie Alexander [id number] Jonnie Alexander Notes Date Note Type Note Provider Name and Address Organization Details Recorded Time 07/13/2024 text/html I am seeing the patient today under the supervision of Dr. Morgan who was available but who did not see the patient. HPI:Patient is a 63-year-old male who presents to the office today with complaint of left hip pain. Patient states that he has had hip pain for over a year. Denies any specific injuries or inciting events for the pain. Increased pain with prolonged standing and walking as well as sleeping at night. Does state that he knows he has a bad back and previously has tried an injection into his lower back. States that this did not really provide him with any relief. Patient cannot tolerate anti-inflammatories due to being on Plavix. States that he does not utilize anything at baseline anyway for pain. Denies any groin pain. States most of his pain is on the lateral aspect of his hip. Past family, medical, social history and review of systems has been reviewed, updated and is located in the patient s chart. Examination: Well-appearing 63-year-old male in no acute distress. Alert and oriented x 3. Ambulates with a slightly antalgic gait. Left hip reveals no erythema, warmth, ecchymosis, swelling. There is tenderness to palpation over the lateral aspect of the hip. Near full range of motion of the hip in all directions with mild increasing discomfort towards the endpoints. Hip strength 5/5 against resistance in all directions. Difficulty performing REECE test due to stiffness but no increased pain. Negative Stinchfield test. Negative logroll. Calf is soft nontender. 2 views of the left hip obtained and inability reviewed in the office today reveal fairly well-preserved joint space throughout the hip joint. There is small amount of calcification noted over the greater trochanter. No fracture. Impression:Adductor calcific tendinitis, trochanteric bursitis Plan:We discussed the role of conservative management including medications, physical therapy, injection.At this point the patient was to proceed with injection. Please see procedure note. Patient also given a prescription for Tylenol 650 mg which she can take 2 tablets every 8 hours. He does have Voltaren gel at home which I encouraged him to utilize about 3-4 times a day on the lateral aspect of the hip. Ultimately I do think that his lower back could be playing a portion into why he is having increased pain and I do recommend him following up with one of our spine providers. Patient agrees with this treatment plan. All patient questions and concerns answered today. Michael Hurley PA-C [address] [place] [address] [address], [place], [address], [facility] 07/13/2024 12:29:19 10/25/2024 text/html I am seeing the patient today under the supervision of Dr. Morgan who was available but who did not see the patient. HPI:Patient is a 64-year-old male who presents to the office today for recheck of left hip pain. Previously seen the patient about 4 months ago for left hip pain. Most of the pain is on the lateral aspect of the hip. Diagnosed with abductor tendinitis. Underwent an injection to this region. States that he only had minimal relief from this injection. Continues to experience pain in the left hip but also complains of pain from his lumbar spine. Did have an MRI of the left hip which was ordered by his primary care physician. Continues to have difficulty with sitting, laying down as well as prolonged standing and walking. Has only been utilizing Tylenol since he cannot take NSAIDs. Past family, medical, social history and review of systems has been reviewed, updated and is located in the patient s chart. Examination: Well-appearing 64-year-old male in no acute distress. Alert and oriented x 3. Ambulates with a symmetric gait. Left hip reveals no erythema, warmth, ecchymosis, swelling. Moderate tenderness over the lateral aspect of the hip. Near full range of motion of the hip in all directions with minimal discomfort. Hip strength 5/5 against resistance in all directions. Negative REECE test. Negative Stinchfield test. Calf soft and nontender. MRI results reviewed of the left hip shows gluteus medius tendinitis as well as mild partial tearing along the superior lateral aspect. Evidence of left inguinal hernia. Impression:Left hip gluteus medius tendinitis with partial tearing, low back pain Plan:Discussed with the patient the results of his MRI being fairly unremarkable with evidence of partial tearing and tendinitis. Did discuss conservative management involving oral medications, physical therapy as well as injections. Patient did opt for another injection today. Please see procedure note for injection. Will continue with Tylenol as needed for pain relief. Can ice as well as are alternate with heat on the lateral aspect of his hip. Can utilize topicals as needed. I do think that a portion of his pain is likely coming from his lumbar spine as he is complaining of more pain in this region than in his hip. Appointment scheduled to see one of our spine providers in the upcoming weeks. Will continue with activity modifications as needed. Did encourage some lumbar spine stretches. Follow-up with me as needed for continued lateral hip injections. Michael Hurley PA-C [address], [place], [address], [facility] 10/25/2024 10:10:27
== END 2024-11-10 10:08 | disposition home or self-care (01) ==
LOC: HO.HCS 09:22
PROVIDERS: PCP Nurse Practitioner Family; Visit Provider Internal Medicine Cardiovascular Disease
DX: I10 Essential (primary) hypertension (principal); Z95.1 Presence of aortocoronary bypass graft; E78.5 Hyperlipidemia, unspecified
CPT/HCPCS: 93010; 99214; G2211

== ENCOUNTER → 2024-11-10 09:21 | Outpatient (BNVA) | payer MEDICARE, MEDICAID, SELFPAY | PROVIDERS: PCP Nurse Practitioner Family; Visit Provider Internal Medicine Cardiovascular Disease | DX: E78.5 Hyperlipidemia, unspecified (principal); I10 Essential (primary) hypertension; R94.31 Abnormal electrocardiogram [ECG] [EKG]; I44.0 Atrioventricular block, first degree; I45.10 Unspecified right bundle-branch block; Z95.1 Presence of aortocoronary bypass graft | CPT/HCPCS: 93005; 99212 ==

== ENCOUNTER 2024-11-29 11:15 | Outpatient (AMB) | payer MEDICARE, MEDICAID, SELFPAY ==
[2024-11-29 11:48] VITALS: BP 128/66; PULSE 82; TEMP 37.2; O2SAT 97; BMI 33.2
--- NOTE | 2024-11-29 11:48 | MHC.OFFWIV ---
Intake Vital Signs 11/29/24 11:48 Height 5 ft 7 in Weight 212 lb 2 oz BMI 33.2 BP 128/66 Blood Pressure Location Lt brachial Position Sitting Pulse 82 Pulse Source Pulse Oximeter Temp 98.9 F Pulse Oximetry (%) 97 Oxygen Delivery Method Room Air Intake Visit Reasons: EP Cut on LT leg not healing Intake Note: Pt is here today for possible allergic reaction started this morning will swollen eyes. Pt has bumps on both arms. Patient Tobacco Use Status: Never used Tobacco Miner Helper Required: No Allergies orphenadrine (From Norflex) Allergy (Mild, Verified 09/28/24 09:25) UNKNOWN piroxicam (From Feldene) Allergy (Mild, Verified 09/28/24 09:25) UNKNOWN amoxicillin Allergy (Unknown, Verified 09/28/24 09:25) unknown lisinopril Allergy (Unknown, Verified 09/28/24 09:25) cough pantoprazole (From Protonix) Adverse Reaction (Severe, Verified 09/28/24 09:25) Anaphylaxis Hdbaghp-VCX-RsS Reductase Inhibitor Adverse Reaction (Intermediate, Verified 09/28/24:25) myalgias, joint and hip pain pravastatin Adverse Reaction (Mild, Verified 09/28/24 09:25) body aches protonix Allergy (Severe, Uncoded 09/28/24 09:25) Angioedema Do you need a note to return to daycare/school/sports/work: No HPI HPI Comments History of Present Illness Details Patient is a 64-year-old male complaining of a wound on his left leg for the past week that does not seem to be healing. He tells me that about a week ago he dropped a curtain Holter type back that was metal in it caught him on the left ankle on the outside of his leg and cut it right open and it was bleeding. He got the bleeding to stop but he says it does not seem to be healing. He tells me that he is changing the bandage twice a day washing it with soap and water and then putting hydrogen peroxide on it. He tells me he is up-to-date with his Tdap. He denies he is a diabetic [facility] Medical History (Reviewed 11/10/24 @ 09:46 by Josi Lau [facility]) Hypertensive retinopathy Pulmonary nodule Cough Ground glass opacity present on imaging of lung Restrictive lung disease Obesity (BMI 30-39.9) Arthralgia Tinea cruris RBBB RAD (reactive airway disease) LVH (left ventricular hypertrophy) Sacroiliitis Diverticulitis Cervical spondylosis JOHANNY (obstructive sleep apnea) Anemia Carpal tunnel syndrome of left wrist Insomnia GERD (gastroesophageal reflux disease) Hypertension Neuropathy Surgical History S/P CABG x 4 History of cardiac cath History of carpal tunnel surgery History of tonsillectomy Family History Father Myocardial infarction Diabetes mellitus CVD (cardiovascular disease) Mother No problems noted. Brother Diabetes mellitus Sister Diabetes mellitus Cancer Social History Housing: House Alcohol intake: former Patient Tobacco Use Status: Never used Tobacco e-Cigarette/Vaping Use: Never Used service: No Current occupational status: disabled Cognitive needs: No Hearing needs: No Vision needs: Yes Review of Systems Const All systems reviewed & are unremarkable except as noted in HPI and below Physical Exam Vital Signs: Last Vital Signs Temp 98.9 F 11/29/24 11:48 Pulse 82 11/29/24 11:48 BP 128/66 11/29/24 11:48 Pulse Ox 97 11/29/24 11:48 Oxygen Delivery Method Room Air 11/29/24 11:48 BMI result Body Mass Index 33.2 Assessment & Plan Assessment & Plan (1) Leg wound, left: Code(s): S81.802A - Unspecified open wound, left lower leg, initial encounter Qualifiers: Encounter type: initial encounter Qualified Code(s): S81.802A - Unspecified open wound, left lower leg, initial encounter Plan: Dressed the wound with bacitracin and a Band-Aid. Recommended patient stop using hydrogen peroxide and that is undermining the wounds ability to heal properly. Recommended he change his dressing in the morning, he should wash it with soap and water, can apply bacitracin and then a Band-Aid when he goes out but he can remove the Band-Aid when he is home for the day and overnight Coding Level of Care Code Est Pt Level 3 (57509) Diagnoses Wound of left lower extremity, initial encounter S81.802A Encounter type: initial encounter
--- OUTSIDE RECORDS SUMMARY | 2024-11-29 12:22 | XMS_ITS | Data Portability ---
Author Organization [place] [facility] Address [address] [place] [address] Care Team Providers Care Field Naturalist Name Role Phone CYNDI JUNIOR Primary Care Provider Assessment No assessment recorded. Plan of Treatment Reminders Order Date Submit Date Provider Last Modified By Organization Details Last Modified Time Details Appointments NEW PATIENT 15 2024 02:45P M Roseann Talha, PRINCIPAL ACCOUNTS CLERK Not available Not available Not available Lab None recorded. Referral None recorded. Procedures None recorded. Surgeries None recorded. Imaging XR, hip + pelvis, unilatera l, 2 or 3 view - rm 113 2v left hip 2024 025 [email or web address] [facility], [address] [facility], [facility] [address], [place], [address], 07/13/2024 10:31:43 Medication Orders Tylenol Arthritis Pain 650 mg tablet,ex tended release 2024 025 [facility], [address] [place] [address], [place], [address], 07/13/2024 09:53:12 Patient TargetsNo targets recorded. Patient [...] a4ajBk vP9nXo QUaueC m3YtLR FvZlgJ JJ8mAn HZtai3 1m3537 AC0Kqb X6AVKS kKiQtr MwF INTERFACE [facility] [address], [place], [address], 07/13/2024 09:36:45 07/13/19 25 07/13/2024 XR, hip + pelvi s, unila teral , 2 or 3 view http:/ [email or web address] ?Encry pted=s hAaTro YD8dLq bEUv6g %2BXZw aYqtaq 0bqfl% 2Fg9IQ a4ajBk vP9nXo QUaueC m3YtLR FvZlgJ JJ8mAn HZtai3 4n5921 AC0Kqb X6AVKS kKiQtr MwF INTERFACE [facility] [address], [place], [address], 07/13/2024 09:36:47 10/06/19 25 10/03/2024 MRI, hip, w/ contr ast No observ ation record ed. [email or web address] [address], [place], [address], 10/19/2024 13:53:33 Result Notes Documentation Provider Name and Address Organization Details Recorded Time Xr, Hip + Pelvis, Unilateral, 2 Or 3 View : [email or web address] Encrypted=wjYaRkqYH8cIdaA Uv6g%9NTQqeOuwcj9clkp%2Fg 9KUd9arQaxF9fZiVPfoyWe8Ip UUDmLggJEA5wFyKSayt29j312 7AR0UmyG3ZMSIkImHtrOqM Not Available [facility] 07/13/2024 09:36: 46 Xr, Hip + Pelvis, Unilateral, 2 Or 3 View : [email or web address] Encrypted=elTxCybYW8dQovY Uv6g%0SPQldRzukm3htnk%2Fg 2PZv4toNjxY7wIsOVoruDp0Ct CVEnXqaQWF6iSdDPqvk98b575 6XH1SjqD7QWWXlBwZehXqG Not Available [facility] 07/13/2024 09:36: 48 Procedures Surgical History Date Name Laterality Status Provider Name and Address Organization Details Recorded Time 10/25/2024 JZHip Inj completed Michael Hurley PA-C [address] [facility] [address], [place], [address], [facility] 10/25/2024 10:10:06 07/13/2024 JZHip Inj completed Michael Hurley PA-C [address], [place], [address], [facility] 07/13/2024 12:28:55 Imaging Results None recorded. Procedure Notes None recorded. Medical Equipment None Reported. Allergies Allergen ID Allergen Name Allergen Category Reaction Reaction Severity Criticality Documentation Date Start Date Code Code System Note Provider Name and Address Organization Details Recorded Time 531576 house dust mite environme nt Not available Not available Not available 07/13/2024 [id number] [facility] Anthony Deshpande [facility] 09:21:07 [id number] tree and shrub pollen environme nt,medica tion Not available Not available Not available 10/25/2024 [id number] [facility] Minerva Scruggs [facility] 5 09:38:28 Medications Name Sig Start Date Stop Date Status Note LastModified by Organization Details LastModified Time fluorouracil 5 % topical cream APPLY CREAM TOPICALLY TWICE DAILY TO SCALP, FACE AND YARSANISM AREAS FOR 2 WEEKS. EXPECT REDNESS AND [...] Address Organization Details Last Updated DateTime 07/13/2024 42192.58 g 33.2 kg/m2 170.18 cm Anthony Deshpande [facility] 07/13/2024 09:20:35 Date Recorded Body height Body mass index (BMI) Body weight Provider Name and Address Organization Details Last Updated DateTime 10/25/2024 170.18 cm 33.2 kg/m2 06340.58 g Minerva Scruggs [facility] [...] Kidney/Bladder Problems N Anemia N Heart Attack (MS) N Cholesterol Y Diabetes N Bleeding Disorder N Seizures/Epilepsy N AIDS/HIV N Congestive Heart Failure (CHF) N Asthma N Peripheral Vascular Disease N Sleep Apnea N Hepatitis N Heart Disease N Pulmonary Embolism N Hypertension Y Osteoporosis N Past Encounters Encounter ID Performer Location Encounter Start Date Encounter Closed Date Diagnosis/Indication Diagnosis SNOMED-CT Code Diagnosis ICD10 Code Diagnosis Note [id number] [facility] [address] [place] [address] 07/13/2024 08:51:26 07/31/2024 11:49:59 Pain of hip region 71290149 M25.552 Trochanter ic bursitis of left hip 2815810014 15781 M70.62 [id number] [facility] [address] [place] [address] 10/25/2024 09:23:41 11/08/2024 07:04:34 Tendinitis of left gluteal tendon 2928065341 41745 M76.02 Health Concerns Section Related Observation LastModified by Organization Detai ls LastModified Time None Recorded Concern Status LastModified by Organization Details LastModified Time None Recorded Advance Directives Directive None Recorded Payers Insurance Date Sequence Insurance Name Policy Number Policy Arriaza Covered Member ID Arriaza Member ID Guarantor Name 10/22/2024 2 [place] [facility] Jonnie Alexander [id number] Jonnie Alexander 10/22/2024 1 [place]IC[place] B-[place]: [employer] Jonnie Alexander [id number] Jonnie Alexander Notes Date Note Type Note [...] and concerns answered today. Michael Hurley PA-C [address] [place] [address] [address], [place], [address], [facility] 07/13/2024 12:29:19 10/25/2024 text/html [...] Hurley PA-C [address], [place], [address], [facility] 10/25/2024 10:10:27
== END 2024-11-29 12:12 | disposition home or self-care (01) ==
PROVIDERS: PCP Nurse Practitioner Family; Visit Provider Physician Assistant
DX: S81.802A Unspecified open wound, left lower leg, initial encounter (principal)

== ENCOUNTER → 2024-11-29 11:15 | Outpatient (BNVA) | payer MEDICARE, MEDICAID, SELFPAY | PROVIDERS: PCP Nurse Practitioner Family; Visit Provider Physician Assistant | DX: S81.802A Unspecified open wound, left lower leg, initial encounter (principal) | CPT/HCPCS: 99212 ==

== ENCOUNTER 2024-12-17 08:25 | Outpatient (REF) | payer MEDICARE, MEDICAID, SELFPAY ==
--- NOTE | ~2024-12-17 | US_ITS ---
CLINICAL HISTORY: R10.9 - Unspecified abdominal pain US renal with Color Doppler Comparison: US/SR - US ABDOMEN LIMITED - 01/29/23 20:[address]/SR - ABD PELVIS WITH CONT [id number] - 09/14/15 15:25 EDT Findings: Right kidney normal size and echotexture, 12.5 cm length. No hydronephrosis. No nephrolithiasis. Normal color flow. Renal cortical cysts upper pole measuring 9 x 7 x 12 mm and lower pole measuring 1.6 x 1.2 x 1.2 cm previously measuring 1.5 cm. Left kidney normal size and echotexture, 10.7 cm length. No hydronephrosis. No nephrolithiasis. Normal color flow. Cyst with thin internal septa upper pole measuring 1.5 x 1.6 x 1.5 cm. Impression: 1. Kidneys normal size and position with no evidence of nephrolithiasis or hydronephrosis. 2. Bilateral renal cortical cysts. The left upper pole renal cyst has multiple thin internal septi. Correlation with a dedicated MRI of the abdomen with and without contrast renal protocol study is recommended. This is preferred to a CT This document has been electronically signed by: John Trinidad MD on 12/17/2024 12:04:07
== END 2024-12-17 08:26 | disposition home or self-care (01) ==
LOC: HO.US 08:25
PROVIDERS: PCP Nurse Practitioner Family; Visit Provider Nurse Practitioner Family
DX: R10.9 Unspecified abdominal pain (principal)
CPT/HCPCS: 76775

== ENCOUNTER → 2024-12-25 01:39 | Outpatient (BNV) | payer MEDICARE, MEDICAID, SELFPAY | PROVIDERS: PCP Nurse Practitioner Family; Visit Provider General Practice | DX: R07.9 Chest pain, unspecified (principal) | CPT/HCPCS: 71046 ==

== ENCOUNTER 2024-12-25 01:51 | Emergency (ER) | payer MEDICARE, MEDICAID, SELFPAY ==
--- NOTE | 2024-12-25 | ECG_ITS ---
Test Reason : CP Blood Pressure : */* mmHG Vent. Rate : 79 BPM Atrial Rate : 79 BPM P-R Int : 222 ms QRS Dur : 130 ms QT Int : 376 ms P-R-T Axes : 48 -5 32 degrees QTcB Int : 431 ms Sinus rhythm with 1st degree A-V block Right bundle branch block Abnormal ECG When compared with ECG of 22-Jan-2023 21:24, Premature ventricular complexes are now Present Referred By: Generic ED Physician Electronically Signed By: MIRI VALDES
--- NOTE | ~2024-12-25 | XR_ITS ---
CLINICAL HISTORY: chest pain 2 view chest x-ray Comparison: CR/PA/SR - XR CHEST 2 VIEWS - 02/06/23 11:54 EDT Findings: The lungs are clear. Mild enlargement of the cardiac silhouette. No acute fracture. Post sternotomy changes. IMPRESSION: 1. No acute findings. This document has been electronically signed by: Rafy Longoria MD, PHD on 12/25/2024 03:31:54
[2024-12-25 02:10] LABS: MANUAL DIFF FLAG NO
[2024-12-25 02:13] LABS: Hematocrit 44.5 % (42.0-52.0); Hemoglobin 15.5 g/dl (14.0-18.0); Imm Gran Abs Auto 0.06 X10*3/uL (0.00-0.03); Imm Gran Pct Auto 0.5 % (0.0-0.4); Lymphocytes Absolute Auto 2.0 X10*3/uL (1.2-4.9); Mean Corpuscular HGB Conc 34.8 g/dl (31.0-36.0); Mean Corpuscular Hemoglobin 30.4 pg (27.0-33.0); Mean Corpuscular Volume 87.3 fL (80.0-98.0); NRBC Abs Auto 0.000 X10*3/uL (0.0-0.012); NRBC Pct Auto 0.0 /100WBC (0.0-0.2); Platelet Count 239 X10*3/uL (160-400); Red Blood Count 5.10 X10*6/uL (4.60-5.80); White Blood Count 11.9 X10*3/uL (4.8-10.8)
[2024-12-25 02:15] VITALS: BP 149/94; PULSE 82; RESP 18; TEMP 36.7; O2SAT 98; BMI 33.3
[2024-12-25 02:26] LABS: Alanine Aminotransferase 260 U/L (0-40); Albumin Level 4.8 g/dL (3.5-5.0); Alkaline Phosphatase 71 U/L (39-117); Anion Gap 15 (12-20); Aspartate Amino Transferase 323 U/L (5-37); Blood Urea Nitrogen 20 mg/dL (9-16); Calcium 9.3 mg/dL (8.4-10.2); Carbon Dioxide 27 mmol/L (22-29); Chloride 105 mmol/L (96-108); Creatinine Clr Calc Pharmacy 93.8; Estimated Glomerular Filt Rate > 60; Magnesium 2.2 mg/dL (1.6-2.6); Potassium 4.0 mmol/L (3.3-5.1); Sodium 143 mmol/L (135-145); Total Protein 7.0 g/dL (6.5-8.0)
[2024-12-25 02:33] LABS: Troponin-I High Sensitivity 5.0 ng/L (<3.5-35.0)
--- NOTE | 2024-12-25 04:22 | PC.NURSE ---
states pain is now improved
[2024-12-25 04:54] LABS: Troponin-I High Sensitivity 4.4 ng/L (<3.5-35.0)
[2024-12-25 06:30] VITALS: BP 122/81; PULSE 78; RESP 20; TEMP 36.6; O2SAT 96
--- NOTE | 2024-12-25 06:56 | ED.CHESTPAIN ---
HPI - Chest Pain General Chief Complaint: Chest Pain Stated Complaint: Chest Pain Time Seen by Provider: 12/25/24 06:36 Source: patient Mode of arrival: ambulatory Limitations: no limitations History of Present Illness ED Provider: Dr. Lauren Thomas HPI narrative: Patient comes to the emergency room stating that approximately 12 hours ago he was sitting state and drinking cells are water. Shortly after started feeling abdominal discomfort. Patient states that he had to burp quite a bit. Patient reports that initially the distention was getting worse and decided to come to the emergency room because he had quadruple bypass couple of months ago. Patient states that he did not have any significant chest pain, just abdominal discomfort. Patient denies any vomiting or diarrhea. Patient states that at this time, the discomfort is nearly resolved. Related Data Home Medications ?Medication ?Instructions ?Recorded ?Confirmed omeprazole 40 mg capsule,delayed 1 cap PO QAM 06/25/22 11/10/24 release cholecalciferol (vitamin D3) 125 125 mcg PO DAILY 04/03/23 11/10/24 mcg (5,000 unit) capsule magnesium 200 mg tablet 400 mg PO DAILY 04/03/23 11/10/24 zinc acetate 50 mg (zinc) capsule 50 mg PO DAILY 04/03/23 11/10/24 mecobalamin (vitamin B12) 1,000 1,000 mcg PO DAILY 09/28/24 11/10/24 mcg chewable tablet Previous Rx's ?Medication ?Instructions ?Recorded fluvastatin 80 mg tablet,extended 80 mg PO QPM 90 days #90 tabs 02/19/24 release 24 hr clopidogrel 75 mg tablet 75 mg PO DAILY 90 days #90 tabs 06/28/24 ezetimibe 10 mg tablet 10 mg PO DAILY #90 tabs 09/20/24 metoprolol tartrate 25 mg tablet 37.5 mg (1.5 x 25 mg) PO BID 90 10/03/24 days #270 tabs amlodipine 2.5 mg tablet 2.5 mg PO DAILY #90 tabs 11/11/24 Allergies Allergy/AdvReac Type Severity Reaction Status Date / Time orphenadrine (From Norflex) Allergy Mild UNKNOWN Verified 12/25/24 02:19 piroxicam (From Feldene) Allergy Mild UNKNOWN Verified 12/25/24 02:19 amoxicillin Allergy Unknown unknown Verified 12/25/24 02:19 lisinopril Allergy Unknown cough Verified 12/25/24 02:19 pantoprazole (From Protonix) AdvReac Severe Anaphylaxis Verified 12/25/24 02:19 Xnpxvyz-HTX-WlU Reductase AdvReac Intermediate myalgias, Verified 12/25/24 02:19 Inhibitor joint and hip pain pravastatin AdvReac Mild body aches Verified 12/25/24 02:19 protonix Allergy Severe Angioedema Uncoded 12/25/24 02:19 Review of Systems Review of Systems: Constitutional : No Weight loss, No Fever, No Chills, No Night Sweats, No Fatigue, No Malaise ENT/Mouth : No Hearing loss, No Ear Pain, No Nasal Congestion, No Sinus Pain, No Hoarseness, No sore throat, No Rhinorrhea, No Swallowing Difficulty Eyes: No Eye Pain, No Swelling, No Redness, No Foreign Body, No Discharge, No Vision Changes Cardiovascular : No Chest Pain, No SOB, No Dyspnea on Exertion, No Orthopnea, No Edema, No Palpitations Respiratory : No Cough, No Sputum, No Wheezing, No Smoke Exposure, No Dyspnea Gastrointestinal : No Nausea, No Vomiting, complaining of abdominal distention and lots of burping, No Diarrhea, No Constipation, No abdominal Pain, No Hematochezia, No Melena Genitourinary : no irregular bleeding, No Dysuria, No Urinary Frequency, No Hematuria, No Urinary Incontinence, No Urgency, No Flank Pain, No Urinary Flow Changes, No Hesitancy Musculoskeletal : No joint pain, No Myalgias, No Joint Swelling Skin : No Skin Lesions, No rash Neuro : No Weakness, No Numbness, No Paresthesias, No Loss of Consciousness, No Dizziness, No Headache Psych : No Anxiety/Panic, No Depression, No SI/HI/AH/VH, No Social Issues, Heme/Lymph: No Bruising, No Bleeding,No Lymphadenopathy Endocrine : No Polyuria, No Polydipsia, No Temperature Intolerance [facility] Past Medical History Medical History Hypertensive retinopathy Pulmonary nodule Cough Ground glass opacity present on imaging of lung Restrictive lung disease Obesity (BMI 30-39.9) Arthralgia Tinea cruris RBBB RAD (reactive airway disease) LVH (left ventricular hypertrophy) Sacroiliitis Diverticulitis Cervical spondylosis JOHANNY (obstructive sleep apnea) Anemia Carpal tunnel syndrome of left wrist Insomnia GERD (gastroesophageal reflux disease) Hypertension Neuropathy Surgical History S/P CABG x 4 History of cardiac cath History of carpal tunnel surgery History of tonsillectomy Family History Family History Father Myocardial infarction Diabetes mellitus CVD (cardiovascular disease) Mother No problems noted. Brother Diabetes mellitus Sister Diabetes mellitus Cancer Social History Social History Housing: House Alcohol intake: former Patient Tobacco Use Status: Never used Tobacco Smoked in Last 30 Days: No e-Cigarette/Vaping Use: Never Used Use of substances other than those prescribed or required for medical reasons: No Advance Directives: No Advance Directives Information Provided: Yes service: No Current occupational status: disabled Cognitive needs: No Hearing needs: No Vision needs: Yes Physical Exam Exam: Exam: Appearance: Alert. Oriented X3. No acute distress. Eyes: Pupils equal, round and reactive to light. ENT: Pharynx normal. Neck: Normal inspection. Neck supple. No lymph nodes noted. No crepitus CVS: Normal heart rate and rhythm. Pulses normal. Normal S1 and S2 Respiratory: No respiratory distress. Breath sounds normal. No Wheezing. No rales Abdomen: Soft and nontender. No rigidity. No distention. Skin: Skin warm and dry. Normal skin color. Normal skin turgor. Extremities: No lower extremity edema. No Lacerations. No Rash Neuro: Oriented X 3. No motor deficit. No sensory deficit. Moving all extremities. No slurred speech. CN 2 through 12 grossly intact Psych: calm, cooperative, normal affect Vital Signs: Vital Signs: Last Vital Signs Temp 97.8 F 12/25/24 06:30 Pulse 78 12/25/24 06:30 Resp 20 12/25/24 06:30 BP 122/81 12/25/24 06:30 Pulse Ox 96 12/25/24 06:30 O2 Del Method Room Air 12/25/24 06:30 BMI result Body Mass Index 33.3 Course Course Course Narrative: Patient reports abdominal distention and burping after eating steak and drinking seltzer water. Patient denies any significant chest pain. At this time, patient's symptoms resolved. Patient was giving times in the emergency room Medications Administered Discontinued Medications Generic Name Dose Route Start Last Admin Trade Name Timoteo PRN Reason Stop Dose Admin Calcium Carbonate 1,500 mg 12/25/24 06:47 12/25/24 06:53 Calcium Carbonate 750 Mg Tab.Chew PO 12/25/24 06:48 1,500 mg ONCE ONE Administration Medical Decision Making Medical Decision Making [facility] Narrative: My interpretation of EKG: Sinus rhythm, heart rate 79, chemistry PVCs, right bundle branch block, QTC 431, no acute changes from previous EKGs, last 1 from 2022. My interpretation of labs: No significant abnormality in patient's hematology and chemistry. Troponin x2 negative. Given patient's physical exam, symptoms and history, it is likely that patient had dyspepsia rather than a coronary/cardiac event. Differential Diagnosis Differential Diagnoses: The differential diagnosis associated with the presentation includes (Coronary artery disease, ACS, dyspepsia, gastritis) Admission/Observation Consideration of admission/observation: Escalation of care including admission/observation considered (Given patient's past medical history and symptoms, observation/admission was considered) Lab Data [facility] Lab Attestation statement: I reviewed the patient's lab results. 12/25/24 02:05 12/25/24 02:05 Labs: Lab Results 12/25/24 12/25/24 Range/Units 02:05 04:30 WBC 11.9 H (4.8-10.8) X10*3/uL RBC 5.10 (4.60-5.80) X10*6/uL Hgb 15.5 (14.0-18.0) g/dl Hct 44.5 (42.0-52.0) % MCV 87.3 (80.0-98.0) fL MCH 30.4 (27.0-33.0) pg MCHC 34.8 (31.0-36.0) g/dl RDW 13.4 (11.0-16.0) % Plt Count 239 (160-400) X10*3/uL MPV 10.0 (9.4-12.4) fL Immature Gran % (Auto) 0.5 H (0.0-0.4) % Neut % (Auto) 73.5 H (45-73) % Lymph % (Auto) 16.7 L (20-40) % Harney % (Auto) 8.5 (2-11) % Eos % (Auto) 0.5 (0-4) % Baso % (Auto) 0.3 (0-2) % Lymph # (Auto) 2.0 (1.2-4.9) X10*3/uL Harney # (Auto) 1.0 (0.1-1.2) X10*3/uL Eos # (Auto) 0.1 (0.0-0.4) X10*3/uL Baso # (Auto) 0.0 (0.0-0.2) X10*3/uL Abs Immat Gran (auto) 0.06 H (0.00-0.03) X10*3/uL Absolute Neuts (auto) 8.8 H (2.0-8.3) x10*3/uL Absolute Nucleated RBC 0.000 (0.0-0.012) X10*3/uL Nucleated RBC % (auto) 0.0 (0.0-0.2) /100WBC Sodium 143 (135-145) mmol/L Potassium 4.0 (3.3-5.1) mmol/L Chloride 105 (96-108) mmol/L Carbon Dioxide 27 (22-29) mmol/L Anion Gap 15 (12-20) BUN 20 H (9-16) mg/dL Creatinine 0.88 (0.5-1.4) mg/dL Estim Creat Clear Calc 93.8 Estimated GFR > 60 Random Glucose 126 H (60-115) mg/dL Calcium 9.3 D (8.4-10.2) mg/dL Magnesium 2.2 (1.6-2.6) mg/dL Total Bilirubin 0.7 (0.0-1.0) mg/dL AST 323 H (5-37) U/L ALT 260 H (0-40) U/L Alkaline Phosphatase 71 (39-117) U/L Troponin I High Sens 5.0 4.4 (<3.5-35.0) ng/L Total Protein 7.0 (6.5-8.0) g/dL Albumin 4.8 (3.5-5.0) g/dL Independent Interpretation I performed an independent interpretation of an: EKG and Plain X-Ray Radiology Impression Discussion of test interpretation with radiology: I have reviewed the radiologist's reading. Radiologist Impression: The lungs are clear. Mild enlargement of the cardiac silhouette. No acute fracture. Post sternotomy changes. IMPRESSION: 1. No acute findings. Critical Care Time Critical Care Time Critical Care Time: Yes Total Critical Care Time: 45 Attestation: I have personally provided critical care time. Time includes review of lab data, radiology results, discussion with consultants, and monitoring for potential decompensation. Intervention performed as documented. Discharge Plan Discharge Clinical Impression: Atypical chest pain, Dyspepsia Patient Disposition: Home, Self-Care Instructions: Chest Pain (ED) Additional Instructions: Please follow-up with your primary care physician tomorrow. If you have any worsening or new symptoms, please return to the emergency room or call 911 Prescriptions: No Action fluvastatin 80 mg tablet extended release 24 hr 80 mg PO QPM 90 Days Qty: 90 3RF clopidogrel 75 mg tablet 75 mg PO DAILY 90 Days Qty: 90 5RF ezetimibe 10 mg tablet 10 mg PO DAILY Qty: 90 0RF metoprolol tartrate 25 mg tablet 37.5 mg PO BID 90 Days Qty: 270 0RF amlodipine 2.5 mg tablet 2.5 mg PO DAILY Qty: 90 3RF omeprazole 40 mg capsule,delayed release(DR/EC) 1 cap PO QAM zinc acetate 50 mg (zinc) capsule 50 mg PO DAILY cholecalciferol (vitamin D3) 125 mcg (5,000 unit) capsule 125 mcg PO DAILY magnesium 200 mg tablet 400 mg PO DAILY mecobalamin (vitamin B12) 1,000 mcg tablet,chewable 1,000 mcg PO DAILY Print Language: Prydeinig
[2024-12-25 06:57] VITALS: BP 122/81; PULSE 78; RESP 20; TEMP 36.6; O2SAT 96
== END 2024-12-25 06:59 | disposition home or self-care (01) ==
PROVIDERS: Emergency Provider Emergency Medicine; PCP Nurse Practitioner Family
DX: R07.89 Other chest pain (principal); R10.13 Epigastric pain; I45.10 Unspecified right bundle-branch block; I10 Essential (primary) hypertension; E78.5 Hyperlipidemia, unspecified; Z79.02 Long term (current) use of antithrombotics/antiplatelets; Z79.899 Other long term (current) drug therapy
CPT/HCPCS: 36415; 71046; 80053; 83735; 84484; 85025; 93005; 99283; 99284

== ENCOUNTER → 2024-12-25 01:55 | Outpatient (BNV) | payer MEDICARE, MEDICAID, SELFPAY | PROVIDERS: Emergency Provider Emergency Medicine; PCP Nurse Practitioner Family; Visit Provider Internal Medicine | DX: I45.10 Unspecified right bundle-branch block (principal); I44.0 Atrioventricular block, first degree | CPT/HCPCS: 93010 ==

== ENCOUNTER 2025-01-04 09:21 | Outpatient (AMB) | payer MEDICARE, MEDICAID, SELFPAY ==
--- NOTE | 2025-01-04 09:22 | A.OFFVIS_ITS ---
Intake Visit Reasons: 3m/US Intake Note: Patient presents today via telehealth for 3m follow up/US * Imaging 12/17 Urology Med:Vitamin B12 Antibiotic Allergy: Amoxicillin Blood Thinner: Clopidogrel Life Skills Coach Required: No Accompanied by: Self / Same As Patient Allergies orphenadrine (From Norflex) Allergy (Mild, Verified 01/04/25 09:32) UNKNOWN piroxicam (From Feldene) Allergy (Mild, Verified 01/04/25 09:32) UNKNOWN amoxicillin Allergy (Unknown, Verified 01/04/25 09:32) unknown lisinopril Allergy (Unknown, Verified 01/04/25 09:32) cough pantoprazole (From Protonix) Adverse Reaction (Severe, Verified 01/04/25 09:32) Anaphylaxis Fjvwgne-VJN-SgA Reductase Inhibitor Adverse Reaction (Intermediate, Verified 01/04/25 09:32) myalgias, joint and hip pain pravastatin Adverse Reaction (Mild, Verified 01/04/25 09:32) body aches protonix Allergy (Severe, Uncoded 01/04/25 09:32) Angioedema Medication List - Last Reconciled 01/04/25 by TABITHA Beth- amlodipine 2.5 mg PO DAILY cholecalciferol (vitamin D3) 125 mcg PO DAILY clopidogrel 75 mg PO DAILY 90 days ezetimibe 10 mg PO DAILY fluvastatin ER 80 mg PO QPM 90 days magnesium 400 mg PO DAILY mecobalamin (vitamin B12) 1,000 mcg PO DAILY metoprolol tartrate 37.5 mg (1.5 x 25 mg) PO BID omeprazole 1 cap PO QAM zinc acetate 50 mg PO DAILY HPI Comments Details: Jonnie is a very pleasant 64-year-old male patient of Dr. Neal. He has a past medical history of hypertensive retinopathy, pulmonary nodule, restrictive lung disease, obesity, arthralgia, reactive airway disease, left ventricular hypertrophy, diverticulitis, cervical spondylosis, obstructive sleep apnea, anemia, carpal tunnel, insomnia, GERD, hypertension, and neuropathy. He is being followed up on today via telehealth for his lower urinary tract symptoms. In discussion with the patient today reports to be doing and feeling well. Recent renal imaging results were reviewed with the patient today. 01/10 bilateral kidneys are normal in size and echotexture. No hydronephrosis noted bilaterally. Bilateral renal cortical cysts. The left upper pole renal cysts has multiple thin internal septations. Correlation with dictated MRI is recommended per radiology report. He discusses his anxiety regarding potential renal cancer. He reports previously having had quadruple bypass and being told he was given a medication that could potentially cause kidney cancer. He denies urinary urgency, urinary frequency, incontinence, hematuria, dysuria, foul smelling urine, changes to urinary stream, fever, and or chills. He does report episodes of nocturia up to 2-3 times per night however does not find this to be an issue and feels he is self managing. He is happy with his current voiding parameters. Recent PSA results reviewed with the patient today as noted and trended below: PSA: 09/10 1.0 PREVIOUS OFFICE NOTE: Elevated PSA/Abnormal ANETTE: He presents for further evaluation of prostate nodule. Current management is observation. Laboratory investigations include a total PSA evaluation 10/02 0.8 10/05 0.9, 04/07 1.1 04/04 - bladder US 20gm. Individualized Prostate Cancer Risk Calculator < 5% high risk, Would like to continue with observation and understands and accepts the risks of a possible delay in diagnosis. Overall symptoms are mild - minimal response to Flomax. Associated conditions hypertension Yes Therapeutic plan will be continued surveillance. [facility] Medical History Hypertensive retinopathy Pulmonary nodule Cough Ground glass opacity present on imaging of lung Restrictive lung disease Obesity (BMI 30-39.9) Arthralgia Tinea cruris RBBB RAD (reactive airway disease) LVH (left ventricular hypertrophy) Sacroiliitis Diverticulitis Cervical spondylosis JOHANNY (obstructive sleep apnea) Anemia Carpal tunnel syndrome of left wrist Insomnia GERD (gastroesophageal reflux disease) Hypertension Neuropathy Surgical History S/P CABG x 4 History of cardiac cath History of carpal tunnel surgery History of tonsillectomy Family History Father Myocardial infarction Diabetes mellitus CVD (cardiovascular disease) Mother No problems noted. Brother Diabetes mellitus Sister Diabetes mellitus Cancer Social History Housing: House Alcohol intake: former Patient Tobacco Use Status: Never used Tobacco e-Cigarette/Vaping Use: Never Used service: No Current occupational status: disabled Cognitive needs: No Hearing needs: No Vision needs: Yes Review of Systems Eyes Reports no additional complaints ENT Reports no additional complaints Card Reports as per HPI Resp Reports as per HPI GI Reports as per HPI Reports as per HPI Musc Reports as per HPI Neuro Reports no additional complaints Psych Reports no additional complaints Endo Reports no additional complaints Nehemiah/Lymph Reports no additional complaints Aller/Immun Reports no additional complaints Physical Exam Const General: cooperative Orientation/consciousness: patient oriented x3 Resp Effort & Inspection: able to speak in complete sentences Neuro General: patient oriented x3 Psych Attitude: cooperative Insight: Fair insight present (Psych) Judgement: Fair judgement present (Psych) Telehealth Telehealth Telehealth Platform: Telephone Location of provider rendering services: practice address Location of patient: address on file Patient Identification confirmed using: Name, : Yes Telehealth method: voice only Patient verbally consented to treatment: Yes Patient verbally consented to billing insurance company: Yes Patient informed of any privacy concerns related to visit: Yes Minutes spent on Phone/Video with Pt.: 15 Results Reviewed Results Reviewed: Date of Service: 12/17/24 Procedure(s): US renal BI Findings: Right kidney normal size and echotexture, 12.5 cm length. No hydronephrosis. No nephrolithiasis. Normal color flow. Renal cortical cysts upper pole measuring 9 x 7 x 12 mm and lower pole measuring 1.6 x 1.2 x 1.2 cm previously measuring 1.5 cm. Left kidney normal size and echotexture, 10.7 cm length. No hydronephrosis. No nephrolithiasis. Normal color flow. Cyst with thin internal septa upper pole measuring 1.5 x 1.6 x 1.5 cm. Impression: 1. Kidneys normal size and position with no evidence of nephrolithiasis or hydronephrosis. 2. Bilateral renal cortical cysts. The left upper pole renal cyst has multiple thin internal septi. Correlation with a dedicated MRI of the abdomen with and without contrast renal protocol study is recommended. This is preferred to a CT Assessment & Plan Assessment & Plan (1) Renal cyst: Code(s): N28.1 - Cyst of kidney, acquired Category: Medical (2) Flank pain: Code(s): R10.9 - Unspecified abdominal pain Category: Medical (3) Nocturia associated with benign prostatic hyperplasia: Code(s): N40.1 - Benign prostatic hyperplasia with lower urinary tract symptoms; R35.1 - Nocturia Category: Medical (4) Prostate nodule: Code(s): N40.2 - Nodular prostate without lower urinary tract symptoms Category: Medical (5) Nocturia more than twice per night: Code(s): R35.1 - Nocturia Category: Medical Plan Recent renal imaging results reviewed with the patient today; as noted above. Patient currently denies any bothersome urinary issues or concerns. He reports be happy with current voiding parameters. We discussed lifestyle modifications to assist with nocturia such as limiting fluids 2-3 hours prior to bed to decrease episodes of nocturia. We discussed classifications of renal cysts. Will continue with surveillance monitoring. Will obtain MRI renal mass protocol Follow-up in 3 months with imaging to be completed prior; or sooner with any issues, concerns, and or questions. Orders: Orders MR abdomen wo/w con 3 Months N28.1 - Cyst of kidney, acquired Patient Instructions: The patient had an opportunity to ask questions regarding the treatment plan. All questions were answered. Physical exam, labs, and imaging were discussed and reviewed in detail. As well as risks, benefits, and discussion of treatment choices. No major barriers to understanding were identified. The patient expressed understanding and agreement with the above treatment plan. The patient was made aware they should contact our office by phone for worsening of their current condition, the appearance of new symptoms, or with any questions or concerns. Compliance is encouraged with any medications and follow up testing that is ordered. It is a privilege to be allowed the opportunity to participate in? your urological care.? Again, if you have any questions or concerns If you have any questions or concerns please do not hesitate to contact me. The office is [phone]. This note is constructed using voice recognition software. While every effort has been made to ensure accuracy product development ecologist errors may have been included. Yours sincerely, DONY Beth Coding Level of Care Code Tele Est Pt Level 3 (45357) Complex EM visit Add On G2211 Diagnoses Renal cyst N28.1 Flank pain R10.9 Nocturia associated with benign prostatic hyperplasia N40.1; R35.1 Prostate nodule N40.2 Nocturia more than twice per night R35.1
== END 2025-01-04 09:51 | disposition home or self-care (01) ==
LOC: HO.HUSH 09:21
PROVIDERS: PCP Nurse Practitioner Family; Visit Provider Nurse Practitioner Family
DX: N28.1 Cyst of kidney, acquired (principal); R10.9 Unspecified abdominal pain; N40.1 Benign prostatic hyperplasia with lower urinary tract symptoms; R35.1 Nocturia; N40.2 Nodular prostate without lower urinary tract symptoms
CPT/HCPCS: 99213; G2211

== ENCOUNTER → 2025-01-19 08:16 | Outpatient (BNV) | payer MEDICARE, MEDICAID, SELFPAY | PROVIDERS: PCP Nurse Practitioner Family; Visit Provider Radiology Body Imaging | DX: N28.1 Cyst of kidney, acquired (principal) | CPT/HCPCS: 74183 ==

== ENCOUNTER 2025-01-19 08:28 | Outpatient (REF) | payer MEDICARE, MEDICAID, SELFPAY ==
--- NOTE | ~2025-01-19 | MR_ITS ---
EXAMINATION: MR ABDOMEN WITHOUT AND WITH INTRAVENOUS CONTRAST CLINICAL INFORMATION: N28.1 - Cyst of kidney, acquired COMPARISON: Renal ultrasound on December 17, 2024 describes left upper pole renal cyst has multiple thin internal septi TECHNIQUE: MR abdomen was performed without and with use of 10 cc intravenous Gadavist gadolinium contrast. Postcontrast images are performed in multiphase dynamic sequences. Imaging was performed in 3 planes. FINDINGS: Motion degrades some of the sequences. LOWER CHEST: Lung bases are clear. No pleural effusion. LIVER: Multiple subcentimeter T2 hyperintense nonenhancing lesions represent cysts. No arterially enhancing hepatic lesions. GALLBLADDER AND BILIARY TREE: Nondistended gallbladder containing multiple small dependent gallstones. No biliary ductal dilatation. PANCREAS: No ductal dilatation or focal lesion. SPLEEN: No focal lesions. ADRENAL GLANDS: No nodules. KIDNEYS AND URETERS: Multiple bilateral T2 hyperintense renal lesions, the largest on the right located in the lower pole measuring 1.4 cm (5:37) and the largest on the left located in the upper pole and measuring 1.7 cm (5:29). The larger renal cysts show suggestion of very thin internal septations, but no definite solid enhancing components. No hydronephrosis on either side. GASTROINTESTINAL TRACT: No bowel distention. PERITONEUM/RETROPERITONEUM: No free fluid. LYMPH NODES: No lymphadenopathy. VASCULAR: No abdominal aortic aneurysm. OSSEOUS STRUCTURES: Unremarkable MR/MR abdomen wo/w con IMPRESSION: Bilateral renal cysts, the largest measuring 1.7 cm in the upper pole of the left kidney. The larger cysts have thin septation, but no definite solid components. Electronically signed by: Darshan Barrientos MD 01/19/2025 10:38 AM EDT
== END 2025-01-19 08:29 | disposition home or self-care (01) ==
LOC: HO.MRI 08:28
PROVIDERS: PCP Nurse Practitioner Family; Visit Provider Nurse Practitioner Family
DX: N28.1 Cyst of kidney, acquired (principal)
CPT/HCPCS: 74183; A9585

== ENCOUNTER 2025-01-26 10:26 | Outpatient (AMB) | payer MEDICARE, MEDICAID, SELFPAY ==
[2025-01-26 10:34] VITALS: BP 122/86; PULSE 80; RESP 20; TEMP 37.2; O2SAT 99; BMI 32.7
--- NOTE | 2025-01-26 10:34 | A.OFFPC_ITS ---
Vital Signs 01/26/25 10:34 Height 5 ft 7 in Weight 209 lb BMI 32.7 BP 122/86 Blood Pressure Location Lt brachial Position Sitting Respiration 20 Pulse 80 Pulse Source Pulse Oximeter Temp 99.0 F Temp Source Oral Pulse Oximetry (%) 99 Oxygen Delivery Method Room Air Intake Visit Reasons: 6 month follow up - see comments Intake Note: Pt is here today for 6 months follow up visit. Allergies orphenadrine (From Norflex) Allergy (Mild, Verified 01/26/25 10:36) UNKNOWN piroxicam (From Feldene) Allergy (Mild, Verified 01/26/25 10:36) UNKNOWN amoxicillin Allergy (Unknown, Verified 01/26/25 10:36) unknown lisinopril Allergy (Unknown, Verified 01/26/25 10:36) cough pantoprazole (From Protonix) Adverse Reaction (Severe, Verified 01/26/25 10:36) Anaphylaxis Hjoqgiq-HDE-DkE Reductase Inhibitor Adverse Reaction (Intermediate, Verified 01/26/25 10:36) myalgias, joint and hip pain pravastatin Adverse Reaction (Mild, Verified 01/26/25 10:36) body aches protonix Allergy (Severe, Uncoded 01/26/25 10:36) Angioedema Tobacco use date assessed: 01/26/25 Fall risk assessment: No Falls in past year Last assessed Fall Risk: 01/26/25 Dental Screening Dental Screen Date: 01/26/25 Did you have a dental visit in the last 12 months?: Yes Did you have a dental problem in the last 6 months where you did not have access to dental care?: No Was dental information given to patient?: Patient has dentist HPI 6 month follow up - see comments HPI Details Chief Complaint The patient presents for follow-up management of hypertension and hyperlipidemia. History of Present Illness The patient is a 64-year-old male presenting with hypertension and hyperlipidemia. He is on a statin and ezetimibe, experiencing muscle aches as a side effect, and the importance of these medications in preventing cardiovascular events was emphasized. He denies headaches or blurred vision but reports slight dizziness upon standing, likely due to orthostatic changes Social History Health Maintenance Review of Systems - Neurological: Denies headaches, report s dizziness upon standing quickly - Visual: Denies blurred vision Physical Exam General: Cooperative, healthy appearing, comfortable, no acute distress and well developed, obese Orientation: Patient oriented x3 Limitations: No limitations Head: Normal to inspection Ears: Hearing grossly normal bilaterally Nose: Normal external nose present Face and sinus: Normal facial exam Eyes: Appearance normal, both eyes and all related structures Neck: Normal visual inspection and Yes full ROM Respiratory: Normal respiratory effort and able to speak in complete sentences. Clear to auscultation bilaterally Cardiovascular: Regular rate and rhythm. Normal S1 and S2 GI: Normal to inspection. Soft to palpation and nontender Skin: No rashes or lesions noted Neuro: Patient oriented x3 Extremities: Normal to inspection, pitting to BLE Results Plan 1. Essential Hypertension The patient is advised to continue monitoring blood pressure and report any significant changes. 2. Hyperlipidemia Continue statin and Azetia therapy, with emphasis on hydration to mitigate mus marysol aches. 3. Orthostatic Hypotension Advise the patient to rise slowly from sitting or lying positions to prevent dizziness. Discussion Notes I discussed with the patient the importance of continuing his current medication regimen to manage his hypertension and hyperlipidemia effectively. We also talked about the need for proper hydration to alleviate muscle aches associated with statin use. I advised him on the potential for orthostatic hypotension and recommended rising slowly to prevent dizziness. Patient Instructions - Continue taking your prescribed medica tions as directed. - Stay hydrated to help reduce muscle ac hes. - Stand up slowly to avoid dizziness. [facility] Medical History Hypertensive retinopathy Pulmonary nodule Cough Ground glass opacity present on imaging of lung Restrictive lung disease Obesity (BMI 30-39.9) Arthralgia Tinea cruris RBBB RAD (reactive airway disease) LVH (left ventricular hypertrophy) Sacroiliitis Diverticulitis Cervical spondylosis JOHANNY (obstructive sleep apnea) Anemia Carpal tunnel syndrome of left wrist Insomnia GERD (gastroesophageal reflux disease) Hypertension Neuropathy Surgical History S/P CABG x 4 History of cardiac cath History of carpal tunnel surgery History of tonsillectomy Family History Father Myocardial infarction Diabetes mellitus CVD (cardiovascular disease) Mother No problems noted. Brother Diabetes mellitus Sister Diabetes mellitus Cancer Social History Housing: House Alcohol intake: former Patient Tobacco Use Status: Never used Tobacco e-Cigarette/Vaping Use: Never Used service: No Current occupational status: disabled Cognitive needs: No Hearing needs: No Vision needs: Yes Questionnaire PHQ-9 Over the last 2 weeks, how often have you been bothered by any of the following problems? 84253 - PHQ-9 Billing: Patient declined-do not bill Source: Developed by Drs. Sunil Mccloud, Martina Neal, Robert Dey and colleagues, with an educational guille from [employer]. Thrive Questionnaire Date Thrive assessed: 01/26/25 I am a: Patient What is your living situation today?: I choose not to answer this question Within the past 12 months, did the food you bought not last and you didn't have the money to get more?: I choose not to answer this question Within the past 12 months, did you worry whether your food would run out before you got money to buy more?: I choose not to answer this question Do you have trouble paying for medicines?: I choose not to answer this question Do you have trouble getting transportation to medical appointments?: I choose not to answer this question Do you have trouble paying your heating and electricity bill?: I choose not to answer this question Do you have trouble taking care of your child, family member or friend?: I choose not to answer this question Do you have trouble with day-to-day activities such as bathing, preparing meals, shopping, managing finances, etc.?: I choose not to answer this question Are you currently unemployed and looking for a job?: I choose not to answer this question Are you interested in more education?: I choose not to answer this question Please select the resources that you would like help with: None Currently or been in a relationship where the following occur: No concerns reported THRIVE Score: 0 JAYANT-7 AMB Questionnaire JAYANT-7 Date JAYANT - 7 assessed: 05/31/24 Feeling nervous, anxious, or on edge: 0 = Not at all Not being able to stop or control worryin = Not at all Worrying too much about different things: 0 = Not at all Trouble relaxin = Not at all Being so restless that it is hard to sit still: 0 = Not at all Becoming easily annoyed or irritable: 0 = Not at all Feeling afraid as if something awful might happen: 0 = Not at all Total JAYANT-7 score (0-4 normal; 5-9 mild; 10-14 moderate; 15-21 severe): 0 Source: Developed by Drs. Sunil Mccloud, Martina Neal, Robert Dey and colleagues, with an educational guille from [employer]. JAYANT-7 Assessment Billing JAYANT-7 Assessment Tool: JAYANT-7 Assessment 48476 Physical exam (Primary Care) Vital Signs: Last Vital Signs Temp 99.0 F 01/26/25 10:34 Pulse 80 01/26/25 10:34 Resp 20 01/26/25 10:34 BP 122/86 01/26/25 10:34 Pulse Ox 99 01/26/25 10:34 Oxygen Delivery Method Room Air 01/26/25 10:34 BMI result Body Mass Index 32.7 Tobacco/Smoking Status: Tobacco use Status Tobacco use date assessed 01/26/25 01/26/25 10:40 Patient Tobacco Use Status Never used Tobacco 01/26/25 10:40 e-Cigarette/Vaping Use Never Used 01/26/25 10:40 Thrive Assessment: Date of Thrive Assessment Date Thrive assessed 01/26/25 01/26/25 10:40 Currently or been in a relationship where the following occur: No concerns reported Coding Level of Care Code Est Pt Level 3 (96004) Diagnoses Primary hypertension I10 Hypertension type: primary hypertension Disorder of vitamin B12 E53.8 Additional Codes JAYANT-7 Assessment Billing - JAYANT-7 Assessment Tool: JAYANT-7 Assessment 35678 ([id number]) Assessment & Plan Assessment & Plan (1) Hypertension: Code(s): I10 - Essential (primary) hypertension Category: Medical Qualifiers: Hypertension type: primary hypertension Qualified Code(s): I10 - Essential (primary) hypertension (2) Disorder of vitamin B12: Code(s): E53.8 - Deficiency of other specified B group vitamins Category: Medical Plan . Orders: Orders UA CC w/rflx Micro + Cult Today I10 - Essential (primary) hypertension Lipid Panel Today I10 - Essential (primary) hypertension Vitamin B12 and Folate Today E53.8 - Deficiency of other specified B group vit amins Complete Blood Count Auto Diff Today I10 - Essential (primary) hypertension Comprehensive [place]. Panel Fast Today I10 - Essential (primary) hypertension TSH reflex Free T4 Today I10 - Essential (primary) hypertension
== END 2025-01-26 11:19 | disposition home or self-care (01) ==
LOC: HO.HMCC 10:27
PROVIDERS: PCP Nurse Practitioner Family; Visit Provider Nurse Practitioner Family
DX: I10 Essential (primary) hypertension (principal); E53.8 Deficiency of other specified B group vitamins

== ENCOUNTER → 2025-01-26 10:26 | Outpatient (BNVA) | payer MEDICARE, MEDICAID, SELFPAY | PROVIDERS: PCP Nurse Practitioner Family; Visit Provider Nurse Practitioner Family | DX: I10 Essential (primary) hypertension (principal); E78.5 Hyperlipidemia, unspecified; I95.1 Orthostatic hypotension; E53.8 Deficiency of other specified B group vitamins; Z79.899 Other long term (current) drug therapy | CPT/HCPCS: 96127; 99212 ==

== ENCOUNTER 2025-01-27 06:07 | Outpatient (REF) | payer MEDICARE, MEDICAID, SELFPAY ==
--- OUTSIDE RECORDS SUMMARY | 2025-01-27 06:09 | XMS_ITS | Patient Health Record ---
Author Organization [facility] Address [address] [place] [address] Care Team Providers Care Administrative Program Specialist Name Role Phone CYNDI JUINOR Primary Care Provider Basilio Lindsey Jr Unavailable [phone] Allergies Allergen (clinical drug ingredient) Drug/Non Drug [...] Problem Status W/U Status Risk Notes Problem 329717591 Colon cancer screening (Z12.11) Active confirmed Problem Hemorrhoids (86572045) Hemorrhoids (K64.9) Active confirmed Problem 0329307 Diverticulitis o f large intestine without perforation or abscess without bleeding (K57.32) Active confirmed Problem Gastroesophageal reflux disease (493287602) Gastroesophageal reflux disease (K21.9) Active confirmed Problem 094103082 Gastroesophageal reflux disease without esophagitis (K21.9) Active confirmed Vital Signs Temperature 97.5 degrees Fahrenheit 09/20/2024 Blood pressure diastolic 01 mm Hg 09/20/2024 Height 65 in 09/20/2024 Blood pressure systolic 001 mm Hg 09/20/2024 Weight 215 lbs 09/20/2024 BMI 35.77 kg/m2 09/20/2024 Encounters Encounter Location Date Provider Diagnosis [facility] [address] [place] [address] 09/20/2024 Basilio Naylor Jr Gastroesophageal reflux disease [...] Provider Name:Basilio vang , 09/21/2025 09:00:00 AM, [address] [place] [address], [address], [place], [address], Insurance Providers Payer Name Payer Address Payer Phone Subscriber Number Group Number Insured Name Patient Relationship to Insured Coverage Start Date Coverage End Date MEDICARE OF [place] [address] [place] [id number] AYANA STOUT Self - patient is the insured MEDICAID OF [facility] [address] [place] [address] [id number] AYANA STOUT Self - patient is the [...]
[2025-01-27 10:16] LABS: MANUAL DIFF FLAG NO
[2025-01-27 10:20] LABS: Hematocrit 45.1 % (42.0-52.0); Hemoglobin 15.4 g/dl (14.0-18.0); Imm Gran Abs Auto 0.03 X10*3/uL (0.00-0.03); Imm Gran Pct Auto 0.3 % (0.0-0.4); Lymphocytes Absolute Auto 1.9 X10*3/uL (1.2-4.9); Mean Corpuscular HGB Conc 34.1 g/dl (31.0-36.0); Mean Corpuscular Hemoglobin 29.8 pg (27.0-33.0); Mean Corpuscular Volume 87.4 fL (80.0-98.0); NRBC Abs Auto 0.000 X10*3/uL (0.0-0.012); NRBC Pct Auto 0.0 /100WBC (0.0-0.2); Platelet Count 246 X10*3/uL (160-400); Red Blood Count 5.16 X10*6/uL (4.60-5.80); White Blood Count 10.0 X10*3/uL (4.8-10.8)
[2025-01-27 11:36] LABS: Alanine Aminotransferase 31 U/L (0-40); Albumin Level 4.7 g/dL (3.5-5.0); Alkaline Phosphatase 57 U/L (39-117); Anion Gap 13 (12-20); Aspartate Amino Transferase 31 U/L (5-37); Blood Urea Nitrogen 19 mg/dL (9-16); Calcium 9.1 mg/dL (8.4-10.2); Carbon Dioxide 25 mmol/L (22-29); Chloride 107 mmol/L (96-108); Cholesterol 152 mg/dL (<200); Estimated Glomerular Filt Rate > 60; HDL Cholesterol 34 mg/dL (>40); Potassium 4.1 mmol/L (3.3-5.1); Sodium 141 mmol/L (135-145); Total Protein 6.9 g/dL (6.5-8.0); Triglycerides 144 mg/dL (<150)
[2025-01-27 11:55] LABS: Folate 11.4 ng/mL (> or = 4.0); Vitamin B12 429 pg/mL (200-900)
== END 2025-01-27 06:08 | disposition home or self-care (01) ==
LOC: HO.HMGCLDS 06:07
PROVIDERS: PCP Nurse Practitioner Family; Visit Provider Nurse Practitioner Family
DX: I10 Essential (primary) hypertension (principal); E53.8 Deficiency of other specified B group vitamins
CPT/HCPCS: 36415; 80053; 80061; 82607; 82746; 84443; 85025

== ENCOUNTER 2025-03-03 08:59 | Outpatient (AMB) | payer MEDICARE, MEDICAID, SELFPAY ==
--- NOTE | 2025-03-03 09:04 | A.OFFVIS_ITS ---
Intake Visit Reasons: 3m/MRI Intake Note: Patient is present for 3M/MRI Urology Medication:NONE Antibiotic Allergy:AMOXICILLIN Blood Thinner:NONE French Binding Folder Required: No Allergies orphenadrine (From Norflex) Allergy (Mild, Verified 03/03/25 09:31) UNKNOWN piroxicam (From Feldene) Allergy (Mild, Verified 03/03/25 09:31) UNKNOWN amoxicillin Allergy (Unknown, Verified 03/03/25 09:31) unknown lisinopril Allergy (Unknown, Verified 03/03/25 09:31) cough pantoprazole (From Protonix) Adverse Reaction (Severe, Verified 03/03/25 09:31) Anaphylaxis [id number] Reductase Inhibitor Adverse Reaction (Intermediate, Verified 03/03/25 09:31) myalgias, joint and hip pain pravastatin Adverse Reaction (Mild, Verified 03/03/25 09:31) body aches protonix Allergy (Severe, Uncoded 03/03/25 09:31) Angioedema Medication List - Last Reconciled 03/03/25 by TABITHA Beth- amlodipine 2.5 mg PO DAILY cholecalciferol (vitamin D3) 125 mcg PO DAILY clopidogrel 75 mg PO DAILY 90 days coenzyme Q10 (Ultra CoQ10) 75 mg PO DAILY ezetimibe 10 mg PO DAILY fluvastatin ER 80 mg PO QPM 90 days magnesium oxide 400 mg PO DAILY mecobalamin (vitamin B12) 1,000 mcg PO DAILY metoprolol tartrate 37.5 mg (1.5 x 25 mg) PO BID omeprazole 1 cap PO QAM zinc acetate 50 mg PO DAILY HPI Comments Details: Jonnie is a very pleasant 64-year-old male patient of Dr. Neal who was accompanied by his significant other at today's office visit. He has a past medical history of hypertensive retinopathy, pulmonary nodule, restrictive lung disease, obesity, arthralgia, reactive airway disease, left ventricular hypertrophy, diverticulitis, cervical spondylosis, obstructive sleep apnea, anemia, carpal tunnel, insomnia, GERD, hypertension, and neuropathy. He presents to the office today for follow-up of his renal cyst. Recent MRI imaging results reviewed with the patient today 02/10 bilateral renal cysts, the largest measuring 1.7 cm in the upper pole of the left kidney. The larger cysts have thin septations, but no definitive solid components per radiology report. He denies any bothersome urinary issues or concerns however he does discusses ongoing issues with low-back pain and left hip pain. He reports having followed up with a provider who recommended stimulator however he does not wish to proceed. He does report a follow-up with [facility] for further assessment evaluation. In office urinalysis results reviewed with the patient today. He denies urinary urgency, urinary frequency, incontinence, hematuria, dysuria, foul smelling urine, changes to urinary stream, fever, and or chills. He does report episodes of nocturia up to 2-3 times per night however does not find this to be an issue and feels he is self managing. He is happy with his current voiding parameters. PSAs are as follows: PSA: 10/04 0.9, 10/05 0.8, 04/07 1.1, 05/08 1.2, 04/09 0.9, 09/10 1.0 PREVIOUS OFFICE NOTE: Elevated PSA/Abnormal ANETTE: He presents for further evaluation of prostate nodule. Current management is observation. Laboratory investigations include a total PSA evaluation 10/02 0.8 10/05 0.9, 04/07 1.1 04/04 - bladder US 20gm. Individualized Prostate Cancer Risk Calculator < 5% high risk, Would like to continue with observation and understands and accepts the risks of a possible delay in diagnosis. Overall symptoms are mild - minimal response to Flomax. Associated conditions hypertension Yes Therapeutic plan will be continued surveillance. [facility] Medical History Lumbar radiculopathy Hypertensive retinopathy Pulmonary nodule Cough Ground glass opacity present on imaging of lung Restrictive lung disease Obesity (BMI 30-39.9) Arthralgia Tinea cruris RBBB RAD (reactive airway disease) LVH (left ventricular hypertrophy) Sacroiliitis Diverticulitis Cervical spondylosis JOHANNY (obstructive sleep apnea) Anemia Carpal tunnel syndrome of left wrist Insomnia GERD (gastroesophageal reflux disease) Hypertension Neuropathy Surgical History S/P CABG x 4 History of cardiac cath History of carpal tunnel surgery History of tonsillectomy Family History Father Myocardial infarction Diabetes mellitus CVD (cardiovascular disease) Mother No problems noted. Brother Diabetes mellitus Sister Diabetes mellitus Cancer Social History Housing: House Alcohol intake: former Patient Tobacco Use Status: Never used Tobacco e-Cigarette/Vaping Use: Never Used service: No Current occupational status: disabled Cognitive needs: No Hearing needs: No Vision needs: Yes Review of Systems Eyes Reports no additional complaints ENT Reports no additional complaints Card Reports as per HPI Resp Reports as per HPI GI Reports as per HPI Reports as per HPI Musc Reports as per HPI Neuro Reports no additional complaints Psych Reports no additional complaints Endo Reports no additional complaints Nehemiah/Lymph Reports no additional complaints Aller/Immun Reports no additional complaints Physical Exam Const General: cooperative, healthy appearing, comfortable, no acute distress, well developed, alert and awake Orientation/consciousness: patient oriented x3 Limitations: no limitations HEENT Head: Yes normal to inspection, Yes normocephalic and Yes atraumatic Ears: hearing grossly normal bilaterally Eyes General: appearance normal, both eyes and all related structures Neck Neck: Yes normal visual inspection and Yes trachea midline Chest Chest palpation & inspection: normal inspection of the chest Resp Effort & Inspection: normal respiratory effort and able to speak in complete sentences Cardio Rate: regular rate GI Inspection: Yes normal to inspection General: Yes no CVA tenderness Back/Spine/Pelvis Back: no CVA tenderness Skin General skin exam: no rashes or lesions noted Neuro General: patient oriented x3 Extrem General: Yes normal to inspection Psych Appearance: grossly normal and well kempt Mental Status: mental status grossly normal Speech and movement: Normal speech and movement present and Clear speech present Affect: normal affect Attitude: cooperative Thought process: Normal thought process present Thought content: Normal thought content present Insight: Fair insight present (Psych) Judgement: Fair judgement present (Psych) Results Reviewed Results Reviewed: Date of Service: 01/19/25 Procedure(s): MR abdomen wo/w con FINDINGS: Motion degrades some of the sequences. LOWER CHEST: Lung bases are clear. No pleural effusion. LIVER: Multiple subcentimeter T2 hyperintense nonenhancing lesions represent cysts. No arterially enhancing hepatic lesions. GALLBLADDER AND BILIARY TREE: Nondistended gallbladder containing multiple small dependent gallstones. No biliary ductal dilatation. PANCREAS: No ductal dilatation or focal lesion. SPLEEN: No focal lesions. ADRENAL GLANDS: No nodules. KIDNEYS AND URETERS: Multiple bilateral T2 hyperintense renal lesions, the largest on the right located in the lower pole measuring 1.4 cm (5:37) and the largest on the left located in the upper pole and measuring 1.7 cm (5:29). The larger renal cysts show suggestion of very thin internal septations, but no definite solid enhancing components. No hydronephrosis on either side. GASTROINTESTINAL TRACT: No bowel distention. PERITONEUM/RETROPERITONEUM: No free fluid. LYMPH NODES: No lymphadenopathy. VASCULAR: No abdominal aortic aneurysm. OSSEOUS STRUCTURES: Unremarkable IMPRESSION: Bilateral renal cysts, the largest measuring 1.7 cm in the upper pole of the left kidney. The larger cysts have thin septation, but no definite solid components. Assessment & Plan Assessment & Plan (1) Renal cyst: Code(s): N28.1 - Cyst of kidney, acquired Category: Medical (2) Nocturia more than twice per night: Code(s): R35.1 - Nocturia Category: Medical Plan In office urinalysis reviewed with the patient today; as noted above. Recent MRI renal mass protocol results reviewed with the patient today; as noted above. All questions were answered. Will continue with surveillance monitoring. He currently denies any bothersome urinary issues or concerns. He reports be happy with current voiding parameters. Will obtain renal ultrasound in 1 year. Follow-up in 1 year with imaging; or sooner with any issues, concerns, and or questions. Orders: Orders Urine Cytology Today R31.29 - Other microscopic hematuria US renal BI 1 Year N20.0 - Calculus of kidney Prostate Specific Antigen 1 Year N40.1 - Benign prostatic hyperplasia with lower urinary tract symptoms, R35.1 - Nocturia Patient Instructions: The patient had an opportunity to ask questions regarding the treatment plan. All questions were answered. Physical exam, labs, and imaging were discussed and reviewed in detail. As well as risks, benefits, and discussion of treatment choices. No major barriers to understanding were identified. The patient expressed understanding and agreement with the above treatment plan. The patient was made aware they should contact our office by phone for worsening of their current condition, the appearance of new symptoms, or with any questions or concerns. Compliance is encouraged with any medications and follow up testing that is ordered. It is a privilege to be allowed the opportunity to participate in? your urological care.? Again, if you have any questions or concerns If you have any questions or concerns please do not hesitate to contact me. The office is [phone]. This note is constructed using voice recognition software. While every effort has been made to ensure accuracy plaster patternmaker errors may have been included. Yours sincerely, DONY Beth Coding Level of Care Code Est Pt Level 3 (20912) Complex EM visit Add On G2211 Diagnoses Renal cyst N28.1 Nocturia more than twice per night R35.1
== END 2025-03-03 09:37 | disposition home or self-care (01) ==
LOC: HO.HUSH 09:00
PROVIDERS: PCP Nurse Practitioner Family; Visit Provider Nurse Practitioner Family
DX: N28.1 Cyst of kidney, acquired (principal); R35.1 Nocturia; Z13.9 Encounter for screening, unspecified
CPT/HCPCS: 99213; G2211

== ENCOUNTER 2025-03-03 08:59 | Outpatient (REF) | payer MEDICARE, MEDICAID, SELFPAY | END 2025-03-03 09:00 | disposition home or self-care (01) | LOC: HO.LAB 08:59 | PROVIDERS: PCP Nurse Practitioner Family; Visit Provider Nurse Practitioner Family | DX: N28.1 Cyst of kidney, acquired (principal); N40.1 Benign prostatic hyperplasia with lower urinary tract symptoms; N20.0 Calculus of kidney; R35.1 Nocturia; R31.29 Other microscopic hematuria; Z13.89 Encounter for screening for other disorder | CPT/HCPCS: 81003; 88112; 99212 ==

== ENCOUNTER 2025-03-14 09:10 | Outpatient (AMB) | payer MEDICARE, MEDICAID, SELFPAY ==
--- NOTE | 2025-03-14 09:15 | A.OFFVIS_ITS ---
Vital Signs 03/14/25 09:16 Height 5 ft 7 in Weight 212 lb 15.465 oz BMI 33.4 BP 130/80 Blood Pressure Location Lt brachial Position Sitting Pulse 67 Pulse Source Pulse Oximeter Intake Visit Reasons: 4 mth f/up Intake Note: 4mth f/up It Compliance Manager Required: No Accompanied by: Spouse Allergies orphenadrine (From Norflex) Allergy (Mild, Verified 03/03/25 09:31) UNKNOWN piroxicam (From Feldene) Allergy (Mild, Verified 03/03/25 09:31) UNKNOWN amoxicillin Allergy (Unknown, Verified 03/03/25 09:31) unknown lisinopril Allergy (Unknown, Verified 03/03/25 09:31) cough pantoprazole (From Protonix) Adverse Reaction (Severe, Verified 03/03/25 09:31) Anaphylaxis [id number] Reductase Inhibitor Adverse Reaction (Intermediate, Verified 03/03/25 09:31) myalgias, joint and hip pain pravastatin Adverse Reaction (Mild, Verified 03/03/25 09:31) body aches protonix Allergy (Severe, Uncoded 03/03/25 09:31) Angioedema Medication List - Last Reconciled 03/14/25 by Reji Mercedes MD amlodipine 2.5 mg PO DAILY cholecalciferol (vitamin D3) 125 mcg PO DAILY clopidogrel 75 mg PO DAILY 90 days ezetimibe 10 mg PO DAILY fluvastatin ER 80 mg PO QPM 90 days magnesium oxide 400 mg PO DAILY mecobalamin (vitamin B12) 1,000 mcg PO DAILY metoprolol tartrate 37.5 mg (1.5 x 25 mg) PO BID omeprazole 1 cap PO QAM zinc acetate 50 mg PO DAILY HPI Comments Details: 64-year-old gentleman with known history of coronary artery disease. He underwent stress testing which showed perfusion defects in apex and inferior wall. He was due to undergo angiography but developed COVID-19 infection. Subsequently he called us in the last 2 weeks with ongoing chest discomfort and was advised to go to [facility]. At [facility] he underwent diagnostic angiogram by Dr. Pearce which showed severe LAD stenosis and RCA disease. He underwent CABG x4 and has been doing well since then. 12/10/2023: He is here for follow-up. He is taking ezetimibe 10 mg and fluvastatin 40 mg. He was experiencing some joint pains while taking atorvastatin 80 mg and was changed to fluvastatin and ezetimibe. He continues to get joint pains and I have explained to him that there unlikely to be related to statins. He does have arthritis as well as back issues. Last LDL cholesterol was 94 in 07/08/2023. He is due to get repeat testing soon. 11/10/2024: He is here for follow-up. He has no chest pain or shortness of breath. He is doing his day-to-day activities without any significant issues. His LDL cholesterol is 115. His target is less than 55. He is currently taking fluvastatin which is a little weak statin due to previous intolerance of stronger statin medications. He is on ezetimibe 10 mg daily. 03/14/2025: He is here for follow-up. He is denying any chest discomfort shortness of breath. He has low back pain and underwent steroid injections. He has been told that he may need a nerve stimulator. His LDL cholesterol was 90 on repeat testing. He was advised to start PCSK9 inhibitors but he has decided not to use that. He has statin intolerance and is currently on a low intensity statin fluvastatin 80 mg daily. He is on ezetimibe 10 mg daily. [facility] Medical History Lumbar radiculopathy Hypertensive retinopathy Pulmonary nodule Cough Ground glass opacity present on imaging of lung Restrictive lung disease Obesity (BMI 30-39.9) Arthralgia Tinea cruris RBBB RAD (reactive airway disease) LVH (left ventricular hypertrophy) Sacroiliitis Diverticulitis Cervical spondylosis JOHANNY (obstructive sleep apnea) Anemia Carpal tunnel syndrome of left wrist Insomnia GERD (gastroesophageal reflux disease) Hypertension Neuropathy Surgical History S/P CABG x 4 History of cardiac cath History of carpal tunnel surgery History of tonsillectomy Family History Father Myocardial infarction Diabetes mellitus CVD (cardiovascular disease) Mother No problems noted. Brother Diabetes mellitus Sister Diabetes mellitus Cancer Social History Housing: House Alcohol intake: former Patient Tobacco Use Status: Never used Tobacco e-Cigarette/Vaping Use: Never Used service: No Current occupational status: disabled Cognitive needs: No Hearing needs: No Vision needs: Yes Review of Systems Const Denies chills, Denies fatigue, Denies fever(s), Denies frequent falls, Denies weakness, Denies weight gain and Denies weight loss ENT Denies dizziness Card Denies chest pain, Denies leg edema, Denies lightheadedness, Denies palpitati ons, Denies dyspnea and Denies dyspnea on exertion Resp Denies cough, Denies dyspnea and Denies dyspnea on exertion GI Denies hematochezia Musc Denies abnormal gait, Denies muscle weakness, Denies numbness, Denies radiating pain into limb and Denies tingling Neuro Denies abnormal gait, Denies dizziness, Denies frequent falls, Denies numbness, Denies tingling and Denies weakness Endo Denies fatigue and Denies palpitations Physical Exam Vital Signs: Last Vital Signs Pulse 67 03/14/25 09:16 BP 130/80 03/14/25 09:16 BMI result Body Mass Index 33.4 GENERAL APPEARANCE: in no acute distress, pleasant. NECK: no carotid bruit, no jugular venous distention. SKIN: no suspicious lesions, warm and dry. Healed sternotomy scar. HEART: no murmurs, regular rate and rhythm. LUNGS: clear to auscultation bilaterally. ABDOMEN: soft, nontender. EXTREMITIES: no edema. PERIPHERAL PULSES: equal. NEUROLOGIC: No gross deficits, AAO X 3 Assessment & Plan Assessment & Plan (1) Hypertension: Code(s): I10 - Essential (primary) hypertension Category: Medical Qualifiers: Hypertension type: primary hypertension Qualified Code(s): I10 - Essential (primary) hypertension (2) S/P CABG x 4: Comment: 11/22/2022, [place] to LAD, left radial graft to diagonal, SVG to PDA and OM Code(s): Z95.1 - Presence of aortocoronary bypass graft Category: Surgical (3) Dyslipidemia: Code(s): E78.5 - Hyperlipidemia, unspecified Category: Medical Plan 64-year-old gentleman who is here for follow-up. He is status post CABG at this stage. He is denying any anginal symptoms. Overall quite stable from coronary disease point of view. He is intolerant of high-intensity statins. He is on ezetimibe and fluvastatin. His LDL cholesterol is 90. We discussed and prescribe Praluent for him but he has decided not to use it. I will send bempedoic acid for him. He has statin intolerance and is currently on ezetimibe in addition of bempedoic acid will definitely bring his LDL below 70. His target is less than 55. He understands that his LDL is not at target currently. Exercise and weight loss. He has back pain and I have advised him to do swimming because that we will not have any detrimental effects on his back. Thank you for allowing me to participate in the care of your patient. Please feel free to contact me if you have any questions. Medications: New bempedoic acid 180 mg PO DAILY 30 tabs 0RF E78.5 - Hyperlipidemia, unspecified Coding Level of Care Code Est Pt Level 4 (84246) Diagnoses Primary hypertension I10 Hypertension type: primary hypertension S/P CABG x 4 Z95.1 Dyslipidemia E78.5
[2025-03-14 09:16] VITALS: BP 130/80; PULSE 67; BMI 33.4
== END 2025-03-14 09:37 | disposition home or self-care (01) ==
LOC: HO.HCS 09:11
PROVIDERS: PCP Nurse Practitioner Family; Visit Provider Internal Medicine Cardiovascular Disease
DX: I10 Essential (primary) hypertension (principal); Z95.1 Presence of aortocoronary bypass graft; E78.5 Hyperlipidemia, unspecified
CPT/HCPCS: 99214

== ENCOUNTER → 2025-03-14 09:10 | Outpatient (BNVA) | payer MEDICARE, MEDICAID, SELFPAY | PROVIDERS: PCP Nurse Practitioner Family; Visit Provider Internal Medicine Cardiovascular Disease | DX: I10 Essential (primary) hypertension (principal); Z95.1 Presence of aortocoronary bypass graft; E78.5 Hyperlipidemia, unspecified; M54.9 Dorsalgia, unspecified | CPT/HCPCS: 99212 ==